=== PATIENT | male | born 1955 | race Caucasian/White ===

== ENCOUNTER 2019-11-18 06:28 | Emergency (ER) | payer OTHER, SELFPAY ==
[2019-11-18 06:33] VITALS: BP 114/74; PULSE 100; RESP 18; TEMP 36; O2SAT 100
--- NOTE | 2019-11-18 07:30 | PC.NURSE ---
Per EDP via verbal order readback. Remove Pt. indwelling catheter and replace it with a new one due to a possible obstruction. Change catheter. No clots noted. Copious amounts of sediment noted around the catheter tip. New indwelling catheter flowing appropriately. 200mls out of the bladder at this time.
--- NOTE | 2019-11-18 08:11 | ED.MALEGU ---
HPI - Male Genitourinary General Chief complaint: Urogenital-Male Stated complaint: clogged holden Time Seen by Provider: 11/18/19 07:04 History of Present Illness HPI Narrative: Patient is a 64-year-old male who presents the ER with a Holden catheter issue. 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 She is developing some suprapubic pressure. No dysuria. He is on a antibiotic for possible UTI. No fevers or chills at this time. He is without body aches. No blood in the urine.. Related Data Allergies Allergy/AdvReac Type Severity Reaction Status Date / Time cefuroxime Allergy Unknown Verified 11/17/12 14:43 lisinopril Allergy Unknown Verified 11/17/12 14:43 ADHESIVE TAPE AdvReac Severe LOCAL Uncoded 11/02/13 09:22 REACTION, RASH, ITCHING Review of Systems Review of Systems: All systems reviewed & are unremarkable except as noted in HPI and below Constitutional: Constitutional: Denies chills, Denies fever(s) and Denies weakness Gastrointestinal: Gastrointestinal: Reports abdominal pain, Denies nausea and Denies vomiting Genitourinary: Genitourinary: Denies hematuria, Reports oliguria and Denies dysuria PMFSH Past Medical History Medical History (Updated 11/18/19 @ 08:24 by Jarrod Griffin MD) Diabetes type 2, controlled GERD (gastroesophageal reflux disease) History of coronary artery disease History of left heart catheterization Myocardial infarction Peptic ulcer disease Renal cell carcinoma Surgical History Surgical History (Updated 11/18/19 @ 08:22 by Jarrod Griffin MD) H/O angioplasty H/O right nephrectomy Family History Family History (Updated 11/17/12 @ 14:45 by DOCTOR UNKNOWN) Other Diabetes mellitus Family history of cardiovascular disease Social History Social History (Updated 11/18/19 @ 08:22 by Jarrod Griffin MD) Social History: 40-year smoking history. Alcohol intake: current Exam Narrative: Exam Narrative: GENERAL: Well-appearing, well-nourished, and in no acute distress. HEAD: Normocephalic, atraumatic. CHEST: Clear to auscultation. No respiratory distress. HEART: Regular rate and rhythm. Normal peripheral pulses. ABDOMEN: Soft, mild suprapubic discomfort, nondistended : Normal-appearing penis with Holden coming from the urethra. No leakage around it. Holden bag with scant urine that has sediment. EXTREMITIES: Normal range of motion. No edema. SKIN: Warm, dry, no rash. NEURO: Alert and oriented x3. PSYCH: Normal mood and affect. Course Course Emergency Course: Holden exchange. 200 mL out. Urine sent for culture. Follow-up with his urologist. Vital Signs Vital signs: Vital Signs Temperature 96.8 F L 11/18/19 06:33 Pulse Rate 100 11/18/19 06:33 Respiratory Rate 18 11/18/19 06:33 Blood Pressure 114/74 11/18/19 06:33 Pulse Oximetry 100 11/18/19 06:33 Temperature 96.8 F L 11/18/19 06:33 Pulse Rate 100 11/18/19 06:33 Respiratory Rate 18 11/18/19 06:33 Blood Pressure 114/74 11/18/19 06:33 Pulse Oximetry 100 11/18/19 06:33 MDM - Male Genitourinary Lab Data Labs: Lab Results 11/18/19 Range/Units 08:00 Urine Color Pending Urine Appearance Pending Urine pH Pending Ur Specific [place] Pending Urine Protein Pending Urine Glucose (UA) Pending Urine Ketones Pending Ur Blood (Man) Pending Urine Nitrate Pending Urine Bilirubin Pending Urine Urobilinogen Pending Leukocyte Esterase Rfl Pending Discharge Plan Discharge Clinical Impression: Complication of Holden catheter Patient Disposition: Home, Self-Care Condition: Stable Instructions: Holden Catheter Placement and Care (ED) Additional Instructions: Return to the ER if you have fever over 100.4 ?F, your urine is not draining through your catheter, or you have other concerns
[2019-11-18 08:12] LABS: Add Urine Microscopic? YES; Appearance Urine Cloudy (Clear); Bacteria Urine Trace /hpf; Bilirubin Urine Negative (Negative); Blood Urine 3+ (Negative); Budding Yeast Urine Present /hpf; Color Urine Yellow (Yellow); Glucose Urine UA 3+ mg/dL (Negative); Ketones Urine Negative (Negative); Leukocyte Esterase Ur 3+ LEU/UL (Negative); Nitrate Urine Negative (Negative); Protein Urine 2+ mg/dL (Negative); RBC Urine >75 /hpf (0-2); Specific Grav Ur 1.016 (1.001-1.035); Urobilinogen Urine Negative mg/dL (<2.0); WBC Clumps Urine Present /HPF; WBC Urine >75 /hpf
[2019-11-18 08:38] VITALS: BP 117/67; PULSE 98; RESP 14; O2SAT 99
--- NOTE | 2019-11-18 08:46 | PC.NURSE ---
Pt. offered leg bag for catheter and Pt. refused.
== END 2019-11-18 08:40 | disposition home or self-care (01) ==
PROVIDERS: Emergency Provider Emergency Medicine
DX: T83.098A Other mechanical complication of other urinary catheter, initial encounter (principal); Z90.5 Acquired absence of kidney; R39.0 Extravasation of urine; Z93.6 Other artificial openings of urinary tract status; K21.9 Gastro-esophageal reflux disease without esophagitis; I25.10 Atherosclerotic heart disease of native coronary artery without angina pectoris; I25.2 Old myocardial infarction; Z87.11 Personal history of peptic ulcer disease; Z98.61 Coronary angioplasty status; Z87.891 Personal history of nicotine dependence
CPT/HCPCS: 51702; 81001; 87086; 99283

== ENCOUNTER 2020-01-17 14:17 | Outpatient (CLI) | payer OTHER, SELFPAY ==
--- NOTE | ~2020-01-17 | CT_ITS ---
EXAMINATION: CT abdomen pelvis wo con EXAM DATE: 01/17/2020 14:49 INDICATION: Right-sided kidney cancer. Persistent drainage. TECHNIQUE: Spiral CT of the abdomen and pelvis was performed without contrast. Axial, coronal and sag ittal images were reviewed. The dose-length product (DLP) for this examination was 291.01 mGy-cm. T he exposure was tailored according to patient size (auto mA exposure control), and iterative reconstr uction (ASIR) was used as additional dose reduction technique. Comparison is made to prior examinatio n from 03/24/2019. FINDINGS: Patient has had right-sided nephrectomy. There is small pocket of fluid and gas in the neph rectomy bed. There are scattered small of free intraperitoneal gas. There is midline incisional defec t without dehiscence. Small foci of gas in the incision defect. Mild prostatomegaly. No left hydronep hrosis or nephrolithiasis. The bladder is unremarkable. The liver, spleen, adrenal glands and pancre as are unremarkable. Gallbladder is unremarkable. No biliary obstruction. There is no retroperiton eal or pelvic lymphadenopathy. There is moderate scattered arteriosclerotic disease. The appendix is normal. The stomach and small bowel are unremarkable. There is moderate amount of c olonic stool. No free intraperitoneal gas. The heart is normal in size. There are no pericardial or pleural effusions. The lung bases are unremarkable. There are no osteoblastic or osteolytic les ions identified. IMPRESSION: 1. Small pocket of fluid and gas in the right nephrectomy bed. Small amount of free intraperitoneal gas. 2. Moderate amount of colonic stool, consider constipation. 3. Mild prostatomegaly. 4. No evidence of abdominal wall dehiscence. Reviewed, dictated and finalized at location A.
== END 2020-01-17 14:18 | disposition home or self-care (01) ==
PROVIDERS: Visit Provider Urology
DX: C64.1 Malignant neoplasm of right kidney, except renal pelvis (principal); N40.0 Benign prostatic hyperplasia without lower urinary tract symptoms
CPT/HCPCS: 74176

== ENCOUNTER 2022-06-26 09:09 | Outpatient (CLI) | payer MEDICARE, OTHER, SELFPAY ==
[2022-06-26 09:58] LABS: Alanine Aminotransferase 18 U/L (6-50); Albumin Level 4.4 g/dL (3.5-5.1); Alkaline Phosphatase 58 U/L (38-126); Anion Gap 7 mmol/L (8-16); Aspartate Amino Transferase 28 U/L (17-59); Bilirubin,Total 0.9 mg/dL (0.2-1.3); Blood Urea Nitrogen 24 mg/dL (9-20); Calcium 8.9 mg/dL (8.4-10.2); Carbon Dioxide 30 mmol/L (22-30); Chloride 105 mmol/L (98-107); Cholesterol 129 mg/dL (0-200); Estimated Glomerular Filt Rate 32; Glucose 110 mg/dL (65-110); HDL Direct 46 mg/dL; Potassium 4.1 mmol/L (3.4-5.0); Sodium 142 mmol/L (137-145); Triglycerides 120 mg/dL (<150)
[2022-06-26 10:30] LABS: MALB Creatinine Ratio 21.9 mg/g (0-30); Microalbumin Urine Random 34.1 mg/L (0-16.7)
[2022-06-26 10:31] LABS: LDL Cholesterol Direct 58 mg/dL
[2022-06-26 10:39] LABS: Free T4 Free Thyroxine 1.19 ng/mL (0.78-2.19); Vitamin D 25 Hydroxy 33.3 ng/mL
== END 2022-06-26 09:10 | disposition home or self-care (01) ==
PROVIDERS: PCP Nurse Practitioner Family; Visit Provider Nurse Practitioner Family
DX: E11.9 Type 2 diabetes mellitus without complications (principal); E78.5 Hyperlipidemia, unspecified; I10 Essential (primary) hypertension
CPT/HCPCS: 36415; 80053; 80061; 82043; 82306; 82607; 84439; 84443

== ENCOUNTER 2022-09-24 13:50 | Outpatient (CLI) | payer MEDICARE, OTHER, SELFPAY ==
[2022-09-24 14:42] LABS: Hemoglobin 16.6 g/dL (14.0-18.0); Mean Corpuscular HGB Conc 31.9 g/dl (32-36); Mean Corpuscular Volume 93.9 fl (80-100); Mean Platelet Volume 9.8 fl (7.4-10.4); Platelet Count Result 165 k/mm3 (150-375); Red Blood Count 5.54 M/mm3 (4.6-6.20); Red Cell Distribution Width 14.2 % (11.5-14.5); White Blood Count 4.4 K/mm3 (4.5-10.0)
[2022-09-24 15:10] LABS: Parathyroid Intact 44.3 pg/mL (7.5-53.5)
[2022-09-24 15:58] LABS: Albumin Level 4.4 g/dL (3.5-5.1); Anion Gap 10 mmol/L (8-16); Blood Urea Nitrogen 34 mg/dL (9-20); Calcium 8.9 mg/dL (8.4-10.2); Carbon Dioxide 27 mmol/L (22-30); Chloride 101 mmol/L (98-107); Estimated Glomerular Filt Rate 36; Glucose 230 mg/dL (65-110); Phosphorus 3.5 mg/dL (2.5-4.5); Potassium 4.3 mmol/L (3.4-5.0); Sodium 138 mmol/L (137-145)
[2022-09-24 18:10] LABS: Creatinine Urine 55.2 mg/dL; Total Protein Urine Random 9 mg/dL; Ur Ttl Prot Creatinine Ratio 0.16 mg/mg (0-0.20)
== END 2022-09-24 13:51 | disposition home or self-care (01) ==
PROVIDERS: Visit Provider Internal Medicine Nephrology
DX: E78.5 Hyperlipidemia, unspecified (principal); N18.32 Chronic kidney disease, stage 3b
CPT/HCPCS: 36415; 80069; 82570; 83970; 84156; 85027

== ENCOUNTER 2023-01-26 13:05 | Outpatient (CLI) | payer MEDICARE, OTHER, SELFPAY ==
[2023-01-26 14:19] LABS: Hematocrit 50.5 % (42.0-52.0); Hemoglobin 15.8 g/dL (14.0-18.0); Mean Corpuscular HGB Conc 31.3 g/dl (32-36); Mean Corpuscular Hemoglobin 29.1 pg (26-34); Mean Platelet Volume 10.1 fl (7.4-10.4); Platelet Count Result 183 k/mm3 (150-375); Red Blood Count 5.43 M/mm3 (4.6-6.20); Red Cell Distribution Width 14.9 % (11.5-14.5); White Blood Count 4.4 K/mm3 (4.5-10.0)
[2023-01-26 14:31] LABS: Anion Gap 6 mmol/L (8-16); Blood Urea Nitrogen 35 mg/dL (9-20); Carbon Dioxide 28 mmol/L (22-30); Chloride 99 mmol/L (98-107); Estimated Glomerular Filt Rate 32; Glucose 286 mg/dL (65-110); Phosphorus 3.4 mg/dL (2.5-4.5); Potassium 4.4 mmol/L (3.4-5.0); Sodium 133 mmol/L (137-145)
[2023-01-26 14:41] LABS: Creatinine Urine 56.7 mg/dL; Total Protein Urine Random 6 mg/dL; Ur Ttl Prot Creatinine Ratio 0.11 mg/mg (0-0.20)
[2023-01-26 14:42] LABS: Parathyroid Intact 50.9 pg/mL (7.5-53.5)
== END 2023-01-26 13:06 | disposition home or self-care (01) ==
LOC: ANHLAB 13:07
PROVIDERS: Visit Provider Internal Medicine Nephrology
DX: N18.32 Chronic kidney disease, stage 3b (principal)
CPT/HCPCS: 36415; 80069; 82570; 83970; 84156; 85027

== ENCOUNTER 2023-07-23 13:35 | Outpatient (CLI) | payer MEDICARE, OTHER, SELFPAY ==
[2023-07-23 14:00] LABS: Hematocrit 50.7 % (42.0-52.0); Hemoglobin 16.2 g/dL (14.0-18.0); Mean Corpuscular Hemoglobin 29.9 pg (26-34); Mean Corpuscular Volume 93.7 fl (80-100); Mean Platelet Volume 9.7 fl (7.4-10.4); Platelet Count Result 160 k/mm3 (150-375); Red Blood Count 5.41 M/mm3 (4.6-6.20); Red Cell Distribution Width 14.6 % (11.5-14.5); White Blood Count 4.2 K/mm3 (4.5-10.0)
[2023-07-23 14:09] LABS: Creatinine Urine 39.9 mg/dL; Total Protein Urine Random 9 mg/dL; Ur Ttl Prot Creatinine Ratio 0.23 mg/mg (0-0.20)
[2023-07-23 14:13] LABS: Albumin Level 4.2 g/dL (3.5-5.1); Anion Gap 8 mmol/L (8-16); Blood Urea Nitrogen 31 mg/dL (9-20); Calcium 9.2 mg/dL (8.4-10.2); Carbon Dioxide 27 mmol/L (22-30); Chloride 103 mmol/L (98-107); Estimated Glomerular Filt Rate 36; Glucose 288 mg/dL (65-110); Phosphorus 3.9 mg/dL (2.5-4.5); Potassium 4.2 mmol/L (3.4-5.0); Sodium 138 mmol/L (137-145)
[2023-07-23 14:24] LABS: Parathyroid Intact 48.9 pg/mL (7.5-53.5)
== END 2023-07-23 13:36 | disposition home or self-care (01) ==
LOC: ANHLAB 13:36
PROVIDERS: Visit Provider Internal Medicine Nephrology
DX: N18.32 Chronic kidney disease, stage 3b (principal)
CPT/HCPCS: 36415; 80069; 82570; 83970; 84156; 85027

== ENCOUNTER 2023-08-22 13:58 | Emergency (ER) | payer MEDICARE, OTHER, SELFPAY ==
--- NOTE | ~2023-08-22 | XR_ITS ---
EXAMINATION: XR forearm LT 2V DATE: 08/22/2023 16:03 INDICATION: Left forearm dog bite. Cellulitis. TECHNIQUE: 2 views of left forearm were obtained. COMPARISON: None. FINDINGS: Bone alignment is normal. No fracture. There is moderate osteoarthritis of first carpometac arpal joint.. No elbow joint effusion. IMPRESSION: 1. No fracture or radiopaque foreign body. Reviewed, dictated and finalized at location E.
[2023-08-22 14:12] VITALS: BP 158/80; PULSE 61; RESP 18; TEMP 36.4; O2SAT 100
--- NOTE | 2023-08-22 15:11 | ED.ANIMALBIT ---
HPI - Animal Bite General Chief Complaint: Animal Bite Stated Complaint: Dog bite Time Seen by Provider: 08/22/23 15:10 Source: patient Mode of arrival: ambulatory Limitations: no limitations History of Present Illness HPI narrative: Zach is a 68-year-old male patient presenting to the ER today with complaints of a dog bite that occurred on the . Patient reports that it was his own dog who bit him and the dog is up-to-date on immunizations. Reports that he thought he could take care of it on his own however the bite to his left forearm is now causing redness and swelling from the elbow to the wrist. He denies any fever, chills, body aches. Related Data Home Medications Medication Instructions Recorded Confirmed aspirin 81 mg chewable tablet 81 mg PO DAILY 10/03/20 08/04/23 atenolol 50 mg tablet 50 mg PO DAILY 10/03/20 08/04/23 clopidogrel 75 mg tablet (Plavix) 75 mg PO DAILY 10/03/20 08/04/23 fexofenadine 60 mg tablet (Kim 60 mg PO Q12H 10/03/20 08/04/23 Allergy) multivitamin 1 tablet PO DAILY 10/03/20 08/04/23 clobetasol 0.05 % topical foam 1 applic topical DAILY PRN 12/18/21 08/04/23 triamcinolone acetonide 0.025 % 1 applic topical DAILY PRN 12/18/21 08/04/23 topical cream mv-min-vit C 1,000 ea PO DAILY 09/30/22 08/04/23 li-vvlrtnqtx-zbdspv-herb 124 50 mg efferves tablet (Airborne) vit cap PO 01/11/23 08/04/23 C,E,zinc,Dy-cjzxu-5-lutein-zeaxanthin 250 mg-2.5 mg-0.5 mg capsule Allergies Allergy/AdvReac Type Severity Reaction Status Date / Time cefuroxime AdvReac Unknown Swelling Verified 08/03/23 11:32 lisinopril AdvReac Unknown Swelling Verified 08/03/23 11:32 ADHESIVE TAPE AdvReac Severe LOCAL Uncoded 08/03/23 11:32 REACTION, RASH, ITCHING Review of Systems Review of Systems: Pertinent positives per HPI. Patient denies any fever, rash, headache, visual changes, dizziness, cough, runny nose, sore throat, shortness of breath, chest pain, palpitations, nausea, vomiting, diarrhea, constipation, abdominal pain, or any urinary issues. [facility] Past Medical History Medical History COVID-19 10/2021 GERD (gastroesophageal reflux disease) Hearing loss Heart disease History of coronary artery disease History of left heart catheterization Hx of migraines Hyperlipidemia Hypertension Myocardial infarction Peptic ulcer disease Renal cell carcinoma Shoulder symptoms with history of shoulder arthroplasty Trigger finger Type 2 diabetes mellitus Surgical History Surgical History H/O angioplasty H/O right nephrectomy History of total right knee replacement (TKR) S/P MCL repair Family History Family History Other Alcoholism Diabetes mellitus Family history of cardiovascular disease Heart disease Social History Social History Social History: 40-year smoking history. Smoking packs per day: 1 Smoking cigarettes per day: 20.0 Years smoked: 45 Smoking pack-years: 45.00 Smoking status: Former smoker Tobacco type: cigarettes Smoking end date: 09/01/19 Alcohol intake: current Alcohol use details: rarely Substance use: never Do You Feel Safe in your Home?: Yes Lack of Transportation: No Lack of Food: Never True Current Housing: I Have Housing Concerned About Future Housing: No Difficulty Paying Gas/Electric Bills: No Difficulty Paying for Meds: No Currently Unemployed: No Education: Bachelor's Degree Difficulty w/ Childcare or Family Care: No Living arrangements: with family Occupation/Education: retired Gender identity (if verbalized by the patient): Male Comments At the time of my signature, I reviewed and agree with the nursing past medical, surgical, social, and family history. There is n
[2023-08-22 15:30] VITALS: BP 141/75; PULSE 58; RESP 18; O2SAT 100
[2023-08-22 15:45] VITALS: BP 161/73; PULSE 61; O2SAT 95
[2023-08-22] MEDS: TETANUS,DIPHTHERIA,AC PERTUSSIS ADULT (0.5 ML) BOOSTRIX IM (16:45)
[2023-08-22 16:52] LABS: Basophils Percent Auto 0.5 % (0.2-1.2); Eosinophils Absolute Auto 0.1 K/mm3 (0-0.3); Eosinophils Percent Auto 2.3 % (0-4.4); Hematocrit 49.5 % (42.0-52.0); Hemoglobin 15.8 g/dL (14.0-18.0); Immature Granulocyte Absolute 0.02 K/mm3 (0.00-0.031); Immature Granulocyte Percent A 0.4 % (0-0.5); Lymphocytes Absolute Auto 1.33 K/mm3 (0.9-3.2); Lymphocytes Percent Auto 23.9 % (18.3-44.2); Mean Corpuscular HGB Conc 31.9 g/dl (32-36); Mean Corpuscular Hemoglobin 29.7 pg (26-34); Mean Platelet Volume 10.1 fl (7.4-10.4); Monocytes Absolute Auto 0.7 K/mm3 (0.1-0.6); Monocytes Percent Auto 13.3 % (2.6-8.5); Neutrophils Absolute Auto 3.3 K/mm3 (1.3-6.7); Neutrophils Percent Auto 59.6 % (45.5-73.1); Platelet Count Result 159 k/mm3 (150-375); Red Blood Count 5.32 M/mm3 (4.6-6.20); Red Cell Distribution Width 14.6 % (11.5-14.5); White Blood Count 5.6 K/mm3 (4.5-10.0)
[2023-08-22] MEDS: VANCOMYCIN 1,500 MG/NS 500 ML BAG 250 MG IVPB (16:57)
[2023-08-22 17:00] VITALS: BP 143/94; PULSE 61; O2SAT 100
[2023-08-22 17:04] LABS: Alanine Aminotransferase 13 U/L (6-50); Albumin Level 4.4 g/dL (3.5-5.1); Alkaline Phosphatase 65 U/L (38-126); Anion Gap 8 mmol/L (8-16); Aspartate Amino Transferase 24 U/L (17-59); Bilirubin,Total 0.9 mg/dL (0.2-1.3); Blood Urea Nitrogen 31 mg/dL (9-20); Calcium 9.7 mg/dL (8.4-10.2); Carbon Dioxide 27 mmol/L (22-30); Chloride 102 mmol/L (98-107); Estimated CRCL calculation 35 ml/min; Estimated Glomerular Filt Rate 38; Glucose 108 mg/dL (65-110); Potassium 4.2 mmol/L (3.4-5.0); Sodium 137 mmol/L (137-145)
[2023-08-22 17:05] LABS: Lactic Acid Reflex 1.1 mmol/L (0.7-2.0)
[2023-08-22 18:00] VITALS: BP 129/67; PULSE 67; RESP 20; O2SAT 97
[2023-08-22 19:00] VITALS: BP 131/79; PULSE 65; O2SAT 95
== END 2023-08-22 19:12 | disposition home or self-care (01) ==
PROVIDERS: Emergency Provider Nurse Practitioner Family
DX: S51.852A Open bite of left forearm, initial encounter (principal); L03.114 Cellulitis of left upper limb; I12.9 Hypertensive chronic kidney disease with stage 1 through stage 4 chronic kidney disease, or unspecified chronic kidney disease; E11.22 Type 2 diabetes mellitus with diabetic chronic kidney disease; N18.32 Chronic kidney disease, stage 3b; Z23 Encounter for immunization; I25.10 Atherosclerotic heart disease of native coronary artery without angina pectoris; I25.2 Old myocardial infarction; E78.5 Hyperlipidemia, unspecified; K21.9 Gastro-esophageal reflux disease without esophagitis; Z96.651 Presence of right artificial knee joint; Z98.61 Coronary angioplasty status; Z87.11 Personal history of peptic ulcer disease; Z85.528 Personal history of other malignant neoplasm of kidney; Z86.16 Personal history of COVID-19; Z87.891 Personal history of nicotine dependence; Z90.5 Acquired absence of kidney; Z79.82 Long term (current) use of aspirin; Z79.84 Long term (current) use of oral hypoglycemic drugs; W54.0XXA Bitten by dog, initial encounter
CPT/HCPCS: 36415; 73090; 80053; 83605; 85025; 87040; 90471; 90715; 96365; 96366; 99284; J3370

== ENCOUNTER 2023-10-01 13:37 | Outpatient (CLI) | payer MEDICARE, OTHER, SELFPAY ==
--- NOTE | ~2023-10-01 | XR_ITS ---
Clinical Indication: Renal neoplasm PA and lateral views of the chest: Comparison: None Findings: The lungs are clear, without evidence of focal consolidation or pleural effusion. Cardiome diastinal silhouette is within normal limits. Bones and soft tissues are unremarkable. Impression: Normal chest. Reviewed, dictated and finalized at location . Impression: Normal chest.
== END 2023-10-01 13:38 | disposition home or self-care (01) ==
LOC: ANHIMG 13:39
PROVIDERS: Visit Provider Urology
DX: C64.1 Malignant neoplasm of right kidney, except renal pelvis (principal); N43.40 Spermatocele of epididymis, unspecified
CPT/HCPCS: 71046

== ENCOUNTER 2023-10-12 13:32 | Outpatient (CLI) | payer MEDICARE, OTHER, SELFPAY ==
--- NOTE | ~2023-10-12 | US_ITS ---
US scrotum doppler INDICATION: Scrotal pain TECHNIQUE: Testicular sonogram utilizing grayscale and color Doppler FINDINGS: The testes are normal in size and appearance. No focal lesions are seen. The right testes measures 3.8 x 2.2 x 3.4 cm centimeters, and the left testis measures 3.8 x 1.9 x 2.8 cm cm. There is normal vascular flow to both testes. The right and left epididymides appear normal. There are bilateral varicoceles. IMPRESSION: 1. Bilateral varicoceles. Reviewed, dictated and finalized at location B. IMPRESSION: 1. Bilateral varicoceles.
== END 2023-10-12 13:33 | disposition home or self-care (01) ==
PROVIDERS: Visit Provider Urology
DX: N43.40 Spermatocele of epididymis, unspecified (principal); I86.1 Scrotal varices
CPT/HCPCS: 76870; 93976

== ENCOUNTER 2023-11-25 17:30 | Emergency (ER) | payer MEDICARE, OTHER, SELFPAY ==
[2023-11-25 17:38] VITALS: BP 148/71; PULSE 96; RESP 18; TEMP 36.4; O2SAT 97
--- NOTE | 2023-11-25 17:38 | ED.URI ---
HPI - URI/Sore Throat General Chief Complaint: Upper Respiratory Infection Stated Complaint: sinus infection Time Seen by Provider: 11/25/23 17:38 Source: patient, RN notes reviewed and old records reviewed Mode of arrival: ambulatory Limitations: no limitations History of Present Illness HPI Narrative: 68-year-old male to [facility] for complaint of sore throat, runny nose, nasal congestion, cough and left maxillary sinus pain for 2 weeks. Patient endorses that sore throat has resolved but the maxillary sinus pain has become increasingly worse. Patient has attempted to treat at home with Mucinex with some relief. patient denies chest pain, shortness of breath, fever. Patient endorses history seasonal sinus infections and states of that left maxillary sinus pressure is the worst he has ever experienced. Patient able to tolerate fluids by mouth. Respirations even and nonlabored. Patient in no acute distress. Related Data Home Medications Medication Instructions Recorded Confirmed aspirin 81 mg chewable tablet 81 mg PO DAILY 10/03/20 10/25/23 clopidogrel 75 mg tablet (Plavix) 75 mg PO DAILY 10/03/20 10/25/23 fexofenadine 60 mg tablet (Kim 60 mg PO Q12H 10/03/20 10/25/23 Allergy) multivitamin 1 tablet PO DAILY 10/03/20 10/25/23 clobetasol 0.05 % topical foam 1 applic topical DAILY PRN 12/18/21 10/25/23 triamcinolone acetonide 0.025 % 1 applic topical DAILY 12/18/21 10/25/23 topical cream mv-min-vit C 1,000 ea PO DAILY 09/30/22 10/25/23 ht-axrzoyawi-yaecis-herb 124 50 mg efferves tablet (Airborne) vit cap PO 01/11/23 10/25/23 C,E,zinc,Kq-abzac-6-lutein-zeaxanthin 250 mg-2.5 mg-0.5 mg capsule Allergies Allergy/AdvReac Type Severity Reaction Status Date / Time cefuroxime AdvReac Unknown Swelling Verified 11/25/23 17:39 lisinopril AdvReac Unknown Swelling Verified 11/25/23 17:39 ADHESIVE TAPE AdvReac Severe LOCAL Uncoded 11/25/23 17:39 REACTION, RASH, ITCHING Review of Systems Review of Systems: All systems reviewed & are unremarkable except as noted in HPI and below Constitutional: Constitutional: Reports as per HPI and Denies fever(s) Eyes: Eyes: Reports no additional eye complaints ENT: Reports as per HPI, Reports nasal congestion, Reports nasal discharge, Reports sinus pressure ( Left maxillary) and Reports sore throat Cardiovascular: Cardiovascular: Reports no additional cardiovascular complaints, Denies chest pain and Denies dyspnea Respiratory: Respiratory: Reports no additional respiratory complaints, Reports cough and Denies dyspnea Musculoskeletal: Musculoskeletal: Reports no additional musculoskeletal complaints Neurologic: Reports system reviewed and no additional complaints, except as documented Psychiatric: Psychiatric: Reports no additional psychiatric complaints PMFSH Past Medical History Medical History COVID-19 10/2021 GERD (gastroesophageal reflux disease) Hearing loss Heart disease History of coronary artery disease History of left heart catheterization Hx of migraines Hyperlipidemia Hypertension Myocardial infarction Peptic ulcer disease Renal cell carcinoma Shoulder symptoms with history of shoulder arthroplasty Trigger finger Type 2 diabetes mellitus Surgical History Surgical History H/O angioplasty H/O right nephrectomy History of total right knee replacement (TKR) S/P MCL repair Family History Family History Other Alcoholism Diabetes mellitus Family history of cardiovascular disease Heart disease Social History Social History Social History: 40-year smoking history. Smoking packs per day: 1 Smoking cigarettes per day: 20.0 Years smoked: 45 Smoking pack-years: 45.[address]
[2023-11-25 17:40] VITALS: BP 148/71; PULSE 96; RESP 18; TEMP 36.4; O2SAT 97
== END 2023-11-25 18:03 | disposition home or self-care (01) ==
PROVIDERS: Emergency Provider Nurse Practitioner Family
DX: R05.9 Cough, unspecified (principal); Z87.891 Personal history of nicotine dependence; K21.9 Gastro-esophageal reflux disease without esophagitis; I25.10 Atherosclerotic heart disease of native coronary artery without angina pectoris; E78.5 Hyperlipidemia, unspecified; I10 Essential (primary) hypertension; I25.2 Old myocardial infarction; E11.9 Type 2 diabetes mellitus without complications; Z86.16 Personal history of COVID-19; Z85.528 Personal history of other malignant neoplasm of kidney; Z90.5 Acquired absence of kidney; Z96.651 Presence of right artificial knee joint; Z98.61 Coronary angioplasty status
CPT/HCPCS: 99213; G0463

== ENCOUNTER 2024-01-26 14:13 | Outpatient (CLI) | payer MEDICARE, OTHER, SELFPAY ==
[2024-01-26 14:47] LABS: Hematocrit 52.1 % (42.0-52.0); Hemoglobin 16.6 g/dL (14.0-18.0); Mean Corpuscular HGB Conc 31.9 g/dl (32-36); Mean Corpuscular Hemoglobin 29.4 pg (26-34); Mean Corpuscular Volume 92.4 fl (80-100); Mean Platelet Volume 9.3 fl (7.4-10.4); Platelet Count Result 167 k/mm3 (150-375); Red Blood Count 5.64 M/mm3 (4.6-6.20); Red Cell Distribution Width 15.1 % (11.5-14.5); White Blood Count 3.9 K/mm3 (4.5-10.0)
[2024-01-26 14:59] LABS: Albumin Level 4.3 g/dL (3.5-5.1); Anion Gap 10 mmol/L (4-12); Blood Urea Nitrogen 27 mg/dL (9-20); Calcium 9.3 mg/dL (8.4-10.2); Carbon Dioxide 30 mmol/L (22-30); Chloride 99 mmol/L (98-107); Estimated Glomerular Filt Rate 35; Glucose 224 mg/dL (65-110); Phosphorus 3.7 mg/dL (2.5-4.5); Potassium 4.2 mmol/L (3.4-5.0); Sodium 139 mmol/L (137-145)
[2024-01-26 15:01] LABS: Creatinine Urine 66.1 mg/dL; Total Protein Urine Random 8 mg/dL; Ur Ttl Prot Creatinine Ratio 0.12 mg/mg (0-0.20)
== END 2024-01-26 14:14 | disposition home or self-care (01) ==
PROVIDERS: Visit Provider Internal Medicine Nephrology
DX: E78.5 Hyperlipidemia, unspecified (principal); N18.32 Chronic kidney disease, stage 3b; E11.65 Type 2 diabetes mellitus with hyperglycemia
CPT/HCPCS: 36415; 80069; 82570; 83970; 84156; 85027

== ENCOUNTER 2024-03-24 14:15 | Outpatient (CLI) | payer MEDICARE, OTHER, SELFPAY ==
--- NOTE | ~2024-03-24 | XR_ITS ---
XR cervical spine 4-5V Ordering provider: Tim Desai MD History: . M54.2 - Cervicalgia . Comparison: January 03, 2005 FINDINGS: VERTEBRAL BODIES: Normal height and alignment. No visible fracture or subluxation. The dens is intact . Reversal of lordosis. DISK SPACES: Narrowing of the disc C3-C4, C6-C7 and C7-T1. Multilevel facet joint disease. Multilevel uncovertebral joint osteoarthritic changes. PARASPINOUS SOFT TISSUES: No prevertebral soft tissue swelling. IMPRESSION: No acute osseous abnormality cervical spine. Multilevel degenerative disc disease. Reviewed, dictated and finalized at location A.
== END 2024-03-24 14:16 | disposition home or self-care (01) ==
PROVIDERS: PCP Family Medicine; Visit Provider Family Medicine
DX: M50.33 Other cervical disc degeneration, cervicothoracic region (principal); M50.31 Other cervical disc degeneration, high cervical region; M50.323 Other cervical disc degeneration at C6-C7 level
CPT/HCPCS: 72050

== ENCOUNTER 2024-03-29 15:25 | Outpatient (CLI) | payer MEDICARE, OTHER, SELFPAY ==
--- NOTE | ~2024-03-29 | CT_ITS ---
EXAMINATION:CT lung screening DATE: 03/29/2024 15:51 INDICATION: Personal history of nicotine dependence. Smoker who quit 4 years ago with 47 pack year hi story. TECHNIQUE: Computed tomography (CT) of the chest was performed without intravenous contrast. Automate d exposure control and iterative reconstruction technique were employed. The dose-length product (DLP ) was 141.20 mGy-cm. COMPARISON: CT abdomen and pelvis 01/17/2020 FINDINGS: There is mild emphysema. There is mild atelectasis bilaterally. There are two 3 mm nodules in right upper lobe. There is a 2 mm nodule in left upper lobe. No pleural effusion. The heart size i s normal. There is an old infarct involving left ventricular apex and anterior and septal mercedes. Ther e are coronary artery calcifications. No pericardial effusion. There is a 4.2 cm cyst in left kidney. There is bilateral gynecomastia. There is mild thoracic spondylosis. There is mild chronic anterior wedging of multiple lower thoracic vertebral bodies. IMPRESSION: 1. Lung-RADS category 2: Benign appearance or behavior. Continue annual screening with noncontrast lo w-dose chest CT in 12 months. Reviewed, dictated and finalized at location A. IMPRESSION: 1. Lung-RADS category 2: Benign appearance or behavior. Continue annual screeni ng with noncontrast low-dose chest CT in 12 months.
== END 2024-03-29 15:26 | disposition home or self-care (01) ==
LOC: ANHIMG 15:26
PROVIDERS: PCP Family Medicine; Visit Provider Family Medicine
DX: Z12.2 Encounter for screening for malignant neoplasm of respiratory organs (principal); Z87.891 Personal history of nicotine dependence
CPT/HCPCS: 71271

== ENCOUNTER 2024-04-11 08:39 | Outpatient (CLI) | payer MEDICARE, OTHER, SELFPAY ==
[2024-04-11 09:53] LABS: Alanine Aminotransferase 18 U/L (6-50); Albumin Level 4.4 g/dL (3.5-5.1); Alkaline Phosphatase 94 U/L (38-126); Anion Gap 9 mmol/L (4-12); Aspartate Amino Transferase 25 U/L (17-59); Bilirubin,Total 1.1 mg/dL (0.2-1.3); Blood Urea Nitrogen 30 mg/dL (9-20); Calcium 9.4 mg/dL (8.4-10.2); Carbon Dioxide 29 mmol/L (22-30); Chloride 100 mmol/L (98-107); Cholesterol 142 mg/dL (0-200); Estimated Glomerular Filt Rate 38; Glucose 191 mg/dL (65-110); HDL Direct 48 mg/dL; Potassium 4.1 mmol/L (3.4-5.0); Sodium 138 mmol/L (137-145); Triglycerides 103 mg/dL (<150)
[2024-04-11 10:05] LABS: LDL Cholesterol Direct 70 mg/dL
== END 2024-04-11 08:40 | disposition home or self-care (01) ==
LOC: ANHLAB 08:41
PROVIDERS: PCP Family Medicine; Referring Provider Family Medicine; Visit Provider Internal Medicine Endocrinology, Diabetes & Metabolism
DX: E78.5 Hyperlipidemia, unspecified (principal); E11.65 Type 2 diabetes mellitus with hyperglycemia; I12.9 Hypertensive chronic kidney disease with stage 1 through stage 4 chronic kidney disease, or unspecified chronic kidney disease; E11.22 Type 2 diabetes mellitus with diabetic chronic kidney disease; N18.32 Chronic kidney disease, stage 3b; K21.9 Gastro-esophageal reflux disease without esophagitis; D75.1 Secondary polycythemia
CPT/HCPCS: 36415; 80053; 80061; 82607; 84443

== ENCOUNTER 2024-07-25 14:24 | Outpatient (CLI) | payer MEDICARE, OTHER, SELFPAY ==
[2024-07-25 14:50] LABS: Hematocrit 54.7 % (42.0-52.0); Hemoglobin 17.8 g/dL (14.0-18.0); Mean Corpuscular HGB Conc 32.5 g/dl (32-36); Mean Corpuscular Hemoglobin 28.8 pg (26-34); Mean Corpuscular Volume 88.7 fl (80-100); Mean Platelet Volume 9.4 fl (7.4-10.4); Platelet Count Result 178 k/mm3 (150-375); Red Blood Count 6.17 M/mm3 (4.6-6.20); Red Cell Distribution Width 14.4 % (11.5-14.5); White Blood Count 5.5 K/mm3 (4.5-10.0)
[2024-07-25 15:01] LABS: Creatinine Urine 67.5 mg/dL; Total Protein Urine Random 7 mg/dL
[2024-07-25 15:01] LABS: Albumin Level 4.4 g/dL (3.5-5.1); Anion Gap 11 mmol/L (4-12); Blood Urea Nitrogen 29 mg/dL (9-20); Calcium 9.1 mg/dL (8.4-10.2); Carbon Dioxide 29 mmol/L (22-30); Chloride 101 mmol/L (98-107); Estimated Glomerular Filt Rate 41; Glucose 171 mg/dL (65-110); Phosphorus 3.7 mg/dL (2.5-4.5); Potassium 4.5 mmol/L (3.4-5.0); Sodium 141 mmol/L (137-145)
[2024-07-25 15:11] LABS: Parathyroid Intact 51.9 pg/mL (14.5-75.2)
--- OUTSIDE RECORDS SUMMARY | 2024-07-25 15:12 | XMS_ITS | Clinical Summary ---
Author Organization [facility] Address [address] [place] [address] Care Team Providers Care Supervisor Instrument Maintenance Name Role Phone Lloyd Oconnor MD Primary Care Provider [phone] Allergies Active Allergy Reactions Criticality Noted Date Comments Cefuroxime Swelling Medium 06/08/2020 Swelling of lips and tongue Swelling of lips and tongue Lisinopril Swelling Medium 06/08/2020 Swelling of lips and tongue Swelling of lips and tongue Tape Itching,Rash Medium 08/09/2019 Medications clopidogrel 75 MG tablet Take 1 tablet by mouth nightly. Will hold 5 days prior to surgery- per agricultural engineering technologist note 0 Active aspirin EC (ASPIRIN EC) 81 MG tablet Take 81 mg by mouth nightly. Keep taking as normal per agricultural engineering technologist note (do not hold for surgery) Active pioglitazone 45 MG tablet Take 1 tablet by mouth nightly. 0 Active metFORMIN 500 MG tablet Take 500 mg by mouth 2 (two) times daily with meals. Active atenolol 50 MG tablet Take 1 tablet by mouth nightly. 0 Active pravastatin 40 MG tablet Take 1 tablet by mouth nightly. 0 Active empagliflozin 25 MG tablet Take 25 mg by mouth daily. Active fenofibrate 54 MG tablet Take 1 tablet by mouth daily. 0 Active fexofenadine 180 MG tablet Take 1 tablet by mouth daily. 0 Active repaglinide 0.5 MG tablet Take 1 mg by mouth 2 (two) times a day. 1 Active vitamin B-12 100 MCG tablet Take 1,000 mcg by mouth daily. Active Multiple Vitamins-Minera ls (PRESERVISION AREDS 2 OR) Take 1 tablet by mouth daily. Active HYDROcodone-shyam taminophen 5-325 MG tabletIndicatio ns:Acute Pain < 7 Day Supply Take 1-2 tablets by mouth every 6 (six) hours as needed. Indications: Acute Pain < 7 Day Supply 20 tablet 1 Active acetaminophen 325 MG tabletIndicatio ns:Ventral incisional hernia without obstruction or gangrene Take 2 tablets (650 mg total) by mouth every 4 (four) hours as needed for Pain. For Mild Pain or Fever 1 Active Active Problems Problem Noted Date Diagnosed Date Ventral incisional hernia without obstruction or gangrene 11/27/2020 Family History Medical History Relation Comments Stroke Brother Cancer Father lung Diabetes Father Heart Disease Father cad Heart Disease Mother mi Cancer Sister 1 lung Cancer Sister 2 breast Hypertension Sister 2 Cancer Sister 3 uterine Hypertension Sister 3 Relation Status Comments Brother Father Mother Sister 1 Sister 2 Sister 3 Social History Tobacco Use Types Packs/Day Years Used Date Smoking Tobacco: Former Cigarettes 1 44 0 09/01/1975 - 09/01/2019 Smokeless Tobacco: Never Alcohol Use Standard Drinks/Week Comments Not Currently 0 (1 standard drink = 0.6 oz pur e alcohol) rare Sex and Gender Information Value Date Recorded Sex Assigned at Not on file Legal Sex Male 6:37 PM CDT Gender Identity Not on file Sexual Orientation Not on file Last Filed Vital Signs Vital Sign Reading Time Taken Comments Blood Pressure 142/82 11/30/2020 4:51 AM CDT Pulse 72 11/30/2020 4:51 AM CDT Temperature 36.5 C (97.7 F) 11/30/2020 4:51 AM CDT Respiratory Rate 20 11/30/2020 4:51 AM CDT Oxygen Saturation 94% 11/30/2020 4:51 AM CDT Inhaled Oxygen Concentration - - Weight 86 kg (189 lb 9.5 oz) 11/27/2020 6:30 AM CDT Height 172.7 cm (5' 8 ) 11/27/2020 6:30 AM CDT Body Mass Index 28.83 11/27/2020 6:30 AM CDT Plan of Treatment Health Maintenance Due Date Last Done Comments Colorectal Cancer Screening Colonoscopy (10 Years) 1955 Hepatitis C 01/17/1974 DTaP, Tdap and Td Vaccines ( 1 - Tdap) 01/17/1975 Zoster Vaccines (1 of 2) 01/17/2006 Pneumococcal Vaccine: 65+ Ye ars (1 of 1 - PCV) 01/17/2021 02/13/2016 COVID-19 Vaccine (1 - 2023-2 5 season) 2024 Influenza Adult (#1) 2024 03/15/2020 RSV Immunization or 60+ Years (1 - 1-dose 75+ series) 01/17/2031 Meningococcal B Vaccine Aged Out No l onger eligible based on patient's age to complete this topic Meningococcal Vaccine Aged Out No mary nick eligible based on patient's age to complete this topic RSV Immunizations Under 20 Months Aged Out No longer eligible based on patient's age to complete this topic Goals Goal Patient Goal Type Associated Problems Recent Progress Patient-Stated? Author Safety - demonstrates understanding of home safety measures General No Chantal Boyd RN Medical Devices Implanted Type Area Force Variation Equipment Tender Device Identifier Shelf Expiration Date Model / Serial / Lot Mesh Surgical Ventralight St Sepra Echo Ps 6x4in Monofilament Absorbable Low Profile Sterile Seprafilm Polypropylene Hydrogel Ellipse Latex Free Ventral Hernia Repair - [id number] Implanted:Qty: 1 on 11/27/2020 by Isidro Akins MD at [facility] N/A: Abdomen [employer] - [employer] [id number] 06/10/2022 [id number] / / [id number] Insurance Advance Directives * Full Code (Latest Code Status on File) Date Activated Date Inactivated Comments 11/27/2020 2:24 PM 11/30/2020 2:48 PM Care Teams Supervisor Instrument Maintenance Relationship Specialty Start Date End Date Lloyd Oconnor MD [address] [place] [address] PCP - General INTERNAL MEDICINE 09/19/20
--- OUTSIDE RECORDS SUMMARY | 2024-07-25 15:12 | XMS_ITS | Encounter Summary ---
Author Organization [facility] Address [address] [place] [address] Care Team Providers Care Equipment Engineering Technician Name Role Phone Johnny Rodríguez MD Unavailable [phone] Miscellaneous, Not In File Primary Care Provider Unavailable [facility] Primary Care Provider [phone] No, Physician Primary Care Provider [phone] Tim Desai MD Primary Care Provider [phone] Encounter Details Date Type Department Care Team (Late st Contact Info) Description 06/21/2020 Telephone [facility] - [facility] [address] [place] [address] Transcribed Order, Provider Social History Tobacco Use Types Packs/Day Years Used Date Smoking Tobacco: Former Cigarettes 1 40 0 09/01/1979 - 09/01/2019 Smokeless Tobacco: Never Alcohol Use Standard Drinks/Week Comments Not Currently 0 (1 standard drink = 0.6 oz pur e alcohol) Sex and Gender Information Value Date Recorded Sex Assigned at Not on file Legal Sex Male 11:09 AM PARTY PLANNER Gender Identity Not on file Sexual Orientation Not on file documented as of this encounter Plan of Treatment Not on file documented as of this encounter Visit Diagnoses Not on filedocumented in this encounter Care Teams Equipment Engineering Technician Relationship Specialty Start Date End Date Miscellaneous, Not In File PCP - General 12/19/19 1 [facility] [address] [place] [address] PCP - General 12/18/20 06/22/22 No, Physician PCP - General 06/23/22 05/24/24 Tim Desai MD [address] [place] [address] PCP - General Family Practice 05/25/24 Johnny Rodríguez MD Consulting Physician Urology 10/02/19 documented as of this encounter
--- OUTSIDE RECORDS SUMMARY | 2024-07-25 15:12 | XMS_ITS | Clinical Summary ---
Author Organization [facility] [address] Address [address] [place] [address] Care Team Providers Care Monitor Tech Name Role Phone Johnny Rodríguez MD Unavailable [phone] Tim Desai MD Primary Care Provider [phone] Allergies Active Allergy Reactions Criticality Noted Date Comments Adhesive Itching,Rash Medium 08/09/2019 Cefuroxime Swelling Medium Swelling of lips and tongue Lisinopril Swelling Medium Swelling of lips and tongue Medications triamcinolone (KENALOG) 0.1 % cream apply by topical route 2 times every day a thin layer to the affected area(s) 0 0 10/24/2013 Active empagliflozin (JARDIANCE) 25 mg tabletIndicatio ns:type 2 diabetes mellitus Take 1 tablet (25 mg total) by mouth every morning Active pravastatin (PRAVACHOL) 40 mg tablet Take 1 tablet (40 mg total) by mouth nightly Active fenofibrate (TRICOR) 54 mg tablet Take 1 tablet (54 mg total) by mouth every morning Active pioglitazone (ACTOS) 45 mg tabletIndicatio ns:type 2 diabetes mellitus Take 1 tablet (45 mg total) by mouth nightly Active fexofenadine (WADE) 180 mg tablet Take 1 tablet (180 mg total) by mouth nightly Active metFORMIN (GLUCOPHAGE) 500 mg tablet Take 1 tablet (500 mg total) by mouth daily Active multivitamin capsule Take 1 capsule by mouth daily Active aspirin 81 mg enteric coated tablet Take 1 tablet (81 mg total) by mouth daily 90 tablet 3 09/03/2023 Active clopidogreL (PLAVIX) 75 mg tablet Take 1 tablet (75 mg total) by mouth daily 90 tablet 3 09/03/2023 Active insulin glargine 100 unit/mL vial for injection Inject under the skin nightly Active insulin lispro (HumaLOG, ADMELOG) 100 unit/mL pen for injection Inject under the skin Active Active Problems Problem Noted Date Diagnosed Date History of coronary artery stent placement 11/11 Moderate malnutrition (CMS/HCC) 09/23/2019 Retroperitoneal fluid collection 09/21/2019 Right renal mass 07/26/2019 Overview (07/26/2019): Added automatically from request for surgery [id number] Coronary artery disease invo lving hoonah coronary artery of hoonah heart without angina pectoris 04/27/2017 Hyperlipidemia 04/11/2013 Overview (09/17/2016): Hyperlipidemia Hypertension 04/11/2013 Overview (09/17/2016): Hypertension Type 2 diabetes mellitus 12/06/2012 Overview (09/17/2016): DMII WO CMP UNCNTRLD Encounters Date Type Department Care Team Description 07/08/2024 2:54 PM MULTIPLE COIL WINDER - 07/08/2024 11:59 PM MULTIPLE COIL WINDER Hospital Encounter [facility] - Imaging [address] [place] [id number] Malignant neoplasm of right kidney, except renal pelvis (HCC) Discharge Disposition: Discharge to home or self care 06/02/2024 Community Orders [facility] EpicCare Link Johnny Rodríguez MD Malignant neoplasm of right kidney, except renal pelvis (HCC) (Primary Dx) 05/31/2024 Orders Only [facility] Cardiology [address] [place] [address] Geoff Dockery MD 05/25/2024 2:45 PM MULTIPLE COIL WINDER Office Visit [facility] Cardiology at [address] [place] [address] Pasquale Richard MD History of coronary artery stent placement (Primary Dx); Coronary artery disease involving hoonah coronary artery of hoonah heart without angina pectoris from Last 3 Months Surgical History Surgery Date Site/Laterality Comments HAND SURGERY hand surgery CARDIAC CATHETERIZATION KNEE ARTHROSCOPY 06/14/1993 - 06/13/1994 Left knee repair SHOULDER ARTHROSCOPY Right shoulder repair LAPAROSCOPIC PARTIAL NEPHRECTOMY 09/01/2019 Right IMAGE GUIDED DRAINAGE PERITONEAL OR RETROPERITONEAL FLUID COLLECTION 09/22/2019 N/A ABSCESS TUBE EXCHANGE 09/28/2019 N/A ABSCESS CATHETER INJECTION 10/30/2019 N/A ABSCESS TUBE EXCHANGE 11/15/2019 N/A ABDOMINAL SURGERY November 2020 ANGIOPLASTY Jul 2001 CATARACT EXTRACTION HERNIA REPAIR November 2020 VASECTOMY July 1985 Medical History Medical History Date Comments PONV (postoperative nausea and vomiting) Chronic coronary artery disease 2004 Left anterior descending PCI, follows with Dr. Pasquale Richard Diabetes (HCC) Hyperlipidemia Hypertension Renal cell adenocarcinoma, right (HCC) Identified on abdominal CT scan for pancreatitis last fall Continuous tobacco abuse Cataract Heart disease Family History Medical History Relation Name Comments Cancer Father Wander Ortiz Coronary artery disease Father Wander Ortiz Cor onary Artery Disease; Diabetes Father Wander Ortiz Lung cancer Father Wander Ortiz Heart attack Mother Kiara Ortiz Myocardial Inf arction; Cause of : Myocardial Infarction Lung cancer Other 1 Family history of Cancer, lung; Diabetes Other 2 Family history of Diabetes mellitus; Heart disease Other 3 Family history of Heart disease; Hypertension Other 4 Family history of Hypertension; Cancer Sister 1 Nancy Ortiz Cancer Sister 2 Mona Kirkland Relation Name Status Comments Father Wander Ortiz Mother Kiara Ortiz Other 1 Other 2 Other 3 Other 4 Sister 1 Nancy Ortiz Sister 2 Mona Kirkland Social History Tobacco Use Types Packs/Day Years Used Date Smoking Tobacco: Former Cigarettes 1 40 0 09/01/1979 - 09/01/2019 Smokeless Tobacco: Never Tobacco Cessation:Counseling Given: Not Answered Alcohol Use Standard Drinks/Week Comments Not Currently 0 (1 standard drink = 0.6 oz pur e alcohol) Sex and Gender Information Value Date Recorded Sex Assigned at Not on file Legal Sex Male 11:09 AM MULTIPLE COIL WINDER Gender Identity Not on file Sexual Orientation Not on file Obstetrics History Last Filed Vital Signs Vital Sign Reading Time Taken Comments Blood Pressure 138/80 05/25/2024 2:51 PM MULTIPLE COIL WINDER Pulse 82 05/25/2024 2:51 PM MULTIPLE COIL WINDER Temperature 36.9 C (98.4 F) 12/22/2019 5:35 AM CDT Respiratory Rate 14 12/22/2019 5:35 AM CDT Oxygen Saturation 97% 05/25/2024 2:51 PM MULTIPLE COIL WINDER Inhaled Oxygen Concentration - - Weight 85.3 kg (188 lb) 07/08/2024 3:19 PM MULTIPLE COIL WINDER Height 172.7 cm (5' 8 ) 07/08/2024 3:19 PM MULTIPLE COIL WINDER Body Mass Index 28.59 07/08/2024 3:19 PM MULTIPLE COIL WINDER Plan of Treatment Health Maintenance Due Date Last Done Comments Albumin Creatinine Ratio, Urine 1955 Colon Cancer Screening-Colonoscopy 1955 Depression Screening 1955 Hepatitis C Screening 1955 Prostate Cancer Screening-PSA 1955 Foot Exam 1955 Hepatitis B Screening 01/17/1974 Lung Cancer Screening 01/17/2006 Zoster Vaccine (1 of 2) 01/17/2006 Dilated Eye Exam 08/09/2018 08/09/2017 Hemoglobin A1C 06/07/2020 12/07/2019, 08/09/2019 Fall Risk Assessment 12/21/2020 12/22/2019 eGFR 12/21/2020 12/22/2019, 07/0 02/2020, 12/20/2019, Additional history exists Abdominal Aortic Aneurysm (A AA) Screen 01/17/2021 Pneumococcal vaccine 65+ (3 of 3 - PPSV23 or PCV20) 01/17/2021 02/13/2016, 04/06/2008 Well Visit 65+ 01/17/2021 Influenza Vaccine (#1) 2024 , 03/15/2020, 04/06/2019, Additional history exists Lipid Panel 04/11/2025 04/11/2024, 11/01/2023, 05/12/2022, Additional history exists DTaP/Tdap/Td Vaccine (2 - Td or Tdap) 03/17/2027 03/17/2017, 01/03/2005 Medical Devices Implanted Type Area Admin Asst Device Identifier Shelf Expiration Date Model / Serial / Lot [place] Ed 180-223 Contour 6fr 26cm Large Inner Lumen Low Profile Bladder Jp Taper Latex Free - Sn/A - [id number] Implanted:Qty: 1 on 09/26/2019 by Johnny Rodríguez MD at [facility] Stent Right: Ureter [employer] 05/21/2022 180-223 / N/A / [id number] [place] [employer] 180-223 Contour 6fr 26cm Large Inner Lumen Low Profile Bladder Jp Taper Latex Free - [id number] Implanted:Qty: 1 on 09/29/2019 by Edison Salvador MD at [facility] Stent Right: Ureter [place] [employer] 07/16/2022 180-223 / / [id number] Screws Left: Knee Procedures Procedure Name Priority Date/Time Associated Diagnosis Comments MRI ABDOMEN W WO CONTRAST Schedule Routine, Read Routine (OP Routine) 07/08/2024 4:02 PM MULTIPLE COIL WINDER Malignant neoplasm of right kidney, except renal pelvis (HCC) LIPID PANEL Routine 04/11/2024 11:05 AM CDT EGFR Routine 12/22/2019 1:41 AM CDT HEMOGLOBIN A1C Routine 12/07/2019 1:07 PM CDT Pre-op evaluation DIABETIC EYE EXAM Routine 08/09/2017 from Last 3 Months or Most Recently Relevant to Health Maintenance Results * MRI Abdomen W WO Contrast (07/08/2024 4:02 PM MULTIPLE COIL WINDER) Anatomical Region Laterality Modality Body N/A Magnetic Resonan ce 07/10/2024 10:5 9 AM MULTIPLE COIL WINDER Impressions 07/10/2024 2:52 PM MULTIPLE COIL WINDER No evidence of disease recurrence. Dictated by: Bryan Jeter MD The radiology attending physician has personally reviewed this study, and had reviewed and/or edited this written report and agrees with it. Electronically signed by: Jordana Paz M.D. 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 Protocol: Liver Contrast: Gadoterate Meglumine 18 mL COMPARISON: 07/13/2023 FINDINGS: Liver: No significant fat or iron deposition. - Bile ducts: No intrahepatic or extrahepatic biliary ductal dilation - Focal liver lesions: Scattered simple hepatic cysts. No suspicious liver lesion. - Vasculature: Portal and hepatic veins are patent Gallbladder: Normal Pancreas: Normal Spleen: Normal Adrenals: Normal Kidneys: The right kidney is surgically absent. No nodular enhancement in the nephrectomy bed. Simple renal cysts on the left. No hydronephrosis. Other Findings: Postsurgical changes of midline laparotomy. Colonic diverticulosis without diverticulitis. Lung bases are clear. No lymphadenopathy. 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 Protocol: Liver Contrast: Gadoterate Meglumine 18 mL COMPARISON: 07/13/2023 FINDINGS: Liver: No significant fat or iron deposition. - Bile ducts: No intrahepatic or extrahepatic biliary ductal dilation - Focal liver lesions: Scattered simple hepatic cysts. No suspicious liver lesion. - Vasculature: Portal and hepatic veins are patent Gallbladder: Normal Pancreas: Normal Spleen: Normal Adrenals: Normal Kidneys: The right kidney is surgically absent. No nodular enhancement in the nephrectomy bed. Simple renal cysts on the left. No hydronephrosis. Other Findings: Postsurgical changes of midline laparotomy. Colonic diverticulosis without diverticulitis. Lung bases are clear. No lymphadenopathy. IMPRESSION: No evidence of disease recurrence. Dictated by: Bryan Jeter MD The radiology attending physician has personally reviewed this study, and had reviewed and/or edited this written report and agrees with it. Electronically signed by: Jordana Paz M.D. Johnny Rodríguez MD IMG MRI PROCEDURES F inal Result * Lipid panel (04/11/2024 11:05 AM CDT) Blood [facility] Provider LAB BLOOD ORDERABLES Dorie l Result * eGFR (12/22/2019 1:41 AM CDT) eGFR 65 mL/min/1.7 3 m2 [facility] Comment: Interpretive Data Reference Interval Normal >/= 90 mL/min/1.73m2 Mildly decreased* 60 - 89 mL/min/1.73m2 Mildly to moderately decreased 45 - 59 mL/min/1.73m2 Moderately to severely decreased 30 - 44 mL/min/1.73m2 Severely decreased 15 - 29 mL/min/1.73m2 Kidney Failure < 15 mL/min/1.73m2 *Relative to young adult level If -Citizen Of [place] multiply value by 1.16. Estimated glomerular filtration rate is determined by the CKD-EPI equation recommended by the National Kidney Foundation (KDIGO 2012 Clinical Practice Guideline for the Evaluation and Management of Chronic Kidney Disease. Kidney Intnl Suppl Jun 2012;3:1). The CKD-EPI equation should not be used for patients with unstable renal function and has not been validated in children and those over 70. Current interpretive data was last reviewed 2016. Blood specimen (specimen) 12/22/2019 1:41 AM CDT 12/22/2019 2:14 AM CDT Johnny Rodríguez MD LAB BLOOD ORDERABLES Final Result [facility] [address] Department of Laboratories [place], [place] [id number] * (ABNORMAL) Hemoglobin A1c (12/07/2019 1:07 PM CDT) Pathologist [facility] Hgb A1C 9.0(H) 4.0 - 5.6 % [facility] Estimated Average Glucose 212 mg/dL [facility] Comment: The ADA recommends reporting an estimated Average Glucose (eAG) with all Hemoglobin A1c results using the equation derived from a study of 507 normal and diabetic adults. Minority populations were underrepresented and children were not included. (Diabetes Care 31:6314-9952, 2008). The eAG is not equivalent to a fasting glucose. Blood specimen (specimen) 12/07/2019 1:07 PM CDT 12/07/2019 1:31 PM CDT Result Sujatha us Divya Lim NP LAB BLOOD ORDERABLES Fin al Result [facility] [address] [place] [address] * Diabetic Eye Exam (08/09/2017) Historical Provider HEALTH MAINTENANCE Edited Result - Final from Last 3 Months or Most Recently Relevant to Health Maintenance Insurance MEDICARE [facility] LIFE [facility] CLAIMS MEDICARE MEDICARE [facility] Advance Directives For more information, please contact: [phone] * Full Code (Latest Code Status on File) Date Activated Date Inactivated Comments 12/19/2019 7:33 PM 12/22/2019 3:41 PM * Full Code Date Activated Date Inactivated Comments 09/21/2019 5:40 PM 10/02/2019 4:10 PM * Full Code Date Activated Date Inactivated Comments 09/01/2019 9:09 PM 09/03/2019 5:49 PM Care Teams Monitor Tech Relationship Specialty Start Date End Date Tim Desai MD [address] [place] [address] PCP - General Family Practice 05/25/24 Johnny Rodríguez MD Consulting Physician Urology 10/02/19
--- OUTSIDE RECORDS SUMMARY | 2024-07-25 15:12 | XMS_ITS | Referral Summary ---
Author Organization [facility] [address] [place] [address] [address] [place] [address] Care Team Providers Care Family Service Caseworker Name Role Phone Johnny Rodríguez MD Unavailable [phone]- [phone] Tim Desai MD Primary Care Provider [phone] Encounters Date Type Department Care Team Description 07/08/2024 2:54 PM NETWORK SECURITY OFFICER - 07/08/2024 11:59 PM NETWORK SECURITY OFFICER Hospital Encounter [facility] - Imaging [address] [place] [address] Malignant neoplasm of right kidney, except renal pelvis (HCC) Discharge Disposition: Discharge to home or self care 06/02/2024 Community Orders [facility] EpicCare Link Johnny Rodríguez MD Malignant neoplasm of right kidney, except renal pelvis (HCC) (Primary Dx) 05/31/2024 Orders Only [facility] Cardiology [address] [facility] [address] [place] [address] Geoff Dockery MD 05/25/2024 2:45 PM NETWORK SECURITY OFFICER Office Visit [facility] Cardiology at [address] [place] [address] Pasquale Richard MD History of coronary artery stent placement (Primary Dx); 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 from Last 3 Months Allergies Active Allergy Reactions Criticality Noted Date [...] (07/26/2019): Added automatically from request for surgery [id number] Coronary artery disease invo lving sa[place] coronary artery of [place] heart without angina pectoris 04/27/2017 Hyperlipidemia 04/11/2013 Overview (09/17/2016): Hyperlipidemia Hypertension 04/11/2013 Overview (09/17/2016): Hypertension Type 2 diabetes mellitus 12/06/2012 Overview (09/17/2016): DMII WO CMP UNCNTRLD Social History Tobacco Use Types Packs/Day Years Used Date Smoking Tobacco: Former Cigarettes 1 40 0 09/01/1979 - 09/01/2019 Smokeless Tobacco: Never Tobacco Cessation:Counseling Given: Not Answered Alcohol Use Standard Drinks/Week Comments Not Currently 0 (1 standard drink = 0.6 oz pur e alcohol) Sex and Gender Information Value Date Recorded Sex Assigned at Not on file Legal Sex Male 11:09 AM NETWORK SECURITY OFFICER Gender Identity Not on file Sexual Orientation Not on file Last Filed Vital Signs Vital Sign Reading Time Taken Comments Blood Pressure 138/80 05/25/2024 2:51 PM NETWORK SECURITY OFFICER Pulse 82 05/25/2024 2:51 PM NETWORK SECURITY OFFICER Temperature 36.9 C (98.4 F) 12/22/2019 5:35 AM CDT Respiratory Rate 14 12/22/2019 5:35 AM CDT Oxygen Saturation 97% 05/25/2024 2:51 PM NETWORK SECURITY OFFICER Inhaled Oxygen Concentration - - Weight 85.3 kg (188 lb) 07/08/2024 3:19 PM NETWORK SECURITY OFFICER Height 172.7 cm (5' 8 ) 07/08/2024 3:19 PM NETWORK SECURITY OFFICER Body Mass Index 28.59 07/08/2024 3:19 PM NETWORK SECURITY OFFICER Plan of Treatment Not on file Medical Devices Implanted Type Area Motor Analyst Device Identifier Shelf Expiration Date Model / Serial / Lot [employer] 180-223 Contour 6fr 26cm Large Inner Lumen Low Profile Bladder Jp Taper Latex Free - Sn/A - [id number] Implanted:Qty: 1 on 09/26/2019 by Johnny Rodríguez MD at [facility] Stent Right: Ureter [employer] 05/21/2022 180-223 / N/A / [id number] [employer] 180-223 Contour 6fr 26cm Large Inner Lumen Low Profile Bladder Jp Taper Latex Free - [id number] Implanted:Qty: 1 on 09/29/2019 by Edison Salvador MD at [facility] Stent Right: Ureter [employer] 07/16/2022 180-223 / / [id number] Screws Left: Knee Procedures Procedure Name Priority Date/Time Associated Diagnosis Comments MRI ABDOMEN W WO CONTRAST Schedule Routine, Read Routine (OP Routine) 07/08/2024 4:02 PM NETWORK SECURITY OFFICER Malignant neoplasm of right kidney, except renal pelvis (HCC) LIPID PANEL Routine 04/11/2024 11:05 AM CDT EGFR Routine 12/22/2019 1:41 AM CDT HEMOGLOBIN A1C Routine 12/07/2019 1:07 PM CDT Pre-op evaluation DIABETIC EYE EXAM Routine 08/09/2017 from Last 3 Months or Most Recently Relevant to Health Maintenance Results * MRI Abdomen W WO Contrast (07/08/2024 4:02 PM NETWORK SECURITY OFFICER) Anatomical Region Laterality Modality Body N/A Magnetic Resonan ce 07/10/2024 10:5 9 AM NETWORK SECURITY OFFICER Impressions 07/10/2024 2:52 PM NETWORK SECURITY OFFICER No evidence of disease recurrence. Dictated by: Bryan Jeter MD The radiology attending physician has personally reviewed this study, and had reviewed and/or edited this written report and agrees with it. Electronically signed by: Jordana Paz M.D. Narrative 07/10/2024 2:52 PM NETWORK SECURITY OFFICER EXAMINATION: MAGNETIC RESONANCE IMAGING OF THE ABDOMEN [...] it. Electronically signed by: Jordana Paz M.D. [facility] Carlos Eduardo Rodríguez MD IMG MRI PROCEDURES F inal Result * Lipid panel (04/11/2024 11:05 AM CDT) Blood [facility] Provider LAB BLOOD ORDERABLES Dorie l Result * eGFR (12/22/2019 1:41 AM CDT) eGFR 65 mL/min/1.7 3 m2 [facility] Comment: Interpretive Data Reference Interval Normal >/= 90 mL/min/1.73m2 Mildly decreased* 60 - 89 mL/min/1.73m2 Mildly to moderately decreased 45 - 59 mL/min/1.73m2 Moderately to severely decreased 30 - 44 mL/min/1.73m2 Severely decreased 15 - 29 mL/min/1.73m2 Kidney Failure < 15 mL/min/1.73m2 *Relative to young adult level If -Belarusian multiply value by 1.16. Estimated glomerular filtration [...] 1:41 AM CDT 12/22/2019 2:14 AM CDT Result [facility] Johnny Rodríguez MD LAB BLOOD ORDERABLES Final Result Performing Organization Address [facility] de Phone Number [facility] [address] [facility] [place], [place] [id number] * (ABNORMAL) Hemoglobin A1c (12/07/2019 1:07 PM CDT) Hgb A1C 9.0(H) 4.0 - 5.6 % [facility] Estimated Average Glucose 212 mg/dL [facility] Comment: The ADA recommends reporting an estimated Average Glucose (eAG) with all Hemoglobin A1c results using the equation derived from a study of 507 normal and diabetic adults. Minority populations were underrepresented and children were not included. (Diabetes Care 31:9014-7523, 2008). The eAG is not equivalent to a fasting glucose. Blood specimen (specimen) 12/07/2019 1:07 PM CDT 12/07/2019 1:31 PM CDT Result [facility] Divya Lim NP LAB BLOOD ORDERABLES Fin al Result Performing Organization Address [facility] Co de Phone Number [facility] [address] [place] [address] * Diabetic Eye Exam (08/09/2017) Result [facility] Geoff Provider HEALTH MAINTENANCE Edited Result - Final from Last 3 Months or Most Recently Relevant to Health Maintenance Insurance MEDICARE [facility] MEDICARE MEDICARE FOR LIFE Advance Directives For more information, please contact: [phone] * Full Code (Latest Code Status on File) Date Activated Date Inactivated Comments 12/19/2019 7:33 PM 12/22/2019 3:41 PM * Full Code Date Activated Date Inactivated Comments 09/21/2019 5:40 PM 10/02/2019 4:10 PM * Full Code Date Activated Date Inactivated Comments 09/01/2019 9:09 PM 09/03/2019 5:49 PM Care Teams Family Service Caseworker Relationship Specialty Start Date End Date Tim Desai MD [address] [place] [address] PCP - General Family Practice 05/25/24 Johnny Rodríguez MD Consulting Physician Urology 10/02/19
--- OUTSIDE RECORDS SUMMARY | 2024-07-25 15:12 | XMS_ITS | Continuity of Care Document ---
Author Organization [facility] Address [address] [place] [address] Phone Care Team Providers Care Stone Cutter Name Role Phone Gavi Rodriguez Unavailable Unavailable Procedures Procedure Date Post-op Follow-up Visit Post-op Follow-up Visit Remove Cataract, Insert Lens Eye Exam, New Patient IOLMaster Advance Directives Directive Yes / No Effective Date File Name No Information Encounters Encounter Description Practice Location Reason(s) For Visit Diagnoses Date Provider Providers Copied on Encounter [facility], [address] [place] [address] [address], [place], [place], [id number], tel:[phone] [facility] No Information 200 [address] Jennifer Gatica. [address], [place], [place], [facility], [place]. tel:[phone] [facility], [address] [place] [address] [address], [place], [place], [id number], [place] tel:[phone] [facility] No Information 2-200 7 Avendano OD Jp. [address], [place], [address], [place]. tel:[phone] [facility], [address] [place] [address] [address], [place], [place], [address], [place] tel:[phone] [facility] No Information 1-200 7 Jennifer Saucedo [address] , [address], [place], [address], . tel:[phone] Referring Provider: Chaz Pollack OD, [address] [facility], [place], [address]. tel:[phone] [facility], [address] [facility] [address], [place], [place], [id number], [place] tel:[phone] [facility] No Information 0 5-200 7 Jennifer Gatica. [address] , [address], [place], [place], [facility], . tel:[phone] Referring Provider: Gavi Zhou, [address] [facility] [address] [facility] [address], [place], [place], [facility]. tel:[phone] Family History Family Member Type Diagnosis Age At Onset No Information Payers Payer name Insurance type Covered alliance party ID Authoriza tion(s) No Information Social [...]
--- OUTSIDE RECORDS SUMMARY | 2024-07-25 15:12 | XMS_ITS | Encounter Summary ---
Author Organization [facility] Healthcare Address [address] [place] [address] Care Team Providers Care Market Research Manager Name Role Phone Johnny Rodríguez MD Unavailable [phone] Miscellaneous, Not In File Primary Care Provider Unavailable [facility] Primary Care Provider [phone] No, Physician Primary Care Provider [phone] Tim Desai MD Primary Care Provider [phone] Encounter Details Date Type Department Care Team (Late st Contact Info) Description 09/05/2020 Telephone [facility] - Imaging [address] [place] [address] Transcribed Order, Provider Social History Tobacco Use Types Packs/Day Years Used Date Smoking Tobacco: Former Cigarettes 1 40 0 09/01/1979 - 09/01/2019 Smokeless Tobacco: Never Alcohol Use Standard Drinks/Week Comments Not Currently 0 (1 standard drink = 0.6 oz pur e alcohol) Sex and Gender Information Value Date Recorded Sex Assigned at Not on file Legal Sex Male 11:09 AM BOAT DISPATCHER Gender Identity Not on file Sexual Orientation Not on file documented as of this encounter Plan of Treatment Not on file documented as of this encounter Visit Diagnoses Not on filedocumented in this encounter Care Teams Market Research Manager Relationship Specialty Start Date End Date Miscellaneous, Not In File PCP - General 12/19/19 1 [facility] [address] [place] [address] PCP - General 12/18/20 06/22/22 No, Physician PCP - General 06/23/22 05/24/24 Tim Desai MD [address] [place] [address] PCP - General Family Practice 05/25/24 Johnny Rodríguez MD Consulting Physician Urology 10/02/19 documented as of this encounter
--- OUTSIDE RECORDS SUMMARY | 2024-07-25 15:12 | XMS_ITS | Encounter Summary ---
Author Organization [facility] Healthcare Address [address] [place] [address] Care Team Providers Care Software Engineer Name Role Phone Johnny Rodríguez MD Unavailable [phone] [facility] Primary Care Provider [phone] No, Physician Primary Care Provider Tim Desai MD Primary Care Provider [phone] Encounter Details Date Type Department Care Team (Late st Contact Info) Description 12/25/2020 Telephone [facility] - Imaging [address] [place] [address] Transcribed Order, Provider Social History Tobacco Use Types Packs/Day Years Used Date Smoking Tobacco: Former Cigarettes 1 40 0 09/01/1979 - 09/01/2019 Smokeless Tobacco: Never Alcohol Use Standard Drinks/Week Comments Not Currently 0 (1 standard drink = 0.6 oz pur e alcohol) Sex and Gender Information Value Date Recorded Sex Assigned at Not on file Legal Sex Male 11:09 AM RECEIVER DISPATCHER Gender Identity Not on file Sexual Orientation Not on file documented as of this encounter Plan of Treatment Not on file documented as of this encounter Visit Diagnoses Not on filedocumented in this encounter Care Teams Software Engineer Relationship Specialty Start Date End Date [facility] [address] [place] [address] PCP - General 12/18/20 06/22/22 No, Physician PCP - General 06/23/22 05/24/24 Tim Desai MD [address] [place] [address] PCP - General Family Practice 05/25/24 Johnny Rodríguez MD Consulting Physician Urology 10/02/19 documented as of this encounter
--- OUTSIDE RECORDS SUMMARY | 2024-07-25 15:12 | XMS_ITS | Encounter Summary ---
Author Organization [facility] Address [facility] [place] [address] Care Team Providers Care Self Storage Manager Name Role Phone Lloyd Oconnor MD Primary Care Provider [phone] Encounter Details Date Type Department Care Team (Late st Contact Info) Description 11/20/2020 Prep for Procedure [facility]-Ad[facility] Testing [address] [address] Isidro Akins MD [address] [place] [address] Social History Tobacco Use Types Packs/Day Years [...] on file Sexual Orientation Not on file COVID-19 Exposure Response Date Recorded In the last month, have you been in contact with someone who was confirmed or suspected to have Coronavirus / COVID-19? No / Unsure 11/20/2020 3:47 PM CDT documented as of this encounter Plan of Treatment Not on file documented as of this encounter Visit Diagnoses Diagnosis Preop examination- Primary Preoperative examination, unspecified documented in this encounter Additional Health Concerns Infection Onset Date Last Indicated Resolved Time COVID-19 Rule Out 11/25/2020 11/25/2020 11/25/2020 11:22 AM CDT COVID-19 Rule Out 11/25/2020 11/25/2020 11/25/2020 7:25 PM CDT documented as of this encounter Care Teams Self Storage Manager Relationship Specialty Start Date End Date Lloyd Oconnor MD [address] [place] [address] PCP - General INTERNAL MEDICINE 09/19/20 documented as of this encounter
--- OUTSIDE RECORDS SUMMARY | 2024-07-25 15:12 | XMS_ITS | Encounter Summary ---
Author Organization [facility] Healthcare Address [address] [place] [address] Care Team Providers Care Medical Sales Name Role Phone Johnny Rodríguez MD Unavailable [phone] Tim Desai MD Primary Care Provider [phone] Reason for Referral * MRI/CAT/PET Scan (Routine) - Closed Specialty Diagnoses / Procedures Referred By Contac t Referred To Contact Radiology Diagnoses Malignant neoplasm of right kidney, except renal pelvis (HCC) Procedures MRI Abdomen W [place] Contrast Johnny Rodrí[place]uez [place] [address] [place] [address] Phone: tel: fax: [address] [address] Referral ID Status Reason Start Date Expiration Date Visits Re quested Visits Authorized [id number] Closed 06/02/2024 07/02/2025 1 1 TRIC SWITCH REPAIRER Encounter Details Date Type Department Care Team (Late st Contact Info) Description 06/02/[address] [facility] EpicCare Link Jonhny Rodrí[place] [address] [place] [address] Malignant neoplasm of right kidney, except renal pelvis (HCC) (Primary Dx) Social History Tobacco Use Types Packs/Day Years Used Date Smoking Tobacco: Former Cigarettes 1 40 0 09/01/1979 - 09/01/2019 Smokeless Tobacco: Never Alcohol Use Standard Drinks/Week Comments Not Currently 0 (1 standard drink = 0.6 oz pur e alcohol) Sex and Gender Information Value Date Recorded Sex Assigned at Not on file Legal Sex Male 11:09 AM ELECTRIC SWITCH REPAIRER Gender Identity Not on file Sexual Orientation Not on file documented as of this encounter Plan of Treatment Not on file documented as of this encounter Results * MRI Abdomen W WO Contrast (07/08/2024 4:02 PM ELECTRIC SWITCH REPAIRER) Anatomical Region Laterality Modality Body N/A Magnetic Resonan ce 07/10/2024 10:5 9 AM ELECTRIC SWITCH REPAIRER Impressions 07/10/2024 2:52 PM ELECTRIC SWITCH REPAIRER No evidence of disease recurrence. Dictated by: Bryan Jeter MD The radiology attending physician has personally reviewed this study, and had reviewed and/or edited this written report and agrees with it. Electronically signed by: Jordana Paz M.D. Narrative 07/10/2024 2:52 PM ELECTRIC SWITCH REPAIRER EXAMINATION: MAGNETIC RESONANCE IMAGING OF THE ABDOMEN [...] MD IMG MRI PROCEDURES F inal Result documented in this encounter Visit Diagnoses Diagnosis Malignant neoplasm of right kidney, except renal pelvis (HCC)- Primary Malignant neoplasm of right kidney, except renal pelvis (HCC) documented in this encounter Care Teams Medical Sales Relationship Specialty Start Date End Date Tim Desai MD [address] [place] [address] PCP - General Family Practice 05/25/24 Johnny Rodríguez MD Consulting Physician Urology 10/02/19 documented as of this encounter
--- OUTSIDE RECORDS SUMMARY | 2024-07-25 15:12 | XMS_ITS | Clinical Summary ---
Author Organization [facility] Address [address] [place] [address] Phone Care Team Providers Care Accounting Teacher Name Role Phone Lloyd Oconnor Primary Care Provider [phone] Allergies Active Allergy Reactions Criticality Noted Date Comments Cefuroxime Swelling Medium 06/08/2020 Swelling of lips and tongue Lisinopril Swelling Medium 06/08/2020 Swelling of lips and tongue Other Itching,Rash Medium 08/09/2019 Wound Dressing Adhesive Itching,Rash Medium 08/09/2019 Medications Medication Sig Dispensed Refills Start Date End Date Status aspirin EC 81 MG EC tablet Take 81 mg by mouth daily Active atenolol (TENORMIN) 50 MG tablet 03/13/2020 Active clopidogrel (PLAVIX) 75 MG tablet 03/13/2020 Active fenofibrate (TRICOR) 54 MG tablet 04/04/2020 Active FREESTYLE LITE test strip 03/13/2020 Active Lancets (freestyle) lancets 03/13/2020 Active pioglitazone (ACTOS) 45 MG tablet 03/13/2020 Active pravastatin (PRAVACHOL) 40 MG tablet 03/13/2020 Active fexofenadine (WADE) 180 MG tablet 12/20/2020 Active cyanocobalamin (VITAMIN B-12) 100 MCG tablet Take 1,000 mcg by mouth daily Active metFORMIN (GLUCOPHAGE) 500 MG tablet Take 500 mg by mouth 1 (one) time each day Active repaglinide (PRANDIN) 1 MG tablet 2 mg 2-3x per day 01/21/2021 Active Jardiance 25 MG tablet 01/11/2021 Ac tive Multiple Vitamin (multivitamin) capsule Take 1 capsule by mouth daily Active Active Problems Problem Noted Date Diagnosed Date History of placement of stent for coronary arter y disease 11/11/2021 Stage 3a chronic kidney disease 06/10/2020 Coronary atherosclerosis 04/27/2017 Hyperlipidemia 04/11/2013 Overview (06/08/2020): Hyperlipidemia Diabetes mellitus without me ntion of complication, type II or unspecified type, not stated as uncontrolled 12/06/2012 Overview (06/08/2020): DMII WO CMP UNCNTRLD Immunizations Name Administration Dates Next Due Influenza TIV (IM) 03/15/2020 Pneumococcal Conjugate 02/13/2016 Family History Medical History Relation Comments Kidney disease Neg Hx Social History Tobacco Use Types Packs/Day Years Used Date Smoking Tobacco: Former Smokeless Tobacco: Never Alcohol Use Standard Drinks/Week Comments Yes 0 (1 standard drink = 0.6 oz pur e alcohol) rare Sex and Gender Information Value Date Recorded Sex Assigned at Male 04/17/2021 4:15 PM MDT Gender Identity Male 04/17/2021 4:15 PM MDT Sexual Orientation Straight 04/17/2021 4: 15 PM MDT Last Filed Vital Signs Vital Sign Reading Time Taken Comments Blood Pressure 118/70 04/01/2022 10:13 AM CDT Pulse 72 04/01/2022 10:13 AM CDT Temperature 34.7 C (94.5 F) 04/01/2022 10:13 AM CDT Respiratory Rate - - Oxygen Saturation - - Inhaled Oxygen Concentration - - Weight 85.3 kg (188 lb) 04/01/2022 10:13 AM CDT Height 172.7 cm (5' 8 ) 04/01/2022 10:13 AM CDT Body Mass Index 28.59 04/01/2022 10:13 AM CDT Plan of Treatment Health Maintenance Due Date Last Done Comments Pneumococcal PPSV23/PCV13 65 + Years / High and Highest Risk (1 of 4 - PCV) 01/17/1962 Diabetic Foot Exam 01/17/1966 Ophthalmology Exam 01/17/1966 Influenza Vaccine (#1) 2024 03/15/2020 Care Teams Accounting Teacher Relationship Specialty Start Date End Date Lloyd Oconnor PCP - General Family Medicine 10/03/20
== END 2024-07-25 14:25 | disposition home or self-care (01) ==
LOC: ANHLAB 14:25
PROVIDERS: PCP Family Medicine; Visit Provider Internal Medicine Nephrology
DX: E78.5 Hyperlipidemia, unspecified (principal); N18.32 Chronic kidney disease, stage 3b; D75.1 Secondary polycythemia
CPT/HCPCS: 36415; 80069; 82570; 83970; 84156; 85027

== ENCOUNTER 2024-11-08 14:18 | Outpatient (CLI) | payer MEDICARE, OTHER, SELFPAY ==
--- OUTSIDE RECORDS SUMMARY | 2024-11-08 14:26 | XMS_ITS | Clinical Summary ---
Author Organization [facility] Address [address] [place] [address] Care Team Providers Care Plan Consultant Name Role Phone Unavailable Primary Care Provider Unavailabl e Allergies Active Allergy Reactions Criticality Noted Date Comments Cefuroxime Rash,Swelling Medium 04/09/2011 Swelling of lips and tongue Swelling of lips and tongue Swelling of lips and tongue Lisinopril Swelling Medium 06/08/2020 Swelling of lips and tongue Swelling of lips and tongue Swelling of lips and tongue Reaction(s): Unknown; Note: [id number] NLD Medications clopidogreL (PLAVIX) 75 mg Tablet Take 75 mg by mouth daily. 5 Active aspirin (ECOTRIN EC) 81 mg Tablet, Delayed Release (E.C.) Take 81 mg by mouth daily. 5 Active metFORMIN (GLUCOPHAGE) 500 mg tablet Take 500 mg by mouth daily. Active pravastatin (PRAVACHOL) 40 mg tablet Take 40 mg by mouth daily at bedtime. Active metoprolol succinate (TOPROL XL) 25 mg Extended Release 24 hour tablet Take 25 mg by mouth daily. 5 Active cetirizine (ZyrTEC) 10 mg tablet Take 10 mg by mouth daily. 5 Active insulin lispro (HumaLOG,ADMEL OG) 100 unit/mL pen syringe Inject by subcutaneous injection. Active Lantus Solostar U-100 Insulin 100 unit/mL (3 mL) solution for injection 5 Active montelukast (SINGULAIR) 10 mg tablet Take 10 mg by mouth daily. 5 Active albuterol sulfate HFA 90 mcg/actuation aerosol inhaler 2 Puffs by See Admin Instructions route see administration instructions. 04/29/202 5 Active fenofibrate (LOFIBRA) 54 mg Take 54 mg by mouth daily. Active triamcinolone acetonide (KENALOG) 0.025 % Cream Apply to affected area. Active clobetasoL (TEMOVATE) 0.05 % Cream Apply to affected area. Active Encounters Date Type Department Care Team Description 11/08/2024 1:30 PM CDT Office Visit [facility] H[facility] [place] [address] [address] [facility] [address] [place] [address] Edvin Schafer MD Polycythemia, secondary (Primary Dx) from Last 3 Months Family History Medical History Relation Name Comments No Known Problems Brother 1 No Known Problems Brother 2 No Known Problems Child 1 No Known Problems Child 2 Heart Disease Father Lung Cancer Father Heart Disease Mother Lung Cancer Sister 1 No Known Problems Sister 2 No Known Problems Sister 3 Breast Cancer Sister 4 Relation Name Status Comments Brother 1 Alive Brother 2 Alive Child 1 Alive Child 2 Alive Father Mother Sister 1 Sister 2 Alive Sister 3 Alive Sister 4 Social History Tobacco Use Types Packs/Day Years Used Date Smoking Tobacco: Never Smokeless Tobacco: Never Alcohol Use Standard Drinks/Week Comments Yes 0 (1 standard drink = 0.6 oz pur e alcohol) occasional Sex and Gender Information Value Date Recorded Sex Assigned at Not on file Legal Sex Male 3:51 PM ACCELERATOR OPERATOR Gender Identity Not on file Sexual Orientation Not on file Last Filed Vital Signs Vital Sign Reading Time Taken Comments Blood Pressure 134/82 11/08/2024 1:49 PM CDT Pulse 67 11/08/2024 1:49 PM CDT Temperature 35.8 C (96.5 F) 11/08/2024 1:49 PM CDT Respiratory Rate 15 11/08/2024 1:49 PM CDT Oxygen Saturation 96% 11/08/2024 1:49 PM CDT Inhaled Oxygen Concentration - - Weight 86.7 kg (191 lb 3.2 oz) 11/08/2024 1:49 P M CDT Height 172.7 cm (5' 8) 11/08/2024 1:49 PM CDT Body Mass Index 29.07 11/08/2024 1:49 PM CDT Plan of Treatment Upcoming Encounters Date Type Department Care Team (Late Contact Info) Description 11/22/2024 4:30 PM CDT Telephone Check Up [facility] - [place] [address] [facility] [address] [place] [address] Edvin Schafer MD [address] [facility] [address] [place] [address] Health Maintenance Due Date Last Done Comments Traditional Medicare (ACO) A nnual Wellness Visit 01/17/1975 COLORECTAL SCREENING 01/17/2001 Colorectal Cancer Screening 01/17/2001 FIT-DNA Q 3 years 01/17/2001 FIT/FOBT Q 1 year 01/17/2001 Flex Sig/CT Colonography Q 5 years 01/17/2001 ZOSTER VACCINE (1 of 2) 01/17/2006 PNEUMOCOCCAL VACCINE 50+ YEA RS (2 of 2 - PCV) 02/12/2017 02/13/2016, 04/06/2008 INFLUENZA VACCINE (#1) 2024 , 03/15/2020, 04/06/2019, Additional history exists DTAP/TDAP/TD VACCINES (2 - T d or Tdap) 03/17/2027 03/17/2017, 01/03/2005 RSV VACCINE (60+ or ) (1 - 1-dose 75+ series) 01/17/2031 Insurance MEDICARE PART A AND B [employer]
--- OUTSIDE RECORDS SUMMARY | 2024-11-08 14:26 | XMS_ITS | Encounter Summary ---
Author Organization [facility]3] [facility] Address [address] [place] [address] Care Team Providers Care Assembler Billiard Table Name Role Phone Unavailable Primary Care Provider Unavailabl e Reason for Referral * Laboratory Services (Routine) - Open Specialty Diagnoses / Procedures Referred By Michelle t Referred To Contact Diagnoses Polycythemia, secondary Procedures JAK2 MUTATION Edvin Schafer MD [address] [facility] [employer] [place] [address] Phone: tel: fax: Referral ID Status Reason Start Date Expiration Date Visits Re quested Visits Authorized [id number] Open 11/08/2024 12/09/2025 1 1 Encounter Details Date Type Department Care Team (Late st Contact Info) Description 11/08/2024 1:30 PM CDT Office Visit [facility] Oncology and Hematology - [place] [address] [place] [address] [address] [place] [address] Edvin Schafer MD [address] [facility] [address] [place] [address] Polycythemia, secondary (Primary Dx) Social History Tobacco Use Types Packs/Day Years Used Date Smoking Tobacco: Never Smokeless Tobacco: Never Alcohol Use Standard Drinks/Week Comments Yes 0 (1 standard drink = 0.6 oz pur e alcohol) occasional Sex and Gender Information Value Date Recorded Sex Assigned at Not on file Legal 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 Gender Identity Not on file Sexual Orientation Not on file documented as of this encounter Last Filed Vital Signs Vital Sign Reading [...] Mass Index 29.07 11/08/2024 1:49 PM CDT documented in this encounter Plan of Treatment Upcoming Encounters Date Type Department Care Team (Late st Contact Info) Description 11/22/2024 4:30 PM CDT Telephone Check Up [facility] Oncology and Hematology - [place] [address] [facility] [address] [place] [address] Edvin Schafer MD [address] [facility] [address] [place] [address] Scheduled Orders Name Type Priority Associated Diagnoses Orde r Schedule CBC WITH DIFFERENTIAL Lab Stat Polycythemia, secondary Expected: 11/08/2024, Expires: 11/08/2025 COMPREHENSIVE METABOLIC PANEL Lab Stat Polycythemia, secondary Expected: 11/08/2024, Expires: 11/08/2025 ERYTHROPOIETIN LEVEL Lab Routine Polycythemia, secondary Expected: 11/08/2024, Expires: 11/08/2025 JAK2 MUTATION Lab Routine Polycythemia, secondary Expected: 11/08/2024, Expires: 11/08/2025 documented as of this encounter Visit Diagnoses Diagnosis Polycythemia, secondary- Primary documented in this encounter
--- OUTSIDE RECORDS SUMMARY | 2024-11-08 14:26 | XMS_ITS | Clinical Summary ---
Author Organization [facility] [address] Address [address] [place] [address] Care Team Providers Care Director Market Intelligence Name Role Phone Johnny Rodríguez MD Unavailable [phone] Tim Desai MD Primary Care Provider [phone] Allergies Active Allergy Reactions Criticality Noted Date [...] Take 1 capsule by mouth daily Active insulin glargine 100 unit/mL vial for injection Inject under the skin nightly Active insulin lispro (HumaLOG, ADMELOG) 100 unit/mL pen for injection Inject under the skin Active aspirin 81 mg enteric coated tablet Take 1 tablet (81 mg total) by mouth daily 90 tablet 3 10/09/2024 Active clopidogreL (PLAVIX) 75 mg tablet Take 1 tablet (75 mg total) by mouth daily 90 tablet 3 10/09/2024 Active Active Problems Problem Noted Date Diagnosed Date History of coronary artery stent placement 11/11 Moderate malnutrition 09/23/2019 Retroperitoneal fluid collection 09/21/2019 Right renal mass 07/26/2019 Overview (07/26/2019): Added automatically from request for surgery [id number] Coronary artery disease invo lving [place] coronary artery of [place] heart without angina pectoris 04/27/2017 Hyperlipidemia 04/11/2013 Overview (09/17/2016): Hyperlipidemia Hypertension 04/11/2013 Overview (09/17/2016): Hypertension Type 2 diabetes mellitus 12/06/2012 Overview (09/17/2016): DMII WO CMP UNCNTRLD Surgical History Surgery Date Site/Laterality Comments HAND [...] on file Legal Sex Male 11:09 AM 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 SORTER Gender Identity Not on file Sexual Orientation Not on file Obstetrics History Last Filed Vital Signs Vital Sign Reading Time Taken Comments Blood Pressure 138/80 05/25/2024 2:51 PM POTATO SORTER Pulse 82 05/25/2024 2:51 PM POTATO SORTER Temperature 36.9 C (98.4 F) 12/22/2019 5:35 AM CDT Respiratory Rate 14 12/22/2019 5:35 AM CDT Oxygen Saturation 97% 05/25/2024 2:51 PM POTATO SORTER Inhaled Oxygen Concentration - - Weight 85.3 kg (188 lb) 07/08/2024 3:19 PM POTATO SORTER Height 172.7 cm (5' 8) 07/08/2024 3:19 PM POTATO SORTER Body Mass Index 28.59 07/08/2024 3:19 PM POTATO SORTER Plan of Treatment Health Maintenance Due Date [...] Abdominal Aortic Aneurysm (A AA) Screen 01/17/2021 Well Visit 65+ 01/17/2021 Pneumococcal vaccine 65+ (3 of 3 - PCV20 or PCV21) 02/12/2021 02/13/2016, 04/06/2008 Influenza Vaccine (Season Ended) 2025 04/05/2020, 03/15/2020, 04/06/2019, Additional history exists Lipid Panel 04/11/2025 04/11/2024, 04/15, 05/12/2022, Additional history exists DTaP/Tdap/Td Vaccine (2 - Td or Tdap) 03/17/2027 03/17/2017, 01/03/2005 Medical Devices Implanted Type Area Oven Dumper Device Identifier Shelf Expiration Date Model / Serial / Lot [employer] Ed 180-223 Contour 6fr 26cm Large Inner Lumen Low Profile Bladder Jp Taper Latex Free - Sn/A - [id number] Implanted:Qty: 1 on 09/26/2019 by Johnny Rodríguez MD at [facility] Stent Right: Ureter [employer] Ed 05/21/2022 180-223 / N/A / [id number] [employer] Ed 180-223 Contour 6fr 26cm Large Inner Lumen Low Profile Bladder Jp Taper Latex Free - [id number] Implanted:Qty: 1 on 09/29/2019 by Edison Salvador MD at [facility] Stent Right: Ureter [employer] Ed 07/16/2022 180-223 / / [id number] Screws Left: Knee Procedures Procedure Name Priority Date/Time Associated Diagnosis Comments LIPID PANEL Routine 04/11/2024 11:05 AM CDT EGFR Routine 12/22/2019 1:41 AM CDT HEMOGLOBIN A1C Routine 12/07/2019 1:07 PM CDT Pre-op evaluation DIABETIC EYE EXAM Routine 08/09/2017 from Last 3 Months or Most Recently Relevant to Health Maintenance Results * Lipid panel (04/11/2024 11:05 AM CDT) Blood [facility] Provider LAB BLOOD ORDERABLES Dorie l Result * eGFR (12/22/2019 1:41 AM CDT) eGFR 65 mL/min/1.7 3 m2 [facility] Comment: Interpretive Data Reference Interval Normal >/= 90 mL/min/1.73m2 Mildly decreased* 60 - 89 mL/min/1.73m2 Mildly to moderately decreased 45 - 59 mL/min/1.73m2 Moderately to severely decreased 30 - 44 mL/min/1.73m2 Severely decreased 15 - 29 mL/min/1.73m2 Kidney Failure < 15 mL/min/1.73m2 *Relative to young adult level If -Namibian multiply value by 1.16. Estimated glomerular filtration [...] Rodríguez MD LAB BLOOD ORDERABLES Final Result [facility] [address] Department [place] [address] * (ABNORMAL) Hemoglobin A1c (12/07/2019 1:07 PM CDT) Hgb A1C 9.0(H) 4.0 - 5.6 % [facility] Estimated Average Glucose 212 mg/dL [facility] Comment: The ADA recommends reporting an estimated Average Glucose (eAG) with all Hemoglobin A1c results using the equation derived from a study of 507 normal and diabetic adults. Minority populations were underrepresented and children were not included. (Diabetes Care 31:4459-6870, 2008). The eAG is not equivalent to a fasting glucose. Blood specimen (specimen) 12/07/2019 1:07 PM CDT 12/07/2019 1:31 PM CDT Divya Lim NP LAB BLOOD ORDERABLES Fin al Result [facility] [address] [place] [address] * Diabetic Eye Exam (08/09/2017) Historical Provider HEALTH MAINTENANCE Edited Result - Final from Last 3 Months or Most Recently Relevant to Health Maintenance Insurance MEDICARE [facility] Address: [address] [address] [place] [address] [facility] CLAIMS MEDICARE MEDICARE [facility] Advance Directives For more information, please contact: [phone] * Full Code (Latest Code Status on File) Date Activated Date Inactivated Comments 12/19/2019 7:33 PM 12/22/2019 3:41 PM * Full Code Date Activated Date Inactivated Comments 09/21/2019 5:40 PM 10/02/2019 4:10 PM * Full Code Date Activated Date Inactivated Comments 09/01/2019 9:09 PM 09/03/2019 5:49 PM Care Teams Director Market Intelligence Relationship Specialty Start Date End Date Tim Desai MD [address] [place] [address] PCP - General Family Practice 05/25/24 Johnny Rodríguez MD Consulting Physician Urology 10/02/19
--- OUTSIDE RECORDS SUMMARY | 2024-11-08 14:26 | XMS_ITS | Continuity of Care Document ---
Author Organization [facility] Eye [facility] Address [address] [place] [address] Phone Care Team Providers Care Advertising Consultant Name Role Phone Gavi Rodriguez Unavailable Unavailable Procedures Procedure Date Post-op Follow-up Visit Post-op Follow-up Visit Remove Cataract, Insert Lens Eye Exam, New Patient IOLMaster Advance Directives Directive Yes / No Effective Date File Name No Information Encounters Encounter Description Practice Location Reason(s) For Visit Diagnoses Date Provider Providers Copied on Encounter [facility], [address] [place] [address] [address], [place], [place], [id number], tel:[phone] [facility] No Information [address] Jennifer [address]atica. [address], [place], [place], [facility], [place]. tel:[phone] [facility], [address] [place] [address] [address], [place], [place], [id number], [place] tel:[phone] [facility] No Information 2-[address] Avendano OD Jp[address] , [address], [place], [address], [place]. tel:[phone] [facility], [address] [place] [address] [address], [place], [place], [id number], [place] tel:[phone] [facility] No Information 1-[address] Jennifer Saucedo [address] , [address], [place], [address], . tel:[phone] Referring Provider: Chaz Pollack OD, [address] [facility], [place], [address]. tel:[phone] [facility] Eye [facility], [address] [facility] [address], [place], [place], [id number], [place] tel:[phone] [facility] No Information 0 5-[address] Jennifer Gatica. [address] [facility] , [address], [place], [place], [facility], . tel:[phone] Referring Provider: Gavi Zhou, [address] [facility] [place] [address], [place], [place], [facility]. tel:[phone] Family History Family Member Type Diagnosis Age [...]
--- OUTSIDE RECORDS SUMMARY | 2024-11-08 14:26 | XMS_ITS | Encounter Summary ---
Author Organization [facility] Healthcare Address [address] [place] [address] Care Team Providers Care Global Recruiter Name Role Phone Johnny Rodríguez MD Unavailable [phone] Miscellaneous, Not In File Primary Care Provider Unavailable [facility] Primary Care Provider [phone] No, Physician Primary Care Provider [phone] Tim Desai MD Primary Care Provider [phone] Encounter Details Date Type Department Care Team (Late st Contact Info) Description 09/05/2020 Telephone [facility] - Imaging [address] [place] [address] Transcribed Order, Provider Social History Tobacco Use Types Packs/Day Years Used Date Smoking Tobacco: Former Cigarettes 1 40 0 09/01/1979 - 09/01/2019 Smokeless Tobacco: Never Alcohol Use Standard Drinks/Week Comments Not Currently 0 (1 standard drink = 0.6 oz pur e alcohol) Sex and Gender Information Value Date Recorded Sex Assigned at Not on file Legal Sex Male 11:09 AM BUSINESS DEVELOPER Gender Identity Not on file Sexual Orientation Not on file documented as of this encounter Plan of Treatment Not on file documented as of this encounter Visit Diagnoses Not on filedocumented in this encounter Care Teams Global Recruiter Relationship Specialty Start Date End Date Miscellaneous, Not In File PCP - General 12/19/19 1 [facility] [address] [place] [address] PCP - General 12/18/20 06/22/22 No, Physician PCP - General 06/23/22 05/24/24 Tim Desai MD [address] [place] [address] PCP - General Family Practice 05/25/24 Johnny Rodríguez MD Consulting Physician Urology 10/02/19 documented as of this encounter
--- OUTSIDE RECORDS SUMMARY | 2024-11-08 14:26 | XMS_ITS | Clinical Summary ---
Author Organization [facility] Address [address] [place] [address] Phone Care Team Providers Care Substation Operator Apprentice Name Role Phone Oconnor Lloyd Primary Care Provider [phone] Allergies Active Allergy Reactions Criticality Noted Date Comments Cefuroxime Swelling Medium 06/08/2020 Swelling of lips and tongue Lisinopril Swelling Medium 06/08/2020 Swelling of lips and tongue Other Itching,Rash Medium 08/09/2019 Wound Dressing Adhesive Itching,Rash Medium 08/09/2019 Medications aspirin EC 81 MG EC tablet Take [...] 01/21/2021 Active Jardiance 25 MG tablet 01/11/2021 Active Multiple Vitamin (multivitamin) capsule Take 1 capsule [...] Overview (06/08/2020): DMII WO CMP UNCNTRLD Immunizations Immunization Administration Dates Next Due Influenza TIV (IM) [...] Assigned at Male 04/17/2021 4:15 PM MDT Legal Sex Male 12:39 PM MST Gender Identity Male 04/17/2021 4:15 PM MDT [...] 10:13 AM CDT Height 172.7 cm (5' 8) 04/01/2022 10:13 AM CDT Body Mass Index 28.59 04/01/2022 10:13 AM CDT Plan of Treatment Health Maintenance Due Date Last Done Comments Pneumococcal PPSV23/PCV13 65 + Years / Low and Medium Risk (1 of 4 - PCV) 01/17/2006 Influenza Vaccine (Season Ended) 2025 03/15/20 20 Insurance MEDICARE [facility] Care Teams Substation Operator Apprentice Relationship Specialty Start Date End Date Lloyd Oconnor PCP - General Family Medicine 10/03/20
--- OUTSIDE RECORDS SUMMARY | 2024-11-08 14:26 | XMS_ITS | Encounter Summary ---
Author Organization [facility] Healthcare Address [address] [place] [address] Care Team Providers Care Hitch Technician Name Role Phone Johnny Rodríguez MD Unavailable [phone] Miscellaneous, Not In File Primary Care Provider Unavailable [facility] Primary Care Provider [phone] No, Physician Primary Care Provider [phone] Tim Desai MD Primary Care Provider [phone] Encounter Details Date Type Department Care Team (Late st Contact Info) Description 06/21/2020 Telephone [facility] - Imaging [address] [place] [address] Transcribed Order, Provider Social History Tobacco Use Types Packs/Day Years Used Date Smoking Tobacco: Former Cigarettes 1 40 0 09/01/1979 - 09/01/2019 Smokeless Tobacco: Never Alcohol Use Standard Drinks/Week Comments Not Currently 0 (1 standard drink = 0.6 oz pur e alcohol) Sex and Gender Information Value Date Recorded Sex Assigned at Not on file Legal Sex Male 11:09 AM TELEVISION DIRECTOR Gender Identity Not on file Sexual Orientation Not on file documented as of this encounter Plan of Treatment Not on file documented as of this encounter Visit Diagnoses Not on filedocumented in this encounter Care Teams Hitch Technician Relationship Specialty Start Date End Date Miscellaneous, Not In File PCP - General 12/19/[address] [facility] [address] [place] [address] PCP - General 12/18/20 06/22/22 No, Physician PCP - General 06/23/22 05/24/24 Tim Desai MD [address] [place] [address] PCP - General Family Practice 05/25/24 Johnny Rodríguez MD Consulting Physician Urology 10/02/19 documented as of this encounter
--- OUTSIDE RECORDS SUMMARY | 2024-11-08 14:26 | XMS_ITS | Encounter Summary ---
Author Organization [facility] Healthcare Address [address] [place] [address] Care Team Providers Care Medical Grade Shoemaker Name Role Phone Johnny Rodríguez MD Unavailable [phone] Tim Desai MD Primary Care Provider [phone] Reason for Referral * MRI/CAT/PET Scan (Routine) - Closed Specialty Diagnoses / Procedures Referred By Contac t Referred To Contact Radiology Diagnoses Malignant neoplasm of right kidney, except renal pelvis (HCC) Procedures MRI Abdomen W WO Contrast Johnny Rodrí[place]uez [place] [address] [place] [address] Phone: tel: fax: [address] [address] Referral ID Status Reason Start Date Expiration Date Visits Re quested Visits Authorized [id number] Closed 06/02/2024 07/02/2025 1 1 FOLIO ACCOUNTANT Encounter Details Date Type Department Care Team (Late st Contact Info) Description 06/02/2024 Community Orders [facility] EpicCare Link Johnny Rodrí[place]uez [place] [address] [place] [address] Malignant neoplasm of right kidney, except [...] on file Legal Sex Male 11:09 AM PORTFOLIO ACCOUNTANT Gender Identity Not on file Sexual Orientation Not on file documented as of this encounter Plan of Treatment Not on file documented as of this encounter Results * MRI Abdomen W WO Contrast (07/08/2024 4:02 PM PORTFOLIO ACCOUNTANT) Anatomical Region Laterality Modality Body N/A Magnetic Resonan ce 07/10/2024 10:5 9 AM PORTFOLIO ACCOUNTANT Impressions 07/10/2024 2:52 PM PORTFOLIO ACCOUNTANT No evidence of disease recurrence. Dictated by: Bryan Jeter MD The radiology attending physician has personally reviewed this study, and had reviewed and/or edited this written report and agrees with it. Electronically signed by: Jordana Paz M.D. Narrative 07/10/2024 2:52 PM PORTFOLIO ACCOUNTANT EXAMINATION: MAGNETIC RESONANCE IMAGING OF THE ABDOMEN [...] documented in this encounter Care Teams Medical Grade Shoemaker Relationship Specialty Start Date End Date Tim Desai MD [address] [place] [address] PCP - General Family Practice 05/25/24 Johnny Rodríguez MD Consulting Physician Urology 10/02/19 documented as of this encounter
--- OUTSIDE RECORDS SUMMARY | 2024-11-08 14:26 | XMS_ITS | Referral Summary ---
Author Organization [facility] [address] Address [address] [place] [address] Care Team Providers Care Horse Race Timer Name Role Phone Johnny Rodríguez MD Unavailable [phone]- [phone] Tim Desai MD Primary Care Provider [phone] [phone] Allergies Active Allergy Reactions Criticality Noted Date [...] (07/26/2019): Added automatically from request for surgery [id number] Coronary artery disease invo lving osage coronary artery of osage heart without angina pectoris 04/27/2017 Hyperlipidemia 04/11/2013 [...] on file Legal Sex Male 11:09 AM PR MANAGER Gender Identity Not on file Sexual Orientation Not on file Last Filed Vital Signs Vital Sign Reading Time Taken Comments Blood Pressure 138/80 05/25/2024 2:51 PM PR MANAGER Pulse 82 05/25/2024 2:51 PM PR MANAGER Temperature 36.9 C (98.4 F) 12/22/2019 5:35 AM CDT Respiratory Rate 14 12/22/2019 5:35 AM CDT Oxygen Saturation 97% 05/25/2024 2:51 PM PR MANAGER Inhaled Oxygen Concentration - - Weight 85.3 kg (188 lb) 07/08/2024 3:19 PM PR MANAGER Height 172.7 cm (5' 8) 07/08/2024 3:19 PM PR MANAGER Body Mass Index 28.59 07/08/2024 3:19 PM PR MANAGER Plan of Treatment Not on file Medical Devices Implanted Type Area Wardrobe Stylist Device Identifier Shelf Expiration Date Model / Serial / Lot Lane Scientific Ed 180-223 Contour 6fr 26cm Large Inner Lumen Low Profile Bladder Jp Taper Latex Free - Sn/A - [id number] Implanted:Qty: 1 on 09/26/2019 by Johnny Rodríguez MD at [facility] Stent Right: Ureter [address] Scientific Ed 05/21/2022 180-223 / N/A / [id number] Lane [employer] 180-223 Contour 6fr 26cm Large Inner Lumen Low Profile Bladder Jp Taper Latex Free - [id number] Implanted:Qty: 1 on 09/29/2019 by Edison Salvador MD at [facility] Stent Right: [address] [employer] Ed 07/16/2022 180-223 / / [id number] Screws Left: Knee Procedures Procedure Name Priority Date/Time Associated Diagnosis Comments LIPID PANEL Routine 04/11/2024 11:05 AM CDT EGFR Routine 12/22/2019 1:41 AM CDT HEMOGLOBIN A1C Routine 12/07/2019 1:07 PM CDT Pre-op evaluation DIABETIC EYE EXAM Routine 08/09/2017 from Last 3 Months or Most Recently Relevant to Health Maintenance Results * Lipid panel (04/11/2024 11:05 AM CDT) Blood us Historical Provider LAB BLOOD ORDERABLES Dorie l Result * eGFR (12/22/2019 1:41 AM CDT) eGFR 65 mL/min/1.7 3 m2 [facility] Comment: Interpretive Data Reference Interval Normal >/= 90 mL/min/1.73m2 Mildly decreased* 60 - 89 mL/min/1.73m2 Mildly to moderately decreased 45 - 59 mL/min/1.73m2 Moderately to severely decreased 30 - 44 mL/min/1.73m2 Severely decreased 15 - 29 mL/min/1.73m2 Kidney Failure < 15 mL/min/1.73m2 *Relative to young adult level If -Welsh multiply value by 1.16. Estimated glomerular filtration [...] AM CDT 12/22/2019 2:14 AM CDT Result [facility] Johnny Rodríguez MD LAB BLOOD ORDERABLES Final Result Performing Organization Address [facility] de Phone Number [facility] [address] [place] [address] * (ABNORMAL) Hemoglobin A1c (12/07/2019 1:07 PM [...] and children were not included. (Diabetes Care 31:[id number], 2008). The eAG is not equivalent to a fasting glucose. Blood specimen (specimen) 12/07/2019 1:07 PM CDT 12/07/2019 1:31 PM CDT Result [facility] Divya Lim NP LAB BLOOD ORDERABLES Fin al Result Performing Organization Address [facility] Co de Phone Number [facility] [address] [place] [address] * Diabetic Eye Exam (08/09/2017) Historical Provider HEALTH MAINTENANCE Edited Result - Final from Last 3 Months or Most Recently Relevant to Health Maintenance Insurance MEDICARE [facility] MEDICARE MEDICARE FOR LIFE Advance Directives For more information, please contact: [phone] * Full Code (Latest Code Status on File) Date Activated Date Inactivated Comments 12/19/2019 7:33 PM 12/22/2019 3:41 PM * Full Code Date Activated Date Inactivated Comments 09/21/2019 5:40 PM 10/02/2019 4:10 PM * Full Code Date Activated Date Inactivated Comments 09/01/2019 9:09 PM 09/03/2019 5:49 PM Care Teams Horse Race Timer Relationship Specialty Start Date End Date Tim Desai [place] [address] PCP - General Family Practice 05/25/24 Johnny Rodríguez MD Consulting Physician Urology 10/02/19
--- OUTSIDE RECORDS SUMMARY | 2024-11-08 14:26 | XMS_ITS | Encounter Summary ---
Author Organization [facility] Healthcare Address [address] [place] [address] Care Team Providers Care Industrial Relations Worker Name Role Phone Johnny Rodríguez MD Unavailable [phone]- [phone] [facility] Primary Care Provider [phone]- [phone] No, Physician Primary Care Provider Tim Desai MD Primary Care Provider [phone] -[phone] Encounter Details Date Type Department Care Team (Late st Contact Info) Description 12/25/2020 Telephone [facility] - Imaging [address] [place] [address] Transcribed Order, Provider Social History Tobacco Use Types Packs/Day Years Used Date Smoking Tobacco: Former Cigarettes 1 40 0 09/01/1979 - 09/01/2019 Smokeless Tobacco: Never Alcohol Use Standard Drinks/Week Comments Not Currently 0 (1 standard drink = 0.6 oz pur e alcohol) Sex and Gender Information Value Date Recorded Sex Assigned at Not on file Legal Sex Male 11:09 AM ARCHITECTURE PROFESSOR Gender Identity Not on file Sexual Orientation Not on file documented as of this encounter Plan of Treatment Not on file documented as of this encounter Visit Diagnoses Not on filedocumented in this encounter Care Teams Industrial Relations Worker Relationship Specialty Start Date End Date [facility] [address] [place] [address] PCP - General 12/18/20 06/22/22 No, Physician PCP - General 06/23/22 05/24/24 Tim Desai MD [address] [place] [address] PCP - General Family Practice 05/25/24 Johnny Rodríguez MD Consulting Physician Urology 10/02/19 documented as of this encounter
--- OUTSIDE RECORDS SUMMARY | 2024-11-08 14:27 | XMS_ITS | Continuity of Care Document ---
Author Name [facility] Organization [facility] Care Team Providers Care Fee Clerk Name Role Phone [facility] Unavailable Unavailable Problems Combined list of problems from Department of Defense and Veterans Affairs facilities. It does not include entries that were removed or entered in error. Problem Status Onset Date Problem Type Date of Resolution Comments Source ACUTE BRONCHITIS Inactive Condition DoD NICOTINE DEPENDENCE Active Condition Do D X-Ray Inactive Condition DoD joint pain, localized in the right shoulder Active Condition DoD Outpatient Physician Consultation Active Condition DoD ECZEMA Inactive Condition DoD changed sexual interest (libido): decreased Active Condition DoD Urine Tests Nonspecific Abnormal Findings Active Condition DoD Imaging Studies Inactive Condition DoD DERMATOLOGY - NON-INFECTIOUS Inactive Condition DoD TENDONITIS SHOULDER RIGHT Active Condition DoD BURSITIS SUBACROMIAL LEFT Active Condition DoD ESOPHAGITIS CHRONIC REFLUX Active Condition 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 DoD OSTEOARTHRITIS ANKLE / FOOT (MULTIPLE JOINTS) Active Condition DoD HEMORRHOIDS Active Condition DoD abdominal pain Inactive Condition DoD EPIDIDYMITIS Active Condition DoD skin: a rash [as Sx] Active Condition DoD abdominal pain in the right upper belly (RUQ) Active Condition DoD EUSTACHIAN TUBE DYSFUNCTION LEFT EAR Active Condition DoD ADJUSTMENT DISORDER WITH DEPRESSED MOOD Inactive Condition DoD tobacco use Active Condition DoD SINUSITIS Active Condition DoD snoring Active Condition DoD FATIGUE Active Condition DoD DYSPEPSIA Active Condition DoD SEBACEOUS CYST Active Condition DoD Aftercare Active Condition DoD CORONARY ARTERY DISEASE Active Condition DoD UPPER RESPIRATORY INFECTION Active Condition DoD Preventive Medicine Estab Patient Checkup Adult 40-64 Inactive Condition [facility] visit for: administrative purpose Inactive Condition DoD visit for: issue repeat prescription for medication Inactive Condition DoD Administrative Evaluation Services Inactive Condition DoD HYPERTENSION (SYSTEMIC) Active Condition DoD HYPERLIPIDEMIA Active Condition DoD CORONARY ARTERY STENOSIS MULTI-VESSEL Active Condition DoD DIABETES MELLITUS Active Condition DoD POST-ANGIOPLASTY Active Condition DoD ACUTE MYOCARDIAL INFARCTION Active Condition DoD DIABETES MELLITUS TYPE 2 - UNCOMPLICATED, UNCONTROLLED Active Condition DoD Aftercare Following Surgery Of Musculoskeletal System Active Condition DoD TRIGGER FINGER OF RIGHT RING FINGER Active Condition DoD GANGLION Active Condition DoD visit for: preoperative orthopedic exam Inactive Condition DoD visit for: screening exam cardiovascular disorders Inactive Condition DoD PRIOR MYOCARDIAL INFARCTION Active Condition DoD ESSENTIAL HYPERTENSION Active Condition DoD visit for: screening exam ischemic heart disease Inactive Condition DoD NORMAL ROUTINE HISTORY AND PHYSICAL Inactive Condition DoD visit for: issue repeat prescription Inactive Condition DoD visit for: screening malignant neoplasm colon Active Condition DoD URTICARIA Active Condition DoD Vaccines Prophylactic Need Against Influenza Active Condition DoD ACUTE MYOCARDIAL INFARCTION INITIAL CARE ([place]) Active Condition DoD MYOCARDIAL INFARCTION SILENT - INITIAL CARE ([place]) Active Condition DoD NICOTINE DEPENDENCE - IN REMISSION Active Condition DoD DIABETES MELLITUS TYPE 2 Active Condition DoD CONTUSION WITH INTACT SKIN SURFACE - KNEE LEFT ANTERIOR Inactive Condition DoD CONTUSION WITH INTACT SKIN SURFACE - MULTIPLE Inactive Condition f/u no improvemnte 2-3 weeks/increase d sx's DoD TENOSYNOVITIS - TRIGGER FINGER (ACQUIRED) Active Condition DoD visit for: refer patient without exam or treatment Inactive Condition DoD Laboratory Studies Inactive Condition Do D itching (pruritus) Inactive Condition t rial of [place], f/u in 1 month DoD Medications Combined list of outpatient medications from Department of Defense and Veterans Affairs facilities.Medications provided include 1) outpatient medications from the last 15 months, and 2) patient-reported medications. Medication Details Route Status Patient Instructions Prescription Expires Prescription Number Last Dispense Date Ordering Provider Order Date Order Qty Source albuterol 90 mcg inhaler [8.5g] = 1 inh(s), Inhale, every 4 hr, # 8.5 g, 1 total refill(s ), Soft Stop Inhala tion (breat he in) Ordered 5 2024 8.5 Ambulat ory Pharmac y AMOX TR-POTASSIU M CLAVULANATE (AMOXICILLI N/POTASSIUM CLAV), 875-125 MG, TABLET, ORAL, AUROBINDO PHARM, 20 ea. BOTTLE Cancele d [id number] : 2023 0 Pharmac y Data Transac tion Service Facilit y AMOX TR-POTASSIU M CLAVULANATE (AMOXICILLI N/POTASSIUM CLAV), 875-125 MG, TABLET, ORAL, AUROBINDO PHARM, 20 ea. BOTTLE Active [id number] 4 2023 20 Pharmac y Data Transac tion Service Facilit y ASPIRIN EC (U/D) 81 MG ORAL TBEC Take with food/maria eugenia Thomson w whole. 09/02/2024 [id number] 4 2023 90 [employer] [facility] [employer] [place] aspirin EC 81 mg tablet 81 mg, Oral, Daily, # 90 EA, 3 total refill(s ), Hard Stop Oral (given by mouth) Complet ed 09/02/2024 5 2024 90.0 Ambulat ory Pharmac y aspirin EC 81 mg tablet = 1 tab(s), Oral, Daily, # 90 EA, 3 total refill(s ), Soft Stop Oral (given by mouth) Ordered 5 2024 90.0 Ambulat ory Pharmac y aspirin EC 81 mg tablet See Instruct ions, # 90 EA, 2 total refill(s ), Acute Complet ed 07/26/2023 3 2023 90.0 Ambulat ory Pharmac y atenolol 50 mg tablet See Instruct ions, # 90 EA, 2 total refill(s ), Acute Complet ed 07/26/2023 3 2023 90.0 Ambulat ory Pharmac y AZITHROMYCI N (azithromyc in), 250 MG, TABLET, ORAL, AUROBINDO PHARM, 6 ea. BLIST PACK Active [id number] 4 2023 6 Pharmac y Data Transac tion Service Facilit y azithromyci n 250 mg tablet (6EA) See Instruct ions, Oral, # 6 EA, 0 total refill(s ), Soft Stop Oral (given by mouth) Ordered 5 2024 6.0 Ambulat ory Pharmac y Baqsimi 3 mg nasal powder [2EA] See Instruct ions, # 2 EA, 0 total refill(s ), Hard Stop Complet ed 02/05/2024 4 2023 2.0 Ambulat ory Pharmac y BD Katarzyna 2nd Gen pen needle 32g 4mm [100EA] See Instruct ions, # 400 EA, 1 total refill(s ), Hard Stop Ordered 02/01/2025 4 2023 400.0 Ambulat ory Pharmac y cetirizine 10 mg tablet = 1 tab(s), Oral, Daily, # 90 EA, 1 total refill(s ), Soft Stop Oral (given by mouth) Ordered 5 2024 90.0 Ambulat ory Pharmac y clopidogrel 75 mg tablet See Instruct ions, # 90 EA, 3 total refill(s ), Hard Stop Complet ed 09/02/2024 5 2024 90.0 Ambulat ory Pharmac y clopidogrel 75 mg tablet = 1 tab(s), Oral, Daily, # 90 EA, 3 total refill(s ), Soft Stop Oral (given by mouth) Ordered 5 2024 90.0 Ambulat ory Pharmac y clopidogrel 75 mg tablet See Instruct ions, # 90 EA, 2 total refill(s ), Acute Complet ed 07/26/2023 3 2023 90.0 Ambulat ory Pharmac y empaglifloz in 25 mg tablet = 1 tab(s), Oral, Daily, # 90 EA, 2 total refill(s ), Soft Stop Oral (given by mouth) Ordered 5 2024 90.0 Ambulat ory Pharmac y empaglifloz in 25 mg tablet = 1 tab(s), Oral, Daily, # 90 EA, 2 total refill(s ), Hard Stop Oral (given by mouth) Discont inued 10/10/2024 5 2024 90.0 Ambulat ory Pharmac y fenofibrate 54 mg tablet 54 mg, Oral, Daily, # 90 EA, 2 total refill(s ), Hard Stop Oral (given by mouth) Discont inued 12/06/2023 4 2023 90.0 Ambulat ory Pharmac y fenofibrate 54 mg tablet = 1 tab(s), Oral, Daily, # 90 EA, 2 total refill(s ), Soft Stop Oral (given by mouth) Ordered 5 2024 90.0 Ambulat ory Pharmac y fenofibrate 54 mg tablet 54 mg, Oral, Daily, # 90 EA, 2 total refill(s ), Hard Stop Oral (given by mouth) Discont inued 10/10/2024 5 2024 90.0 Ambulat ory Pharmac y glipiZIDE 5 mg tablet 5 mg, Oral, BID, # 60 EA, 3 total refill(s ), Hard Stop Oral (given by mouth) Discont inued 07/13/2023 3 2023 60.0 Ambulat ory Pharmac y glipiZIDE 5 mg tablet See Instruct ions, Oral, # 360 EA, 3 total refill(s ), Hard Stop Oral (given by mouth) Complet ed 07/11/2024 4 2024 360.0 Ambulat ory Pharmac y insulin glargine (Lantus SoloStar) 100 units/mL [3mL] = 0.18 mL, SubCutan eous, every morning, # 15 mL, 1 total refill(s ), Hard Stop SubCut aneous (under the skin) Ordered 06/21/2025 5 2024 15.0 Ambulat ory Pharmac y insulin glargine-yf gn 100 unit/mL inj-pen [3mL] = 0.2 mL, SubCutan eous, every morning, # 15 mL, 1 total refill(s ), Hard Stop SubCut aneous (under the skin) Discont inued 02/03/2024 4 2023 15.0 Ambulat ory Pharmac y insulin lispro KwikPen 100 units/mL [3mL] See Instruct ions, # 45 mL, 1 total refill(s ), Hard Stop Notes: refriger ate Ordered 06/21/2025 5 2024 45.0 Ambulat ory Pharmac y insulin lispro KwikPen 100 units/mL [3mL] See Instruct ions, # 30 mL, 1 total refill(s ), Hard Stop Notes: refriger ate Discont inued 06/27/2024 4 2024 30.0 Ambulat ory Pharmac y Jardiance 25 mg tablet 25 mg, Oral, Daily, # 90 EA, 2 total refill(s ), Hard Stop Oral (given by mouth) Discont inued 02/22/2024 4 2023 90.0 Ambulat ory Pharmac y Jardiance 25 mg tablet See dose instruct ions in comments , # 90 EA, 1 total refill(s ), Acute Complet ed 08/16/2023 3 2023 90.0 Ambulat ory Pharmac y Lantus SoloStar glargine 100 units/mL [3mL] See Instruct ions, # 15 mL, 1 total refill(s ), Hard Stop Discont inued 06/27/2024 4 2024 15.0 Ambulat ory Pharmac y metFORMIN 500 mg tablet = 1 tab(s), Oral, Daily, # 90 EA, 1 total refill(s ), Soft Stop Oral (given by mouth) Ordered 5 2024 90.0 Ambulat ory Pharmac y metFORMIN 500 mg tablet See Instruct ions, # 90 EA, 1 total refill(s ), Hard Stop Discont inued 10/02/2024 5 2024 90.0 Ambulat ory Pharmac y metFORMIN 500 mg tablet 500 mg, Oral, Daily, # 90 EA, 3 total refill(s ), Hard Stop Oral (given by mouth) Complet ed 03/23/2024 4 2023 90.0 Ambulat ory Pharmac y metoprolol succinate ER 25 mg/24 hour tablet = 1 tab(s), Oral, Daily, # 90 EA, 3 total refill(s ), Soft Stop Oral (given by mouth) Ordered 5 2024 90.0 Ambulat ory Pharmac y montelukast 10 mg tablet = 1 tab(s), Oral, Daily, # 90 EA, 0 total refill(s ), Soft Stop Oral (given by mouth) Ordered 5 2024 90.0 Ambulat ory Pharmac y pen needle 32g 4mm See Instruct ions, # 400 EA, 1 total refill(s ), Soft Stop Ordered 5 2024 400.0 Ambulat ory Pharmac y pioglitazon e 30 mg oral tablet TAKE ONE TABLET BY MOUTH EVERY DAY, # 90 EA, 2 total refill(s ), Acute Complet ed 07/05/2023 3 2023 90.0 Ambulat ory Pharmac y pioglitazon e 45 mg oral tablet TAKE ONE TABLET DAILY, # 90 EA, 1 total refill(s ), Acute Complet ed 11/26/2022 2 2022 90.0 Ambulat ory Pharmac y pioglitazon e 45 mg tablet 45 mg, Oral, Daily, # 90 EA, 3 total refill(s ), Hard Stop Oral (given by mouth) Complet ed 01/11/2024 4 2023 90.0 Ambulat ory Pharmac y PRAVASTATIN 40 MG ORAL TAB Take with food/mil k.Take or use exactly as directed .Obtain advice for OTCs.Do not take if . 08/22/2024 [id number] 4 2023 90 [employer] [facility] [place] pravastatin 40 mg tablet = 1 tab(s), Oral, Daily, # 90 EA, 1 total refill(s ), Soft Stop Oral (given by mouth) Ordered 5 2024 90.0 Ambulat ory Pharmac y pravastatin 40 mg tablet = 1 tab(s), Oral, Daily, # 90 EA, 1 total refill(s ), Hard Stop Oral (given by mouth) Discont inued 10/02/2024 5 2024 90.0 Ambulat ory Pharmac y pravastatin 40 mg tablet 40 mg, Oral, Daily, # 90 EA, 1 total refill(s ), Hard Stop Oral (given by mouth) Complet ed 01/11/2024 3 2023 90.0 Ambulat ory Pharmac y pravastatin 40 mg tablet See Instruct ions, # 90 EA, 1 total refill(s ), Hard Stop Discont inued 03/03/2024 4 2023 90.0 Ambulat ory Pharmac y PREDNISONE (prednisone ), 20 MG, TABLET, ORAL, NOVITIUM/AN I PH, 500 ea. BOTTLE Active [id number] 4 2023 5 Pharmac y Data Transac tion Service Facilit y Allergies, Adverse Reactions, Alerts Combined list of allergies from Department of Defense and Veterans Affairs facilities. It does not include entries that were removed or entered in error. Substance Category Reaction Severity Reaction type Status Date Reported Comments Source cefuroxime Propensity to adverse reactions to drug Rash Active 1 Unknown Organizatio n CEFUROXIME (CEFUROXIME AXETIL) Drug allergy (disorder) Rash active 1 [facility] [employer] [place] LISINOPRIL Drug allergy (disorder) Unknown active 3 88[facility] lisinopril Propensity to adverse reactions to drug Unknown Active Reaction( s): Unknown; Note: [id number] NLD Unknown Organizatio n Immunizations Combined list of available immunizations from the Department of Defense and Veterans Affairs facilities. Immunization Series Date Given Administered By Site Reaction Lot Number CVX Code Drug Executive Legal Secretary Status Comments Source influenza, injectable, quadrivalent- pf 2019 150 [employer] complet ed influenza , injectabl e, quadrival ent-pf 04/05/20 Given Ambulat ory Pharmac y influenza, injectable, quadrivalent, preservative free 2019 ALUL, () Not Given influenza , injectabl e, quadrival ent, preservat [place] free DoD influenza, seasonal, injectable 2018 [id number] 141 sanofi pasteur complet ed influenza , seasonal, injectabl e 04/06/19 Given Ambulat ory Pharmac y influenza, seasonal, injectable 2018 [id number] 141 sanofi pasteur complet ed influenza , seasonal, injectabl e 04/06/19 Given Ambulat ory Pharmac y influenza, injectable, quadrivalent- pf 2018 150 sanofi pasteur complet ed influenza , injectabl e, quadrival ent-pf 04/06/19 Given Ambulat ory Pharmac y influenza, injectable, quadrivalent 2018 ANDRÉS, () Not Given influenza , injectabl e, quadrival ent DoD Influenza, seasonal, injectable 1 2018 Unknown, Provider [id number] 141 Sanofi Pasteur ([facility]) complet ed Influenza , seasonal, injectabl e DoD influenza, injectable, quadrivalent- pf 2017 [id number] 150 GlaxoSmithKli ne complet ed influenza , injectabl e, quadrival ent-pf 04/12/18 Given Ambulat ory Pharmac y influenza, injectable, quadrivalent- pf 2017 [id number] 150 GlaxoSmithKli ne complet ed influenza , injectabl e, quadrival ent-pf 04/12/18 Given Ambulat ory Pharmac y Influenza, injectable, quadrivalent, preservative free 1 2017 Unknown, Provider [id number] 150 [facility] ([facility]) complet ed Influenza , injectabl e, quadrival ent, preservat [place] free DoD tetanus, diphtheria, acellular pertu is 2016 [facility] Arm [id number] [facility] tet[facility], diphtheri a, acellular pertussis 03/17/17 Given Ambulat ory Pharmac y tetanus, diphtheria, acellular pertu is 2016 [id number] 115 [facility] complet ed tetanus, diphtheri a, acellular pertussis 03/17/17 Given Ambulat ory Pharmac y tetanus toxoid, reduced diphtheria toxoid, and acellular pertu is vaccine, adsorbed 1 2016 Unknown, Provider [id number] 115 [facility] ([facility]) complet ed tetanus toxoid, reduced diphtheri a toxoid, and acellular pertussis vaccine, adsorbed DoD influenza, seasonal, injectable 2012 zzRig ht Arm [id number] 141 sanofi pasteur complet ed influenza , seasonal, injectabl e 05/17/13 Given Ambulat ory Pharmac y influenza, seasonal, injectable 2012 [id number] 141 sanofi pasteur complet ed influenza , seasonal, injectabl e 05/17/13 Given Ambulat ory Pharmac y Influenza, seasonal, injectable 3 2012 Unknown, Provider [id number] 141 Sanofi Pasteur ([facility]) complet ed Influenza , seasonal, injectabl e DoD pneumococcal polysaccharid e, 23 valent 2007 zzLef t Arm [id number] 33 [employer] complet ed pneumococ samuel polysacch aride, 23 valent 04/06/08 Given Ambulat ory Pharmac y pneumococcal polysaccharid e, 23 valent 2007 [id number] 33 [employer] Inc complet ed pneumococ samuel polysacch aride, 23 valent 04/06/08 Given Ambulat ory Pharmac y pneumococcal polysaccharid e vaccine, 23 valent 1 2007 Unknown, Provider [id number] 33 Merck ([facility]D) complet ed pneumococ samuel polysacch aride vaccine, 23 valent DoD influenza virus vaccine,split 2007 15 complet ed influenza virus vaccine,s plit 04/02/08 Given Ambulat ory Pharmac y influenza virus vaccine,split 2007 15 complet ed influenza virus vaccine,s plit 04/02/08 Given Ambulat ory Pharmac y influenza virus vaccine, split virus (incl. purified surface antigen)-reti red CODE 2 2007 Unknown, Provider 15 Transcribed (TRS) complet ed influenza virus vaccine, split virus (incl. purified surface antigen)- retired CODE DoD influenza virus vaccine,split 2004 zzLef t Arm [id number] 15 sanofi pasteur complet ed influenza virus vaccine,s plit 05/19/05 Given Ambulat ory Pharmac y influenza virus vaccine,split 2004 [id number] 15 sanofi pasteur complet ed influenza virus vaccine,s plit 05/19/05 Given Ambulat ory Pharmac y influenza virus vaccine, split virus (incl. purified surface antigen)-reti red CODE 1 2004 Unknown, Provider [id number] 15 Sanofi Pasteur ([facility]) complet ed influenza virus vaccine, split virus (incl. purified surface antigen)- retired CODE DoD Td (adult)-PF 2004 113 complet ed Td (adult)-P F 01/03/05 Given Ambulat ory Pharmac y Td (adult)-PF 2004 113 complet ed Td (adult)-P F 01/03/05 Given Ambulat ory Pharmac y tetanus and diphtheria toxoids, adsorbed, preservative free, for adult use (5 Lf of tetanus toxoid and 2 Lf of diphtheria toxoid) 1 2004 Unknown, Provider 113 Transcribed (TRS) complet ed tetanus and diphtheri a toxoids, adsorbed, preservat [place] free, for adult use (5 Lf of tetanus toxoid and 2 Lf of diphtheri a toxoid) DoD Encounters Combined list of: 1) Encounters from Department of Veterans Affairs facilities going backup to the last 18 months, not all VA inpatient encounters are included; 2) Encounters from the Department of Defense facilities going backup to 280 months. Location Location Details Encounter Type Encounter Number Reason For Visit Attending Provider ADM Date DC Date Status Disposition Source [address] [place] [address])([facility] Non-GME FHI1) OUTPATIENT [id number] f/u for diabete s/and itching DARI PARK 12/02 Released w/o Limitations [address] [place] [address] [facility])(F amily Practic e Non-GME FHI1) [address] [place] [address] [facility])([facility]les Practice Non-GME FHI1) TELE CONSULT [id number] Lab Work ASYA ORDONEZ 10/[address] [place] [address] [facility])(F amily Practic e Non-GME FHI1) [address] [place] [address] [facility])(Fam charles Practice Non-GME FHI1) OUTPATIENT [id number] 6-month f/u for diabete s COOPER RAYMOND 10/28 Released w/o Limitations [address] [place] [address])(F amily Practic e Non-GME FHI1) [address] [place] [address] [facility])([facility]les Practice Non-GME FHI1) TELE CONSULT [id number] Orthope dic Referra l Issue ASYA ORDONEZ 11/[address] [place] [address] [facility])(F amily Practic e Non-GME FHI1) [address] [place] [address])([facility]les Practice Non-GME FHI1) OUTPATIENT [id number] left knee PADMINI DUKES 01/15 Released w/o Limitations [address] [place] [address] [facility])(F amily Practic e Non-GME FHI1) [address] [place] [address] [facility])(Sco tt Internal Medicine Tm) TELE CONSULT [id number] med refSUNDEEP Vazquez 02/[address] [place] [address] [facility])(S cott Interna l Medicin e Tm) [address] [place] [address] [facility])(Fam charles Practice Non-GME FHI1) TELE CONSULT [id number] med refDIMITRI Delacruz 02/[address] [place] [address] [facility])(F amily Practic e Non-GME FHI1) [facility] [employer] ([facility] ) OUTPATIENT [id number] F/U HEART ATTACK NIVIA, ASSY 04/30 Released w/o Limitations [facility] [employer] ([facility]S cott Interna l Medicin e Tm) [facility] [employer] ([facility] ) OUTPATIENT [id number] pt needs rx change s/p heart attack, rash from plavix STEVEN OCONNOR A 05/06 Released w/o Limitations [facility] [employer] ([facility]S cott Interna l Medicin e Tm) [facility] [employer] ([facility] ) TELE CONSULT [id number] Rash BARBI HARDY 05/[address] [place] [address] [facility] ([facility]S cott Interna l Medicin e Tm) [facility] [employer] ([facility] ) OUTPATIENT [id number] rash over most of his body HERMANHERNESTO R 05/19 Released w/o Limitations [facility] [employer] ([facility]S cott Interna l Medicin e Tm) [facility] [employer] ([facility] ) OUTPATIENT [id number] allergi c reactio n/seen before/ smiley garcia , ASSY 06/01 Released w/o Limitations [facility] [employer] ([facility]S cott Interna l Medicin e Tm) [facility] [employer] ([facility] ) TELE CONSULT [id number] abn labs SUNDEEP NELSON 06/02 [facility] [employer] ([facility]S cott Interna l Medicin e Tm) [facility] [employer] ([facility] [facility]) OUTPATIENT [id number] diagnos tic colonos ORIANA Brooks 06/17 Released w/o Limitations [facility] [employer] ([facility]G astroen terolog y Resourc e Sharing ) [facility] [employer] [facility] ) TELE CONSULT [id number] med ROBERT Draper 09/15 [facility] [employer] [facility]S cott Interna l Medicin e Tm) [address] [place] [address] [facility] ) OUTPATIENT [id number] sore finger TANK GONZÁLES 09/21 Released w/o Limitations [facility] [employer] ([facility]S cott Interna l Medicin e Tm) [address] [place] [address] [facility] ) TELE CONSULT [id number] SUNDEEP FALLON 09/[address] [place] [address] [facility] [employer] ([facility]S cott Interna l Medicin e Tm) [address] [place] [address] [facility]PA - Orthopedi ) OUTPATIENT [id number] triger finger BARTOLO AYOUB 09/30 Released w/o Limitations [address] [place] [address] [facility] [employer] ([facility]V A - Orthope dics) [address] [place] [address] [facility] ) OUTPATIENT [id number] pre op clearan JAMISON Langston 10/07 Released w/o Limitations [facility] [employer] [facility])(S cott Interna l Medicin e Tm) [address] [place] [address] [facility]) OUTPATIENT [id number] pre op clearan JANELL Louise 10/14 Released w/o Limitations [address] [place] [address] Group [facility])(E lectroc ardiogr am Clinic) [facility]PA - Orthopedi ) OUTPATIENT [id number] PREOP TRIGGER FINGER RELEASE BARTOLO AYOUB 10/19 Released w/o Limitations [address] [place] [address] Group Jean EID ([facility]V A - Orthope dics) [address] [place] [address] Jean EID [facility]PA - Orthopedi ) OUTPATIENT [id number] post op right trigger finger/ ganglio n/ surgery on October 17 BARTOLO AYOUB 10/27 Released w/o Limitations [address] [place] [address] Jean EID [facility]V A - Orthope dics) [address] [place] [address] Jean EID [facility]PA - Orthopedi ) OUTPATIENT [id number] f/u right hand surgery BARTOLO AYOUB 11/03 Released w/o Limitations [address] [place] [address] Jean [facility])(V A - Orthope dics) [address] [place] [address] Jean [facility])([facility] ) OUTPATIENT [id number] diabeti c fol up/swol fuad ankles JAMISON LACKEY J 01/20 Released w/o Limitations [address] [place] [address] Jean [facility])(S [facility] Intern[facility] l Medicin e Tm) [address] [place] [address] Jean [facility])([facility] ) TELE CONSULT [id number] Concern about medicat ion JAMISON LACKEY 01/[address] [place] [address] Jean [facility])(S cott Interna l Medicin e Tm) [address] [place] [address] Jean [facility])([facility] ) TELE CONSULT [id number] Medicat ion refill SUNDEEP NELSON P 03/[address] [place] [address] Jean [facility])([facility] cott Intern[facility] l Medicin e Tm) [address] [place] [address] Jean [facility])([facility] ) TELE CONSULT [id number] Medicat ion refill SUNDEEP NELSON P 03/[address] [place] [address] Jean [facility])([facility] cott Intern[facility] l Medicin e Tm) [address] [place] [address] Jean [facility])([facility] ) OUTPATIENT [id number] follow up Diabete s JAMIN SANTANA 04/02 Released w/o Limitations [address] [place] [address] Jean [facility])([facility] Intern[facility] l Medicin e Tm) [address] [place] [address] Jean [facility])([facility] ) TELE CONSULT [id number] results HERNESTO HERMAN 05/[address] [place] [address] Jean [facility])([facility] Intern[facility] l Medicin e Tm) [address] [place] [address] Jean [facility])([facility] ) TELE CONSULT [id number] medicat ion refill SUNDEEP NELSON P 05/[address] [place] [address] Jean [facility])([facility] Intern[facility] l Medicin e Tm) [address] [place] [address] Jean [facility])([facility] ) TELE CONSULT [id number] med SUNDEEP Mahan P 09/24 [facility])(S cott Interna l Medicin e Tm) [facility])([facility] ) OUTPATIENT [id number] FOLLOW UP, HTN, DM, ETC. HERNESTO HERMAN 10/12 Released w/o Limitations [address] [place] [address] Group [facility])(S cott Interna l Medicin e Tm) [address] [place] [address])([facility] ) TELE CONSULT [id number] avandia SUNDEEP Geller P 11/[address] [place] [address] Group [facility])(S cott Interna l Medicin e Tm) [address] [place] [address])([facility] ) TELE CONSULT [id number] Rx Refill AMANDA FORREST 01/[address] [place] [address] Group [facility])(S cott Interna l Medicin e Tm) [address] [place] [address])([facility] ) TELE CONSULT [id number] lab work BARBI HARDY 02/[address] [place] [address] Group [facility])(S cott Interna l Medicin e Tm) [address] [place] [address])([facility] ) TELE CONSULT [id number] med refill AMANDA FORREST 02/[address] [place] [address] Group [facility])(S cott Interna l Medicin e Tm) [facility])([facility] ) OUTPATIENT [id number] diabete s heart ck SHERYL, MARTHA CPT 03/01 Released w/o Limitations [address] [place] [address] Group [facility])(S cott Interna l Medicin e Tm) [facility])([facility] ) TELE CONSULT [id number] Rx Refill AMANDA FORREST 03/[address] [place] [address] Group [facility])(S cott Interna l Medicin e Tm) [facility])([facility] ) TELE CONSULT [id number] Order Labwork LASITER, TREVA M 03/24 [facility] Jean ELAINADiana ([facility]S cott Interna l Medicin e Tm) [facility] Jean EID ([facility]) TELE CONSULT [id number] Referra ls LASITER, TREVA M 04/13 [facility] Jean ELAINADiana ([facility])(S cott Interna l Medicin e Tm) [facility] Jean Diana ([facility])([facility] ) TELE CONSULT [id number] Rx Refill LASITER, TREVA M 04/21 [facility] Jean Diana ([facility])(S cott Interna l Medicin e Tm) [facility] Jean EID ([facility])([facility] ) OUTPATIENT [id number] F/U Diabete MARIA MelendezARATH CPT 04/28 Released w/o Limitations [facility] Jean Diana ([facility])(S cott Interna l Medicin e Tm) [facility] Jean Diana ([facility]) TELE CONSULT [id number] Referra l LASITER, TREAV M 05/19 [facility] Jean Diana ([facility])(S cott Interna l Medicin e Tm) [facility] Jean Diana ([facility])([facility]) OUTPATIENT [id number] diabeti c, head and chest cold DAVID CHACON 08/21 Released w/o Limitations [facility] Jean EID ([facility])(S cott Interna l Medicin e Tm) [facility] Jean Diana ([facility])([facility] ) TELE CONSULT [id number] Med Refill LASITER, TREVA M 08/30 [facility] Jean Diana ([facility])(S cott Interna l Medicin e Tm) [facility] Jean EID ([facility])([facility] ) TELE CONSULT [id number] Order Labwork LASITER, TREVA M 10/30 [facility] Jean EID ([facility]S cott Interna l Medicin e Tm) [facility] Jean EID ([facility])([facility] ) TELE CONSULT [id number] med refill LASITER, TREVA M 11/[address] [place] [address] Jean EID [facility])(S cott Interna l Medicin e Tm) [address] [place] [address] Jean EID [facility])([facility] tt Internal Medicine ) OUTPATIENT [id number] FU DIABETE S BLOOD WK SHERYL, MARTHA CPT 11/14 Released w/o Limitations [address] [place] [address] Jean EID [facility])(S cott Interna l Medicin e Tm) [address] [place] [address] Jean EID [facility])([facility] ) TELE CONSULT [id number] med refill LASITER, TREVA M 11/[address] [place] [address] Jean EID [facility])(S cott Interna l Medicin e Tm) [address] [place] [address] Jean EID [facility])([facility] FAMRES Tm Blue) OUTPATIENT [id number] colorec carla cancer screeni EVELINE Lira 12/11 Released w/o Limitations [address] [place] [address] Jean EID [facility])(S [facility] FAMRES Tm Blue) [address] [place] [address] Jean EID [facility])([facility] FAMRES Tm Blue) TELE CONSULT [id number] Call back C-scope Nov 19- BUD Hardwick 12/[address] [place] [address] Jean EID [facility])(S [facility] FAMRES Tm Blue) [address] [place] [address] Jean EID [facility])([facility] Fam Res Tm Green) TELE CONSULT [id number] Biopsy Results EVELINE SALAZAR 12/[address] [place] [address] Jean EID [facility])(S [facility] Fam Res Tm Green) [address] [place] [address] Jean EID [facility])([facility] ) TELE CONSULT [id number] Pt would like referra updated Cardio. Dr Dylon royal and Opt. BARBI Lemus 03/[address] [place] [address] Jean EID [facility])(S cott Interna l Medicin e Tm) [address] [place] [address] Jean EID [facility])([facility] Internal [facility] ) TELE CONSULT [id number] med refill BARBI HARDY 03/[address] [place] [address] Jean EID [facility])(S cott Interna l Medicin e Tm) [address] [place] [address])([facility] ) OUTPATIENT [id number] follow- up diabete s, HTN, HLP, CAD PADDY QUIROS 04/06 Released w/o Limitations [address] [place] [address])(S cott Interna l Medicin e Tm) [address] [place] [address])([facility] ) OUTPATIENT [id number] [phone] lump on collar bone, oozing MAX JAMIN L 05/14 Released w/o Limitations [address] [place] [address])(S cott Interna l Medicin e Tm) [address] [place] [address])([facility] ) TELE CONSULT [id number] Referra BARBI Elisa 05/[address] [place] [address])(S cott Interna l Medicin e Tm) [address] [place] [address])([facility] ) TELE CONSULT [id number] med renewal /referr al BARBI Clinton 06/[address] [place] [address])(S cott Interna l Medicin e Tm) [address] [place] [address])([facility] ) TELE CONSULT [id number] med refill BARBI HARDY 08/[address] [place] [address])(S cott Interna l Medicin e Tm) [address] [place] [address])([facility] ) TELE CONSULT [id number] Labwork BARBI HARDY 08/[address] [place] [address])(S cott Interna l Medicin e Tm) [facility])([facility] ) OUTPATIENT [id number] Diabeti c f/u, renew referra ls, [phone] PADDY QUIROS 09/14 Released w/o Limitations [address] [place] [address] Jean [facility])(S cott Interna l Medicin e Tm) [address] [place] [address])([facility] ) TELE CONSULT [id number] Results PADDY QUIROS 09/[address] [place] [address] Jean [facility])(S cott Interna l Medicin e Tm) [address] [place] [address] Jean [facility])([facility] ) TELE CONSULT [id number] Medicat ion Refill BARBI HARDY 09/[address] [place] [address] Jean [facility])(S cott Interna l Medicin e Tm) [address] [place] [address] Jean [facility])([facility] ) TELE CONSULT [id number] Rx Refill ASYA FRANCIS 11/[address] [place] [address] Jean [facility])([facility] cott Interna l Medicin e Tm) [address] [place] [address] Jean [facility])([facility] ) TELE CONSULT [id number] labs prior to appt. ASYA FRANCIS Raj 12/[address] [place] [address] Jean [facility])(S cott Interna l Medicin e Tm) [address] [place] [address])([facility] ) TELE CONSULT [id number] A1C, and Lipid lab results PADDY QUIROS 12/[address] [place] [address] Jean [facility])(S cott Interna l Medicin e Tm) [address] [place] [address])([facility] ) OUTPATIENT [id number] diabeti c follow up PADDY QUIROS 01/08 Released w/o Limitations [address] [place] [address] Jean [facility])(S cott Interna l Medicin e Tm) [address] [place] [address])([facility] ) TELE CONSULT [id number] CBC,CMP ,TSH,Hp ylori lab resutls PADDY QUIROS 01/[address] [place] [address] Jean [facility])(S cott Interna l Medicin e Tm) [address] [place] [address] Jean [facility])([facility] ) OUTPATIENT [id number] sinus infecti on - [id number] CATHY VILLELA 03/11 Released w/o Limitations [address] [place] [address] Jean [facility])(S cott Interna l Medicin e Tm) [address] [place] [address] Jean [facility])([facility] ) TELE CONSULT [id number] labs prior to appt. BARBI HARDY 03/21 [facility] Jean [facility] ([facility]S cott Interna l Medicin e Tm) [facility] Jean [facility])([facility] ) TELE CONSULT [id number] Med Refill BARBI HARDY 03/27 [facility] Jean Diana ([facility])(S cott Interna l Medicin e Tm) [facility] Jean [facility])([facility] ) OUTPATIENT [id number] fu diabete s and referra l renewal s [phone] PADDY QUIROS Maggie 04/01 Released w/o Limitations [address] [place] [address] Group Jean [facility] ([facility])(S cott Interna l Medicin e Tm) [address] [place] [address] Jean [facility])([facility] ) TELE CONSULT [id number] Rx Refills BARBI HARDY 05/[address] [place] [address] Group Jean [facility] ([facility])(S cott Interna l Medicin e Tm) [facility] Jean [facility])([facility] ) TELE CONSULT [id number] Rx refill/ lab works BARBI HARDY 06/[address] [place] [address] Group Jean [facility])(S cott Interna l Medicin e Tm) [facility] Jean [facility])([facility] ) OUTPATIENT [id number] f/u diabete s QUIROSPADDY 06/26 Released w/o Limitations [address] [place] [address] Group Jean [facility])(S cott Interna l Medicin e Tm) [facility] Jean [facility])([facility] ) TELE CONSULT [id number] change in medicat ion SIDDHARTH CARUSO Ethan 06/28 [facility] Jean [facility])(S cott Interna l Medicin e Tm) [facility] Jean [facility])([facility] ) TELE CONSULT [id number] Med Refill/ Order Labs BARBI HARDY 09/13 [facility] Jean Diana [facility])(S cott Interna l Medicin e Tm) [facility] Jean [facility])([facility] ) OUTPATIENT [id number] fol diabete s [phone] PADDY QUIROS 10/09 Released w/o Limitations [employer] Jean EID [facility])(S cott Interna l Medicin e Tm) [facility] Jean EID [facility])([facility]) TELE CONSULT [id number] med refill and referal BARBI HARDY 10/15 [facility] Jean EID [facility])(S cott Interna l Medicin e Tm) [facility] Jean Diana [facility])([facility]) TELE CONSULT [id number] referal for podiatr y BARBI HARDY 11/13 [facility] Jean EID [facility])(S cott Interna l Medicin e Tm) [facility] Jean EID [facility])([facility]) TELE CONSULT [id number] rx refill BARBI HARDY 11/29 [facility] Jean EID [facility])(S cott Interna l Medicin e Tm[facility] Jean EID [facility])([facility]) TELE CONSULT [id number] labwork s SIDDHARTH CARUSO 02/28 Referred for Appointment [facility] Jean EID [facility])(S cott Interna l Medicin e Tm) [facility] Jean EID [facility])([facility]) OUTPATIENT [id number] diabeti c MYNOR Banuelos 03/10 Released w/o Limitations [facility] Jean EID [facility])(S cott Interna l Medicin e Tm) [facility] Jean EID [facility])([facility]) TELE CONSULT [id number] labs prior to appt. BARBI HARDY 06/24 Referred for Appointment [facility] Jean EID [facility])(S cott Interna l Medicin e Tm) [facility] Jena EID [facility])([facility]) TELE CONSULT [id number] med refill BARBI HARDY 06/27 Referred for Appointment [facility] Jean EID [facility])(S cott Interna l Medicin e Tm) [facility] Jean EID [facility])([facility] ) OUTPATIENT [id number] follow- up diabete s CHULA PADDY Serrano 07/31 Released w/o Limitations [address] [place] [address] Group Jean [facility])(S cott Interna l Medicin e Tm) [address] [place] [address] Jean [facility])([facility] ) TELE CONSULT [id number] rx refill SIDDHARTH CARUSO 11/[address] [place] [address] Group Jean [facility])([facility] cott Interna l Medicin e Tm) [address] [place] [address] Jean [facility])([facility] ) OUTPATIENT [id number] 3 mo f/u BM/HTN/ Lab PADDY QUIROS 11/18 Released w/o Limitations [address] [place] [address] Group Jean [facility])([facility] Interna l Medicin e Tm) [address] [place] [address] Jean [facility])([facility] ) TELE CONSULT [id number] Med refill - Chula - [id number] [facility] BARBI HARDY 12/[address] [place] [address] Group Jean [facility])(S cott Interna l Medicin e Tm) [address] [place] [address] Jean [facility])([facility] ) TELE CONSULT [id number] med refill BARBI HARDY 01/[address] [place] [address] Group Jean [facility])([facility] Intern[facility] l Medicin e Tm) [address] [place] [address] Jean [facility])([facility] ) TELE CONSULT [id number] rx refill BARBI HARDY 02/19 [facility] Jean [facility])([facility] cott Interna l Medicin e Tm) [address] [place] [address] Jean [facility])([facility] ) TELE CONSULT [id number] rx refill BARBI HARDY 03/[address] [place] [address] Group Jean [facility])([facility] cott Interna l Medicin e Tm) [address] [place] [address] Jean [facility])([facility] ) OUTPATIENT [id number] f/u DM [id number] MYNOR MARTINEZ 04/09 Released w/o Limitations [address] [place] [address] Group Jean [facility])([facility] cott Interna l Medicin e Tm) [address] [place] [address])([facility] ) TELE CONSULT [id number] Referra SIDDHARTH Morales 04/[address] [place] [address])(S cott Interna l Medicin e Tm) [address] [place] [address])([facility] ) TELE CONSULT [id number] rx refill BARBI HARDY 04/[address] [place] [address])(S cott Interna l Medicin e Tm) [address] [place] [address])([facility] ) TELE CONSULT [id number] Tcon for waiver concern ing diabete s Dr Martinez ph [phone] dmj BARBI HARDY 06/[address] [place] [address])(S cott Interna l Medicin e Tm) [address] [place] [address])([facility] ) OUTPATIENT [id number] follow- up to discuss rotatin g shifts and diabete s MYNOR MARTINEZ 07/01 Released w/o Limitations [address] [place] [address])(S cott Interna l Medicin e Tm) [address] [place] [address])([facility] ) OUTPATIENT [id number] f/u for waiver [phone] MYNOR MARTINEZ 07/24 Released w/o Limitations [address] [place] [address])([facility] cott Interna l Medicin e Tm) [address] [place] [address])([facility] ) TELE CONSULT [id number] Notes Entered by: KRISTIE MODI 25 Sep [id number] ------- ------- ------- ------- -- Medicat ion renewal /Lab order - Jaya - [phone] - SIDDHARTH Sherman 09/[address] [place] [address])(S cott Interna l Medicin e Tm) [address] [place] [address])([facility] ) OUTPATIENT [id number] f/u diabeti c [id number] MYNOR MARTINEZ 10/04 Released w/o Limitations [address] [place] [address])(S cott Interna l Medicin e Tm) [address] [place] [address])([facility] ) TELE CONSULT [id number] Notes Entered by: SHANNEN COLLINS 20 Oct 2011 0910 ------- ------- ------- ------- -- Medicat ion refill- Jaya/Del [id number] /BARBI Martinez 10/[address] [place] [address])([facility] [address] [place] [address])([facility] ) TELE CONSULT [id number] Notes Entered by: YOSEPH PRECIADO 26 Nov 2011 0907 ------- ------- ------- ------- -- Rx Refill/ Jaya/6 [id number]/BARBI ACEVES 11/[address] [place] [address])([facility] [address] [place] [address])([facility] ) TELE CONSULT [id number] Notes Entered by: YOSEPH PRECIADO 30 Nov 2011 1144 ------- ------- ------- ------- -- Rx Renewal /Jaya/ /K BARBI HARDY 11/[address] [place] [address])([facility] [address] [place] [address])([facility] ) OUTPATIENT [id number] F/U For Diabete s H# MYNOR MARTINEZ 12/13 Released w/o Limitations [address] [place] [address])([facility] [address] [place] [address])([facility]) TELE CONSULT [id number] Notes Entered by: JAVIER HARRIS 06 Jan 2012 0854 ------- ------- ------- ------- -- Med refSIDDHARTH Blancas 01/[address] [place] [address])([facility] [address] [place] [address])([facility] ) OUTPATIENT [id number] f/u for diabete [id number] MYNOR MARTINEZ 04/11 Released w/o Limitations [address] [place] [address])([facility] [address] [place] [address])([facility] ) TELE CONSULT [id number] Notes Entered by: AVA CARRILLO 14 Apr 2012 0712 ------- ------- ------- ------- -- Fide Martinez ph [phone] BARBI HARDY 04/[address] [place] [address])([facility] [address] [place] [address])([facility] ) TELE CONSULT [id number] Notes Entered by: Adam PELAEZ 27 Apr 2012 1311 ------- ------- ------- ------- -- Meds metform in 500mg 4 x a day atenolo l 50mg daily results on lump on neck SIDDHARTH CARUSO 04/[address] [place] [address])([facility] [address] [place] [address])([facility] ) TELE CONSULT [id number] Notes Entered by: Dorothy MARTINEZ 01 May 2012 1456 ------- ------- ------- ------- -- MYNOR Moses 05/[address] [place] [address])([facility] [address] [place] [address] [facility])([facility]) TELE CONSULT [id number] Notes Entered by: Maggie PELAEZ 01 Jul 2012 0853 ------- ------- ------- ------- -- Sonal jimenez/Maggie benton [phone] BARBI HARDY 07/[address] [place] [address])([facility] [address] [place] [address])([facility]) OUTPATIENT [id number] fu diabete s, and heart [id number] MYNOR MARTINEZ 07/08 Released w/o Limitations [address] [place] [address])([facility] [address] [place] [address])([facility]) TELE CONSULT [id number] Notes Entered by: Dorothy MARTINEZ 15 Jul 2012 0706 ------- ------- ------- ------- -- Lab BRANDON CASTREJON 07/15 Referred for Appointment [address] [place] [address])([facility] [address] [place] [address])([facility] ) TELE CONSULT [id number] Notes Entered by: CIERA TOURE 09 Aug 2012 0916 ------- ------- ------- ------- -- Med [facility] /Jaya/ BARBI HARDY 08/[address] [place] [address])([facility] [address] [place] [address])([facility] ) TELE CONSULT [id number] Notes Entered by: STEVE STEELE 17 Aug 2012 1121 ------- ------- ------- ------- -- Network Results - UROLOGY 08/15/12 MYNOR MARTINEZ 08/[address] [place] [address])([facility] [address] [place] [address])([facility]) TELE CONSULT [id number] Notes Entered by: JOHN SUN 06 Sep 2012 1127 ------- ------- ------- ------- -- No-Show RENARD FARRELL 09/[address] [place] [address])([facility]) [address] [place] [address])([facility]) TELE CONSULT [id number] Notes Entered by: JORGE TY 27 Sep 2012 0844 ------- ------- ------- ------- -- Med refill - Jaya - [id number] BARBI HARDY 09/[address] [place] [address])([facility] [address] [place] [address])([facility]) OUTPATIENT [id number] follow- up for HCM, labs MYNOR MARTINEZ 10/14 Released w/o Limitations [address] [place] [address])([facility] [address] [place] [address])([facility]) TELE CONSULT [id number] Notes Entered by: Dorothy MARTINEZ 17 Oct 2012 0632 ------- ------- ------- ------- -- BRANDON Raines 10/17 Referred for Appointment [address] [place] [address])([facility] [address] [place] [address])([facility]) TELE CONSULT [id number] Notes Entered by: TRAN BLACK 18 Oct 2012 1345 ------- ------- ------- ------- -- Pt is a 57 y/o male with hx of diab needing annual micro-a TRAN Gamble Jose 10/[address] [place] [address])([facility]) [address] [place] [address])([facility]) TELE CONSULT [id number] Notes Entered by: JAVIER HARRIS 24 Oct 2012 0758 ------- ------- ------- ------- -- Med refill Jaya SIDDHARTH CARUSO 10/[address] [place] [address])([facility] [address] [place] [address])([facility] ) TELE CONSULT [id number] Notes Entered by: Dorothy MARTINEZ 30 Oct 20122057 ------- ------- ------- ------- -- BRANDON Sethi 10/31 Referred for Appointment [address] [place] [address])([facility] [address] [place] [address])([facility]) TELE CONSULT [id number] Notes Entered by: AJVIER HARRIS 21 Nov 2012 0934 ------- ------- ------- ------- -- Med refill Jaya BARBI HARDY 11/[address] [place] [address])([facility] [address] [place] [address])([facility]) TELE CONSULT [id number] Notes Entered by: KRISTIE MODI 08 Dec 2012 0733 ------- ------- ------- ------- -- Medicat ion renewal - Jaya - BARBI HARDY 12/[address] [place] [address])([facility] [address] [place] [address])([facility] ) TELE CONSULT [id number] Notes Entered by: ARIS GARCIA 04 Jan 2013 1430 ------- ------- ------- ------- -- Network Results OPTOMET RY - 3 JOHN ACOSTA 01/[address] [place] [address])([facility] [address] [place] [address])([facility] ) TELE CONSULT [id number] Notes Entered by: Adam PELAEZ 05 Jan 2013 0733 ------- ------- ------- ------- -- Med refill [id number] SIDDHARTH CARUSO 01/[address] [place] [address])([facility] [address] [place] [address])([facility] ) TELE CONSULT [id number] Notes Entered by: DENIS BLANCO 07 Apr 2013 1102 ------- ------- ------- ------- -- Network Results -Podiat ry 10/27/12 JOHN ACOSTA 04/[address] [place] [address])([facility] [address] [place] [address])([facility] ) TELE CONSULT [id number] Notes Entered by: MARILYNN REYNA 10 Apr 2013 1409 ------- ------- ------- ------- -- Network Results - ORTHOPE DICS - 11/17/12 JOHN ACOSTA 04/[address] [place] [address])([facility] [address] [place] [address])([facility]) TELE CONSULT [id number] Notes Entered by: Adam PELAEZ 01 May 2013 1309 ------- ------- ------- ------- -- Med refill BLANCA SPENCER 05/[address] [place] [address])([facility] [address] [place] [address])([facility] ) TELE CONSULT [id number] Notes Entered by: BLANCA SPENCER 02 May 2013 1452 ------- ------- ------- ------- -- Cardiol ogy refer l BLANCA SPENCER 05/[address] [place] [address])([facility] [address] [place] [address])([facility] ) TELE CONSULT [id number] Notes Entered by: ARIS GARCIA 09 May 2013 1100 ------- ------- ------- ------- -- Network Results CARDIOL OGY - 3 JOHN ACOSTA 05/[address] [place] [address])([facility] [address] [place] [address])([facility] ) OUTPATIENT [id number] f/u for lipid panel results / GRADY CARUSO 05/10 Released w/o Limitations [address] [place] [address])([facility] [address] [place] [address])([facility] ) TELE CONSULT [id number] Notes Entered by: MARILYNN KEATING 06 Jun 2013 0923 ------- ------- ------- ------- -- Med refill/ juan/Anya 18.667. 1836/SIDNEY Benoit 06/[address] [place] [address])([facility] [address] [place] [address])([facility] ) TELE CONSULT [id number] Notes Entered by: Maggie PELAEZ 26 Jun 2013 0941 ------- ------- ------- ------- -- Med refill/ Juan/6 [id number] [phone] SIDNEY LION 06/[address] [place] [address])([facility] [address] [place] [address])([facility] ) OUTPATIENT [id number] croupy cough x one week [id number] GRADY CARUSO 07/04 Released w/o Limitations [address] [place] [address])([facility] [address] [place] [address])([facility] ) TELE CONSULT [id number] Notes Entered by: GUILLE MAZA 02 Aug 2013 1238 ------- ------- ------- ------- -- Referra l Renewal Orthope dics GUILLE MAZA 08/02 Referred for Appointment [address] [place] [address])([facility] [address] [place] [address])([facility] ) TELE CONSULT [id number] Notes Entered by: SEBASTIAN MCGOWAN 17 Aug 2013 1052 ------- ------- ------- ------- -- Retro- eferral for eye care MARVA MCGOWAN I 08/[address] [place] [address])([facility] [address] [place] [address])([facility] ) TELE CONSULT [id number] Notes Entered by: LIV SHORT 28 Aug 2013 1202 ------- ------- ------- ------- -- Medicat ion refill/ Juan/ SIDNEY LION 08/[address] [place] [address])([facility] [address] [place] [address])([facility] ) TELE CONSULT [id number] Notes Entered by: LIV SHORT 19 Sep 2013 0938 ------- ------- ------- ------- -- Med alife/ Juan/ SIDNEY LION 09/[address] [place] [address])([facility] [address] [place] [address])([facility]) TELE CONSULT [id number] Notes Entered by: FLOWER HUGO 05 Oct 2013 1001 ------- ------- ------- ------- -- Pt. request referra l renewal for follow- up care / Tx; FLOWER HUGO 10/05 Referred for Appointment [address] [place] [address])([facility] Team 3) [address] [place] [address])([facility] ) TELE CONSULT [id number] Notes Entered by: AVA CARRILLO 26 Oct 2013 1316 ------- ------- ------- ------- -- Network results - Urology 014 LIZABETH EVANS 10/[address] [place] [address])([facility] [address] [place] [address])([facility] ) TELE CONSULT [id number] Notes Entered by: CIERA TOURE 09 Nov 2013 0830 ------- ------- ------- ------- -- Med renewal /Mario renee/61 8.667.1 836 BLANCA SPENCER 11/[address] [place] [address])([facility] [address] [place] [address])([facility] ) TELE CONSULT [id number] Notes Entered by: FLOWER PHIPPS 11 Dec 2013 1207 ------- ------- ------- ------- -- abigailfesarthak sanders/618 .667.18 36 BLANCA SPENCER 12/[address] [place] [address])([facility] [address] [place] [address])([facility] ) TELE CONSULT [id number] Notes Entered by: ALF GUZMÁN 21 Dec 2013 1015 ------- ------- ------- ------- -- Lab test results LIZABETH EVANS 12/[address] [place] [address])([facility] [address] [place] [address])([facility] ) OUTPATIENT [id number] Annual labwork and diabete s f/u LIZABETH EVANS 12/25 Released w/o Limitations [address] [place] [address])([facility] [address] [place] [address])([facility] ) TELE CONSULT [id number] Notes Entered by: LIV SHORT 05 Feb 2014 1047 ------- ------- ------- ------- -- Request ing medicat ion refill/ Abigailfesarthak marilyn/ BLANCA SPENCER 02/[address] [place] [address])([facility] [address] [place] [address])([facility] ) TELE CONSULT [id number] Notes Entered by: CARROLL GIPSON 16 May 2014 1318 ------- ------- ------- ------- -- Orthope dic and podiatr y referra l renewal s request ed by JAYLEEN ASHER 05/16 Referred for Appointment [address] [place] [address])([facility] [address] [place] [address])([facility] ) TELE CONSULT [id number] Notes Entered by: Adam PELAEZ 01 Jun 2014 0918 ------- ------- ------- ------- -- Med refill Blumfel marilyn [phone] 6 SIDDHARTH CARUSO 06/[address] [place] [address])([facility] [address] [place] [address])([facility] ) TELE CONSULT [id number] Notes Entered by: LIV SHORT 18 Jul 2014 1449 ------- ------- ------- ------- -- Request ing blood work/ Blumfel marilyn/ [phone] BLANCA SPENCER 07/[address] [place] [address])([facility] [address] [place] [address])([facility] ) OUTPATIENT [id number] 6 month FU diabeti c FU - [phone] LIZABETH EVANS 07/26 Released w/o Limitations [address] [place] [address])([facility] [address] [place] [address])([facility] ) TELE CONSULT [id number] Notes Entered by: NANDA PEÑA 31 Jul 2014 1138 ------- ------- ------- ------- -- Network results Optomet ry 5 LIZABETH EVANS 07/[address] [place] [address])([facility] [address] [place] [address])([facility] ) TELE CONSULT [id number] Notes Entered by: AVA CARRILLO 10 Aug 2014 1009 ------- ------- ------- ------- -- Network results - Podiatr y - 015 LIZABETH EVANS 08/[address] [place] [address] [facility])([facility]) [address] [place] [address])([facility] ) TELE CONSULT [id number] Notes Entered by: KRISTIE MODI 31 Aug 2014 0914 ------- ------- ------- ------- -- Medicat ion renewal - Blumfel marilyn - BLANCA SPENCER 08/[address] [place] [address] [facility])([facility] [address] [place] [address])([facility] ) TELE CONSULT [id number] Notes Entered by: LIV SHORT 12 Sep 2014 1049 ------- ------- ------- ------- -- Request ing updated referra l/ Blumfel marilyn/ SIDNEY LION 09/[address] [place] [address] [facility])([facility] [address] [place] [address])([facility] ) TELE CONSULT [id number] Notes Entered by: AVA CARRILLO 04 Oct 2014 1309 ------- ------- ------- ------- -- Network results -Endocr inology 015 LIZABETH EVANS 10/[address] [place] [address])([facility] [address] [place] [address])([facility] ) TELE CONSULT [id number] Notes Entered by: NICK SCHNEIDER 10 Oct 2014 1325 ------- ------- ------- ------- -- Network Results -DERMAT OLOGY 09/18/14 LIZABETH ROSS 10/[address] [place] [address] [facility])([facility] [address] [place] [address])([facility] ) TELE CONSULT [id number] Notes Entered by: NICK SCHNEIDER 11 Oct 2014 1010 ------- ------- ------- ------- -- Network Results -ORTHOP EDICS 4 LIZABETH ROSS 10/[address] [place] [address] [facility])([facility] [address] [place] [address])([facility] ) TELE CONSULT [id number] Notes Entered by: CHAPIS CASAS 17 Dec 2014 1543 ------- ------- ------- ------- -- Optomet ry Referra MADDIE Lauren 12/17 Referred for Appointment [address] [place] [address])([facility] [address] [place] [address])([facility] ) TELE CONSULT [id number] Notes Entered by: CARA MUÑOZ 18 Dec 2014 1109 ------- ------- ------- ------- -- [facility] Rx Refill SIDDHARTH CARUSO 12/[address] [place] [address] [facility])([facility] [address] [place] [address])([facility] ) TELE CONSULT [id number] Notes Entered by: Maggie NEVILLE 16 Jan 2015 0849 ------- ------- ------- ------- -- Med refill needed by this Wednesday if SIDDHARTH Kraus 01/[address] [place] [address])([facility]) [address] [place] [address] [employer])([facility]) OUTPATIENT [id number] f/u diabete s general check up new pt appt. KIRSTEN MEZA V 02/06 Released w/o Limitations [address] [place] [address] [facility])([facility] [address] [place] [address] [facility])([facility]) TELE CONSULT [id number] Notes Entered by: Maggie NEVILLE 04 Mar 2015 0838 ------- ------- ------- ------- -- Mino msg/ med refSIDDHARTH Hurt 03/[address] [place] [address] [facility])([facility] [address] [place] [address])([facility]) OUTPATIENT [id number] f/u diabete s [id number] KIRSTEN MEZA V 04/26 Released w/o Limitations [address] [place] [address] [facility])([facility]) [address] [place] [address] [facility])([facility]) TELE CONSULT [id number] Notes Entered by: Maggie NEVILLE 13 May 2015 0835 ------- ------- ------- ------- -- Mino diggs/ med SIDDHARTH Alexis 05/[address] [place] [address] [facility])([facility]) [address] [place] [address] [facility])([facility]) OUTPATIENT [id number] F/U diabete s KIRSTEN MEZA V 07/11 Released w/o Limitations [address] [place] [address] [facility])([facility]) [address] [place] [address])([facility]m) TELE CONSULT [id number] Notes Entered by: AVA CARRILLO 01 Aug 2015 1313 ------- ------- ------- ------- -- Network results Podiatr y 016 KIRSTEN JOSEPH V 08/01 [facility])([facility]) [facility])([facility] ) TELE CONSULT [id number] Notes Entered by: Maggie NEVILLE 03 Sep 2015 0744 ------- ------- ------- ------- -- Micare msg/ med refill SIDDHARTH CARUSO 09/02 [facility])([facility])([facility] ) TELE CONSULT [id number] Notes Entered by: Maggie NEVILLE 06 Jan 2016 0842 ------- ------- ------- ------- -- Micare msg/ med refill LORRAINE ELLISON 01/05 Referred for Appointment [facility])([facility])([facility] ) OUTPATIENT [id number] F/u KIRSTEN LUGO V 01/22 Released w/o Limitations [facility])([facility]) [facility])([facility] ) TELE CONSULT [id number] Notes Entered by: Maggie NEVILLE 24 Feb 2016 0947 ------- ------- ------- ------- -- Micare msg/ med refill LORRAINE ELLISON 02/23 Referred for Appointment [facility])([facility])([facility] ) TELE CONSULT [id number] Notes Entered by: DENIS BLANCO 13 Mar 2016 1227 ------- ------- ------- ------- -- Network Results OPTOMET RY 07/29/15 KIRSTEN BURGOS V 03/[address] [place] [address] [facility])([facility]) [address] [place] [address])([facility] ) OUTPATIENT [id number] F/U DM KIRSTEN MEZA V 04/02 Released w/o Limitations [address] [place] [address] [facility])([facility]) [address] [place] [address])([facility] ) TELE CONSULT [id number] Notes Entered by: GREGORY MEZA V 07 Apr 2016 1443 ------- ------- ------- ------- -- KIRSTEN Clemens V 04/[address] [place] [address] [facility])([facility]) [address] [place] [address])([facility] ) TELE CONSULT [id number] Notes Entered by: Maggie NEVILLE 22 Jun 2016 0938 ------- ------- ------- ------- -- Mino diggs/ LORRAINE Golden 06/22 Referred for Appointment [facility])([facility]) [address] [place] [address])([facility] ) TELE CONSULT [id number] Notes Entered by: CARA MUÑOZ 05 Aug 2016 0839 ------- ------- ------- ------- -- LORRAINE Galarza 08/05 Referred for Appointment [facility])([facility]) [address] [place] [address])([facility] ) TELE CONSULT [id number] Notes Entered by: KRISTIE MODI 27 Aug 2016 1011 ------- ------- ------- ------- -- STAT Referra sarthak ferrer ion - appt tomorrsera w - Vashti - - LORRAINE Hill 08/27 Referred for Appointment [address] [place] [address])([facility]) [address] [place] [address])([facility] Medicine ) TELE CONSULT [id number] Notes Entered by: Maggie NEVILLE 01 Sep 2016 1552 ------- ------- ------- ------- -- Surgery chano hummel form ([facility]) SIDNEY LION 09/[address] [place] [address])([facility]) [address] [place] [address])([facility] ) OUTPATIENT [id number] Surg chano hummel, SrA Bartolo palomares has paper work KIRSTEN MEZA V 09/11 Released w/o Limitations [address] [place] [address])([facility]) [address] [place] [address])([facility] ) TELE CONSULT [id number] Notes Entered by: HERLINDA ALCAZAR 16 Sep 2016 1129 ------- ------- ------- ------- -- Network results Cardiol ogy 7 SR KIRSTEN MEZA V 09/[address] [place] [address])([facility]) [address] [place] [address])([facility] ) TELE CONSULT [id number] Notes Entered by: Leslye VELASQUEZ 03 Nov 2016 1530 ------- ------- ------- ------- -- 25 October - Fide Jay - Retro Ref Sep - Request / Vashti /[id number] - [facility] BRANDON CASTREJON 11/03 Referred for Appointment [address] [place] [address] Group [facility])([facility]) [address] [place] [address])([facility] ) TELE CONSULT [id number] Notes Entered by: Lesvia BANEGAS 16 Nov 2016 0936 ------- ------- ------- ------- -- Network results Dermato logy 7 DB KIRSTEN MEZA V 11/[address] [place] [address])([facility]) [address] [place] [address])([facility] ) TELE CONSULT [id number] Notes Entered by: CARA MUÑOZ 17 Nov 2016 0912 ------- ------- ------- ------- -- [facility]- LORRAINE Oh 11/17 Referred for Appointment [address] [place] [address])([facility]) [address] [place] [address])([facility] ) OUTPATIENT [id number] Six-wed screeni ng. Some abdomin al discomf ort. KIRSTEN MEZA V 11/26 Released w/o Limitations [address] [place] [address])([facility]) [address] [place] [address])([facility] ) TELE CONSULT [id number] Notes Entered by: Maggie NEVILLE 13 Jan 2017 0809 ------- ------- ------- ------- -- [facility] msg/ med refill x 5 (gwp) SIDNEY LION 01/[address] [place] [address])([facility]) [address] [place] [address])([facility] ) TELE CONSULT [id number] Notes Entered by: Adam CARUSO 24 Feb 2017 1618 ------- ------- ------- ------- -- Laborat ory results BRITTANY GARZA 02/[address] [place] [address])([facility]) [address] [place] [address])([facility] Tm) TELE CONSULT [id number] Notes Entered by: Maggie NEVILLE 26 Feb 2017 0840 ------- ------- ------- ------- -- Mino msg/ med refill ([facility]) BRITTANY GARZA 02/[address] [place] [address])([facility]) [address] [place] [address])([facility] ) OUTPATIENT [id number] follow up for DM KIRSTEN MEZA V 03/15 Released w/o Limitations [address] [place] [address])([facility]) [address] [place] [address])([facility] ) TELE CONSULT [id number] Notes Entered by: Maggie NEVILLE 21 Jul 2017 0811 ------- ------- ------- ------- -- Labs prior to 08/03/17 appoint ment? ([facility]) BRANDON CASTREJON 07/21 Referred for Appointment [address] [place] [address])([facility]) [address] [place] [address])([facility] ) OUTPATIENT [id number] f/u Quarter ly Diabete KIRSTEN Stevenson V 07/29 Released w/o Limitations [address] [place] [address])([facility]) [address] [place] [address])([facility] ) TELE CONSULT [id number] Notes Entered by: Maggie NEVILLE 06 Sep 2017 0835 ------- ------- ------- ------- -- [facility]are msg / med refill x 1 (gwp) BRITTANY GARZA 09/[address] [place] [address])([facility]) [address] [place] [address])([facility] ) TELE CONSULT [id number] Notes Entered by: Maggie NEVILLE 29 Oct 2017 0838 ------- ------- ------- ------- -- Labs prior to appt. 11/29/17 / kinp BRANDON CASTREJON 10/29 Referred for Appointment [address] [place] [address])([facility]) [address] [place] [address])([facility] ) OUTPATIENT [id number] f/u Quartly appt. labs and jeffrys KIRSTEN MEZA V 11/26 Released w/o Limitations [address] [place] [address])([facility]) [address] [place] [address])([facility] ) TELE CONSULT [id number] Notes Entered by: ALEXANDR BOOGIE 13 Jan 2018 0713 ------- ------- ------- ------- -- [facility] med refill PCM LORRAINE Sosa 01/13 Referred for Appointment [address] [place] [address])([facility]) [address] [place] [address])([facility] ) TELE CONSULT [id number] Notes Entered by: Maggie NEVILLE 24 Jan 2018 0822 ------- ------- ------- ------- -- [facility] msg/ med refill x 2 / gwp RICARDO PHIPPS 01/24 Medication Refill Forwarded [address] [place] [address])([facility]) [address] [place] [address])([facility]) TELE CONSULT [id number] Notes Entered by: Maggie NEVILLE 18 Feb 2018 0814 ------- ------- ------- ------- -- Micare msg/ labs and med refill / RICARDO Cardoso 02/18 Medication Refill Forwarded [address] [place] [address])([facility]) [address] [place] [address])([facility] ) TELE CONSULT [id number] Notes Entered by: Maggie NEVILLE 29 Mar 2018 0835 ------- ------- ------- ------- -- [facility] msg/ med refill x 2 / RICARDO Cardoso 03/29 Medication Refill Forwarded [address] [place] [address])([facility]) [address] [place] [address])([facility]) TELE CONSULT [id number] 4 Notes Entered by: CARA MUÑOZ 26 Apr 2018 1014 ------- ------- ------- ------- -- [facility]- BRANDON Kidd 04/26 Referred for Appointment [address] [place] [address])( [facility]) [address] [place] [address])([facility] ) TELE CONSULT [id number] 2 Notes Entered by: CHARLIE SANTOS 22 Jun 2018 1244 ------- ------- ------- ------- -- Lab Test Inquiry / Vashti / - [facility] RICARDO PHIPPS 06/22 Released to [facility] [address] [place] [address])( [facility]) [address] [place] [address])([facility] ) OUTPATIENT [id number] 3 6 Month Diabete s F/U - Hearing Check ref-Med renewal s KIRSTEN MEZA V 07/12 Released w/o Limitations [address] [place] [address])([facility]) [address] [place] [address])([facility] ) TELE CONSULT [id number] Notes Entered by: Dorothy NICOLAS 29 Sep 2018 0856 ------- ------- ------- ------- -- Network results Audiolo gy 9 KIRSTEN BENNETT V 09/[address] [place] [address])([facility]) [address] [place] [address])([facility] ) TELE CONSULT [id number] 1 Notes Entered by: Maggie NEVILLE 24 Oct 2018 1025 ------- ------- ------- ------- -- Labs prior to 11/10/18 appt? / BRANDON Barker 10/24 Referred for Appointment [address] [place] [address])([facility]) [address] [place] [address])([facility] ) OUTPATIENT [id number] 3 annual DM check JENNIFER DURAN 11/14 Released w/o Limitations [address] [place] [address])([facility]) [address] [place] [address])([facility] ) TELE CONSULT [id number] 6 Notes Entered by: Leslye MCCABE 26 Jan 2019 1535 ------- ------- ------- ------- -- Network results Otolary ngology [ENT] 019 ALD JENNIFER DURAN 01/[address] [place] [address])([facility]) [address] [place] [address])([facility] ) TELE CONSULT [id number] 3 Notes Entered by: Maggie NEVILLE 09 Feb 2019 1029 ------- ------- ------- ------- -- Mino msg/ med refill / BRITTANY Ruiz 02/09 Medication Refill Forwarded [address] [place] [address] Group [facility])([facility]) [address] [place] [address] [facility])([facility]) OUTPATIENT [id number] DM follow up MADELYN WALTON 02/16 Released w/o Limitations [address] [place] [address] Group [facility]) [address] [place] [address] [facility])([facility] ) TELE CONSULT [id number] 8 Notes Entered by: DENIS BLANCO 15 Mar 2019 1042 ------- ------- ------- ------- -- Network results DERMATO LOGY 018 - 019 KMG JENNIFER DURAN 03/[address] [place] [address] Group [facility])([facility]) [address] [place] [address])([facility] ) OUTPATIENT [id number] 3 Abdomin al pain/na usea [id number] JENNIFER DURAN 03/17 Released w/o Limitations [address] [place] [address])([facility]) [address] [place] [address] Group [facility])([facility] ) OUTPATIENT [id number] 1wkk f/u abdomen pain JENNIFER DURAN 03/23 Released w/o Limitations [address] [place] [address] Group [facility])([facility]) [address] [place] [address])([facility] ) TELE CONSULT [id number] 5 Notes Entered by: ROSA M PAYNE 28 Mar 2019 1018 ------- ------- ------- ------- -- ER F/U in 1 Week / Justin / - sgj LORRAINE CONWAY 03/28 Referred for Appointment [facility])([facility]) [address] [place] [address])([facility] ) OUTPATIENT [id number] 3 F/U apt after ER visit JENNIFER DURAN 03/31 Released w/o Limitations [address] [place] [address] Group [facility])([facility]) [address] [place] [address])([facility] ) TELE CONSULT [id number] Notes Entered by: Maggie NEVILLE 28 Apr 2019 1213 ------- ------- ------- ------- -- Micare msg/ Referra l request cardiol ogy / LORRAINE Nowak 04/28 Other Not Elsewhere Classified [facility])([facility]) [address] [place] [address] [facility])([facility] ) TELE CONSULT [id number] Notes Entered by: Maggie NEVILLE 04 May 2019 0829 ------- ------- ------- ------- -- Micare msg / med refill x 3 / gwp LORRAINE CONWAY 05/04 Referred for Appointment [facility])([facility]) [address] [place] [address])([facility]) OUTPATIENT [id number] 6 3 MONTH DM F/U MADELYN WALTON 05/15 Released w/o Limitations [address] [place] [address] ([facility]) [address] [place] [address])([facility] ) TELE CONSULT [id number] 1 Notes Entered by: CELSO PRICE 26 May 2019 1510 ------- ------- ------- ------- -- Urology Consult ALEJANDRA CONWAYZANEHEMIAH Palomares 05/26 Other Not Elsewhere Classified [address] [place] [address] [facility])([facility]) [address] [place] [address] [facility])([facility]) TELE CONSULT [id number] Notes Entered by: BENSON WALTON 01 Jun 2019 1520 ------- ------- ------- ------- -- MADELYN Victor 06/[address] [place] [address] [facility])([facility]) [address] [place] [address])([facility]) OUTPATIENT [id number] 5 1 MONTH DM F/U MADELYN WALTON 06/16 Released w/o Limitations [address] [place] [address])([facility]) [address] [place] [address])([facility] ) TELE CONSULT [id number] 5 Notes Entered by: Gerry RAJAN 30 Jun 2019 0839 ------- ------- ------- ------- -- Network results Urology 020 JENNIFER VALDIVIA 06/[address] [place] [address] [facility])([facility]) [address] [place] [address] [facility])([facility]) TELE CONSULT [id number] Notes Entered by: BENSON WALTON 14 Jul 2019 1105 ------- ------- ------- ------- -- Discuss MADELYN CLINE 07/[address] [place] [address] [facility])([facility]) [address] [place] [address] [facility])([facility]) OUTPATIENT [id number] 7 3 MONTH DM F/U MADELYN WALTON 08/17 Released w/o Limitations [address] [place] [address])([facility]) [address] [place] [address])([facility] ) TELE CONSULT [id number] Notes Entered by: TRINITY DURAN 12 Sep 2019 1155 ------- ------- ------- ------- -- f/u JENNIFER DURAN 09/[address] [place] [address])([facility]) [address] [place] [address])([facility] ) TELE CONSULT [id number] 5 Notes Entered by: DEMETRIO MEEKS 18 Sep 2019 1558 ------- ------- ------- ------- -- Network Results UROLOGY 0 [facility] JENNIFER DURAN 09/[address] [place] [address])([facility]) [address] [place] [address])([facility] ) TELE CONSULT [id number] 5 Notes Entered by: ALLEN LOPEZ 25 Sep 2019 0842 ------- ------- ------- ------- -- [facility] [facility] Daily Inpatie nt Roster- Admissi on Notific ation JENNIFER DURAN 09/[address] [place] [address])([facility]) [address] [place] [address])([facility] ) TELE CONSULT [id number] 4 Notes Entered by: PIPPA TOBIN 25 Sep 2019 1603 ------- ------- ------- ------- -- Network Results Urology 0 JENNIFER SANDOVAL 09/[address] [place] [address])([facility]) [address] [place] [address])([facility] ) TELE CONSULT [id number] 5 Notes Entered by: PIPPA TOBIN 09 Oct 2019 1411 ------- ------- ------- ------- -- Network Results Urology /Discha rge Summary 10/02/19 [facility] JENNIFER DURAN 10/[address] [place] [address])([facility]) [address] [place] [address])([facility] ) TELE CONSULT [id number] Notes Entered by: Maggie NEVILLE 11 Oct 2019 1117 ------- ------- ------- ------- -- mino diggs/ refer l request / SIDNEY Bajwa 10/10 Other Not Elsewhere Classified [address] [place] [address])([facility]) [address] [place] [address])([facility] ) TELE CONSULT [id number] Notes Entered by: PIPPA TOBIN 13 Oct 2019 1149 ------- ------- ------- ------- -- Network Results Urology 10/02/19 [facility] JENNIFER DURAN 10/[address] [place] [address])([facility]) [address] [place] [address])([facility]ti lization Managemen t) TELE CONSULT [id number] 5 Notes Entered by: ALLEN LOPEZ 13 Oct 2019 1905 ------- ------- ------- ------- -- Refer l Request Non-Net work Special ist-Sta tus Update ALLEN LOPEZ 10/13 Other Not Elsewhere Classified [address] [place] [address])(U tilizat ion Managem ent) [address] [place] [address])(Uti lization Managemen t) TELE CONSULT [id number] Notes Entered by: ALLEN LOPEZ 17 Oct 2019 1111 ------- ------- ------- ------- -- Update- Referra l Request Non-Net work Special ALLEN Rosas 10/16 Other Not Elsewhere Classified [address] [place] [address])(U tilizat ion Manage ent) [address] [place] [address])([facility] ) TELE CONSULT [id number] 3 Notes En[address] by: ST CÉSAR TORRES 09 Nov 2019 1628 ------- ------- ------- ------- -- Network results Urology 020 JENNIFER MCQUEEN 11/[address] [place] [address])([facility]) [address] [place] [address])([facility]) TELE CONSULT [id number] 1 Notes Entered by: Maggie NEVILLE 14 Nov 2019 0742 ------- ------- ------- ------- -- [facility] with Mrs.Man bergman/MADELYN Horta 11/[address] [place] [address])([facility]) [address] [place] [address])([facility] ) TELE CONSULT [id number] 7 Notes Entered by: DICKSON CARR 23 Nov 2019 1020 ------- ------- ------- ------- -- Network results Urology 020 JENNIFER RAY 11/[address] [place] [address])([facility]) [address] [place] [address])([facility] ) TELE CONSULT [id number] Notes Entered by: Maggie COLE 21 Dec 2019 0937 ------- ------- ------- ------- -- Clyde BRUNERNOV, JENNIFER Leslye 12/20 [facility])([facility]) [address] [place] [address] Group [facility])([facility] tt Internal Medicine Tm) TELE CONSULT [id number] Notes Entered by: Maggie NEVILLE 26 Dec 2019 0931 ------- ------- ------- ------- -- Micare msg/ referra l request appt 12/27/19 / [facility] BRANDON CASTREJON 12/25 Other Not Elsewhere Classified [facility])([facility] Tm) [address] [place] [address] Group [facility])([facility] Tm) TELE CONSULT [id number] 2 Notes Entered by: Maggie NEVILLE 01 Jan 2020 0933 ------- ------- ------- ------- -- Micare msg/ med refill x p MADELYN WALTON 12/[address] [place] [address] Group [facility])([facility] Tm) [address] [place] [address] Group [facility])([facility]) OUTPATIENT [id number] Notes Entered by: BENSON WALTON 13 Mar 2020 1007 ------- ------- ------- ------- -- DM f/u MADELYN WALTON 03/13 Released w/o Limitations [facility])([facility]) [facility])([facility] Medicine Tm) OUTPATIENT [id number] 7 VIRTUAL OVERDUE ANNUAL APPT CALL [phone] NARGIS PATTERSON 03/13 Released w/o Limitations [address] [place] [address])([facility]) [address] [place] [address] Group [facility])([facility] Tm) TELE CONSULT [id number] 2 Notes Entered by: CARA MUÑOZ 02 Apr 2020 1218 ------- ------- ------- ------- -- BRANDON Nguyen 04/02 Other Not Elsewhere Classified [address] [place] [address])([facility]) [address] [place] [address])([facility] Tm) TELE CONSULT [id number] 9 Notes Entered by: Dorothy NICOLAS 03 Apr 2020 0855 ------- ------- ------- ------- -- Network results Urology 03/13/20 20 NARGIS MARINO 04/[address] [place] [address])([facility] Tm) [address] [place] [address])([facility]) OUTPATIENT [id number] 8 3 MONTH DM F/U MADELYN WALTON 05/31 Released w/o Limitations [address] [place] [address])([facility]) [address] [place] [address])([facility] Tm) TELE CONSULT [id number] Notes Entered by: Gerry RAJAN 31 May 2020 1524 ------- ------- ------- ------- -- Network results Urology 020 NARGIS LUO 05/[address] [place] [address])([facility] Tm) [address] [place] [address])([facility] Tm) TELE CONSULT [id number] 4 Notes Entered by: Maggie NEVILLE 04 Jun 2020 0828 ------- ------- ------- ------- -- mino diggs/ fide scherer /SIDNEY Bajwa 06/04 Other Not Elsewhere Classified [address] [place] [address])([facility] T[facility]) [address] [place] [address])([facility] Tm) TELE CONSULT [id number] 8 Notes En[address]: ST CÉSAR TORRES 12 Jun 2020 1100 ------- ------- ------- ------- -- Network results Nephrol ogy 020 NARGIS MILTON 06/[address] [place] [address])( cott Intern[facility] l Medicin [facility] Tm) [address] [place] [address])([facility] ) TELE CONSULT [id number] 5 Notes Entered by: CARA MUÑOZ 05 Jul 2020 1052 ------- ------- ------- ------- -- [facility]- MRI and Postope rative incisio nal hernia BRANDON CASTREJON 07/05 Referred for Appointment [address] [place] [address])( [facility] Intern[facility] Medic[facility] Tm) [address] [place] [address])([facility] ) TELE CONSULT [id number] Notes Entered by: Leslye MCCABE 08 Aug 2020 0855 ------- ------- ------- ------- -- Network results Cardiol ogy 020 NARGIS PINEDA 08/[address] [place] [address])( cott Interna l Medicin e Tm) [address] [place] [address])([facility]) OUTPATIENT [id number] VIRTUAL 3 MONTH DM F/U OR MADELYN WALTON 09/10 Released w/o Limitations [address] [place] [address])([facility]) [address] [place] [address])([facility] ) TELE CONSULT [id number] 6 Notes Entered by: Dorothy NICOLAS 23 Sep 2020 1247 ------- ------- ------- ------- -- Network results Radiolo gy 1 NARGIS MARINO 09/[address] [place] [address])([facility]) [address] [place] [address])([facility] ) TELE CONSULT [id number] Notes Entered by: Maggie NEVILLE 02 Oct 2020 1450 ------- ------- ------- ------- -- micare msg/ Hernia and MRI update; pass to Dr. Walton /NARGIS Mason 10/[address] [place] [address])([facility]) [address] [place] [address])([facility] ) TELE CONSULT [id number] Notes Entered by: Maggie NEVILLE 09 Oct 2020 1415 ------- ------- ------- ------- -- micare msg/ RE: RE: Hernia and MRI update; pass to Dr. Walton also. /SIDNEY Bajwa 10/09 Other Not Elsewhere Classified [address] [place] [address])([facility]) [address] [place] [address])([facility] ) TELE CONSULT [id number] 1 Notes Entered by: CARA MUÑOZ 28 Oct 2020 1357 ------- ------- ------- ------- -- [facility]- Med Renewal BRANDON CASTREJON 10/28 Other Not Elsewhere Classified [address] [place] [address])(S cott Interna l Medicin e Tm) [address] [place] [address])([facility] ) TELE CONSULT [id number] Notes Entered by: BRAN SLAAS 31 Oct 2020 1327 ------- ------- ------- ------- -- Network results Surgery 021 - 021 NARGIS REYES 10/[address] [place] [address] [facility])([facility]) [address] [place] [address] [facility])([facility] ) TELE CONSULT [id number] Notes Entered by: Dorothy NICOLAS 20 Nov 2020 1027 ------- ------- ------- ------- -- [facility] 10/24/19 21 B NANCY BRASHER [facility] 11/[address] [place] [address] Jean [facility])([facility] Medic[facility] Tm) [address] [place] [address] Jean [facility])([facility]) OUTPATIENT [id number] 2 VIRTUAL 3 MONTH F/U MADELYN WALTON 11/22 Released w/o Limitations [address] [place] [address] Jean [facility])([facility]) [address] [place] [address] Jean [facility])([facility] ) TELE CONSULT [id number] Notes Entered by: ALLEN LOPEZ 03 Dec 2020 1316 ------- ------- ------- ------- -- Celestina Castle [facility] NANCY BRASHER [facility] 12/[address] [place] [address] Jean [facility])([facility] Intern[facility] Medicin e Tm) [address] [place] [address] Jean [facility])([facility] ) TELE CONSULT [id number] Notes Entered by: Maggie NEVILLE 14 Apr 2021 1442 ------- ------- ------- ------- -- Mino msg/ med refill x 3 / pt turned 66 /jeremiaha MARILU Bean 04/14 Medication Refill Forwarded [address] [place] [address] Jean [facility])([facility] cott Interna l Medicin e Tm) Procedures Combined list of: 1) Procedures from Department of Veterans Affairs facilities going back up to thelast 18 months, not all PA non-surgical procedures are included; 2) All procedures from the Department of Defense facilities. Procedure Procedure Type Code Date Perfomer Comments [facility] e DOPPLER ECHOCARDIOGRAPHY, PULSED WAVE AND/OR CONTINUOUS WAVE WITH SPECTRAL DISPLAY (LIST SEPARATELY IN ADDITION TO CODES FOR ECHOCARDIOGRAPHIC IMAGING); COMPLETE 2002 [facility] UNLISTED CARDIOVASCULAR SERVICE OR PROCEDURE 2002 [facility] UNLISTED OPHTHALMOLOGICAL SERVICE OR PROCEDURE 2002 [facility] DETERMINATION OF VENOUS PRESSURE 2001 [facility] CORONARY ARTERIOGRAPHY USING TWO CATHETERS 2001 [facility] SINGLE VESSEL PERCUTANEOUS TRANSLUMINAL CORONARY ANGIOPLASTY [PTCA] OR CORONARY ATHERECTOMY WITHOUT MENTION OF THROMBOLYTIC AGENT 2001 [facility] LEFT HEART CARDIAC CATHETERIZATION 2001 [facility] INSERTION OF CORONARY ARTERY STENT(S) 2001 [facility] NONINVASIVE EAR OR PULSE OXIMETRY FOR OXYGEN SATURATION; SINGLE DETERMINATION 2001 [facility] CARDIOVASCULAR STRESS TEST USING MAXIMAL OR SUBMAXIMAL TREADMILL OR BICYCLE EXERCISE,CONTINUOUS ELECTROCARDIOGRAPHIC MONITORING,AND/OR PHARMACOLOGICAL STRESS;W SUPERVISION,INTERPRETA TION AND REPORT 2001 [facility] DETERMINATION OF VENOUS PRESSURE 2001 [facility] REMOVAL OF SUTURES UNDER ANESTHESIA (OTHER THAN LOCAL), SAME SURGEON 2001 [facility] EXCISION, OTHER BENIGN LESION INCLUDING MARGINS, EXCEPT SKIN TAG (UNLESS LISTED ELSEWHERE), FACE, EARS, EYELIDS, NOSE, LIPS, MUCOUS MEMBRANE; EXCISED DIAMETER 0.5 CM OR LESS 2001 [facility] ARTHROSCOPY OF KNEE 1993 [facility] OTHER REPAIR OF THE COLLATERAL LIGAMENTS 1993 [facility] OTHER LOCAL EXCISION OR DESTRUCTION OF LESION OF KNEE JOINT 1993 [facility] TELE ASSESS & MGT SRV PROV QUAL NONPHYS HLTH CARE PRO TO EST PAT,PARENT,GUARD NOT ORIG REL ASSESS & MGT SRV PROV W/IN PREV 7 DAYS NOR LEAD ASSESS & MGT SRV/PX W/IN NXT 24H/SOON APT; 11-20 MIN MED DIS 2020 [facility] WA[facility]; NOT OTHERWISE SPECIFIED (NOS) 2020 [facility] MEDICATION THERAPY MANAGEMENT SERVICE(S) PROVIDED BY A PHARMACIST, INDIVIDUAL, [id number] WITH PATIENT, WITH ASSESSMENT AND INTERVENTION IF PROVIDED; INITIAL 15 MINUTES, ESTABLISHED PATIENT 2020 [facility] MEDICATION THERAPY MGT SERVICE(S) PROVIDED,A PHARMACIST,INDIV,FACE- TO-FACE W PATIENT,WITH ASSESS & INTERVENE IF PROVIDED;EA ADDITION 15 MINUTES (LIST SEPARATELY IN ADDITION TO CODE FOR PRIM SERVICE) 2019 [facility] WAIVER SERVICES; NOT OTHERWISE SPECIFIED (NOS) 2019 [facility] MEDICATION THERAPY MGT SERVICE(S) PROVIDED,A PHARMACIST,INDIV,FACE- TO-FACE W PATIENT,WITH ASSESS & INTERVENE IF PROVIDED;EA ADDITION 15 MINUTES (LIST SEPARATELY IN ADDITION TO CODE FOR PRIM SERVICE) 2019 DoD ONLINE ASSESS &MANAG SERV PROVIDE,A QUAL NONPHYS HCP TO AN ESTABLISHED PAT/GUARDIAN,NOT ORIGINAT FRM RELAT ASSESS &MANAG SERV PROVIDE W/IN THE PREV 7 DAYS,USE THE [employer] COMM NETWORK 2019 DoD MEDICATION THERAPY MGT SERVICE(S) PROVIDED,A PHARMACIST,INDIV,FACE- TO-FACE W PATIENT,WITH ASSESS & INTERVENE IF PROVIDED;EA ADDITION 15 MINUTES (LIST SEPARATELY IN ADDITION TO CODE FOR PRIM SERVICE) 2019 [facility] MEDICATION THERAPY MGT SERVICE(S) PROVIDED,A PHARMACIST,ELIEIV,FACE- TO-FACE W PATIENT,WITH ASSESS & INTERVENE IF PROVIDED;EA ADDITION 15 MINUTES (LIST SEPARATELY IN ADDITION TO CODE FOR PRIM SERVICE) 2018 [facility] MEDICATION THERAPY MGT SERVICE(S) PROVIDED,A PHARMACIST,INDIV,FACE- TO-FACE W PATIENT,WITH ASSESS & INTERVENE IF PROVIDED;EA ADDITION 15 MINUTES (LIST SEPARATELY IN ADDITION TO CODE FOR PRIM SERVICE) 2018 DoD ONLINE ASSESS &MANAG SERV PROVIDE,A QUAL NONPHYS HCP TO AN ESTABLISHED PAT/GUARDIAN,NOT ORIGINAT FRM RELAT ASSESS &MANAG SERV PROVIDE W/IN THE PREV 7 DAYS,USE THE [employer] COMM NETWORK 2017 DoD TELE ASSESS & MGT SRV PROV QUAL NONPHYS HLTH CARE PRO TO EST PAT,PARENT,GUARD NOT ORIG REL ASSESS & MGT SRV PROV W/IN PREV 7 DAYS NOR LEAD ASSESS & MGT SRV/PX W/IN NXT 24 HR/SOON APT;5-10 MIN MED DIS 2017 [facility] TELE ASSESS & MGT SRV PROV QUAL NONPHYS HLTH CARE PRO TO EST PAT,PARENT,GUARD NOT ORIG REL ASSESS & MGT SRV PROV W/IN PREV 7 DAYS NOR LEAD ASSESS & MGT SRV/PX W/IN NXT 24 HR/SOON APT;5-10 MIN MED DIS 2017 [facility] TELE ASSESS & MGT SRV PROV QUAL NONPHYS HLTH CARE PRO TO EST PAT,PARENT,GUARD NOT ORIG REL ASSESS & MGT SRV PROV W/IN PREV 7 DAYS NOR LEAD ASSESS & MGT SRV/PX W/IN NXT 24 HR/SOON APT;5-10 MIN MED DIS 2017 Do[facility] ONLINE ASSESS &MANAG SERV PROVIDE,A QUAL NONPHYS HCP TO AN ESTABLISHED PAT/GUARDIAN,NOT ORIGINAT FRM RELAT ASSESS &MANAG SERV PROVIDE W/IN THE PREV 7 DAYS,USE THE [employer]SIMILAR [employer] NETWORK 2017 DoD TELE ASSESS & MGT SRV PROV QUAL NONPHYS HLTH CARE PRO TO EST PAT,PARENT,GUARD NOT ORIG REL ASSESS & MGT SRV PROV W/IN PREV 7 DAYS NOR LEAD ASSESS & MGT SRV/PX W/IN NXT 24 HR/SOON APT;5-10 MIN MED DIS 2017 DoD TELE ASSESS & MGT SRV PROV QUAL NONPHYS HLTH CARE PRO TO EST PAT,PARENT,GUARD NOT ORIG REL ASSESS & MGT SRV PROV W/IN PREV 7 DAYS NOR LEAD ASSESS & MGT SRV/PX W/IN NXT 24 HR/SOON APT;5-10 MIN MED DIS 2017 DoD TELE ASSESS & MGT SRV PROV QUAL NONPHYS HLTH CARE PRO TO EST PAT,PARENT,GUARD NOT ORIG REL ASSESS & MGT SRV PROV W/IN PREV 7 DAYS NOR LEAD ASSESS & MGT SRV/PX W/IN NXT 24 HR/SOON APT;5-10 MIN MED DIS 2017 DoD TELE ASSESS & MGT SRV PROV QUAL NONPHYS HLTH CARE PRO TO EST PAT,PARENT,GUARD NOT ORIG REL ASSESS & MGT SRV PROV W/IN PREV 7 DAYS NOR LEAD ASSESS & MGT SRV/PX W/IN NXT 24 HR/SOON APT;5-10 MIN MED DIS 2016 DoD TELE ASSESS & MGT SRV PROV QUAL NONPHYS HLTH CARE PRO TO EST PAT,PARENT,GUARD NOT ORIG REL ASSESS & MGT SRV PROV W/IN PREV 7 DAYS NOR LEAD ASSESS & MGT SRV/PX W/IN NXT 24 HR/SOON APT;5-10 MIN MED DIS 2016 DoD ONLINE ASSESS &MANAG SERV PROVIDE,A QUAL NONPHYS HCP TO AN ESTABLISHED PAT/GUARDIAN,NOT ORIGINAT FRM RELAT ASSESS &MANAG SERV PROVIDE W/IN THE PREV 7 DAYS,USE THE [employer] NETWORK 2016 DoD TELE ASSESS & MGT SRV PROV QUAL NONPHYS HLTH CARE PRO TO EST PAT,PARENT,GUARD NOT ORIG REL ASSESS & MGT SRV PROV W/IN PREV 7 DAYS NOR LEAD ASSESS & MGT SRV/PX W/IN NXT 24 HR/SOON APT;5-10 MIN MED DIS 2016 DoD TELE ASSESS & MGT SRV PROV QUAL NONPHYS HLTH CARE PRO TO EST PAT,PARENT,GUARD NOT ORIG REL ASSESS & MGT SRV PROV W/IN PREV 7 DAYS NOR LEAD ASSESS & MGT SRV/PX W/IN NXT 24 HR/SOON APT;5-10 MIN MED DIS 2016 DoD TELE ASSESS & MGT SRV PROV QUAL NONPHYS HLTH CARE PRO TO EST PAT,PARENT,GUARD NOT ORIG REL ASSESS & MGT SRV PROV W/IN PREV 7 DAYS NOR LEAD ASSESS & MGT SRV/PX W/IN NXT 24 HR/SOON APT;5-10 MIN MED DIS 2016 DoD TELE ASSESS & MGT SRV PROV QUAL NONPHYS HLTH CARE PRO TO EST PAT,PARENT,GUARD NOT ORIG REL ASSESS & MGT SRV PROV W/IN PREV 7 DAYS NOR LEAD ASSESS & MGT SRV/PX W/IN NXT 24 HR/SOON APT;5-10 MIN MED DIS 2016 DoD TELE ASSESS & MGT SRV PROV QUAL NONPHYS HLTH CARE PRO TO EST PAT,PARENT,GUARD NOT ORIG REL ASSESS & MGT SRV PROV W/IN PREV 7 DAYS NOR LEAD ASSESS & MGT SRV/PX W/IN NXT 24 HR/SOON APT;5-10 MIN MED DIS 2016 DoD TELE ASSESS & MGT SRV PROV QUAL NONPHYS HLTH CARE PRO TO EST PAT,PARENT,GUARD NOT ORIG REL ASSESS & MGT SRV PROV W/IN PREV 7 DAYS NOR LEAD ASSESS & MGT SRV/PX W/IN NXT 24 HR/SOON APT;5-10 MIN MED DIS 2016 DoD TELE ASSESS & MGT SRV PROV QUAL NONPHYS HLTH CARE PRO TO EST PAT,PARENT,GUARD NOT ORIG REL ASSESS & MGT SRV PROV W/IN PREV 7 DAYS NOR LEAD ASSESS & MGT SRV/PX W/IN NXT 24 HR/SOON APT;5-10 MIN MED DIS 2015 DoD TELE ASSESS & MGT SRV PROV QUAL NONPHYS HLTH CARE PRO TO EST PAT,PARENT,GUARD NOT ORIG REL ASSESS & MGT SRV PROV W/IN PREV 7 DAYS NOR LEAD ASSESS & MGT SRV/PX W/IN NXT 24 HR/SOON APT;5-10 MIN MED DIS 2015 DoD TELE ASSESS & MGT SRV PROV QUAL NONPHYS HLTH CARE PRO TO EST PAT,PARENT,GUARD NOT ORIG REL ASSESS & MGT SRV PROV W/IN PREV 7 DAYS NOR LEAD ASSESS & MGT SRV/PX W/IN NXT 24 HR/SOON APT;5-10 MIN MED DIS 2014 DoD TELE ASSESS & MGT SRV PROV QUAL NONPHYS HLTH CARE PRO TO EST PAT,PARENT,GUARD NOT ORIG REL ASSESS & MGT SRV PROV W/IN PREV 7 DAYS NOR LEAD ASSESS & MGT SRV/PX W/IN NXT 24 HR/SOON APT;5-10 MIN MED DIS 2014 DoD TELE ASSESS & MGT SRV PROV QUAL NONPHYS HLTH CARE PRO TO EST PAT,PARENT,GUARD NOT ORIG REL ASSESS & MGT SRV PROV W/IN PREV 7 DAYS NOR LEAD ASSESS & MGT SRV/PX W/IN NXT 24 HR/SOON APT;5-10 MIN MED DIS 2014 DoD TELE ASSESS & MGT SRV PROV QUAL NONPHYS HLTH CARE PRO TO EST PAT,PARENT,GUARD NOT ORIG REL ASSESS & MGT SRV PROV W/IN PREV 7 DAYS NOR LEAD ASSESS & MGT SRV/PX W/IN NXT 24 HR/SOON APT;5-10 MIN MED DIS 2014 DoD TELE ASSESS & MGT SRV PROV QUAL NONPHYS HLTH CARE PRO TO EST PAT,PARENT,GUARD NOT ORIG REL ASSESS & MGT SRV PROV W/IN PREV 7 DAYS NOR LEAD ASSESS & MGT SRV/PX W/IN NXT 24 HR/SOON APT;5-10 MIN MED DIS 2013 DoD TELE ASSESS & MGT SRV PROV QUAL NONPHYS HLTH CARE PRO TO EST PAT,PARENT,GUARD NOT ORIG REL ASSESS & MGT SRV PROV W/IN PREV 7 DAYS NOR LEAD ASSESS & MGT SRV/PX W/IN NXT 24 HR/SOON APT;5-10 MIN MED DIS 2013 DoD TELE ASSESS & MGT SRV PROV QUAL NONPHYS HLTH CARE PRO TO EST PAT,PARENT,GUARD NOT ORIG REL ASSESS & MGT SRV PROV W/IN PREV 7 DAYS NOR LEAD ASSESS & MGT SRV/PX W/IN NXT 24 HR/SOON APT;5-10 MIN MED DIS 2013 DoD TELE ASSESS & MGT SRV PROV QUAL NONPHYS HLTH CARE PRO TO EST PAT,PARENT,GUARD NOT ORIG REL ASSESS & MGT SRV PROV W/IN PREV 7 DAYS NOR LEAD ASSESS & MGT SRV/PX W/IN NXT 24 HR/SOON APT;5-10 MIN MED DIS 2013 DoD TELE ASSESS & MGT SRV PROV QUAL NONPHYS HLTH CARE PRO TO EST PAT,PARENT,GUARD NOT ORIG REL ASSESS & MGT SRV PROV W/IN PREV 7 DAYS NOR LEAD ASSESS & MGT SRV/PX W/IN NXT 24 HR/SOON APT;5-10 MIN MED DIS 2013 DoD TELE ASSESS & MGT SRV PROV QUAL NONPHYS HLTH CARE PRO TO EST PAT,PARENT,GUARD NOT ORIG REL ASSESS & MGT SRV PROV W/IN PREV 7 DAYS NOR LEAD ASSESS & MGT SRV/PX W/IN NXT 24 HR/SOON APT;5-10 MIN MED DIS 2013 DoD TELE ASSESS & MGT SRV PROV QUAL NONPHYS HLTH CARE PRO TO EST PAT,PARENT,GUARD NOT ORIG REL ASSESS & MGT SRV PROV W/IN PREV 7 DAYS NOR LEAD ASSESS & MGT SRV/PX W/IN NXT 24 HR/SOON APT;5-10 MIN MED DIS 2013 DoD TELE ASSESS & MGT SRV PROV QUAL NONPHYS HLTH CARE PRO TO EST PAT,PARENT,GUARD NOT ORIG REL ASSESS & MGT SRV PROV W/IN PREV 7 DAYS NOR LEAD ASSESS & MGT SRV/PX W/IN NXT 24 HR/SOON APT;5-10 MIN MED DIS 2013 DoD TELE ASSESS & MGT SRV PROV QUAL NONPHYS HLTH CARE PRO TO EST PAT,PARENT,GUARD NOT ORIG REL ASSESS & MGT SRV PROV W/IN PREV 7 DAYS NOR LEAD ASSESS & MGT SRV/PX W/IN NXT 24 HR/SOON APT;5-10 MIN MED DIS 2012 DoD TELE ASSESS & MGT SRV PROV QUAL NONPHYS HLTH CARE PRO TO EST PAT,PARENT,GUARD NOT ORIG REL ASSESS & MGT SRV PROV W/IN PREV 7 DAYS NOR LEAD ASSESS & MGT SRV/PX W/IN NXT 24 HR/SOON APT;5-10 MIN MED DIS 2012 DoD TELE ASSESS & MGT SRV PROV QUAL NONPHYS HLTH CARE PRO TO EST PAT,PARENT,GUARD NOT ORIG REL ASSESS & MGT SRV PROV W/IN PREV 7 DAYS NOR LEAD ASSESS & MGT SRV/PX W/IN NXT 24H/SOON APT; 11-20 MIN MED DIS 2012 [facility] PUNCTURE ASPIRATION OF ABSCESS, HEMATOMA, BULLA, OR CYST 2007 [facility] COLONOSCOPY, FLEXIBLE; WITH REMOVAL OF TUMOR(S), POLYP(S), OR OTHER LESION(S) BY SNARE TECHNIQUE 2007 [facility] UNLISTED SPECIAL SERVICE, PROCEDURE OR REPORT 2005 [facility] ELECTROCARDIOGRAM, ROUTINE ECG WITH AT LEAST 12 LEADS; WITH INTERPRETATION AND REPORT 2005 [facility] ELECTROCARDIOGRAM, ROUTINE ECG WITH AT LEAST 12 LEADS; TRACING ONLY, WITHOUT INTERPRETATION AND REPORT 2005 [facility] INFLUENZA VIRUS VACCINE, TRIVALENT (IIV3), SPLIT VIRUS, 0.5 ML DOSAGE, FOR INTRAMUSCULAR USE 2004 [facility] PROSTATE CANCER SCREENING; DIGITAL RECTAL EXAMINATION 2004 [facility] INJECTION, TRIAMCINOLONE ACETONIDE, NOT OTHERWISE SPECIFIED, 10 MG 2003 [facility] TISSUE EXAMINATION BY YAMILE SLIDE OF SAMPLES FROM SKIN, HAIR, OR NAILS FOR FUNGI OR ECTOPARASITE OVA OR MITES (EG, SCABIES) 2003 [facility] INJECTION, METHYLPREDNISOLONE ACETATE, 20 MG 2003 [facility] Internet Med Svc Qual Nonphys Healthcare Prof Estab Patient Internet Med Svc Qual Nonphys Healthcare Prof Estab Patient [id number] 2017 BRANDON LEE [facility] Non-Physician Phone Call To Patient/Provider Brief (5-10min) Non-Physician Phone Call To Patient/Provider Brief (5-10min) [id number] 2017 RICARDO PHIPPS [facility] Non-Physician Phone Call To Patient/Provider Brief (5-10min) Non-Physician Phone Call To Patient/Provider Brief (5-10min) [id number] 2017 RICARDO PHIPPS [facility] Non-Physician Phone Call To Patient/Provider Brief (5-10min) Non-Physician Phone Call To Patient/Provider Brief (5-10min) [id number] 2017 RICARDO PHIPPS DoD Internet Med Svc Qual Nonphys Healthcare Prof Estab Patient Internet Med Svc Qual Nonphys Healthcare Prof Estab Patient [id number] 2017 LORRAINE ELLISON [facility] Non-Physician Phone Call To Patient/Provider Brief (5-10min) Non-Physician Phone Call To Patient/Provider Brief (5-10min) [id number] 2017 BRANDON LEE Non-Physician Phone Call To Patient/Provider Brief (5-10min) Non-Physician Phone Call To Patient/Provider Brief (5-10min) [id number] 2017 BRITTANY GARZA [facility] Non-Physician Phone Call To Patient/Provider Brief (5-10min) Non-Physician Phone Call To Patient/Provider Brief (5-10min) [id number] 2017 BRANDON LEE Non-Physician Phone Call To Patient/Provider Brief (5-10min) Non-Physician Phone Call To Patient/Provider Brief (5-10min) [id number] 2016 BRITTANY GARZA [facility] Internet Med Svc Qual Nonphys Healthcare Prof Estab Patient Internet Med Svc Qual Nonphys Healthcare Prof Estab Patient [id number] 2016 SIDNEY LION [facility] Non-Physician Phone Call To Patient/Provider Brief (5-10min) Non-Physician Phone Call To Patient/Provider Brief (5-10min) [id number] 2016 LORRAINE ELLISON [facility] Non-Physician Phone Call To Patient/Provider Brief (5-10min) Non-Physician Phone Call To Patient/Provider Brief (5-10min) [id number] 2016 BRANDON LEE Non-Physician Phone Call To Patient/Provider Brief (5-10min) Non-Physician Phone Call To Patient/Provider Brief (5-10min) [id number] 2016 SIDNEY LION [facility] Non-Physician Phone Call To Patient/Provider Brief (5-10min) Non-Physician Phone Call To Patient/Provider Brief (5-10min) [id number] 2016 LORRAINE ELLISON [facility] Non-Physician Phone Call To Patient/Provider Brief (5-10min) Non-Physician Phone Call To Patient/Provider Brief (5-10min) [id number] 2016 LORRAINE ELLISON [facility] Non-Physician Phone Call To Patient/Provider Brief (5-10min) Non-Physician Phone Call To Patient/Provider Brief (5-10min) [id number] 2016 LORRAINE ELLISON [facility] Non-Physician Phone Call To Patient/Provider Brief (5-10min) Non-Physician Phone Call To Patient/Provider Brief (5-10min) [id number] 2015 LORRAINE ELLISON [facility] Non-Physician Phone Call To Patient/Provider Brief (5-10min) Non-Physician Phone Call To Patient/Provider Brief (5-10min) [id number] 2015 LORRAINE ELLISON [facility] Non-Physician Phone Call To Patient/Provider Brief (5-10min) Non-Physician Phone Call To Patient/Provider Brief (5-10min) [id number] 2014 MADDIE CASAS [facility] Non-Physician Phone Call To Patient/Provider Brief (5-10min) Non-Physician Phone Call To Patient/Provider Brief (5-10min) [id number] 2014 SIDNEY LION [facility] Non-Physician Phone Call To Patient/Provider Brief (5-10min) Non-Physician Phone Call To Patient/Provider Brief (5-10min) [id number] 2014 BLANCA SPENCER [facility] Non-Physician Phone Call To Patient/Provider Brief (5-10min) Non-Physician Phone Call To Patient/Provider Brief (5-10min) [id number] 2014 BLANCA SPENCER [facility] Non-Physician Phone Call To Patient/Provider Brief (5-10min) Non-Physician Phone Call To Patient/Provider Brief (5-10min) [id number] 2013 SIDDHARTH CARUSO [facility] Non-Physician Phone Call To Patient/Provider Brief (5-10min) Non-Physician Phone Call To Patient/Provider Brief (5-10min) [id number] 2013 JAYLEEN GIPSON [facility] Non-Physician Phone Call To Patient/Provider Brief (5-10min) Non-Physician Phone Call To Patient/Provider Brief (5-10min) [id number] 2013 BLANCA SPENCER [facility] Non-Physician Phone Call To Patient/Provider Brief (5-10min) Non-Physician Phone Call To Patient/Provider Brief (5-10min) [id number] 2013 BLANCA SPENCER [facility] Non-Physician Phone Call To Patient/Provider Brief (5-10min) Non-Physician Phone Call To Patient/Provider Brief (5-10min) [id number] 2013 BLANCA SPENCER [facility] Non-Physician Phone Call To Patient/Provider Brief (5-10min) Non-Physician Phone Call To Patient/Provider Brief (5-10min) [id number] 2013 SIDNEY LION [facility] Non-Physician Phone Call To Patient/Provider Brief (5-10min) Non-Physician Phone Call To Patient/Provider Brief (5-10min) [id number] 2013 SIDNEY LION [facility] Non-Physician Phone Call To Patient/Provider Brief (5-10min) Non-Physician Phone Call To Patient/Provider Brief (5-10min) [id number] 2013 GRADY CARUSO [facility] Non-Physician Phone Call To Patient/Provider Brief (5-10min) Non-Physician Phone Call To Patient/Provider Brief (5-10min) [id number] 2012 BLANCA SPENCER [facility] Non-Physician Phone Call To Pt/Provider Intermed (11-20 min) Non-Physician Phone Call To Pt/Provider Intermed (11-20 min) [id number] 2012 TRAN BLACK [facility] Puncture Aspiration Of Cutaneous Cyst Puncture Aspiration Of Cutaneous Cyst [id number] 2007 JAMIN SANTANA [facility] Complete Colonoscopy For Polyp Removal 2007 EVELINE SALAZAR [facility] ECG Performance of Tracing Only ECG Performance of Tracing Only [id number] 2005 JANELL WADE [facility] Electrocardiogram Electrocardiogram 80168 10/08 ASYA FINK [facility] Influenza Split Virus Vaccine Age 3+ Years Intramuscular 2004 ASYA FINK [facility] Med Management By Pharmacist Initial 15 Min New Patient Med Management By Pharmacist Initial 15 Min New Patient [id number] MADELYN WALTON [facility] Medication Management By Pharmacist Each Additional 15 Min Medication Management By Pharmacist Each Additional 15 Min [id number] MADELYN WALTON Med Management By Pharmacist Initial 15 Min Estab Patient Med Management By Pharmacist Initial 15 Min Estab Patient [id number] MADELYN WALTON [facility] Internet Med Svc Qual Nonphys Healthcare Prof Estab Patient Internet Med Svc Qual Nonphys Healthcare Prof Estab Patient [id number] MADELYN WALTON [facility] Case Management Services JOHNMAGENTA [facility] Non-Physician Phone Call To Patient/Provider Brief (5-10min) Non-Physician Phone Call To Patient/Provider Brief (5-10min) [id number] MADELYN WALTON [facility] Waiver services; not otherwise specified (NOS) MADELYN WALTON [facility] Non-Physician Phone Call To Pt/Provider Intermed (11-20 min) Non-Physician Phone Call To Pt/Provider Intermed (11-20 min) [id number] MARILU CARRERA [facility] No data available for this section Ambulatory Pharmacy Social History Combined list of available smoking, tobacco, and other social history from Department of Defense and Veterans Affairs facilities. Social History Type Response Date Comment Sour e This section is an empty social history section. [facility] Assessment and Plan Combined list of future care activities from Department of Defense and Veterans Affairs facilities (e.g., assessment and plan notes, appointments, orders, and referrals). Additional future care activities may be listed in the Plan of Care section. Result Assessment and Plan Date Source Assessment and Plan No data available for this section 11/08/2024 Ambulatory Pharmacy Functional Status Combined list of recent functional and cognitive assessments recorded at Department of Defense and Veterans Affairs ([facility] Functional [place] Measurement (FIM) Scale: 1 = Total Assistance (Subject = 0% +), 2 = Maximal Assistance (Subject = 25% +), 3 = Moderate Assistance (Subject = 50% +), 4 = Minimal Assistance (Subject = 75% +), 5 = Supervision, 6 = Modified [place] (Device), 7 = Complete [place] (Timely, Safely). Assessment Date/Time Source Assessment Type Assessment Skill Assessment Score Assessment Details No data available for this section
[2024-11-08 14:36] LABS: Basophils Percent Auto 0.7 % (0.2-1.2); Eosinophils Absolute Auto 0.6 K/mm3 (0-0.3); Hematocrit 53.3 % (42.0-52.0); Hemoglobin 17.3 g/dL (14.0-18.0); Immature Granulocyte Absolute 0.03 K/mm3 (0.00-0.031); Immature Granulocyte Percent A 0.5 % (0-0.5); Lymphocytes Absolute Auto 1.97 K/mm3 (0.9-3.2); Lymphocytes Percent Auto 34.6 % (18.3-44.2); Mean Corpuscular HGB Conc 32.5 g/dl (32-36); Mean Corpuscular Hemoglobin 28.1 pg (26-34); Mean Corpuscular Volume 86.7 fl (80-100); Mean Platelet Volume 9.5 fl (7.4-10.4); Monocytes Absolute Auto 0.5 K/mm3 (0.1-0.6); Monocytes Percent Auto 9.5 % (2.6-8.5); Neutrophils Absolute Auto 2.5 K/mm3 (1.3-6.7); Neutrophils Percent Auto 44.7 % (45.5-73.1); Platelet Count Result 179 k/mm3 (150-375); Red Blood Count 6.15 M/mm3 (4.6-6.20); Red Cell Distribution Width 13.7 % (11.5-14.5); White Blood Count 5.7 K/mm3 (4.5-10.0)
[2024-11-08 16:34] LABS: Alanine Aminotransferase 23 U/L (6-50); Albumin Level 4.4 g/dL (3.5-5.1); Alkaline Phosphatase 83 U/L (38-126); Anion Gap 11 mmol/L (4-12); Aspartate Amino Transferase 79 U/L (17-59); Bilirubin,Total 0.5 mg/dL (0.2-1.3); Blood Urea Nitrogen 31 mg/dL (9-20); Calcium 9.8 mg/dL (8.4-10.2); Carbon Dioxide 29 mmol/L (22-30); Chloride 101 mmol/L (98-107); Estimated Glomerular Filt Rate 37; Glucose 167 mg/dL (65-110); Potassium 4.7 mmol/L (3.4-5.0); Sodium 141 mmol/L (137-145)
[2024-11-13 16:44] LABS: Erythropoietin (EPO) 17.1 mIU/mL (2.6-18.5)
== END 2024-11-08 14:19 | disposition home or self-care (01) ==
LOC: ANHLAB 14:24
PROVIDERS: PCP Family Medicine; Visit Provider Internal Medicine Hematology & Oncology
DX: D75.1 Secondary polycythemia (principal)
CPT/HCPCS: 36415; 80053; 81270; 82668; 85025

== ENCOUNTER 2025-01-17 11:13 | Outpatient (CLI) | payer MEDICARE, OTHER, SELFPAY ==
[2025-01-17 11:33] LABS: Hematocrit 52.1 % (42.0-52.0); Hemoglobin 16.7 g/dL (14.0-18.0); Mean Corpuscular HGB Conc 32.1 g/dl (32-36); Mean Corpuscular Hemoglobin 28.0 pg (26-34); Mean Corpuscular Volume 87.4 fl (80-100); Platelet Count Result 173 k/mm3 (150-375); Red Blood Count 5.96 M/mm3 (4.6-6.20); White Blood Count 5.5 K/mm3 (4.5-10.0)
[2025-01-17 11:55] LABS: Albumin Level 4.4 g/dL (3.5-5.1); Anion Gap 8 mmol/L (4-12); Blood Urea Nitrogen 26 mg/dL (9-20); Calcium 9.3 mg/dL (8.4-10.2); Carbon Dioxide 26 mmol/L (22-30); Chloride 101 mmol/L (98-107); Estimated Glomerular Filt Rate 43; Glucose 181 mg/dL (65-110); Potassium 4.3 mmol/L (3.4-5.0); Sodium 135 mmol/L (137-145)
--- OUTSIDE RECORDS SUMMARY | 2025-01-17 12:00 | XMS_ITS | Encounter Summary ---
Author Organization [facility] Healthcare Address [address] [place] [address] Care Team Providers Care Biology Lecturer Name Role Phone Johnny Rodríguez MD Unavailable [phone] Miscellaneous, Not In File Primary Care Provider Unavailable [facility] Primary Care Provider [phone] No, Physician Primary Care Provider [phone] Tim Desai MD Primary Care Provider [phone] Encounter Details Date Type Department Care Team (Late st Contact Info) Description 09/05/2020 Telephone [facility] [address] [place] [address] Transcribed Order, Provider Social History Tobacco Use Types Packs/Day Years Used Date Smoking Tobacco: Former Cigarettes 1 40 0 09/01/1979 - 09/01/2019 Smokeless Tobacco: Never Alcohol Use Standard Drinks/Week Comments Not Currently 0 (1 standard drink = 0.6 oz pur e alcohol) Sex and Gender Information Value Date Recorded Sex Assigned at Not on file Legal Sex Male 11:09 AM [employer] Gender Identity Not on file Sexual Orientation Not on file documented as of this encounter Plan of Treatment Not on file documented as of this encounter Visit Diagnoses Not on filedocumented in this encounter Care Teams Biology Lecturer Relationship Specialty Start Date End Date Miscellaneous, Not In File PCP - General 12/19/19 1 [facility] [address] [place] [address] PCP - General 12/18/20 06/22/22 No, Physician PCP - General 06/23/22 05/24/24 Tim Desai MD [address] [place] [address] PCP - General Family Practice 05/25/24 Johnny Rodríguez MD Consulting Physician Urology 10/02/19 documented as of this encounter
--- OUTSIDE RECORDS SUMMARY | 2025-01-17 12:00 | XMS_ITS | Clinical Summary ---
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
--- OUTSIDE RECORDS SUMMARY | 2025-01-17 12:00 | XMS_ITS | Continuity of Care Document ---
Author Name [facility] Organization [facility] Care Team Providers Care Teacher Vocational Training Name Role Phone [facility] Unavailable Unavailable Problems [...] Estab Patient Checkup Adult 40-64 Inactive Condition [facility] visit for: administrative purpose Inactive Condition DoD [...] DoD ACUTE MYOCARDIAL INFARCTION INITIAL CARE (NEW [place]) Active Condition DoD MYOCARDIAL INFARCTION SILENT - INITIAL CARE (NEW [place]) Active Condition DoD NICOTINE DEPENDENCE - IN [...] Do D itching (pruritus) Inactive Condition t riasarthak of [place], f/u in 1 month DoD [...] 5 2024 8.5 Ambulat ory Pharmac y aspirin EC 81 mg tablet 81 mg, [...] AUROBINDO PHARM, 6 ea. BLIST PACK Active [id number] 4 2023 6 Pharmac y Data Transac [...] ), Soft Stop Oral (given by mouth) Discont inued 11/21/2024 5 2024 90.0 Ambulat ory Pharmac y [...] SubCut aneous (under the skin) Discont inued 11/17/2024 5 2024 15.0 Ambulat ory Pharmac y insulin glargine (Lantus SoloStar) 100 units/mL [3mL] See Instruct ions, # 15 mL, 1 total refill(s ), Soft Stop Ordered 5 2024 15.0 Ambulat ory Pharmac y insulin glargine-yf gn 100 unit/mL inj-pen [3mL] = 0.2 mL, SubCutan eous, every morning, # 15 mL, 1 total refill(s ), Hard Stop SubCut aneous (under the skin) Discont inued 02/03/2024 4 2023 15.0 Ambulat ory Pharmac y insulin lispro KwikPen 100 units/mL [3mL] See Instruct ions, Inject 16 units under skin before breakfas t, lunch, dinner. Skip meal skip dose. Max daily dose=80. Blood sugars 150-185- 1 unit; 186-220= 2; 221-255= 3; 256-290= 4; 291-325= 5; 326-360= 6; 361-395= 7; 396-430= 8; more than 431- add 9 units, # 60 mL, 2 total refill(s ), Soft Stop Notes: refriger ate Ordered 5 2024 60.0 Ambulat ory Pharmac y insulin lispro KwikPen [...] 5 2024 90.0 Ambulat ory Pharmac y needle pen 32g 4mm See Instruct ions, # 400 [...] 4 2023 90.0 Ambulat ory Pharmac y pravastatin [...] NOVITIUM/AN I PH, 500 ea. BOTTLE Active [id number] 4 2023 5 Pharmac y Data Transac [...] AXETIL) Drug allergy (disorder) Rash active 1 [facility] [employer] [facility] LISINOPRIL Drug allergy (disorder) Unknown active 3 [facility] [employer] lisinopril Propensity to adverse reactions to drug Unknown Active Reaction( s): Unknown; Note: [id number] NLD Unknown Organizatio n Immunizations Combined list of available immunizations from the Department of Defense and Veterans Affairs facilities. Immunization Series Date Given Administered By Site Reaction Lot Number CVX Code Drug Boss Miner Status Comments Source influenza, injectable, quadrivalent- pf 2019 150 Seqirus complet ed influenza , injectabl e, quadrival ent-pf 04/05/20 Given Ambulat ory Pharmac y influenza, injectable, quadrivalent, preservative free 2019 ALUSarthak, () Not Given influenza , injectabl e, quadrival ent, preservat [place] free DoD influenza, seasonal, injectable 2018 [id number] 141 sanofi pasteur complet ed influenza , seasonal, injectabl e 04/06/19 Given Ambulat ory Pharmac y influenza, seasonal, injectable 2018 [id number] 141 sanofi pasteur complet ed influenza , seasonal, injectabl e 04/06/19 Given Ambulat ory Pharmac y influenza, injectable, quadrivalent- pf 2018 150 sanofi pasteur complet ed influenza , injectabl e, quadrival ent-pf 04/06/19 Given Ambulat ory Pharmac y influenza, injectable, quadrivalent 2018 ANDRÉS, () Not Given influenza , injectabl e, quadrival ent DoD Influenza, seasonal, injectable 1 2018 Unknown, Provider [id number] 141 Sanofi Pasteur ([facility]) complet ed Influenza , seasonal, injectabl e DoD influenza, injectable, quadrivalent- pf 2017 [id number] 150 GlaxoSmithKli ne complet ed influenza , injectabl e, quadrival ent-pf 04/12/18 Given Ambulat ory Pharmac y influenza, injectable, quadrivalent- pf 2017 [id number] 150 GlaxoSmithKli ne complet ed influenza , injectabl e, quadrival ent-pf 04/12/18 Given Ambulat ory Pharmac y Influenza, injectable, quadrivalent, preservative free 1 2017 Unknown, Provider [id number] 150 [facility] ([place]) complet ed Influenza , injectabl e, quadrival ent, preservat barrington free DoD tetanus, diphtheria, acellular pertu is 2016 zzBina Arm [id number] 115 GlaxoSmithKli ne complet ed tetanus, diphtheri a, acellular pertussis 03/17/17 Given Ambulat ory Pharmac y tetanus, diphtheria, acellular pertu is 2016 [id number] 115 GlaxoSmithK[employer] ne complet ed tetanus, diphtheri a, acellular pertussis 03/17/17 Given Ambulat ory Pharmac y tetanus toxoid, reduced diphtheria toxoid, and acellular pertu is vaccine, adsorbed 1 2016 Unknown, Provider [id number] 115 [facility] ([facility]) complet ed tetanus toxoid, reduced diphtheri a toxoid, and acellular pertussis vaccine, adsorbed DoD influenza, seasonal, injectable 2012 zzRig ht Arm [id number] 141 sanofi pasteur complet ed influenza , seasonal, injectabl e 05/17/13 Given Ambulat ory Pharmac y influenza, seasonal, injectable 2012 [id number] 141 sanofi pasteur complet ed influenza , seasonal, injectabl e 05/17/13 Given Ambulat ory Pharmac y Influenza, seasonal, injectable 3 2012 Unknown, Provider [id number] 141 Sanofi Pasteur ([facility]) complet ed Influenza , seasonal, injectabl e [...] influenza virus vaccine,split 2004 zzLef t Arm [id number] 15 sanofi pasteur complet ed influenza virus vaccine,s plit 05/19/05 Given Ambulat ory Pharmac y influenza virus vaccine,split 2004 [id number] 15 sanofi pasteur complet ed influenza virus vaccine,s plit 05/19/05 Given Ambulat ory Pharmac y influenza virus vaccine, split virus (incl. purified surface antigen)-reti red CODE 1 2004 Unknown, Provider [id number] 15 Sanofi Pasteur ([facility]) complet ed influenza virus vaccine, split virus [...] ADM Date DC Date Status Disposition Source [address] [place] [address] Jean [facility])([facility] charles Practice Non-GME FHI1) OUTPATIENT [id number] f/u for diabete s/and itching DARI PARK 12/02 Released w/o Limitations [address] [place] [place] [address] Jean Diana [facility]F amily Practic e Non-GME FHI1) [address] [place] [address] Jean [facility])([facility] charles Practice Non-GME FHI1) TELE CONSULT [id number] Lab Work ASYA ORDONEZ 10/[address] [place] [address] Jean [facility])(F amily Practic e Non-GME FHI1) [address] [place] [address] OUTPATIENT [id number] 6-month f/u for diabete s COOPER RAYMOND 10/28 Released w/o Limitations [address] [place] [address] Jean [facility])(F amily Practic e Non-GME FHI1) [address] [place] [address] Jean [facility])([facility] charles Practice Non-GME FHI1) TELE CONSULT [id number] Orthope dic Referra l Issue ASYA ORDONEZ 11/[address] [place] [address] Jean [facility])(F amily Practic e Non-GME FHI1) [address] [place] [address] Jean [facility] F[facility]) OUTPATIENT [id number] left knee PADMINI DUKES 01/15 Released w/o Limitations [address] [place] [address] Jean [facility])(F amily Practic e Non-GME FHI1) [address] [place] [address] Jean [facility])(Sco tt Internal Medicine Tm) TELE CONSULT [id number] med SUNDEEP Mahan 02/[address] [place] [address] Jean [facility])(S cott Interna l Medicin e Tm) [address] [place] [address] Group [facility] [employer] ([facility])(Fam charles Practice Non-GME FHI1) TELE CONSULT [id number] med DIMITRI Chery 02/[address] [place] [address] Group Jean EID [facility])(F amily Practic e Non-GME FHI1) [address] [place] [address] Jean EID [facility])([facility] ) OUTPATIENT [id number] F/U HEART ATTACK NIVIA, ASSY 04/30 Released w/o Limitations [address] [place] [place] [address] Jean EID [facility]S cott Interna l Medicin e Tm) [address] [place] [address] Jean EID [facility] ) OUTPATIENT [id number] pt needs rx change s/p heart attack, rash from plavix STEVEN OCONNOR A 05/06 Released w/o Limitations [address] [place] [place] [address] [facility] ([facility])(S cott Interna l Medicin e Tm) [address] [place] [address] Jean EID [facility] ) TELE CONSULT [id number] Rash BARBI HARDY 05/[address] [place] [address] Group [facility])(S cott Interna l Medicin e Tm) [address] [place] [address] Jean EID [facility])([facility] ) OUTPATIENT [id number] rash over most of his body HERMANHERNESTO 05/19 Released w/o Limitations [address] [place] [address] Jean EID [facility]S cott Interna l Medicin e Tm) [address] [place] [address] Jean EID [facility] ) OUTPATIENT [id number] allergi c reactio n/seen before/ flarrin g again , ASSY 06/01 Released w/o Limitations [address] [place] [place] [address] Jean Diana [facility]S cott Interna l Medicin e Tm) [address] [place] [address] Jean EID [facility])([facility] ) TELE CONSULT [id number] abn SUNDEEP Kuhn 06/[address] [place] [address] Jean EID [facility]S cott Interna l Medicin e Tm) [address] [place] [address] Jean Diana [facility])([employer]) OUTPATIENT [id number] diagnos tic ORIANA Rendon A 06/17 Released w/o Limitations [facility] ELAINADiana ([facility])(G astroen terolog y Resourc e Sharing ) [facility] [employer] ([facility])([facility] ) TELE CONSULT [id number] ROBERT Woodard 09/15 [facility] [employer] ([facility])(S cott Interna l Medicin e Tm) [facility] Diana [facility] ) OUTPATIENT [id number] sore finger NIVIATANK COLON 09/21 Released w/o Limitations [facility] [employer] ([facility])(S cott Interna l Medicin e Tm) [facility] Diana [facility] ) TELE CONSULT [id number] SUNDEEP FALLON 09/[address] [place] [address] Group [employer] ([facility])(S cott Interna l Medicin e Tm) [facility] Diana [facility])(SD - Orthopedi ) OUTPATIENT [id number] triger finger BARTOLO AYOUB 09/30 Released w/o Limitations [facility] [employer] ([facility])(V A - Orthope dics) [facility] ) OUTPATIENT [id number] pre op clearJAMISON Daley 10/07 Released w/o Limitations [facility] [employer] ([facility])(S cott Interna l Medicin e Tm) [facility] Jean Dinaa [facility]) OUTPATIENT [id number] pre op clearJANELL Messer 10/14 Released w/o Limitations [facility] [employer] ([facility])(E lectroc ardiogr am Clinic) [facility]SD - Orthopedi ) OUTPATIENT [id number] PREOP TRIGGER FINGER RELEASE BARTOLO AYOUB 10/19 Released w/o Limitations [facility] [employer] ([facility])(V A - Orthope dics) [facility] E[facility]SD - Orthopedi ) OUTPATIENT [id number] post op right trigger finger/ ganglio n/ surgery on October 17 BARTOLO AYOUB 10/27 Released w/o Limitations [address] [place] [place] [address] Jean EID [facility]V A - Orthope dics) [address] [place] [address] Jean Diana [facility]VA - Orthopedi cs) OUTPATIENT [id number] f/u right hand surgery BARTOLO AYOUB 11/03 Released w/o Limitations [address] [place] [address] Jean [facility])(V A - Orthope dics) [address] [place] [address] Jean [facility])([facility] ) OUTPATIENT [id number] diabeti c fol up/swol fuad ankles JAMISON LACKEY 01/20 Released w/o Limitations [address] [place] [address] Jean Diana [facility]S cott Interna l Medicin e Tm) [address] [place] [address] Jean [facility])([facility] ) TELE CONSULT [id number] Concern about medicat ion JAMISON LACKEY 01/[address] [place] [address] Jaen [facility])(S cott Interna l Medicin e Tm) [address] [place] [address] Jean [facility])([facility] ) TELE CONSULT [id number] Medicat ion refill SUNDEEP NELSON P 03/[address] [place] [address] Jean Diana [facility]S cott Interna l Medicin e Tm) [address] [place] [address] Jean [facility])([facility] ) TELE CONSULT [id number] Medicat ion refill SUNDEEP NELSON P 03/[address] [place] [address] Jean Diana [facility]S cott Interna l Medicin e Tm) [address] [place] [address] Jean [facility])([facility] ) OUTPATIENT [id number] follow up Diabete s JAMIN SANTANA 04/02 Released w/o Limitations [address] [place] [address] Jean Diana [facility])(S cott Interna l Medicin e Tm) [address] [place] [address] eJan [facility])([facility] ) TELE CONSULT [id number] results HERNESTO HERMAN 05/[address] [place] [address] Jean [facility])(S cott Interna l Medicin e Tm) [address] [place] [address] Jean [facility])([facility] ) TELE CONSULT [id number] medicat ion refill SUNDEEP NELSON P 05/[address] [place] [address] Group Jean [facility])(S cott Interna l Medicin e Tm) [address] [place] [address] Jean [facility])([facility] ) TELE CONSULT [id number] med refill SUNDEEP NELSON P 09/[address] [place] [address])(S cott Interna l Medicin e Tm) [address] [place] [address])([facility] ) OUTPATIENT [id number] FOLLOW UP, HTN, DM, ETC. HERNESTO HERMAN 10/12 Released w/o Limitations [address] [place] [address] Group Jean [facility])(S cott Interna l Medicin e Tm) [address] [place] [address])([facility] ) TELE CONSULT [id number] avandia SUNDEEP Geller P 11/[address] [place] [address] Group [facility])(S cott Interna l Medicin e Tm) [address] [place] [address])([facility] ) TELE CONSULT [id number] Rx Refill AMANDA FORREST 01/[address] [place] [address] Group [facility])(S cott Interna l Medicin e Tm) [address] [place] [address])([facility] ) TELE CONSULT [id number] lab work BARBI HARDY 02/[address] [place] [address])(S cott Interna l Medicin e Tm) [facility] Jean [facility])([facility] ) TELE CONSULT [id number] med refill AMANDA FORREST 02/[address] [place] [address])(S cott Interna l Medicin e Tm) [facility])([facility] ) OUTPATIENT [id number] diabete s heart ck MARTHA SAUCEDO CPT 03/01 Released w/o Limitations [address] [place] [address] Group Jean [facility])(S cott Interna l Medicin e Tm) [facility] Jean [facility])([facility] ) TELE CONSULT [id number] Rx Refill AMANDA FORRESTJuan Luis 03/11 [facility] ([facility])(S cott Interna l Medicin e Tm) [facility] ([facility])([facility] ) TELE CONSULT [id number] Order Labwork KRISTIN TREVA M 03/24 [facility] ([facility])(S cott Interna l Medicin e Tm) [facility] Jean [facility] ([facility])([facility] ) TELE CONSULT [id number] Referra ls KRISTIN TREVA M 04/13 [facility] ([facility])(S cott Interna l Medicin e Tm) [facility] ([facility])([facility] ) TELE CONSULT [id number] Rx Refill KRISTIN TREVA M 04/21 [facility] Jean [facility] ([facility])(S cott Interna l Medicin e Tm) [facility] Jean [facility] ([facility])([facility] ) OUTPATIENT [id number] F/U Diabete s MARIA SAUCEDOARATH CPT 04/28 Released w/o Limitations [facility] ([facility])(S cott Interna l Medicin e Tm) [facility] Jean [facility])([facility] ) TELE CONSULT [id number] Referra l EZRA FOSTERCIA M 05/19 [facility] Jean [facility] ([facility])(S cott Interna l Medicin e Tm) [facility])([facility] ) OUTPATIENT [id number] diabeti c, head and chest cold DAVID CHACON 08/21 Released w/o Limitations [facility] ([facility])(S cott Interna l Medicin e Tm) [facility] Diana [facility] ) TELE CONSULT [id number] Med Refill EZRA FOSTERCIA M 08/30 [facility] ([facility])(S cott Interna l Medicin e Tm) [facility] Jean [facility])([facility] ) TELE CONSULT [id number] Order Labwork LASITER TREVA M 10/[address] [place] [address] Jean E[facility] ([facility])(S cott Interna l Medicin e Tm) [address] [place] [address] Jean [facility] ([facility])([facility] ) TELE CONSULT [id number] med refill JENNIE FOSTERA M 11/[address] [place] [address] Jean E[facility] ([facility])(S cott Interna l Medicin e Tm) [address] [place] [address] Jean EID ([facility])([facility] ) OUTPATIENT [id number] FU DIABETE S BLOOD WK SHERYL, MARTHA CPT 11/14 Released w/o Limitations [address] [place] [place] [address] Jean E[facility] ([facility])(S cott Interna l Medicin e Tm) [address] [place] [address] Jean EID [facility] ) TELE CONSULT [id number] med refill KRISTIN, TREVA M 11/[address] [place] [address] Jean [facility] ([facility])(S cott Interna l Medicin e Tm) [address] [place] [address] Jean EID [facility] FAMRES Tm Blue) OUTPATIENT [id number] colorec carla cancer screeni ng EVELINE SALAZAR 12/11 Released w/o Limitations [address] [place] [place] [address] Jean E[facility] ([facility])(S [facility] FAMRES Tm Blue) [address] [place] [address] Jean EID [facility] FAMRES Tm Blue) TELE CONSULT [id number] Call back C-scope Nov 19- BUD Hardwick 12/[address] [place] [address] Jean EID [facility])(S [facility] FAMRES Tm Blue) [address] [place] [address] Jean EID [facility] Fam Res Tm Green) TELE CONSULT [id number] Biopsy Results EVELINE SALAZAR 12/[address] [place] [address] Jean EID [facility]S [facility] Fam Res Tm Green) [address] [place] [address] Jean EID [facility] ) TELE CONSULT [id number] Pt would like referra ls updated Cardio. Dr Dylon velazquez and Opt. BARBI Lemus 03/[address] [place] [address] Jean EID [facility])(S cott Interna l Medicin e Tm) [address] [place] [address])([facility] ) TELE CONSULT [id number] med refill BARBI HARDY 03/[address] [place] [address])(S cott Interna l Medicin e Tm) [address] [place] [address])([facility] ) OUTPATIENT [id number] follow- up diabete s, HTN, HLP, CAD PADDY QUIROS 04/06 Released w/o Limitations [address] [place] [address])(S cott Interna l Medicin e Tm) [address] [place] [address])([facility] ) OUTPATIENT [id number] lump on collar bone, oozing JAMIN SANTANA 05/14 Released w/o Limitations [address] [place] [address])(S cott Interna l Medicin e Tm) [address] [place] [address])([facility] ) TELE CONSULT [id number] Referra BARBI Elias 05/[address] [place] [address])(S cott Interna l Medicin e Tm) [address] [place] [address])([facility] ) TELE CONSULT [id number] med renewal /referr al BARBI Clinton 06/[address] [place] [address])(S cott Interna l Medicin e Tm) [address] [place] [address])([facility] ) TELE CONSULT [id number] med refill BARBI HARDY 08/09 [address] [place] [address])([facility] [address] [place] [address])([facility] ) TELE CONSULT [id number] Labwork BARBI HARDY 08/[address] [place] [address])([facility]) [address] [place] [address])([facility] ) OUTPATIENT [id number] Diabeti c f/u, renew referra ls, [phone] PADDY QUIROS 09/14 Released w/o Limitations [address] [place] [address] Group Jean [facility])([facility]) [address] [place] [address] Group [facility])([facility] ) TELE CONSULT [id number] Results PADDY QUIROS 09/[address] [place] [address])([facility]) [address] [place] [address])([facility] Tm) TELE CONSULT [id number] Medicat ion Refill BARBI HARDY 09/[address] [place] [address] Group [facility])([facility]) [address] [place] [address] Group [facility])([facility] Tm) TELE CONSULT [id number] Rx Refill ASYA FRANCIS 11/[address] [place] [address] Group [facility])([facility]) [address] [place] [address])([facility] Tm) TELE CONSULT [id number] labs prior to appt. FRANCIS, MARY Raj 12/[address] [place] [address] Group Jean [facility])([facility]) [address] [place] [address])([facility] Tm) TELE CONSULT [id number] A1C, and Lipid lab results PADDY QUIROS 12/[address] [place] [address])([facility]) [address] [place] [address])([facility] ) OUTPATIENT [id number] diabeti c follow up PADDY QUIROS 01/08 Released w/o Limitations [address] [place] [address] Group Jean [facility])([facility]) [address] [place] [address] Group [facility])([facility] Internal Medicine Tm) TELE CONSULT [id number] CBC,CMP ,TSH,Hp ylori lab resutls PADDY QUIROS 01/[address] [place] [address] Group Jean [facility])([facility] [address] [place] [address])([facility] Internal Medicine Tm) OUTPATIENT [id number] sinus infecti on - [id number] CATHY VILLELA 03/11 Released w/o Limitations [employer] Jean DELANEYB ([facility]) [facility] B ([facility])([facility] ) TELE CONSULT [id number] labs prior to appt. BARBI HARDY 03/21 [facility] Jean ELAINAB ([facility])([facility]) [facility] B ([facility])([facility] ) TELE CONSULT [id number] Med Refill BARBI HARDY 03/27 [facility] Jean ELAINADiana ([facility]) [facility] Jean B ([facility])([facility] ) OUTPATIENT [id number] fu diabete s and referra l renewal s [phone] PADDY QUIROS 04/01 Released w/o Limitations [facility] Jean ELAINA ([facility]) [facility])([facility] ) TELE CONSULT [id number] Rx Refills BARBI HARDY 05/21 [facility] ([facility]) [facility])([facility] ) TELE CONSULT [id number] Rx refill/ lab works BARBI HARDY 06/19 [facility] ([facility]) [facility] ([facility])([facility] ) OUTPATIENT [id number] f/u diabete s PADDY QUIROS 06/26 Released w/o Limitations [facility] Jean B ([facility]) [facility] Jean B ([facility])([facility] ) TELE CONSULT [id number] change in medicat ion SIDDHARTH CARUSO 06/28 [facility] Jean ELAINAB ([facility]) [facility] B [facility] ) TELE CONSULT [id number] Med Refill/ Order Labs BARBI HARDY 09/13 [facility])([facility]) [facility] Jean Diana [facility]) OUTPATIENT [id number] fol diabete s [phone] PADDY QUIROS 10/09 Released w/o Limitations [address] [place] [address] Group Jean EID [facility]) [address] [place] [address] Jean Diana [facility] ) TELE CONSULT [id number] med refill and referal BARBI HARDY 10/[address] [place] [address] Group Jean Diana [facility]) [address] [place] [address] Jean Diana [facility]) TELE CONSULT [id number] referal for podiatr y BARBI HARDY 11/13 [facility] Jean Diana [facility]) [address] [place] [address] Jean [facility])([facility]) TELE CONSULT [id number] rx refill BARBI HARDY 11/29 [facility] Jean Diana [facility]) [address] [place] [address] Jean Diana [facility])([facility]) TELE CONSULT [id number] labwork s SIDDHARTH CARUSO 02/28 Referred for Appointment [facility] Jean EID [facility] Jean Diana [facility]) OUTPATIENT [id number] diabeti c MYNOR Banuelos 03/10 Released w/o Limitations [address] [place] [address] Group Jean [facility])([facility]) [facility] Jean [facility])([facility]) TELE CONSULT [id number] labs prior to appt. BARBI HARDY 06/24 Referred for Appointment [facility] Jean EID [facility]) [facility] Jean Diana [facility]) TELE CONSULT [id number] med refill BARBI HARDY 06/27 Referred for Appointment [facility] Jean EID [facility] Jean EID [facility] ) OUTPATIENT [id number] follow- up diabete s PADDY QUIROS 07/31 Released w/o Limitations [facility] Jean EID [facility]) [facility] Jean Diana [facility] ) TELE CONSULT [id number] rx refill SIDDHARTH CARUSO 11/06 [facility] EID [facility] Jean Diana [facility] ) OUTPATIENT [id number] 3 mo f/u BM/HTN/ Lab PADDY QUIROS 11/18 Released w/o Limitations [facility] Jean Diana [facility]) [facility] Jean EID [facility] ) TELE CONSULT [id number] Med refill - Angel - [id number] - [facility] BARBI HARDY 12/31 [facility] Jean EID [facility]) [facility] Jean EID [facility] ) TELE CONSULT [id number] med refill BARBI HARDY 01/12 [facility] EID [facility]) [facility] EID [facility] ) TELE CONSULT [id number] rx refill BARBI HARDY 02/19 [facility] EID [facility]) [facility] EID [facility] ) TELE CONSULT [id number] rx refill BARBI HARDY 03/19 [facility] EID [facility] EID [facility])([facility] ) OUTPATIENT [id number] f/u DM [id number] MYNOR MARTINEZ 04/09 Released w/o Limitations [address] [place] [address])([facility]) [address] [place] [address])([facility] ) TELE CONSULT [id number] Referra SIDDHARTH Morales 04/[address] [place] [address])([facility]) [address] [place] [address])([facility] ) TELE CONSULT [id number] rx refill BARBI HARDY 04/[address] [place] [address])([facility]) [address] [place] [address])([facility] ) TELE CONSULT [id number] Tcon for waiver concern ing diabete s Dr Martinez ph [phone] dmj BARBI HARDY 06/[address] [place] [address])([facility]) [address] [place] [address])([facility] ) OUTPATIENT [id number] follow- up to discuss rotatin g shifts and diabete s MYNOR MARTINEZ 07/01 Released w/o Limitations [address] [place] [address])([facility]) [address] [place] [address])([facility] ) OUTPATIENT [id number] f/u for waiver [phone] MYNOR MARTINEZ 07/24 Released w/o Limitations [address] [place] [address])([facility]) [address] [place] [address])([facility] ) TELE CONSULT [id number] Notes Entered by: KRISTIE MODI 25 Sep [id number] ------- ------- ------- ------- -- Medicat ion renewal /Lab order - Jaya - [id number] - [facility] SIDDHARTH CARUSO 09/[address] [place] [address])([facility]) [address] [place] [address])([facility] ) OUTPATIENT [id number] f/u diabeti c [id number] MYNOR MARTINEZ 10/04 Released w/o Limitations [address] [place] [address])([facility]) [address] [place] [address])([facility] ) TELE CONSULT [id number] Notes Entered by: SHANNEN COLLINS 20 Oct [id number] ------- ------- ------- ------- -- Medicat ion refill- Jaya/7 [id number] /BARBI Martinez 10/[address] [place] [address])([facility]) [address] [place] [address])([facility] ) TELE CONSULT [id number] Notes Entered by: YOSEPH PRECIADO 26 Nov 2011 0907 ------- ------- ------- ------- -- Rx Refill/ Jaya/ [id number]/BARBI ACEVES 11/[address] [place] [address])([facility]) [address] [place] [address])([facility] ) TELE CONSULT [id number] Notes Entered by: YOSEPH PRECIADO 30 Nov 2011 1144 ------- ------- ------- ------- -- Rx Renewal /Jaya/ [id number]/BARBI ERICKSON 11/[address] [place] [address])([facility] [address] [place] [address])([facility] ) OUTPATIENT [id number] F/U For Diabete s H# MYNOR MARTINEZ 12/13 Released w/o Limitations [address] [place] [address])([facility]) [address] [place] [address])([facility] ) TELE CONSULT [id number] Notes Entered by: JAVIER HARRIS 06 Jan 2012 0854 ------- ------- ------- ------- -- Med refill Jaya meekt SIDDHARTH CARUSO 01/[address] [place] [address])([facility]) [address] [place] [address])([facility] ) OUTPATIENT [id number] f/u for diabete [id number] MYNOR MARTINEZ 04/11 Released w/o Limitations [address] [place] [address])([facility]) [address] [place] [address])([facility] ) TELE CONSULT [id number] Notes Entered by: AVA CARRILLO 14 Apr 2012 0712 ------- ------- ------- ------- -- Fide Martinez ph [phone] BARBI HARDY 04/[address] [place] [address])([facility]) [address] [place] [address])([facility] ) TELE CONSULT [id number] Notes Entered by: Adam PELAEZ 27 Apr 2012 1311 ------- ------- ------- ------- -- Meds metform in 500mg 4 x a day atenolo l 50mg daily results on lump on neck SIDDHARTH CARUSO 04/[address] [place] [address])([facility]) [address] [place] [address])([facility] ) TELE CONSULT [id number] Notes Entered by: Dorothy MARTINEZ 01 May 2012 1456 ------- ------- ------- ------- -- MYNOR Moses 05/[address] [place] [address])([facility]) [address] [place] [address])([facility] ) TELE CONSULT [id number] Notes Entered by: Maggie PELAEZ 01 Jul 2012 0853 ------- ------- ------- ------- -- Sonal ortiz/61 [id number] BARBI HARDY 07/[address] [place] [address])([facility]) [address] [place] [address])([facility] ) OUTPATIENT [id number] fu diabete s, and heart [id number] MYNOR MARTINEZ 07/08 Released w/o Limitations [address] [place] [address])([facility]) [address] [place] [address])([facility] Tm) TELE CONSULT [id number] Notes Entered by: Dorothy MARTINEZ 15 Jul [id number] ------- ------- ------- ------- -- BRANDON Sethi 07/15 Referred for Appointment [address] [place] [address])([facility]) [address] [place] [address])([facility] Tm) TELE CONSULT [id number] Notes Entered by: CIERA TOURE 09 Aug 201216 ------- ------- ------- ------- -- Germain mcallister /Jaya/ BARBI HARDY 08/[address] [place] [address])([facility]) [address] [place] [address])([facility] Tm) TELE CONSULT [id number] Notes Entered by: STEVE STEELE 17 Aug 2012 1121 ------- ------- ------- ------- -- Network Results - UROLOGY 08/15/12 MYNOR MARTINEZ 08/[address] [place] [address])([facility]) [address] [place] [address])([facility]) TELE CONSULT [id number] Notes Entered by: JOHN SUN 06 Sep 2012 1127 ------- ------- ------- ------- -- No-Show RENARD FARRELL 09/[address] [place] [address])([facility]) [address] [place] [address])([facility] Tm) TELE CONSULT [id number] Notes Entered by: JORGE TY 27 Sep 2012 0844 ------- ------- ------- ------- -- Med refill - Jaya - [id number] BARBI HARDY 09/[address] [place] [address])([facility]) [address] [place] [address])([facility] ) OUTPATIENT [id number] follow- up for HCM, labs MYNOR MARTINEZ 10/14 Released w/o Limitations [address] [place] [address])([facility]) [address] [place] [address])([facility] ) TELE CONSULT [id number] Notes Entered by: Dorothy MARTINEZ 17 Oct 2012 0632 ------- ------- ------- ------- -- BRANDON Raines 10/17 Referred for Appointment [address] [place] [address])([facility]) [address] [place] [address])([facility]) TELE CONSULT [id number] Notes Entered by: TRAN BLACK Jose 18 Oct 2012 1345 ------- ------- ------- ------- -- Pt is a 57 y/o male with hx of diab needing annual micro-a sarthak BLACK TRAN Jose 10/[address] [place] [address] Jean [facility])([facility]) [address] [place] [address] Jean [facility])([facility] Tm) TELE CONSULT [id number] Notes Entered by: JAVIER HARRIS 24 Oct 2012 0758 ------- ------- ------- ------- -- Med refill Jaya SIDDHARTH CARUSO 10/[address] [place] [address] Jean [facility])([facility]) [address] [place] [address])([facility] Tm) TELE CONSULT [id number] Notes Entered by: Dorothy MARTINEZ 30 Oct 20122057 ------- ------- ------- ------- -- BRANDON Sethi 10/31 Referred for Appointment [address] [place] [address] Jean [facility])([facility]) [address] [place] [address] Jean [facility])([facility] Tm) TELE CONSULT [id number] Notes Entered by: JAVIER HARRIS 21 Nov 2012 0934 ------- ------- ------- ------- -- Med refill Jaya BARBI HARDY 11/[address] [place] [address] Jean [facility])([facility]) [address] [place] [address])([facility] Tm) TELE CONSULT [id number] Notes Entered by: KRISTIE MODI 08 Dec 2012 0733 ------- ------- ------- ------- -- Medicat ion renewal - Jaya - HAYLEYBARBI Zabrina 12/[address] [place] [address])([facility]) [address] [place] [address])([facility] ) TELE CONSULT [id number] Notes Entered by: ARIS GARCIA 04 Jan 2013 1430 ------- ------- ------- ------- -- Network Results OPTOMET RY - 3 JOHN ACOSTA 01/[address] [place] [address])([facility]) [address] [place] [address])([facility] ) TELE CONSULT [id number] Notes Entered by: Adam PELAEZ 05 Jan 2013 0733 ------- ------- ------- ------- -- Med refill [id number] SIDDHARTH CARUSO 01/[address] [place] [address])([facility]) [address] [place] [address])([facility] ) TELE CONSULT [id number] Notes Entered by: DENIS BLANCO 07 Apr 2013 1102 ------- ------- ------- ------- -- Network Results -Podiat ry 10/27/12 JOHN ACOSTA 04/[address] [place] [address])([facility]) [address] [place] [address])([facility] ) TELE CONSULT [id number] Notes Entered by: MARILYNN REYNA 10 Apr 2013 1409 ------- ------- ------- ------- -- Network Results - ORTHOPE DICS - 11/17/12 JOHN ACOSTA 04/[address] [place] [address])([facility]) [address] [place] [address])([facility] ) TELE CONSULT [id number] Notes Entered by: Adam PELAEZ 01 May 2013 1309 ------- ------- ------- ------- -- Med refill BLANCA SPENCER 05/[address] [place] [address])([facility]) [address] [place] [address])([facility] ) TELE CONSULT [id number] Notes Entered by: BLANCA SPENCER 02 May 2013 1452 ------- ------- ------- ------- -- Cardiol ogy referBLANCA Godoy 05/[address] [place] [address])([facility]) [address] [place] [address])([facility] ) TELE CONSULT [id number] Notes Entered by: ARIS GARCIA 09 May 2013 1100 ------- ------- ------- ------- -- Network Results CARDIOL OGY - 3 JOHN ACOSTA 05/[address] [place] [address])([facility]) [address] [place] [address])([facility] ) OUTPATIENT [id number] f/u for lipid panel results / GRADY CARUSO 05/10 Released w/o Limitations [address] [place] [address])([facility]) [address] [place] [address])([facility] ) TELE CONSULT [id number] Notes Entered by: MARILYNN KEATING 06 Jun 2013 0923 ------- ------- ------- ------- -- Med refill/ juan/6 18.667. 1836/ty c SIDNEY LION 06/[address] [place] [address])([facility]) [address] [place] [address])([facility] ) TELE CONSULT [id number] Notes Entered by: Maggie PELAEZ 26 Jun 2013 0941 ------- ------- ------- ------- -- Med refill/ Juan/6 18 [id number] SIDNEY LION 06/[address] [place] [address])([facility]) [address] [place] [address])([facility] ) OUTPATIENT [id number] croupy cough x one week [id number] GRADY CARUSO 07/04 Released w/o Limitations [address] [place] [address])([facility]) [address] [place] [address])([facility] ) TELE CONSULT [id number] Notes Entered by: GUILLE MAZA 02 Aug 2013 1238 ------- ------- ------- ------- -- Referra l Pierre Menendeze GUILLE Henning 08/02 Referred for Appointment [address] [place] [address])([facility]) [address] [place] [address])([facility] ) TELE CONSULT [id number] Notes Entered by: SEBASTIAN MCGOWAN 17 Aug 2013 1052 ------- ------- ------- ------- -- Ret[facility]- [facility] MARVA MCGOWAN I 08/[address] [place] [address])([facility]) [address] [place] [address])([facility] ) TELE CONSULT [id number] Notes Entered by: LIV SHORT 28 Aug 2013 1202 ------- ------- ------- ------- -- Medicat ion refill/ Juan/ SIDNEY LION 08/[address] [place] [address])([facility]) [address] [place] [address])([facility] Medicine ) TELE CONSULT [id number] Notes Entered by: LIV SHORT 19 Sep 2013 0938 ------- ------- ------- ------- -- Med refill/ Juan/ SIDNEY LION 09/[address] [place] [address])([facility]) [address] [place] [address])([facility] Team 3) TELE CONSULT [id number] Notes Entered by: FLOWER HUGO 05 Oct 2013 1001 ------- ------- ------- ------- -- Pt. request referra l renewal for follow- up care / Tx; FLOWER HUGO 10/05 Referred for Appointment [address] [place] [address])([facility] Team 3) [address] [place] [address])([facility] ) TELE CONSULT [id number] Notes Entered by: AVA CARRILLO 26 Oct 2013 1316 ------- ------- ------- ------- -- Network results - Urology 014 LIZABETH EVANS 10/[address] [place] [address])([facility] [address] [place] [address])([facility] ) TELE CONSULT [id number] Notes Entered by: CIERA TOURE 09 Nov 2013 0830 ------- ------- ------- ------- -- Med renewal /Mario juliener/61 [phone] BLANCA SPENCER 11/[address] [place] [address])([facility]) [address] [place] [address])([facility] ) TELE CONSULT [id number] Notes Entered by: FLOWER PHIPPS 11 Dec 2013 1207 ------- ------- ------- ------- -- carmen sanders/[phone] 36 BLANCA SPENCER 12/[address] [place] [address])([facility]) [address] [place] [address])([facility] ) TELE CONSULT [id number] Notes Entered by: ALF GUZMÁN 21 Dec 2013 1015 ------- ------- ------- ------- -- Lab test results LIZABETH EVANS 12/[address] [place] [address])([facility]) [address] [place] [address])([facility] ) OUTPATIENT [id number] Annual labwork and diabete s f/u LIZABETH EVANS 12/25 Released w/o Limitations [address] [place] [address])([facility] [address] [place] [address])([facility] ) TELE CONSULT [id number] Notes Entered by: LIV SHORT 05 Feb 2014 1047 ------- ------- ------- ------- -- Request ing medicat ion refill/ Carmen marilyn/ BLANCA SPENCER 02/[address] [place] [address])([facility] [address] [place] [address])([facility] ) TELE CONSULT [id number] Notes Entered by: CARROLL GIPSON 16 May 2014 1318 ------- ------- ------- ------- -- Orthope dic and podiatr y referra l renewal s request ed by JAYLEEN ASHER 05/16 Referred for Appointment [address] [place] [address])([facility] [address] [place] [address])([facility] ) TELE CONSULT [id number] Notes Entered by: Adam PELAEZ 01 Jun 2014 0918 ------- ------- ------- ------- -- Med refill Blumfel marilyn [phone] SIDDHARTH CARUSO 06/[address] [place] [address])([facility] [address] [place] [address])([facility] ) TELE CONSULT [id number] Notes Entered by: LIV SHORT 18 Jul 2014 1449 ------- ------- ------- ------- -- Request ing blood work/ Blumfel marilyn/ [phone] BLANCA SPENCER 07/[address] [place] [address])([facility] [address] [place] [address])([facility] ) OUTPATIENT [id number] month FU diabeti c FU - [phone] LIZABETH EVANS 07/26 Released w/o Limitations [address] [place] [address])([facility] [address] [place] [address])([facility] ) TELE CONSULT [id number] Notes Entered by: NANDA PEÑA 31 Jul 2014 1138 ------- ------- ------- ------- -- Network results Optomet ry 5 LIZABETH EVANS 07/[address] [place] [address])([facility]) [address] [place] [address] Group [facility])([facility] ) TELE CONSULT [id number] Notes Entered by: AVA CARRILLO 10 Aug 2014 1009 ------- ------- ------- ------- -- Network results - Podiatr y - 015 LIZABETH EVANS 08/[address] [place] [address] Group [facility])([facility]) [address] [place] [address])([facility] ) TELE CONSULT [id number] Notes Entered by: KRISTIE MODI 31 Aug 2014 0914 ------- ------- ------- ------- -- Medicat ion renewal - Blumfel marilyn - [phone] BLANCA SPENCER 08/[address] [place] [address] Group [facility])([facility]) [address] [place] [address])([facility] ) TELE CONSULT [id number] Notes Entered by: LIV SHORT 12 Sep 2014 1049 ------- ------- ------- ------- -- Request ing updated referra l/ Blumfe marilyn/ [phone] SIDNEY LION 09/[address] [place] [address] Group [facility])([facility]) [address] [place] [address])([facility] ) TELE CONSULT [id number] Notes Entered by: AVA CARRILLO 04 Oct 2014 1309 ------- ------- ------- ------- -- Network results -Endocr inology 015 LIZABETH EVANS 10/[address] [place] [address] Jean [facility])([facility]) [address] [place] [address])([facility] ) TELE CONSULT [id number] Notes Entered by: NICK SCHNEIDER 10 Oct 2014 1325 ------- ------- ------- ------- -- Network Results -DERMAT OLOGY 09/18/14 YUMIKO ROSSSA 10/[address] [place] [address])([facility]) [address] [place] [address])([facility] ) TELE CONSULT [id number] Notes Entered by: NICK SCHNEIDER 11 Oct 2014 1010 ------- ------- ------- ------- -- Network Results -ORTHOP EDICS 4 [facility] [place] [address])([facility]) [address] [place] [address])([facility] ) TELE CONSULT [id number] Notes Entered by: CHAPIS CASAS 17 Dec 2014 1543 ------- ------- ------- ------- -- Optomet MADDIE Akhtar 12/17 Referred for Appointment [address] [place] [address])([facility]) [address] [place] [address])([facility] ) TELE CONSULT [id number] Notes Entered by: CARA MUÑOZ 18 Dec 2014 1109 ------- ------- ------- ------- -- [facility] SIDDHARTH Portillo 12/[address] [place] [address])([facility]) [address] [place] [address])([facility] ) TELE CONSULT [id number] Notes Entered by: Maggie NEVILLE 16 Jan 2015 0849 ------- ------- ------- ------- -- Med refill needed by this Wednesday if SIDDHARTH Kraus 01/[address] [place] [address] Group [facility])([facility]) [address] [place] [address])([facility] ) OUTPATIENT [id number] f/u diabete s general check up new pt appt. KIRSTEN MEZA V 02/06 Released w/o Limitations [address] [place] [address] Group [facility])([facility]) [address] [place] [address])([facility] ) TELE CONSULT [id number] Notes Entered by: Maggie NEVILLE 04 Mar 2015 0838 ------- ------- ------- ------- -- Micare msg/ med refill SIDDHARTH CARUSO 03/[address] [place] [address] Group [facility])([facility]) [address] [place] [address] Group [facility])([facility] ) OUTPATIENT [id number] f/u diabete s [id number] KIRSTEN MEZA V 04/26 Released w/o Limitations [address] [place] [address])([facility]) [address] [place] [address])([facility] ) TELE CONSULT [id number] Notes Entered by: Maggie NEVILLE 13 May 2015 0835 ------- ------- ------- ------- -- Micare msg/ med refill SIDDHARTH CARUSO 05/[address] [place] [address] Group [facility])([facility]) [address] [place] [address])([facility] ) OUTPATIENT [id number] F/U diabete s KIRSTEN MEZA V 07/11 Released w/o Limitations [address] [place] [address] Group [facility])([facility]) [address] [place] [address])([facility] ) TELE CONSULT [id number] Notes Entered by: AVA CARRILLO 01 Aug 2015 1313 ------- ------- ------- ------- -- Network results Podiatr y 016 KIRSTEN JOSEPH V 08/[address] [place] [address])([facility]) [address] [place] [address])([facility] ) TELE CONSULT [id number] Notes Entered by: Maggie NEVILLE 03 Sep 2015 0744 ------- ------- ------- ------- -- Micare msg/ med refill SIDDHARTH CARUSO 09/[address] [place] [address] Group [facility])([facility]) [address] [place] [address])([facility] ) TELE CONSULT [id number] Notes Entered by: Maggie NEVILLE 06 Jan 2016 0842 ------- ------- ------- ------- -- Micare msg/ med refill LORRAINE ELLISON 01/05 Referred for Appointment [address] [place] [address] Group [facility])([facility]) [address] [place] [address])([facility] ) OUTPATIENT [id number] F/u KIRSTEN LUGO V 01/22 Released w/o Limitations [address] [place] [address])([facility]) [address] [place] [address])([facility] ) TELE CONSULT [id number] Notes Entered by: Maggie NEVILLE 24 Feb 2016 0947 ------- ------- ------- ------- -- Micare msg/ med refill LORRAINE ELLISON 02/23 Referred for Appointment [address] [place] [address])([facility]) [facility])([facility] Tm) TELE CONSULT [id number] Notes Entered by: DENIS BLANCO 13 Mar 2016 1227 ------- ------- ------- ------- -- Network Results OPTOMET RY 07/29/15 KIRSTEN BURGOS V 03/[address] [place] [address] Group [facility])([facility] [address] [place] [address] Group [facility])([facility] ) OUTPATIENT [id number] F/U KIRSTEN LUGO V 04/02 Released w/o Limitations [address] [place] [address] Group [facility])([facility]) [address] [place] [address] Group [facility])([facility] ) TELE CONSULT [id number] Notes Entered by: GREGORY MEZA V 07 Apr 2016 1443 ------- ------- ------- ------- -- KIRSTEN Clemens V 04/[address] [place] [address] Group [facility])([facility]) [address] [place] [address] Group [facility])([facility] ) TELE CONSULT [id number] Notes Entered by: Maggie NEVILLE 22 Jun 2016 0938 ------- ------- ------- ------- -- Mino diggs/ LORRAINE Golden 06/22 Referred for Appointment [facility])([facility]) [address] [place] [address] Group [facility])([facility] ) TELE CONSULT [id number] Notes Entered by: CARA MUÑOZ 05 Aug 2016 0839 ------- ------- ------- ------- -- LORRAINE Galarza 08/05 Referred for Appointment [facility])([facility]) [facility])([facility] ) TELE CONSULT [id number] Notes Entered by: KRISTIE MODI 27 Aug 2016 1011 ------- ------- ------- ------- -- STAT Referra l correct ion - appt tomorr shankar Meza - - tsg LORRAINE ELLISON 08/27 Referred for Appointment [facility])([facility]) [address] [place] [address])([facility] ) TELE CONSULT [id number] Notes Entered by: Maggie NEVILLE 01 Sep 2016 1552 ------- ------- ------- ------- -- Surgery chano hummel form ([facility]) SIDNEY LION 09/01 [facility])([facility]) [address] [place] [address])([facility] ) OUTPATIENT [id number] Surg chano hummel, SrA Bartolo palomares has paper work KIRSTEN MEZA V 09/11 Released w/o Limitations [facility])([facility]) [facility])([facility] ) TELE CONSULT [id number] Notes Entered by: HERLINDA ALCAZAR 16 Sep 2016 1129 ------- ------- ------- ------- -- Network results Cardiol ogy 7 KIRSTEN ELLIS V 09/16 [facility])([facility]) [address] [place] [address])([facility] ) TELE CONSULT [id number] Notes Entered by: Leslye VELASQUEZ 03 Nov 2016 1530 ------- ------- ------- ------- -- 05 November - Referra l Renewal - Retro Ref Sep - Request / Vashti /[phone] - BRANDON Broderick 11/03 Referred for Appointment [address] [place] [address])([facility]) [address] [place] [address])([facility] ) TELE CONSULT [id number] Notes Entered by: Lesvia BANEGAS 16 Nov 2016 0936 ------- ------- ------- ------- -- Network results Dermato logy 7 DB KIRSTEN MEZA V 11/[address] [place] [address])([facility]) [address] [place] [address])([facility] ) TELE CONSULT [id number] Notes Entered by: CARA MUÑOZ 17 Nov 2016 0912 ------- ------- ------- ------- -- Mino- LORRAINE Oh 11/17 Referred for Appointment [address] [place] [address])([facility]) [address] [place] [address])([facility] ) OUTPATIENT [id number] Six-wed screeni ng. Some abdomin al discomf ort. KIRSTEN MEZA V 11/26 Released w/o Limitations [address] [place] [address])([facility]) [address] [place] [address])([facility] ) TELE CONSULT [id number] Notes Entered by: Maggie NEVILLE 13 Jan 2017 0809 ------- ------- ------- ------- -- Micare msg/ med refill x 5 (gwp) SIDNEY LION 01/[address] [place] [address] [facility])([facility]) [address] [place] [address])([facility] ) TELE CONSULT [id number] Notes Entered by: Adam CARUSO 24 Feb 2017 1618 ------- ------- ------- ------- -- Laborat ory results BRITTANY GARZA 02/[address] [place] [address])([facility]) [address] [place] [address])([facility] ) TELE CONSULT [id number] Notes Entered by: Maggie NEVILLE 26 Feb 2017 0840 ------- ------- ------- ------- -- Mino msg/ med refsabino ([facility]) BRITTANY GARZA 02/[address] [place] [address])([facility]) [address] [place] [address])([facility] ) OUTPATIENT [id number] follow up for DM KIRSTEN MEZA V 03/15 Released w/o Limitations [address] [place] [address])([facility]) [address] [place] [address])([facility] ) TELE CONSULT [id number] Notes Entered by: Maggie NEVILLE 21 Jul 2017 0811 ------- ------- ------- ------- -- Labs prior to 08/03/17 appoint ment? ([facility]) BRANDON CASTREJON 07/21 Referred for Appointment [address] [place] [address])([facility]) [address] [place] [address])([facility] ) OUTPATIENT [id number] f/u Quarter ly Diabete KIRSTEN Stevenson V 07/29 Released w/o Limitations [address] [place] [address])([facility]) [address] [place] [address])([facility] ) TELE CONSULT [id number] Notes Entered by: Maggie NEVILLE 06 Sep 2017 0835 ------- ------- ------- ------- -- Micare msg / med refill x 1 (gwp) BRITTANY GARZA 09/[address] [place] [address])([facility]) [address] [place] [address])([facility] ) TELE CONSULT [id number] Notes Entered by: Maggie NEVILLE 29 Oct 2017 0838 ------- ------- ------- ------- -- Labs prior to appt. 11/29/17 / BRANDON Barker 10/29 Referred for Appointment [address] [place] [address])([facility]) [address] [place] [address])([facility] ) OUTPATIENT [id number] f/u Quartly appt. labs and KIRSTEN Egan V 11/26 Released w/o Limitations [address] [place] [address])([facility]) [address] [place] [address])([facility] ) TELE CONSULT [id number] Notes Entered by: ALEXANDR BOOGIE 13 Jan 2018 0713 ------- ------- ------- ------- -- [facility] med refill PCM LORRAINE Sosa 01/13 Referred for Appointment [address] [place] [address])([facility]) [address] [place] [address])([facility] ) TELE CONSULT [id number] Notes Entered by: Maggie NEVILLE 24 Jan 2018 0822 ------- ------- ------- ------- -- Micare msg/ med refill x 2 / gwp PHIPPSRICARDO BUSBY A 01/24 Medication Refill Forwarded [address] [place] [address] Group [facility])([facility]) [address] [place] [address])([facility] ) TELE CONSULT [id number] Notes Entered by: Maggie NEVILLE 18 Feb 2018 0814 ------- ------- ------- ------- -- Micare msg/ labs and med refill / gwp PHIPPSRICARDO BUSBY A 02/18 Medication Refill Forwarded [address] [place] [address] Group [facility])( cott Intern[facility] Medic[facility] Tm) [address] [place] [address])([facility] ) TELE CONSULT [id number] Notes Entered by: Maggie NEVILLE 29 Mar 2018 0835 ------- ------- ------- ------- -- Micare msg/ med refill x 2 / gwp RICARDO PHIPPS A 03/29 Medication Refill Forwarded [address] [place] [address])( [facility]) [address] [place] [address])([facility] ) TELE CONSULT [id number] Notes Entered by: CARA MUÑOZ 26 Apr 2018 1014 ------- ------- ------- ------- -- Micare- BRANDON Kidd 04/26 Referred for Appointment [address] [place] [address])([facility]) [address] [place] [address])([facility] ) TELE CONSULT [id number] Notes Entered by: CHARLIE SANTOS 22 Jun 2018 1244 ------- ------- ------- ------- -- Lab Test Inquiry / Vashti / - [facility] RICARDO PHIPPS Leslye 06/22 Released to [facility] [address] [place] [address])([facility]) [address] [place] [address])([facility] ) OUTPATIENT [id number] 3 6 Month Diabete s F/U - Hearing Check ref-Med renewal s KIRSTEN MEZA V 07/12 Released w/o Limitations [address] [place] [address])([facility]) [address] [place] [address])([facility] ) TELE CONSULT [id number] Notes Entered by: Dorothy NICOLAS 29 Sep 2018 0856 ------- ------- ------- ------- -- Network results Audiolo gy 9 KIRSTEN BENNETT V 09/[address] [place] [address])([facility]) [address] [place] [address])([facility] ) TELE CONSULT [id number] Notes Entered by: Maggie NEVILLE 24 Oct 2018 1025 ------- ------- ------- ------- -- Labs prior to 11/10/18 appt? / BRANDON Barker 10/24 Referred for Appointment [address] [place] [address])([facility]) [address] [place] [address])([facility] ) OUTPATIENT [id number] 3 annual DM check JENNIFER DURAN 11/14 Released w/o Limitations [address] [place] [address])([facility]) [address] [place] [address])([facility] ) TELE CONSULT [id number] Notes Entered by: Leslye MCCABE 26 Jan 2019 1535 ------- ------- ------- ------- -- Network results Otolary ngology [ENT] 019 ALD JENNIFER DURAN 01/[address] [place] [address] Jean [facility]) [address] [place] [address] [facility])([facility] ) TELE CONSULT [id number] 3 Notes Entered by: Maggie NEVILLE 09 Feb 2019 1029 ------- ------- ------- ------- -- Micare msg/ med refill / BRITTANY Ruiz 02/09 Medication Refill Forwarded [address] [place] [address] Jean [facility]) [address] [place] [address] Jean Diana [facility]) OUTPATIENT [id number] DM follow up MADELYN WALTON 02/16 Released w/o Limitations [address] [place] [address] Jean Diana [facility]) [address] [place] [address] Jean [facility])([facility] ) TELE CONSULT [id number] Notes Entered by: DENIS BLANCO 15 Mar 2019 1042 ------- ------- ------- ------- -- Network results DERMATO LOGY 018 - 019 KMG JENNIFER DURAN 03/[address] [place] [address] Jean [facility])([facility]) [address] [place] [address] Jean Diana [facility])([facility] ) OUTPATIENT [id number] Abdomin al pain/na usea [id number] JENNIFER DURAN 03/17 Released w/o Limitations [address] [place] [address] Jean [facility])([facility]) [address] [place] [address] Jean [facility])([facility] ) OUTPATIENT [id number] 9 1wkk f/u abdomen pain JENNIFER DURAN 03/23 Released w/o Limitations [address] [place] [address] Jean [facility])([facility]) [address] [place] [address])([facility] ) TELE CONSULT [id number] 5 Notes Entered by: ROSA M PAYNE 28 Mar 2019 1018 ------- ------- ------- ------- -- ER F/U in 1 Week / Justin / - sgj LORRAINE CONWAY 03/28 Referred for Appointment [address] [place] [address])([facility]) [address] [place] [address])([facility] ) OUTPATIENT [id number] 3 F/U apt after ER visit JENNIFER DURAN 03/31 Released w/o Limitations [address] [place] [address])([facility]) [address] [place] [address])([facility] [facility] ) TELE CONSULT [id number] Notes Entered by: Maggie NEVILLE 28 Apr 2019 1213 ------- ------- ------- ------- -- Micare msg/ Referra l request cardiol ogy / LORRAINE Nowak 04/28 Other Not Elsewhere Classified [address] [place] [address])([facility]) [address] [place] [address])([facility] ) TELE CONSULT [id number] Notes Entered by: Maggie NEVILLE 04 May 2019 0829 ------- ------- ------- ------- -- Micare msg / med refill x 3 / LORRAINE Nowak 05/04 Referred for Appointment [address] [place] [address])([facility]) [address] [place] [address])([facility]) OUTPATIENT [id number] 6 3 MONTH DM F/U MADELYN WALTON 05/15 Released w/o Limitations [address] [place] [address])([facility]) [address] [place] [address] [facility])([facility] ) TELE CONSULT [id number] Notes Entered by: ARTI HAYDENCELSOJose BURK 26 May 2019 1510 ------- ------- ------- ------- -- Urology Consult LORRAINE CONWAY 05/26 Other Not Elsewhere Classified [address] [place] [address] Jean [facility])([facility]) [address] [place] [address] [facility])([facility]) TELE CONSULT [id number] 7 Notes Entered by: BENSON WALTON 01 Jun 2019 1520 ------- ------- ------- ------- -- MADELYN Victor 06/[address] [place] [address] Jean [facility])([facility]) [address] [place] [address] [facility])([facility]) OUTPATIENT [id number] 5 1 MONTH DM F/U MADELYN WALTON 06/16 Released w/o Limitations [address] [place] [address])([facility]) [address] [place] [address])([facility] ) TELE CONSULT [id number] 5 Notes Entered by: Gerry RAJAN 30 Jun 2019 0839 ------- ------- ------- ------- -- Network results Urology 020 JENNIFER VALDIVIA 06/[address] [place] [address] Jean [facility])([facility]) [address] [place] [address] [facility])([facility]) TELE CONSULT [id number] Notes Entered by: BENSON WALTON 14 Jul 2019 1105 ------- ------- ------- ------- -- Discuss BG MADELYN WALTON 07/[address] [place] [address])([facility]) [address] [place] [address] [facility])([facility]) OUTPATIENT [id number] 7 3 MONTH DM F/U MADELYN WALTON 08/17 Released w/o Limitations [address] [place] [address] Jean [facility])([facility]) [address] [place] [address])([facility] ) TELE CONSULT [id number] Notes Entered by: TRINITY DURAN 12 Sep 2019 1155 ------- ------- ------- ------- -- f/u JENNIFER DURAN 09/[address] [place] [address] Group [facility])([facility]) [address] [place] [address])([facility] ) TELE CONSULT [id number] Notes Entered by: DEMETRIO MEEKS 18 Sep 2019 1558 ------- ------- ------- ------- -- Network Results UROLOGY 0 [facility] JENNIFER DURAN 09/[address] [place] [address] Jean [facility])([facility]) [address] [place] [address])([facility] ) TELE CONSULT [id number] 5 Notes Entered by: ALLEN LOPEZ 25 Sep 2019 0842 ------- ------- ------- ------- -- [facility] Daily Inpatie nt Roster- Admissi on Notific ation JENNIFER DURAN 09/[address] [place] [address] Jean [facility])([facility]) [address] [place] [address])([facility] ) TELE CONSULT [id number] 4 Notes Entered by: PIPPA TOBIN 25 Sep 2019 1603 ------- ------- ------- ------- -- Network Results Urology 0 [facility] JENNIFER DURAN 09/[address] [place] [address])([facility]) [address] [place] [address])([facility] ) TELE CONSULT [id number] 5 Notes Entered by: PIPPA TOBIN 09 Oct 2019 1411 ------- ------- ------- ------- -- Network Results Urology /Discha rge Summary 10/02/19 [facility] JENNIFER DURAN 10/[address] [place] [address])([facility]) [address] [place] [address])([facility] ) TELE CONSULT [id number] Notes Entered by: Maggie NEVILLE 11 Oct 2019 1117 ------- ------- ------- ------- -- mino diggs/ referra l request / SIDNEY Bajwa 10/10 Other Not Elsewhere Classified [address] [place] [address])([facility]) [address] [place] [address])([facility] ) TELE CONSULT [id number] 8 Notes Entered by: PIPPA TOBIN 13 Oct 2019 1149 ------- ------- ------- ------- -- Network Results Urology 10/02/19 [facility] JENNIFER DURAN 10/[address] [place] [address])([facility]) [address] [place] [address])([facility]) TELE CONSULT [id number] 5 Notes Entered by: ALLEN LOPEZ 13 Oct 2019 1905 ------- ------- ------- ------- -- Referra l Request Non-Net work Special ist-Sta tus Update ALLEN LOPEZ 10/13 Other Not Elsewhere Classified [address] [place] [address])(U tilizat ion Managem ent) [address] [place] [address])([facility]ti lization Managemen t) TELE CONSULT [id number] Notes Entered by: ALLEN LOPEZ 17 Oct 2019 1111 ------- ------- ------- ------- -- Update- Referra l Request Non-Net work Special ist ALLEN LOPEZ 10/16 Other Not Elsewhere Classified [address] [place] [address])(U tilizat ion Managem ent) [address] [place] [address])([facility] Tm) TELE CONSULT [id number] 3 Notes [address]: ST CÉSAR TORRES 09 Nov 2019 1628 ------- ------- ------- ------- -- Network results Urology 020 JENNIFER MCQUEEN 11/[address] [place] [address])([facility]) [address] [place] [address])([facility]) TELE CONSULT [id number] 1 Notes Entered by: Maggie NEVILLE 14 Nov 2019 0742 ------- ------- ------- ------- -- Mica care msg/ need to speak with Mrs.Man bergman/MADELYN Horta 11/[address] [place] [address])([facility]) [address] [place] [address])([facility]m) TELE CONSULT [id number] 7 Notes Entered by: DICKSON CARR 23 Nov 2019 1020 ------- ------- ------- ------- -- Network results Urology 020 JENNIFER RAY 11/[address] [place] [address])([facility]) [address] [place] [address])([facility] Tm) TELE CONSULT [id number] Notes Entered by: Maggie COLE 21 Dec 2019 0937 ------- ------- ------- ------- -- Clyde DURAN JENNIFER A 12/[address] [place] [address])([facility]) [address] [place] [address])([facility] ) TELE CONSULT [id number] 8 Notes Entered by: Maggie NEVILLE 26 Dec 2019 0931 ------- ------- ------- ------- -- Micare msg/ referra l request appt 12/27/19 / BRANDON Barker 12/25 Other Not Elsewhere Classified [address] [place] [address])([facility]) [address] [place] [address])([facility] ) TELE CONSULT [id number] 2 Notes Entered by: Maggie NEVILLE 01 Jan 2020 0933 ------- ------- ------- ------- -- Micare msg/ med refill x / MADELYN Cook 12/[address] [place] [address])([facility]) [address] [place] [address])([facility]) OUTPATIENT [id number] Notes Entered by: BENSON WALTON 13 Mar 2020 1007 ------- ------- ------- ------- -- DM f/u MADELYN WALTON 03/13 Released w/o Limitations [address] [place] [address])([facility]) [address] [place] [address] [facility])([facility] ) OUTPATIENT [id number] VIRTUAL OVERDUE ANNUAL APPT CALL NARGIS PATTERSON 03/13 Released w/o Limitations [address] [place], [place] [address]B ([facility])([facility]) [address] [place] [address])([facility] ) TELE CONSULT [id number] Notes Entered by: CARA MUÑOZ 02 Apr 2020 1218 ------- ------- ------- ------- -- BRANDON Nguyen 04/02 Other Not Elsewhere Classified [address] [place] [address])([facility]) [address] [place] [address])([facility] ) TELE CONSULT [id number] 9 Notes Entered by: Dorothy NICOLAS 03 Apr 2020 0855 ------- ------- ------- ------- -- Network results Urology 03/13/20 20 NARGIS MARINO 04/[address] [place] [address])([facility]) [address] [place] [address])([facility]) OUTPATIENT [id number] 8 3 MONTH DM F/U MADELYN WALTON 05/31 Released w/o Limitations [address] [place] [address])([facility]) [address] [place] [address] [facility])([facility] ) TELE CONSULT [id number] Notes Entered by: Gerry RAJAN 31 May 2020 1524 ------- ------- ------- ------- -- Network results Urology 020 NARGIS LUO 05/[address] [place] [address])([facility]) [address] [place] [address])([facility] ) TELE CONSULT [id number] 4 Notes Entered by: Maggie NEVILLE 04 Jun 2020 0828 ------- ------- ------- ------- -- mino diggs/ fide de león request /SIDNEY Bajwa 06/04 Other Not Elsewhere Classified [address] [place] [address])([facility]) [address] [place] [address])([facility] ) TELE CONSULT [id number] 8 Notes En[address] by: ST CÉSAR TORRES 12 Jun 2020 1100 ------- ------- ------- ------- -- Network results Nephrol ogy 020 NARGIS MILTON 06/[address] [place] [address])([facility]) [address] [place] [address])([facility] ) TELE CONSULT [id number] 5 Notes Entered by: CARA MUÑOZ 05 Jul 2020 1052 ------- ------- ------- ------- -- [facility]- MRI and Postope rative incisio nal hernia BRANDON CASTREJON 07/05 Referred for Appointment [address] [place] [address])( [facility]) [address] [place] [address])([facility] ) TELE CONSULT [id number] Notes Entered by: Leslye MCCABE 08 Aug 2020 0855 ------- ------- ------- ------- -- Network results Cardiol ogy 020 NARGIS PINEDA 08/[address] [place] [address])([facility]) [address] [place] [address])([facility]) OUTPATIENT [id number] VIRTUAL 3 MONTH DM F/U OR MADELYN WALTON 09/10 Released w/o Limitations [address] [place] [address])([facility]) [address] [place] [address])([facility] ) TELE CONSULT [id number] Notes Entered by: Dorothy NICOLAS 23 Sep 2020 1247 ------- ------- ------- ------- -- Network results Radiolo gy 1 NARGIS MARINO 09/[address] [place] [address])([facility]) [address] [place] [address])([facility] ) TELE CONSULT [id number] Notes Entered by: Maggie NEVILLE 02 Oct 2020 1450 ------- ------- ------- ------- -- micare msg/ Hernia and MRI update; pass to Dr. Walton /NARGIS Mason 10/[address] [place] [address])([facility]) [address] [place] [address])([facility] ) TELE CONSULT [id number] 3 Notes Entered by: Maggie NEVILLE 09 Oct 2020 1415 ------- ------- ------- ------- -- micare msg/ RE: RE: Hernia and MRI update; pass to Dr. Walton also. /SIDNEY Bajwa 10/09 Other Not Elsewhere Classified [address] [place] [address])([facility]) [address] [place] [address])([facility] ) TELE CONSULT [id number] 1 Notes Entered by: CARA MUÑOZ 28 Oct 2020 1357 ------- ------- ------- ------- -- BRANDON Horan 10/28 Other Not Elsewhere Classified [address] [place] [address])([facility]) [address] [place] [address])([facility] ) TELE CONSULT [id number] 6 Notes Entered by: BRAN SALAS 31 Oct 2020 1327 ------- ------- ------- ------- -- Network results Surgery 021 - 021 NARGIS REYES 10/[address] [place] [address])([facility]) [address] [place] [address])([facility] ) TELE CONSULT [id number] 6 Notes Entered by: Dorothy NICOLAS 20 Nov 2020 1027 ------- ------- ------- ------- -- Network results Derm 10/24/19 21 Diana [facility] [place] [address])([facility]) [address] [place] [address])([facility]) OUTPATIENT [id number] VIRTUAL 3 MONTH DM F/U MADELYN WALTON 11/22 Released w/o Limitations [address] [place] [address])([facility]) [address] [place] [address])([facility] ) TELE CONSULT [id number] Notes Entered by: ALLEN LOPEZ 03 Dec 2020 1316 ------- ------- ------- ------- -- Celestina Gavin and Lesvia Castle [facility] NANCY BRASHER ROXANNE 12/[address] [place] [address])([facility]) [address] [place] [address])([facility] ) TELE CONSULT [id number] 6 Notes Entered by: Maggie NEVILLE 14 Apr 2021 1442 ------- ------- ------- ------- -- Micare msg/ med refill x 3 / pt turned 66 /[facility] MARILU Bean L 04/14 Medication Refill Forwarded [facility] ([facility])([facility] Intern[facility] l Medicin [facility] Tm) Procedures Combined list of: 1) Procedures from Department of Veterans Affairs facilities going back up to thelast 18 months, not all VA non-surgical procedures are included; 2) All procedures from the Department of Defense facilities. Procedure Procedure Type Code Date Perfomer Comments Sourc e Internet Med Svc Qual Nonphys Healthcare Prof Estab Patient Internet Med Svc Qual Nonphys Healthcare Prof Estab Patient [id number] BRANDON LEE DoD Non-Physician Phone Call To Patient/Provider Brief (5-10min) Non-Physician Phone Call To Patient/Provider Brief (5-10min) [id number] RICARDO PHIPPS DoD Non-Physician Phone Call To Patient/Provider Brief (5-10min) Non-Physician Phone Call To Patient/Provider Brief (5-10min) [id number] [phone] RICARDO PHIPPS DoD Non-Physician Phone Call To Patient/Provider Brief (5-10min) Non-Physician Phone Call To Patient/Provider Brief (5-10min) [id number] [id number] RICARDO PHIPPS DoD Internet Med Svc Qual Nonphys Healthcare Prof Estab Patient Internet Med Svc Qual Nonphys Healthcare Prof Estab Patient [phone] LORRAINE ELLISON DoD Non-Physician Phone Call To Patient/Provider Brief (5-10min) Non-Physician Phone Call To Patient/Provider Brief (5-10min) [id number] BRANDON LEE DoD Non-Physician Phone Call To Patient/Provider Brief (5-10min) Non-Physician Phone Call To Patient/Provider Brief (5-10min) [id number] BRITTANY GARZA DoD Non-Physician Phone Call To Patient/Provider Brief (5-10min) Non-Physician Phone Call To Patient/Provider Brief (5-10min) [phone] BRANDON LEE DoD Non-Physician Phone Call To Patient/Provider Brief (5-10min) Non-Physician Phone Call To Patient/Provider Brief (5-10min) [phone] BRITTANY GARZA [facility] Internet Med Svc Qual Nonphys Healthcare Prof Estab Patient Internet Med Svc Qual Nonphys Healthcare Prof Estab Patient [phone] SIDNEY LION [facility] Non-Physician Phone Call To Patient/Provider Brief (5-10min) Non-Physician Phone Call To Patient/Provider Brief (5-10min) [phone] LORRAINE ELLISON [facility] Non-Physician Phone Call To Patient/Provider Brief (5-10min) Non-Physician Phone Call To Patient/Provider Brief (5-10min) [id number] BRANDON LEE [facility] Non-Physician Phone Call To Patient/Provider Brief (5-10min) Non-Physician Phone Call To Patient/Provider Brief (5-10min) [id number] SIDNEY LION [facility] Non-Physician Phone Call To Patient/Provider Brief (5-10min) Non-Physician Phone Call To Patient/Provider Brief (5-10min) [id number] LORRAINE ELLISON [facility] Non-Physician Phone Call To Patient/Provider Brief (5-10min) Non-Physician Phone Call To Patient/Provider Brief (5-10min) [id number] LORRAINE ELLISON [facility] Non-Physician Phone Call To Patient/Provider Brief (5-10min) Non-Physician Phone Call To Patient/Provider Brief (5-10min) [id number] LORRAINE ELLISON [facility] Non-Physician Phone Call To Patient/Provider Brief (5-10min) Non-Physician Phone Call To Patient/Provider Brief (5-10min) [id number] [phone] LORRAINE ELLISON [facility] Non-Physician Phone Call To Patient/Provider Brief (5-10min) Non-Physician Phone Call To Patient/Provider Brief (5-10min) [phone] LORRAINE ELLISON [facility] Non-Physician Phone Call To Patient/Provider Brief (5-10min) Non-Physician Phone Call To Patient/Provider Brief (5-10min) [id number] MADDIE CASAS [facility] Non-Physician Phone Call To Patient/Provider Brief (5-10min) Non-Physician Phone Call To Patient/Provider Brief (5-10min) [id number] SIDNEY LION [facility] Non-Physician Phone Call To Patient/Provider Brief (5-10min) Non-Physician Phone Call To Patient/Provider Brief (5-10min) [phone] BLANCA SPENCER [facility] Non-Physician Phone Call To Patient/Provider Brief (5-10min) Non-Physician Phone Call To Patient/Provider Brief (5-10min) [phone] BLANCA SPENCER [facility] Non-Physician Phone Call To Patient/Provider Brief (5-10min) Non-Physician Phone Call To Patient/Provider Brief (5-10min) [id number] SIDDHARTH CARUSO [facility] Non-Physician Phone Call To Patient/Provider Brief (5-10min) Non-Physician Phone Call To Patient/Provider Brief (5-10min) [phone] JAYLEEN GIPSON [facility] Non-Physician Phone Call To Patient/Provider Brief (5-10min) Non-Physician Phone Call To Patient/Provider Brief (5-10min) [phone] BLANCA SPENCER [facility] Non-Physician Phone Call To Patient/Provider Brief (5-10min) Non-Physician Phone Call To Patient/Provider Brief (5-10min) [id number] BLANCA SPENCER [facility] Non-Physician Phone Call To Patient/Provider Brief (5-10min) Non-Physician Phone Call To Patient/Provider Brief (5-10min) [phone] BLANCA SPENCER [facility] Non-Physician Phone Call To Patient/Provider Brief (5-10min) Non-Physician Phone Call To Patient/Provider Brief (5-10min) [phone] SIDNEY LION [facility] Non-Physician Phone Call To Patient/Provider Brief (5-10min) Non-Physician Phone Call To Patient/Provider Brief (5-10min) [phone] SIDNEY LION [facility] Non-Physician Phone Call To Patient/Provider Brief (5-10min) Non-Physician Phone Call To Patient/Provider Brief (5-10min) [phone] GRADY CARUSO [facility] Non-Physician Phone Call To Patient/Provider Brief (5-10min) Non-Physician Phone Call To Patient/Provider Brief (5-10min) [phone] BLANCA SPENCER [facility] Non-Physician Phone Call To Pt/Provider Intermed (11-20 min) Non-Physician Phone Call To Pt/Provider Intermed (11-20 min) [phone] TRAN BLACK [facility] Puncture Aspiration Of Cutaneous Cyst Puncture Aspiration Of Cutaneous Cyst [id number] JAMIN SANTANA [facility] Complete Colonoscopy For Polyp Removal 008 EVELINE SALAZAR [facility] ECG Performance of Tracing Only ECG Performance of Tracing Only [id number] JANELL WADE [facility] Electrocardiogram Electrocardiogram 57428 10/08 006 ASYA FINK [facility] Influenza Split Virus Vaccine Age 3+ Years Intramuscular 005 DANAE ASYA [facility] Med Management By Pharmacist Initial 15 Min New Patient Med Management By Pharmacist Initial 15 Min New Patient [id number] MADELYN WALTON [facility] Medication Management By Pharmacist Each Additional 15 Min Medication Management By Pharmacist Each Additional 15 Min [id number] MADELYN WALTON [facility] Med Management By Pharmacist Initial 15 Min Estab Patient Med Management By Pharmacist Initial 15 Min Estab Patient [id number] MADELYN WALTON [facility] Internet Med Svc Qual Nonphys Healthcare Prof Estab Patient Internet Med Svc Qual Nonphys Healthcare Prof Estab Patient [id number] MADELYN WALTON [facility] Case Management Services ALLEN LOPEZ [facility] Non-Physician Phone Call To Patient/Provider Brief (5-10min) Non-Physician Phone Call To Patient/Provider Brief (5-10min) [id number] MADELYN WALTON [facility] Waiver services; not otherwise specified (NOS) MADELYN WALTON [facility] Non-Physician Phone Call To Pt/Provider Intermed (11-20 min) Non-Physician Phone Call To Pt/Provider Intermed (11-20 min) [id number] MARILU CARRERA [facility] No data available for this section Ambulato ry Pharmacy Social History Combined list of available smoking, tobacco, and other social history from Department of Defense and Veterans Affairs facilities. Social History Type Response Date Comment Sourc e This section is an empty social history section. DoD Assessment and Plan Combined list of future care activities from Department of Defense and Veterans Affairs facilities (e.g., assessment and plan notes, appointments, orders, and referrals). Additional future care activities may be listed in the Plan of Care section. Result Assessment and Plan Date Source Assessment and Plan No data available for this section 01/17/2025 Ambulatory Pharmacy Functional Status Combined list of recent functional and cognitive assessments recorded at Department of Defense and Veterans Affairs (VA).VA Functional Cataño Measurement (FIM) Scale: 1 = Total Assistance (Subject = 0% +), 2 = Maximal Assistance (Subject = 25% +), 3 = Moderate Assistance (Subject = 50% +), 4 = Minimal Assistance (Subject = 75% +), 5 = Supervision, 6 = Modified Cataño (Device), 7 = Complete Cataño (Timely, Safely). Assessment Date/Time Source Assessment Type Assessment Skill Assessment Score Assessment Details No data available for this section
--- OUTSIDE RECORDS SUMMARY | 2025-01-17 12:00 | XMS_ITS | Clinical Summary ---
Author Organization [facility] Sumaya Card Address [address] [place] [address] Care Team Providers Care Pipe Fitter Welding Name Role Phone Unavailable Primary Care Provider Unavailabl e Allergies Active Allergy Reactions Criticality Noted Date Comments Cefuroxime Rash,Swelling Medium 04/09/2011 Swelling of lips and tongue Swelling of lips and tongue Swelling of lips and tongue Lisinopril Swelling Medium 06/08/2020 Swelling of lips and tongue Swelling of lips and tongue Swelling of lips and tongue Reaction(s): Unknown; Note: [id number] NLD Medications clopidogreL (PLAVIX) 75 mg Tablet [...] % Cream Apply to affected area. Active Active Problems No known active problems Encounters Date Type Department Care Team Description 12/13/2024 Orders Only [facility] Oncology and Hematology - [place] [address] [place] [id number] Edvin Schafer MD 11/22/2024 4:30 PM CDT Telephone Check Up [facility] Oncology and Hematology - [place] [address] [place] [address] Edvin Schafer MD 11/14/2024 External Device Data STL ABSTRACTION Provider, Abstract 11/14/2024 External Device Data STL ABSTRACTION Provider, Abstract 11/14/2024 External Device Data STL ABSTRACTION Provider, Abstract 11/14/2024 Orders Only [facility] Oncology and Hematology - [place] [address] [place] [address] Edvin Schafer MD 11/09/2024 Orders Only [facility] Oncology and Hematology - [place] [place] [address] Edvin Schafer MD 11/08/2024 1:30 PM CDT Office Visit [facility] Oncology and Hematology - [place] [address] [place] [address] Edvin Schafer MD Polycythemia, secondary (Primary Dx) 11/08/2024 Orders Only [facility] Oncology and Hematology - [place] [address] [place] [address] Edvin Schafer MD from Last 3 Months Family History Medical [...] on file Legal Sex Male 3:51 PM ADMINISTRATIVE SUPPORT ASSOC Gender Identity Not on file Sexual Orientation [...] Care Team (Late st Contact Info) Description 03/28/2025 11:45 AM CDT Office Visit [facility] Oncology and Hematology - [place] [address] [facility] [[email or web address]] [address] [place] [address] Edvin Schafer MD [address] [facility] [address] [place] [address] Health Maintenance Due Date Last Done Comments DIABETES ANNUAL FOOT EXAM 01/17/1974 DIABETES ANNUAL RETINAL EXAM 01/17/1974 DIABETES MICROALBUMIN ANNUAL SCREEN 01/17/1974 LDL CHOLESTEROL ANNUAL 01/17/1974 COLORECTAL SCREENING 01/17/2001 Colorectal Cancer Screening 01/17/2001 FIT-DNA Q 3 years 01/17/2001 FIT/FOBT Q 1 year 01/17/2001 Flex Sig/CT Colonography Q 5 years 01/17/2001 ZOSTER VACCINE (1 of 2) 01/17/2006 RSV VACCINE (60+ or ) (1 - Risk 60-74 years 1-dose series) 2016 PNEUMOCOCCAL VACCINE 50+ YEA RS (2 of 2 - PCV) 02/12/2017 02/13/2016, 04/06/2008 DIABETES HBA1C Q 6 MONTHS 06/07/2020 12/07/2019 INFLUENZA VACCINE (#1) 2025 0, 03/15/2020, 04/06/2019, Additional history exists DTAP/TDAP/TD VACCINES (2 - T d or Tdap) 03/17/2027 03/17/2017, 01/03/2005 Procedures Procedure Name Priority Date/Time Associated Diagnosis Comments CBC WITH DIFFERENTIAL Routine 12/08/2024 7:24 AM CDT CBC WITH DIFFERENTIAL Routine 11/08/2024 4:24 PM CDT ERYTHROPOIETIN LEVEL Routine 11/08/2024 3:24 PM CDT COMPREHENSIVE METABOLIC PANEL Routine 11/08/2024 2:27 PM CDT from Last 3 Months Results * CBC WITH DIFFERENTIAL (12/08/2024 7:24 AM CDT) Only the most recent of2 resultswithin the time period is included. Blood Edvin Schafer MD HEMATOLOGY ORDERABLES Final Res ult * ERYTHROPOIETIN LEVEL (11/08/2024 3:24 PM CDT) Blood us Edvin Schafer MD CHEMISTRY ORDERABLES Final Resu lt * COMPREHENSIVE METABOLIC PANEL (11/08/2024 2:27 PM CDT) Blood us Edvin Schafer MD CHEMISTRY ORDERABLES Final Resu lt from Last 3 Months Insurance MEDICARE PART A AND B [facility] [place] [employer] [facility]
--- OUTSIDE RECORDS SUMMARY | 2025-01-17 12:00 | XMS_ITS | Encounter Summary ---
Author Organization [facility] Healthcare Address [address] [place] [address] Care Team Providers Care Fire Control Assistant Name Role Phone Johnny Rodríguez MD Unavailable [phone]- [phone] Tim Desai MD Primary Care Provider [phone] [phone] Reason for Referral * MRI/CAT/PET Scan (Routine) - Closed Specialty Diagnoses / Procedures Referred By Contac t Referred To Contact Radiology Diagnoses Malignant neoplasm of right kidney, except renal pelvis Procedures MRI Abdomen W WO Contrast Johnny Rodríguez MD Phone: tel: fax: [address] [address] Referral ID Status Reason Start Date Expiration Date Visits Re quested Visits Authorized [id number] Closed 06/02/2024 07/02/2025 1 1 OCK MAKER Encounter Details Date Type Department Care Team (Late st Contact Info) Description 06/02/2024 Community Orders [facility] EpicCare Link Johnny Rodrí[place]uez [place] [address] [place] [address] Malignant neoplasm of right kidney, except renal [...] on file Legal Sex Male 11:09 AM HOLLOCK MAKER Gender Identity Not on file Sexual Orientation Not on file documented as of this encounter Plan of Treatment Not on file documented as of this encounter Results * MRI Abdomen W WO Contrast (07/08/2024 4:02 PM HOLLOCK MAKER) Anatomical Region Laterality Modality Body N/A Magnetic Resonan ce 07/10/2024 10:5 9 AM HOLLOCK MAKER Impressions 07/10/2024 2:52 PM HOLLOCK MAKER No evidence of disease recurrence. Dictated by: Bryan Jeter MD The radiology attending physician has personally reviewed this study, and had reviewed and/or edited this written report and agrees with it. Electronically signed by: Jordana Paz M.D. Narrative 07/10/2024 2:52 PM HOLLOCK MAKER EXAMINATION: MAGNETIC RESONANCE IMAGING OF THE ABDOMEN [...] Malignant neoplasm of right kidney, except renal pelvis- Primary Malignant neoplasm of right kidney, except renal pelvis documented in this encounter Care Teams Fire Control Assistant Relationship Specialty Start Date End Date Tim Desai MD [address] [place] [address] PCP - General Family Practice 05/25/24 Johnny Rodríguez MD Consulting Physician Urology 10/02/19 documented as of this encounter
--- OUTSIDE RECORDS SUMMARY | 2025-01-17 12:00 | XMS_ITS | Encounter Summary ---
Author Organization [facility] Healthcare Address [address] [place] [address] Care Team Providers Care Electric Motor Assembler And Tester Name Role Phone Johnny Rodríguez MD Unavailable [phone]- [phone] Miscellaneous, Not In File Primary Care Provider Unavailable [facility] Primary Care Provider +[phone] No, Physician Primary Care Provider [phone] Tim Desai MD Primary Care Provider [phone] Encounter Details Date Type Department Care Team (Late st Contact Info) Description 06/21/2020 Telephone [facility] - Imaging [address] [place] [address] Transcribed Order, Provider Social History Tobacco Use Types Packs/Day Years Used Date Smoking Tobacco: Former Cigarettes 1 40 0 09/01/1979 - 09/01/2019 Smokeless Tobacco: Never Alcohol Use Standard Drinks/Week Comments Not Currently 0 (1 standard drink = 0.6 oz pur e alcohol) Sex and Gender Information Value Date Recorded Sex Assigned at Not on file Legal Sex Male 11:09 AM COMMUNICATION CLERK Gender Identity Not on file Sexual Orientation Not on file documented as of this encounter Plan of Treatment Not on file documented as of this encounter Visit Diagnoses Not on filedocumented in this encounter Care Teams Electric Motor Assembler And Tester Relationship Specialty Start Date End Date Miscellaneous, Not In File PCP - General 12/19/19 1 [facility] [address] [place] [address] PCP - General 12/18/20 06/22/22 No, Physician PCP - General 06/23/22 05/24/24 Tim Desai MD [address] [place] [address] PCP - General Family Practice 05/25/24 Johnny Rodríguez MD Consulting Physician Urology 10/02/19 documented as of this encounter
--- OUTSIDE RECORDS SUMMARY | 2025-01-17 12:00 | XMS_ITS | Encounter Summary ---
Author Organization [facility] Healthcare Address [address] [place] [address] Care Team Providers Care Second Baller Name Role Phone Johnny Rodríguez MD Unavailable [phone]- [phone] [facility] Primary Care Provider [phone]- [phone] No, Physician Primary Care Provider [phone] Tim Desai MD Primary Care Provider [phone] Encounter Details Date Type Department Care Team (Late st Contact Info) Description 12/25/2020 Telephone [facility] - Imaging [address] [place] [address] Transcribed Order, Provider Social History Tobacco Use Types Packs/Day Years Used Date Smoking Tobacco: Former Cigarettes 1 40 0 09/01/1979 - 09/01/2019 Smokeless Tobacco: Never Alcohol Use Standard Drinks/Week Comments Not Currently 0 (1 standard drink = 0.6 oz pur e alcohol) Sex and Gender Information Value Date Recorded Sex Assigned at Not on file Legal Sex Male 11:09 AM LEASING MACHINE TENDER Gender Identity Not on file Sexual Orientation Not on file documented as of this encounter Plan of Treatment Not on file documented as of this encounter Visit Diagnoses Not on filedocumented in this encounter Care Teams Second Baller Relationship Specialty Start Date End Date [facility] [address] [place] [address] PCP - General 12/18/20 06/22/22 No, Physician PCP - General 06/23/22 05/24/24 Tim Desai MD [address] [place] [address] PCP - General Family Practice 05/25/24 Johnny Rodríguez MD Consulting Physician Urology 10/02/19 documented as of this encounter
--- OUTSIDE RECORDS SUMMARY | 2025-01-17 12:00 | XMS_ITS | Clinical Summary ---
Author Organization [facility] [address] Address [address] [place] [address] Care Team Providers Care Hourly Team Members Name Role Phone Johnny Rodríguez MD Unavailable [phone]- [phone] Tim Desai MD Primary Care Provider [phone] Allergies Active Allergy Reactions Criticality Noted Date [...] (07/26/2019): Added automatically from request for surgery [id number] Coronary artery disease invo lving north fork coronary artery of [place] fork heart without angina pectoris 04/27/2017 Hyperlipidemia 04/11/2013 [...] on file Legal Sex Male 11:09 AM COUNTRY SALES MANAGER Gender Identity Not on file Sexual Orientation Not on file Obstetrics History Last Filed Vital Signs Vital Sign Reading Time Taken Comments Blood Pressure 138/80 05/25/2024 2:51 PM COUNTRY SALES MANAGER Pulse 82 05/25/2024 2:51 PM COUNTRY SALES MANAGER Temperature 36.9 C (98.4 F) 12/22/2019 5:35 AM CDT Respiratory Rate 14 12/22/2019 5:35 AM CDT Oxygen Saturation 97% 05/25/2024 2:51 PM COUNTRY SALES MANAGER Inhaled Oxygen Concentration - - Weight 85.3 kg (188 lb) 07/08/2024 3:19 PM COUNTRY SALES MANAGER Height 172.7 cm (5' 8) 07/08/2024 3:19 PM COUNTRY SALES MANAGER Body Mass Index 28.59 07/08/2024 3:19 PM COUNTRY SALES MANAGER Plan of Treatment Health Maintenance Due Date [...] or PCV21) 02/12/2021 02/13/2016, 04/06/2008 Influenza Vaccine (#1) 2025 , 03/15/2020, 04/06/2019, Additional history exists Lipid Panel 04/11/2025 04/11/2024, 04/15, 05/12/2022, Additional history exists DTaP/Tdap/Td Vaccine (2 - Td or Tdap) 03/17/2027 03/17/2017, 01/03/2005 Medical Devices Implanted Type Area Repairer Shoe Sticks Device Identifier Shelf Expiration Date Model / Serial / Lot [employer] Ed 180-223 Contour 6fr 26cm Large Inner Lumen Low Profile Bladder Jp Taper Latex Free - Sn/A - [id number] Implanted:Qty: 1 on 09/26/2019 by Johnny Rodríguez MD at [facility] Stent Right: Ureter [employer] 05/21/2022 180-223 / N/A / [id number] [employer] 180-223 Contour 6fr 26cm Large Inner Lumen Low Profile Bladder Jp Taper Latex Free - [id number] Implanted:Qty: 1 on 09/29/2019 by Edison Salvador MD at [facility] Stent Right: Ureter [employer] Ed 07/16/2022 180-223 / / [id number] Screws Left: Knee Procedures Procedure Name Priority Date/Time Associated Diagnosis Comments LIPID PANEL Routine 04/11/2024 11:05 AM CDT EGFR Routine 12/22/2019 1:41 AM CDT HEMOGLOBIN A1C Routine 12/07/2019 1:07 PM CDT Pre-op evaluation DIABETIC EYE EXAM Routine 08/09/2017 from Last 3 Months or Most Recently Relevant to Health Maintenance Results * Lipid panel (04/11/2024 11:05 AM CDT) Blood [facility] [place] LAB BLOOD ORDERABLES Dorie l Result * eGFR (12/22/2019 1:41 AM CDT) eGFR 65 mL/min/1.7 3 m2 [facility] Comment: Interpretive Data Reference Interval Normal >/= 90 mL/min/1.73m2 Mildly decreased* 60 - 89 mL/min/1.73m2 Mildly to moderately decreased 45 - 59 mL/min/1.73m2 Moderately to severely decreased 30 - 44 mL/min/1.73m2 Severely decreased 15 - 29 mL/min/1.73m2 Kidney Failure < 15 mL/min/1.73m2 *Relative to young adult level If -[place] multiply value by 1.16. Estimated glomerular filtration [...] Rodríguez MD LAB BLOOD ORDERABLES Final Result [facility] [address] Department [place] [address] * (ABNORMAL) Hemoglobin A1c (12/07/2019 1:07 PM CDT) Hgb A1C 9.0(H) 4.0 - 5.6 % [facility] Estimated Average Glucose 212 mg/dL [facility] Comment: The ADA recommends reporting an estimated Average Glucose (eAG) with all Hemoglobin A1c results using the equation derived from a study of 507 normal and diabetic adults. Minority populations were underrepresented and children were not included. (Diabetes Care 31:3402-9352, 2008). The eAG is not equivalent to a fasting glucose. Blood specimen (specimen) 12/07/2019 1:07 PM CDT 12/07/2019 1:31 PM CDT Divya Lim NP LAB BLOOD ORDERABLES Fin al Result [facility] [address] Department [place] [address] * Diabetic Eye Exam (08/09/2017) Historical Provider HEALTH MAINTENANCE Edited Result - Final from Last 3 Months or Most Recently Relevant to Health Maintenance Insurance MEDICARE [facility] Address: [address] [address] [place] [address] FOR LIFE MEDICARE [facility] MEDICARE [facility] Advance Directives For more information, please contact: [phone] * Full Code (Latest Code Status on File) Date Activated Date Inactivated Comments 12/19/2019 7:33 PM 12/22/2019 3:41 PM * Full Code Date Activated Date Inactivated Comments 09/21/2019 5:40 PM 10/02/2019 4:10 PM * Full Code Date Activated Date Inactivated Comments 09/01/2019 9:09 PM 09/03/2019 5:49 PM Care Teams Hourly Team Members Relationship Specialty Start Date End Date Tim Desai MD [address] [place] [address] PCP - General Family Practice 05/25/24 Johnny Rodríguez MD Consulting Physician Urology 10/02/19
[2025-01-17 12:07] LABS: Parathyroid Intact 23.2 pg/mL (14.5-75.2)
[2025-01-17 12:10] LABS: Total Protein Urine Random 7 mg/dL; Ur Ttl Prot Creatinine Ratio 0.13 mg/mg (0-0.20)
== END 2025-01-17 11:14 | disposition home or self-care (01) ==
LOC: ANHLAB 11:14
PROVIDERS: PCP Family Medicine; Visit Provider Internal Medicine Nephrology
DX: N18.32 Chronic kidney disease, stage 3b (principal); E11.65 Type 2 diabetes mellitus with hyperglycemia
CPT/HCPCS: 36415; 80069; 82570; 83970; 84156; 85027

== ENCOUNTER 2025-04-07 04:22 | Inpatient (IN) | payer MEDICARE, OTHER, SELFPAY ==
--- OUTSIDE RECORDS SUMMARY | 2007-01-04 11:03 | XMS_ITS | Continuity of Care Document ---
Author Organization [facility]ly [facility] Address [address] [place] [address] Phone Care Team Providers Care Core Feeder Name Role Phone Gavi Rodriguez Unavailable Unavailable Procedures Procedure Date Post-op Follow-up Visit Post-op Follow-up Visit Remove Cataract, Insert Lens Eye Exam, New Patient IOLMaster Advance Directives Directive Yes / No Effective Date File Name No Information Encounters Encounter Description Practice Location Reason(s) For Visit Diagnoses Date Provider Providers Copied on Encounter [facility], [address] [place] [address] [address], [place], [place], [id number], tel:[phone] [facility] No Information 200 7 Jennifer Gatica. [address] , [address], [place], [place], [facility], [place]. tel:[phone] [facility], [address] [place] [address] [address], [place], [place], [id number], [place] tel:[phone] [facility] No Information 2-200 7 Avendano OD Jp. [address] , [address], [place], [address], [place]. tel:[phone] [facility], [address] [place] [address] [address], [place], [place], [id number], [place] tel:[phone] [facility] No Information 1-200 7 Jennifer Saucedo [address] , [address], [place], [address], . tel:[phone] Referring Provider: hCaz Pollack OD, [address], [place], [address]. tel:[phone] [facility], [address], [place], [place], [id number], [place] tel:[phone] [facility] No Information 0 5-200 7 Jennifer Gatica. [address] , [address], [place], [place], [facility], . tel:[phone] Referring Provider: Gavi Zhou, [address], [place], [place], [facility]. tel:[phone] Family History Family Member Type Diagnosis Age At Onset No Information Payers Payer name Insurance type Covered green party ID Authoriza tion(s) No Information Social History Type Description Quantity Date Captured Comments Sex Male Smoking Status No Information Chief Complaint And Reason For Visit No Information Reason For Referral Reason For Referral No Information History Of Present Illness Encounter Date Complaint History Of Prese nt Illness No Information Functional Status Date Functional Assessmen t No Information Instructions Date Instruction Additional Infor mation No Information Assessments Type Assessment Date No Information Patient Care Teams Name Effective Dates (start - stop) Status Members No Information
--- OUTSIDE RECORDS SUMMARY | 2007-01-04 11:03 | XMS_ITS | Continuity of Care Document ---
Author Organization [facility] Address [address] [place] [address] Phone Care Team Providers Care Patrol Community Service Officer Name Role Phone Gavi Rodriguez Unavailable Unavailable Procedures Procedure Date Post-op Follow-up Visit Post-op Follow-up Visit Remove Cataract, Insert Lens Eye Exam, New Patient IOLMaster Advance Directives Directive Yes / No Effective Date File Name No Information Encounters Encounter Description Practice Location Reason(s) For Visit Diagnoses Date Provider Providers Copied on Encounter [facility], [address] [place] [address] [address], [place], [place], [id number], tel:[phone] [facility] No Information 200 7 Jennifer Gatica. [address] , [address], [place], [place], [facility], [place]. tel:[phone] [facility], [address] [place] [address] [address], [place], [place], [id number], [place] tel:[phone] [facility] No Information 2-200 7 Avendano OD Jp. [address] , [address], [place], [address], [place]. tel:[phone] [facility], [address] [place] [address] [address], [place], [place], [id number], [place] tel:[phone] [facility] No Information 1-200 7 Jennifer Saucedo [address] , [address], [place], [address], . tel:[phone] Referring Provider: Chaz Pollack OD, [address] [facility], [place], [address]. tel:[phone] [facility], [address] [facility] [address], [place], [place], [id number], [place] tel:[phone] [facility] No Information 0 5-200 7 Jennifer Gatica. [address] [facility] [address] , [address], [place], [place], [facility], . tel:[phone] Referring Provider: Gavi Zhou, [address] [place] [address], [place], [place], [facility]. tel:[phone] Family History Family Member Type Diagnosis Age At Onset No Information Payers Payer name Insurance type Covered constitution party ID Authoriza tion(s) No Information Social [...]
--- NOTE | ~2025-04-07 | XR_ITS ---
EXAMINATION: XR abdomen gastric tube rechec, 04/07/2025 14:34 CDT HISTORY: NG placement COMPARISON: No comparisons available. Technique: 3 view. Findings: There are dilated loops of small bowel the largest 3.5 cm. No free air. No abnormal calcifications No acute osseous abnormality. Nasogastric tube terminates in the stomach in appropriate location. Impression: 1. Nasogastric tube in appropriate location Reviewed, dictated and finalized at location P. Impression: 1. Nasogastric tube in appropriate location
--- NOTE | ~2025-04-07 | XR_ITS ---
EXAMINATION: XR abdomen gastric tube insert, 04/07/2025 13:50 CDT HISTORY: NG placement COMPARISON: No comparisons available. Technique: 3 view. Findings: There are dilated small bowel loops the largest measuring 4 cm. No free air. No abnormal calcifications No acute osseous abnormality. Nasogastric tube terminates in the stomach which should be advanced 5 cm. Impression: 1. Recommend advancement of the nasogastric tube Reviewed, dictated and finalized at location P. Impression: 1. Recommend advancement of the nasogastric tube
--- NOTE | ~2025-04-07 | XR_ITS ---
EXAMINATION: XR small bowel follow through, 04/08/2025 14:55 CDT HISTORY: SBO COMPARISON: No comparisons available. Findings: Mapping Technician exam demonstrates nasogastric tube otherwise unremarkable. Contrast passes freely into the stomach and duodenum. There are some dilated loops of small bowel the largest measuring 3.5 cm There is no significant degenerative contrast into the distal small bowel and the large bowel. There are no thickened loops of small bowel appreciated. IMPRESSION: Findings may be consistent with partial or resolving small bowel obstruction. Reviewed, dictated and finalized at location P. IMPRESSION: Findings may be consistent with partial or resolving small bowel ob struction.
--- NOTE | ~2025-04-07 | CT_ITS ---
CT ABDOMEN AND PELVIS WITHOUT CONTRAST Clinical History: lower abd pain, N/V, hx of renal cancer w right nephrectomy Comparison: CT abdomen and pelvis 01/17/2020 Technique: Unenhanced axial images lung bases to symphysis pubis Coronal, sagittal reformats CT images acquired with automatic exposure control for dose reduction DLP: 647 mGy-cm Findings: Without intravenous contrast, sensitivity for detecting visceral parenchymal abnormalities decreased. Lung bases: Clear. Visualized heart and pericardium: Unremarkable. Liver: Unremarkable. Gallbladder: Unremarkable. Spleen: Unremarkable. Pancreas: Unremarkable. Adrenal glands: Unremarkable. Kidneys: Right kidney-removed. No abnormal soft tissue within nephrectomy bed. Left kidney- No hydronephrosis. No renal stones. Simple cyst as before. Distal esophagus/stomach: Small hiatal hernia. Small bowel loops: Central abdominal loops dilated with air-fluid levels. Colon: Normal caliber and wall thickness. Normal RLQ appendix. Nodes: No enlarged nodes. Peritoneum: No ascites. No free intraperitoneal air. Urinary bladder: Unremarkable. Prostate: Prominent. Bones: No acute bony abnormality. Soft tissues: Unremarkable. Unopacified abdominal aorta: No aneurysmal dilatation. Atherosclerotic disease. IMPRESSION: 1. Small bowel obstruction. 2. No other acute abnormality identified. Reviewed, dictated and finalized at location R.
--- NOTE | ~2025-04-07 | XR_ITS ---
Abdominal radiograph(s) INDICATION: Small bowel obstruction COMPARISON: X-rays and CT 1 day prior TECHNIQUE: Supine portable AP abdomen FINDINGS: NG tube within proximal stomach. Lung bases clear. Scattered colonic gas and stool. Small bowel loops no longer distended with gas. No air-fluid levels. No evidence of organomegaly. No abnormal abdominal calcifications. No acute bony abnormality. IMPRESSION: 1. Small bowel loops no longer distended with gas. Reviewed, dictated and finalized at location R.
--- OUTSIDE RECORDS SUMMARY | 2025-04-07 04:24 | XMS_ITS | Encounter Summary ---
Author Organization [facility] Healthcare Address [address] [facility] [place] [address] Care Team Providers Care Differential Specialist Name Role Phone Johnny Rodríguez MD Unavailable [phone]- [phone] Tim Desai MD Primary Care Provider [phone] [phone] Reason for Referral * MRI/CAT/PET Scan (Routine) - Closed Specialty Diagnoses / Procedures Referred By Contac t Referred To Contact Radiology Diagnoses Malignant neoplasm of right kidney, except renal pelvis Procedures MRI Abdomen W WO Contrast Johnny Rodríguez MD Phone: tel: fax: [address] [address] Referral ID Status Reason Start Date Expiration Date Visits Re quested Visits Authorized [id number] Closed 06/02/2024 07/02/2025 1 1 EYING TECHNICIAN Encounter Details Date Type Department Care Team (Late st Contact Info) Description 06/02/[address] [facility] EpicCare Link Johnny Rodrí[place]uez [place] [address] [place] [address] Malignant neoplasm of right kidney, except renal [...] on file Legal Sex Male 11:09 AM SURVEYING TECHNICIAN Gender Identity Not on file Sexual Orientation Not on file documented as of this encounter Plan of Treatment Not on file documented as of this encounter Results * MRI Abdomen W WO Contrast (07/08/2024 4:02 PM SURVEYING TECHNICIAN) Anatomical Region Laterality Modality Body N/A Magnetic Resonan ce 07/10/2024 10:5 9 AM SURVEYING TECHNICIAN Impressions 07/10/2024 2:52 PM SURVEYING TECHNICIAN No evidence of disease recurrence. Dictated by: Bryan Jeter MD The radiology attending physician has personally reviewed this study, and had reviewed and/or edited this written report and agrees with it. Electronically signed by: Jordana Paz M.D. Narrative 07/10/2024 2:52 PM SURVEYING TECHNICIAN EXAMINATION: MAGNETIC RESONANCE IMAGING OF THE ABDOMEN [...] pelvis documented in this encounter Care Teams Differential Specialist Relationship Specialty Start Date End Date Tim Desai MD [address] [place] [address] PCP - General Family Practice 05/25/24 Johnny Rodríguez MD Consulting Physician Urology 10/02/19 documented as of this encounter
--- OUTSIDE RECORDS SUMMARY | 2025-04-07 04:24 | XMS_ITS | Clinical Summary ---
Author Organization [facility] Sumaya Card Address [address] [address] Care Team Providers Care Layout Worker Name Role Phone Unavailable Primary Care Provider Unavailabl e Allergies Active Allergy Reactions Criticality Noted Date Comments Cefuroxime Rash,Swelling Medium 04/09/2011 Swelling of lips and tongue Swelling of lips and tongue Swelling of lips and tongue Lisinopril Swelling Medium 06/08/2020 Swelling of lips and tongue Swelling of lips and tongue Swelling of lips and tongue Reaction(s): Unknown; Note: [id number] NLD Medications clopidogreL (PLAVIX) 75 mg Tablet [...] See Admin Instructions route see administration instructions. Active fenofibrate (LOFIBRA) 54 mg Take 54 mg by mouth daily. Active triamcinolone acetonide (KENALOG) 0.025 % Cream Apply to affected area. Active clobetasoL (TEMOVATE) 0.05 % Cream Apply to affected area. Active empagliflozin (JARDIANCE) 25 mg tablet Take 25 mg by mouth daily in the morning. Active Active Problems No known active problems Encounters Date Type Department Care Team Description 03/29/2025 Orders Only [facility] Oncology and Hematology [facility] [address] [place] [address] Edvin Schafer MD 03/28/2025 11:45 AM CDT Office Visit [facility] Oncology and Hematology [facility] [address] [place] [address] Edvin Schafer MD Polycythemia, secondary (Primary Dx) 03/28/2025 Orders Only [facility] Oncology and Hematology [facility] [address] [place] [address] Edvin Schafer MD Polycythemia, secondary (Primary Dx) 02/27/2025 External Device Data STL ABSTRACTION Provider, Abstract 02/20/2025 External Device Data STL ABSTRACTION Provider, Abstract from Last 3 Months Family History Medical [...] Date Smoking Tobacco: Never Smokeless Tobacco: Never Tobacco Cessation:Counseling Given: Not Answered Alcohol Use Standard Drinks/Week Comments Yes 0 (1 standard drink = 0.6 oz pur e alcohol) occasional Sex and Gender Information Value Date Recorded Sex Assigned at Not on file Legal Sex Male 3:51 PM MACHINE FINISHER Gender Identity Not on file Sexual Orientation Not on file Last Filed Vital Signs Vital Sign Reading Time Taken Comments Blood Pressure 155/81 03/28/2025 11:45 AM CDT Pulse 64 03/28/2025 11:42 AM CDT Temperature 36.2 C (97.2 F) 03/28/2025 11:42 AM CDT Respiratory Rate 15 03/28/2025 11:42 AM CDT Oxygen Saturation 96% 03/28/2025 11:42 AM CDT Inhaled Oxygen Concentration - - Weight 89.5 kg (197 lb 6.4 oz) 03/28/2025 11:42 AM CDT Height 172.7 cm (5' 8) 11/08/2024 1:49 PM CDT Body Mass Index 30.01 11/08/2024 1:49 PM CDT Plan of Treatment Upcoming Encounters Date Type Department Care Team (Late st Contact Info) Description 08/01/2025 1:15 PM MACHINE FINISHER Office Visit [facility] Oncology and Hematology - [place] [address] [facility] [address] [place] [address] Edvin Schafer MD [address] [facility] [address] [place] [address] Health Maintenance Due Date Last Done Comments DIABETES ANNUAL FOOT EXAM 01/17/1974 DIABETES ANNUAL RETINAL EXAM 01/17/1974 DIABETES MICROALBUMIN ANNUAL SCREEN 01/17/1974 LDL CHOLESTEROL ANNUAL 01/17/1974 COLORECTAL SCREENING 01/17/2001 Colorectal Cancer Screening 01/17/2001 FIT-DNA Q 3 years 01/17/2001 FIT/FOBT Q 1 year 01/17/2001 Flex Sig/CT Colonography Q 5 years 01/17/2001 RSV VACCINE (60+ or ) (1 - Risk 50-74 years 1-dose series) 01/17/2006 ZOSTER VACCINE (1 of 2) 01/17/2006 PNEUMOCOCCAL VACCINE 50+ YEA RS (2 of 2 - PCV) 02/12/2017 02/13/2016, 04/06/2008 DIABETES HBA1C Q 6 MONTHS 06/07/2020 12/07/2019 INFLUENZA VACCINE (#1) 2025 0, 03/15/2020, 04/06/2019, Additional history exists DTAP/TDAP/TD VACCINES (2 - T d or Tdap) 03/17/2027 03/17/2017, 01/03/2005 Procedures Procedure Name Priority Date/Time Associated Diagnosis Comments COMPREHENSIVE METABOLIC PANEL Routine 03/28/2025 11:48 AM CDT from Last 3 Months Results * COMPREHENSIVE METABOLIC PANEL (03/28/2025 11:48 AM CDT) Blood Edvin Schafer MD CHEMISTRY ORDERABLES Final Resu lt from Last 3 Months Insurance MEDICARE PART A AND B [email or web address]
--- OUTSIDE RECORDS SUMMARY | 2025-04-07 04:24 | XMS_ITS | Encounter Summary ---
Author Organization [facility] Healthcare Address [address] [place] [address] Care Team Providers Care Automotive Exhaust Emissions Technician Name Role Phone Johnny Rodríguez MD Unavailable [phone]- [phone] Miscellaneous, Not In File Primary Care Provider Unavailable [facility] Primary Care Provider +1 [phone] No, Physician Primary Care Provider [phone] Tim Desai MD Primary Care Provider [phone] Encounter Details Date Type Department Care Team (Late st Contact Info) Description 09/05/2020 Telephone [facility] - Imaging [address] [place] [address] Transcribed Order, Provider Social History Tobacco Use Types Packs/Day Years Used Date Smoking Tobacco: Former Cigarettes 1 40 0 09/01/1979 - 09/01/2019 Smokeless Tobacco: Never Alcohol Use Standard Drinks/Week Comments Not Currently 0 (1 standard drink = 0.6 oz pur e alcohol) Sex and Gender Information Value Date Recorded Sex Assigned at Not on file Legal Sex Male 11: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 PRODUCTION 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 Gender Identity Not on file Sexual Orientation Not on file documented as of this encounter Plan of Treatment Not on file documented as of this encounter Visit Diagnoses Not on filedocumented in this encounter Care Teams Automotive Exhaust Emissions Technician Relationship Specialty Start Date End Date Miscellaneous, Not In File PCP - General 12/19/19 1 [facility] [address] [place] [address] PCP - General 12/18/20 06/22/22 No, Physician PCP - General 06/23/22 05/24/24 Tim Desai MD [address] [place] [address] PCP - General Family Practice 05/25/24 Johnny Rodríguez MD Consulting Physician Urology 10/02/19 documented as of this encounter
--- OUTSIDE RECORDS SUMMARY | 2025-04-07 04:24 | XMS_ITS | Encounter Summary ---
Author Organization [facility] Healthcare Address [address] [place] [address] Care Team Providers Care Dirt Bike Mechanic Name Role Phone Johnny Rodríguez MD Unavailable [phone] [facility] Primary Care Provider [phone] No, Physician Primary Care Provider Tim Desai MD Primary Care Provider [phone] Encounter Details Date Type Department Care Team (Late st Contact Info) Description 12/25/2020 Telephone [facility] - Imaging [address] [place] [address] Transcribed Order, Provider Social History Tobacco Use Types Packs/Day Years Used Date Smoking Tobacco: Former Cigarettes 1 40 0 09/01/1979 - 09/01/2019 Smokeless Tobacco: Never Alcohol Use Standard Drinks/Week Comments Not Currently 0 (1 standard drink = 0.6 oz pur e alcohol) Sex and Gender Information Value Date Recorded Sex Assigned at Not on file Legal Sex Male 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 Gender Identity Not on file Sexual Orientation Not on file documented as of this encounter Plan of Treatment Not on file documented as of this encounter Visit Diagnoses Not on filedocumented in this encounter Care Teams Dirt Bike Mechanic Relationship Specialty Start Date End Date [facility] [address] [place] [address] PCP - General 12/18/20 06/22/22 No, Physician PCP - General 06/23/22 05/24/24 Tim Desai MD [address] [place] [address] PCP - General Family Practice 05/25/24 Johnny Rodríguez MD Consulting Physician Urology 10/02/19 documented as of this encounter
--- OUTSIDE RECORDS SUMMARY | 2025-04-07 04:24 | XMS_ITS | Clinical Summary ---
Author Organization [facility] [address] Address [address] [place] [address] Care Team Providers Care Manager Field Investigations Name Role Phone Johnny Rodríguez MD Unavailable [phone] Tim Desai MD Primary Care Provider [phone] Allergies Active Allergy Reactions Criticality Noted Date [...] (07/26/2019): Added automatically from request for surgery [id number] Coronary artery disease invo lving igiugig coronary artery of igiugig heart without angina pectoris 04/27/2017 Hyperlipidemia 04/11/2013 [...] PCI, follows with Dr. 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 Gender Identity Not on file Sexual Orientation Not on file Obstetrics History Last Filed Vital Signs Vital Sign Reading Time Taken Comments Blood Pressure 138/80 05/25/2024 2:51 PM LOOM CHECKER Pulse 82 05/25/2024 2:51 PM LOOM CHECKER Temperature 36.9 C (98.4 F) 12/22/2019 5:35 AM CDT Respiratory Rate 14 12/22/2019 5:35 AM CDT Oxygen Saturation 97% 05/25/2024 2:51 PM LOOM CHECKER Inhaled Oxygen Concentration - - Weight 85.3 kg (188 lb) 07/08/2024 3:19 PM LOOM CHECKER Height 172.7 cm (5' 8) 07/08/2024 3:19 PM LOOM CHECKER Body Mass Index 28.59 07/08/2024 3:19 PM LOOM CHECKER Plan of Treatment Health Maintenance Due Date [...] Risk Assessment 12/21/2020 12/22/2019 eGFR 12/21/2020 12/22/2019, 02/2020, 12/20/2019, Additional history exists Abdominal Aortic Aneurysm (A AA) Screen 01/17/2021 Well Visit 65+ 01/17/2021 Pneumococcal vaccine 65+ (3 of 3 - PCV20 or PCV21) 02/12/2021 02/13/2016, 04/06/2008 Influenza Vaccine (#1) 2025 , 03/15/2020, 04/06/2019, Additional history exists Lipid Panel 04/11/2025 04/11/2024, 04/15, 05/12/2022, Additional history exists DTaP/Tdap/Td Vaccine (2 - Td or Tdap) 03/17/2027 03/17/2017, 01/03/2005 Medical Devices Implanted Type Area Bug Trimmer Device Identifier Shelf Expiration Date Model / Serial / Lot [employer] 180-223 Contour 6fr 26cm Large Inner Lumen Low Profile Bladder Jp Taper Latex Free - Sn/A - [id number] Implanted:Qty: 1 on 09/26/2019 by Johnny Rodríguez MD at [facility] Stent Right: Ureter [employer] 05/21/2022 180-223 / N/A / [id number] [employer] 180-223 Contour 6fr 26cm Large Inner Lumen Low Profile Bladder Jp Taper Latex Free - [id number] Implanted:Qty: 1 on 09/29/2019 by Edison Salvador MD at [facility] St[facility] Right: Ureter [employer] 07/16/2022 180-223 / / [id number] Screws Left: Knee Procedures Procedure Name Priority Date/Time Associated Diagnosis Comments LIPID PANEL Routine 04/11/2024 11:05 AM CDT EGFR Routine 12/22/2019 1:41 AM CDT HEMOGLOBIN A1C Routine 12/07/2019 1:07 PM CDT Pre-op evaluation DIABETIC EYE EXAM Routine 08/09/2017 from Last 3 Months or Most Recently Relevant to Health Maintenance Results * Lipid panel (04/11/2024 11:05 AM CDT) Blood [facility] Provider LAB BLOOD ORDERABLES Dorie l Result * eGFR (12/22/2019 1:41 AM CDT) eGFR 65 mL/min/1.7 3 m2 [facility] Comment: Interpretive Data Reference Interval [...] Rodríguez MD LAB BLOOD ORDERABLES Final Result [facility] [address] Department [place] [address] * (ABNORMAL) Hemoglobin A1c (12/07/2019 1:07 PM CDT) Hgb A1C 9.0(H) 4.0 - 5.6 % [facility] Estimated Average Glucose 212 mg/dL [facility] Comment: The ADA recommends reporting an estimated Average Glucose (eAG) with all Hemoglobin A1c results using the equation derived from a study of 507 normal and diabetic adults. Minority populations were underrepresented and children were not included. (Diabetes Care 31:0038-2884, 2008). The eAG is not equivalent to a fasting glucose. Blood specimen (specimen) 12/07/2019 1:07 PM CDT 12/07/2019 1:31 PM CDT Divya Lim NP LAB BLOOD ORDERABLES Fin al Result [facility] [address] Department [place] [address] * Diabetic Eye Exam (08/09/2017) Historical Provider HEALTH MAINTENANCE Edited Result - Final from Last 3 Months or Most Recently Relevant to Health Maintenance Insurance MEDICARE [facility] [employer] LIFE MEDICARE [facility] MEDICARE [facility] Advance Directives For more information, please contact: [phone] * Full Code (Latest Code Status on File) Date Activated Date Inactivated Comments 12/19/2019 7:33 PM 12/22/2019 3:41 PM * Full Code Date Activated Date Inactivated Comments 09/21/2019 5:40 PM 10/02/2019 4:10 PM * Full Code Date Activated Date Inactivated Comments 09/01/2019 9:09 PM 09/03/2019 5:49 PM Care Teams Manager Field Investigations Relationship Specialty Start Date End Date Tim Desai MD [address] [place] [address] PCP - General Family Practice 05/25/24 Johnny Rodríguez MD Consulting Physician Urology 10/02/19
--- OUTSIDE RECORDS SUMMARY | 2025-04-07 04:24 | XMS_ITS | Encounter Summary ---
Author Organization [facility] Healthcare Address [address] [place] [address] Care Team Providers Care Manager Research Name Role Phone Johnny Rodríguez MD Unavailable [phone] Miscellaneous, Not In File Primary Care Provider Unavailable [facility] Primary Care Provider +[phone] No, Physician Primary Care Provider [phone] Tim Desai MD Primary Care Provider [phone] Encounter Details Date Type Department Care Team (Late st Contact Info) Description 06/21/2020 Telephone [facility] - Imaging [address] [place] [address] Transcribed Order, Provider Social History Tobacco Use Types Packs/Day Years Used Date Smoking Tobacco: Former Cigarettes 1 40 0 09/01/1979 - 09/01/2019 Smokeless Tobacco: Never Alcohol Use Standard Drinks/Week Comments Not Currently 0 (1 standard drink = 0.6 oz pur e alcohol) Sex and Gender Information Value Date Recorded Sex Assigned at Not on file Legal 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 Gender Identity Not on file Sexual Orientation Not on file documented as of this encounter Plan of Treatment Not on file documented as of this encounter Visit Diagnoses Not on filedocumented in this encounter Care Teams Manager Research Relationship Specialty Start Date End Date Miscellaneous, Not In File PCP - General 12/19/19 1 [facility] [address] [place] [address] PCP - General 12/18/20 06/22/22 No, Physician PCP - General 06/23/22 05/24/24 Tim Desai MD [address] [place] [address] PCP - General Family Practice 05/25/24 Johnny Rodríguez MD Consulting Physician Urology 10/02/19 documented as of this encounter
--- OUTSIDE RECORDS SUMMARY | 2025-04-07 04:24 | XMS_ITS | Clinical Summary ---
Author Organization [facility] Address [address] [place] [address] Care Team Providers Care Motion Picture Set Worker Name Role Phone Lloyd Oconnor MD Primary Care Provider [phone] Allergies Active Allergy Reactions Criticality Noted Date Comments Cefuroxime Swelling Medium 06/08/2020 Swelling of lips and tongue Swelling of lips and tongue Lisinopril Swelling Medium 06/08/2020 Swelling of lips and tongue Swelling of lips and tongue Tape Itching,Rash Medium 08/09/2019 Medications clopidogrel 75 MG tablet Take 1 tablet by mouth nightly. Will hold 5 days prior to surgery- per piano refinisher note 0 Active aspirin EC (ASPIRIN EC) 81 MG tablet Take 81 mg by mouth nightly. Keep taking as normal per piano refinisher note (do not hold for surgery) Active [...] 6:30 AM CDT Height 172.7 cm (5' 8) 11/27/2020 6:30 AM CDT Body Mass Index 28.83 11/27/2020 6:30 AM CDT Plan of Treatment Health Maintenance Due Date Last Done Comments Colorectal Cancer Screening Colonoscopy (10 Years) 1955 Hepatitis C 01/17/1974 DTaP, Tdap and Td Vaccines ( 1 - Tdap) 01/17/1975 Pneumococcal Vaccine: 50+ Ye ars (1 of 1 - PCV) 01/17/2006 02/13/2016 Zoster Vaccines (1 of 2) 01/17/2006 COVID-19 Vaccine ( - 2024-2 6 season) 2025 Influenza Adult (#1) 2025 03/15/2020 RSV Immunization or 60+ Years (1 - 1-dose 75+ series) 01/17/2031 Hepatitis A Vaccines Aged Out No long er eligible based on patient's age to complete this topic Meningococcal B Vaccine Aged Out No l [...] Boyd RN Medical Devices Implanted Type Area Leather Heel Breaster Device Identifier Shelf Expiration Date Model / Serial / Lot Mesh Surgical Ventralight St Sepra Echo Ps 6x4in Monofilament Absorbable Low Profile Sterile Seprafilm Polypropylene Hydrogel Ellipse Latex Free Ventral Hernia Repair - [id number] Implanted:Qty: 1 on 11/27/2020 by Isidro Akins MD at [facility] N/A: Abdomen [employer] [id number] 06/10/2022 [id number] / / [id number] Insurance Advance Directives * Full Code (Latest Code Status on File) Date Activated Date Inactivated Comments 11/27/2020 2:24 PM 11/30/2020 2:48 PM Care Teams Motion Picture Set Worker Relationship Specialty Start Date End Date Lloyd Oconnor MD [address] [place] [address] PCP - General INTERNAL MEDICINE 09/19/20
--- OUTSIDE RECORDS SUMMARY | 2025-04-07 04:24 | XMS_ITS | Encounter Summary ---
Author Organization [facility] Address [facility] [place] [address] Care Team Providers Care Retrofit Installer Name Role Phone Lloyd Oconnor MD Primary Care Provider [phone] Encounter Details Date Type Department Care Team (Late st Contact Info) Description 11/20/2020 Prep for Procedure [facility] Pre-Ad[facility] Testing [address] [place] [address] Isidro Akins MD [address] [place] [id number] Social History Tobacco Use Types Packs/Day [...] documented as of this encounter Care Teams Retrofit Installer Relationship Specialty Start Date End Date Lloyd Oconnor MD [address] [place] [address] PCP - General INTERNAL MEDICINE 09/19/20 documented as of this encounter
[2025-04-07 04:26] VITALS: BP 169/91; PULSE 60; RESP 17; TEMP 36.4; O2SAT 100
--- NOTE | 2025-04-07 05:21 | ED.ABDPAIN ---
HPI - Abdominal Pain General Chief Complaint: Abdominal Pain <Jose Hall MD - Last Filed: 04/07/25 20:56> Stated Complaint: abdominal pain intermittent <Jose Hall MD - Last Filed: 04/07/25 20:56> Time Seen by Provider: 04/07/25 05:07 <Jose Hall MD - Last Filed: 04/07/25 20:56> Source: patient <Jose Hall MD - Last Filed: 04/07/25 20:56> Mode of arrival: ambulatory <Jose Hall MD - Last Filed: 04/07/25 20:56> Limitations: no limitations <Jose Hall MD - Last Filed: 04/07/25 20:56> History of Present Illness HPI narrative: This is a 70-year-old male with history of CAD, GERD, hyperlipidemia, hypertension, diabetes, renal cancer status post nephrectomy who presents to the ED for lower abdominal pain. Patient states for the past 6 or so hours, he has been having lower abdominal pain that radiates to his right lower quadrant. He states that at occurs every 5-10 minutes or so and last for a couple seconds at a time max. He has had some nausea but no vomiting. Denies fevers, chills, chest pain, shortness of breath. Last bowel movement was yesterday and was normal. He has had the prior neck fracture me as well as a hernia repair. No dysuria, hematuria, urinary frequency. <Jose Hall MD - Last Filed: 04/07/25 20:56> Related Data Home Medications: Home Medications ?Medication ?Instructions ?Recorded ?Confirmed ?Last Taken ?Type aspirin 81 mg chewable tablet 81 mg PO DAILY 10/03/20 04/07/25 04/06/25 History clopidogrel 75 mg tablet (Plavix) 75 mg PO DAILY 10/03/20 04/07/25 04/06/25 History clobetasol 0.05 % topical foam 1 applic topical DAILY PRN rash 12/18/21 04/07/25 04/03/25 History triamcinolone acetonide 0.025 % 1 applic topical DAILY PRN rash 12/18/21 04/07/25 Unknown History topical cream mv-min-vit C 1,000 1 ea PO DAILY 09/30/22 04/07/25 04/06/25 History el-vzrgtyisf-dnijss-herb 124 50 mg efferves tablet (Airborne) <Jose Hall MD - Last Filed: 04/07/25 20:56> Allergies/Adverse Reactions: Allergies Allergy/AdvReac Type Severity Reaction Status Date / Time adhesive tape AdvReac Severe Itching Verified 04/07/25 04:31 cefuroxime AdvReac Unknown Swelling Verified 04/07/25 04:31 lisinopril AdvReac Unknown Swelling Verified 04/07/25 04:31 <Jose Hall MD - Last Filed: 04/07/25 20:56> Review of Systems Review of Systems: Gen.: Denies fevers or chills Eyes: Denies eye pain or visual change ENT: Denies congestion Respiratory: Denies shortness of breath or cough CV: Denies chest pain or palpitations GI: As per HPI denies burning, urgency, frequency or hematuria Musculoskeletal: Denies back pain or muscle pain Neuro: Denies numbness, tingling, weakness or focal weakness Skin: Denies rash Except as documented, all other systems reviewed and negative <Jose Hall MD - Last Filed: 04/07/25 20:56> [facility] Past Medical History Medical History: Medical History COVID-19 10/2021 Type 2 diabetes mellitus Hypertension Hyperlipidemia Trigger finger Shoulder symptoms with history of shoulder arthroplasty Hearing loss Heart disease Hx of migraines Renal cell carcinoma History of left heart catheterization Peptic ulcer disease GERD (gastroesophageal reflux disease) Myocardial infarction History of coronary artery disease <Jose Hall MD - Last Filed: 04/07/25 20:56> Surgical History Surgical History: Surgical History S/P MCL repair History of total right knee replacement (TKR) H/O right nephrectomy H/O angioplasty <Jose Hall MD - Last Filed: 04/07/25 20:56> Family History Family History: Family History Other Alcoholism Diabetes mellitus Family history of cardiovascular disease Heart disease <Jose Hall MD - Last Filed: 04/07/25 20:56> Social History Social History: Social History Social History: 40-year smoking history. Smoking packs per day: 1 Smoking cigarettes per day: 20.0 Years smoked: 45 Smoking pack-years: 45.00 Smoking status: Former smoker Second hand tobacco smoke exposure: Yes Alcohol intake: current Drinks per week: 1 Alcohol use details: rarely Substance use: never Do You Feel Safe in your Home?: Yes Lack of Transportation: No Lack of Food: Never True Current Housing: I Have Housing Concerned About Future Housing: No Difficulty Paying Gas/Electric Bills: No Difficulty Paying for Meds: No Currently Unemployed: No Education: Bachelor's Degree Difficulty w/ Childcare or Family Care: No Living arrangements: with family Occupation/Education: retired Gender identity (if verbalized by the patient): Male Spiritual care concerns: No <Jose Hall MD - Last Filed: 04/07/25 20:56> Exam Narrative: APPEARANCE: No acute distress, nontoxic, resting in bed EYES: EOMI HEENT: Normocephalic, atraumatic, OMM RESPIRATORY: No respiratory distress Clear to auscultation bilaterally with no rhonchi wheezing or rales. CARDIOVASCULAR: Regular rate and rhythm without murmurs rubs or gallops. ABDOMINAL: Soft, mild lower abdominal tenderness to palpation worse in the suprapubic region, nondistended, no rebound or guarding MUSCULOSKELETAl: Moves all extremities. No clubbing, cyanosis or edema. NEURO: Awake and alert. Following commands, speech normal, no focal deficits SKIN:: Warm, dry. No rashes lesions or abrasions PSYCHIATRIC: Normal affect/mood, <Jose Hall MD - Last Filed: 04/07/25 20:56> Course Vital Signs Vital signs: Vital Signs Temperature 97.6 F 04/07/25 04:26 Pulse Rate 60 04/07/25 04:26 Respiratory Rate 17 04/07/25 04:26 Blood Pressure 169/91 H 04/07/25 04:26 Pulse Oximetry 100 04/07/25 04:26 Oxygen Delivery Room Air 04/07/25 04:26 Temperature 97.4 F L 04/07/25 14:43 Pulse Rate 70 04/07/25 14:43 Respiratory Rate 18 04/07/25 14:43 Blood Pressure 144/74 H 04/07/25 14:43 Pulse Oximetry 96 04/07/25 14:43 Oxygen Delivery Room Air 04/07/25 10:43 <Jose Hall MD - Last Filed: 04/07/25 20:56> Vital Signs Temperature 97.6 F 04/07/25 04:26 Pulse Rate 60 04/07/25 04:26 Respiratory Rate 17 04/07/25 04:26 Blood Pressure 169/91 H 04/07/25 04:26 Pulse Oximetry 100 04/07/25 04:26 Oxygen Delivery Room Air 04/07/25 04:26 Temperature 97.4 F L 04/07/25 14:43 Pulse Rate 70 04/07/25 14:43 Respiratory Rate 18 04/07/25 14:43 Blood Pressure 144/74 H 04/07/25 14:43 Pulse Oximetry 96 04/07/25 14:43 Oxygen Delivery Room Air 04/07/25 10:43 <Carmina Page MD - Last Filed: 04/07/25 08:05> MDM - Abdominal Pain MDM Narrative Medical decision making narrative: 70-year-old male that presented for abdominal pain with nausea. On initial evaluation patient was in acute distress, afebrile, hemodynamically stable. He did have tenderness palpation to his left lower quadrant without rebound or guarding. Patient was given Zofran and dicyclomine given pain was cramping in nature. Cbc showed no significant abnormalities. CMP revealed stable CKD with creatinine 1.7. UA clear. Patient signed out to Dr. Page. Patient pending CT abdomen/pelvis at this time. Electronic medical record was reviewed. Patient with history of prior hernia surgery, nephrectomy for kidney cancer now in remission, presented to the ED with complaint of [abdominal pain and nausea]. Vitals [were within acceptable limits]. Physical exam revealed with some right lower abdominal pain. Based on the patient's history and physical exam, my differential includes but is not limited to [gastritis, gastroenteritis, cholecystitis, bowel obstruction, appendicitis]. [IV access was established by nursing staff. Patient was given zofran, morphine]. CBC, BMP, lipase, LFTs, bilirubin and alk phos were obtained. Labs were pertinent for creatinine 1.7, he has baseline CKD and 1 kidney. [Decision was made to obtain a CT-abdomen to evaluate for acute abdominal process. CT-abdomen per radiology interpretation showing small bowel obstruction.] On reevaluation, the patient states that they are feeling better after the morphine. Discussed his diagnosis with the patient. D/w gen surg and hospitalist for admission, pt agreeable to plan. <Jose Hall MD - Last Filed: 04/07/25 20:56> Electronic medical record was reviewed. Patient with history of prior hernia surgery, nephrectomy for kidney cancer now in remission, presented to the ED with complaint of [abdominal pain and nausea]. Vitals [were within acceptable limits]. Physical exam revealed with some right lower abdominal pain. Based on the patient's history and physical exam, my differential includes but is not limited to [gastritis, gastroenteritis, cholecystitis, bowel obstruction, appendicitis]. [IV access was established by nursing staff. Patient was given zofran, morphine]. CBC, BMP, lipase, LFTs, bilirubin and alk phos were obtained. Labs were pertinent for creatinine 1.7, he has baseline CKD and 1 kidney. [Decision was made to obtain a CT-abdomen to evaluate for acute abdominal process. CT-abdomen per radiology interpretation showing small bowel obstruction.] On reevaluation, the patient states that they are feeling better after the morphine. Discussed his diagnosis with the patient. D/w gen surg and hospitalist for admission, pt agreeable to plan. <Carmina Page MD - Last Filed: 04/07/25 08:05> Differential Diagnosis Differential diagnosis: Likely abdominal pain, calculus of kidney, constipation, diverticulitis and small bowel obstruction <Jose Hall MD - Last Filed: 04/07/25 20:56> Medical Records Attestation: I reviewed the patient's medical records. <Jose Hall MD - Last Filed: 04/07/25 20:56> Lab Data Attestation: I reviewed the patient's lab results. <Jose Hall MD - Last Filed: 04/07/25 20:56> Result diagrams: 04/07/25 05:27 04/07/25 05:27 <Jose Hall MD - Last Filed: 04/07/25 20:56> Labs: Lab Results 04/07/25 04/07/25 Range/Units 05:27 05:28 WBC 7.5 (4.5-10.0) K/mm3 RBC 6.53 H (4.6-6.20) M/mm3 Hgb 18.0 (14.0-18.0) g/dL Hct 56.3 H (42.0-52.0) % MCV 86.2 (80-100) fl MCH 27.6 (26-34) pg MCHC 32.0 (32-36) g/dl RDW 14.8 H (11.5-14.5) % Plt Count 177 (150-375) k/mm3 MPV 9.5 (7.4-10.4) fl Immature Gran % (Auto) 0.4 (0-0.5) % Neut % (Auto) 71.8 (45.5-73.1) % Lymph % (Auto) 16.7 L (18.3-44.2) % Woodruff % (Auto) 8.7 H (2.6-8.5) % Eos % (Auto) 1.6 (0-4.4) % Baso % (Auto) 0.8 (0.2-1.2) % Lymph # (Auto) 1.25 (0.9-3.2) K/mm3 Woodruff # (Auto) 0.7 H (0.1-0.6) K/mm3 Eos # (Auto) 0.1 (0-0.3) K/mm3 Baso # (Auto) 0.1 (0.0-0.1) K/mm3 Abs Immat Gran (auto) 0.03 (0.00-0.031) K/mm3 Absolute Neuts (auto) 5.4 (1.3-6.7) K/mm3 Absolute Nucleated RBC 0.000 (0.0-0.012) K/mm3 Nucleated RBC % 0.0 (0.0-0.2) % Sodium 139 (137-145) mmol/L Potassium 4.2 (3.4-5.0) mmol/L Chloride 99 (98-107) mmol/L Carbon Dioxide 30 (22-30) mmol/L Anion Gap 10 (4-12) mmol/L BUN 30 H (9-20) mg/dL Creatinine 1.70 H (0.7-1.3) mg/dL Estim Creat Clear Calc 36 ml/min Estimated GFR 40 L (59 - ) Glucose 206 H (65-110) mg/dL Calcium 9.5 (8.4-10.2) mg/dL Total Bilirubin 0.8 (0.2-1.3) mg/dL AST 41 (17-59) U/L ALT 24 (6-50) U/L Alkaline Phosphatase 99 (38-126) U/L Total Protein 7.9 (6.3-8.2) g/dL Albumin 4.7 (3.5-5.1) g/dL Lipase 195 (23-300) U/L Urine Color Yellow (Yellow) Urine Appearance Clear (Clear) Urine pH 7.0 (5.0-9.0) Ur Specific [place] 1.027 (1.001-1.035) Urine Protein Negative (Negative) mg/dL Urine Glucose (UA) 3+ H (Negative) mg/dL Urine Ketones Negative (Negative) mg/dL Ur Blood (Man) Negative (Negative) Urine Nitrate Negative (Negative) Urine Bilirubin Negative (Negative) Urine Urobilinogen 0.2 (<2.0) mg/dL Leukocyte Esterase Rfl Negative (Negative) ALEX/UL <Jose Hall MD - Last Filed: 04/07/25 20:56> Lab Results 04/07/25 04/07/25 Range/Units 05:27 05:28 WBC 7.5 (4.5-10.0) K/mm3 RBC 6.53 H (4.6-6.20) M/mm3 Hgb 18.0 (14.0-18.0) g/dL Hct 56.3 H (42.0-52.0) % MCV 86.2 (80-100) fl MCH 27.6 (26-34) pg MCHC 32.0 (32-36) g/dl RDW 14.8 H (11.5-14.5) % Plt Count 177 (150-375) k/mm3 MPV 9.5 (7.4-10.4) fl Immature Gran % (Auto) 0.4 (0-0.5) % Neut % (Auto) 71.8 (45.5-73.1) % Lymph % (Auto) 16.7 L (18.3-44.2) % Woodruff % (Auto) 8.7 H (2.6-8.5) % Eos % (Auto) 1.6 (0-4.4) % Baso % (Auto) 0.8 (0.2-1.2) % Lymph # (Auto) 1.25 (0.9-3.2) K/mm3 Woodruff # (Auto) 0.7 H (0.1-0.6) K/mm3 Eos # (Auto) 0.1 (0-0.3) K/mm3 Baso # (Auto) 0.1 (0.0-0.1) K/mm3 Abs Immat Gran (auto) 0.03 (0.00-0.031) K/mm3 Absolute Neuts (auto) 5.4 (1.3-6.7) K/mm3 Absolute Nucleated RBC 0.000 (0.0-0.012) K/mm3 Nucleated RBC % 0.0 (0.0-0.2) % Sodium 139 (137-145) mmol/L Potassium 4.2 (3.4-5.0) mmol/L Chloride 99 (98-107) mmol/L Carbon Dioxide 30 (22-30) mmol/L Anion Gap 10 (4-12) mmol/L BUN 30 H (9-20) mg/dL Creatinine 1.70 H (0.7-1.3) mg/dL Estim Creat Clear Calc 36 ml/min Estimated GFR 40 L (59 - ) Glucose 206 H (65-110) mg/dL Calcium 9.5 (8.4-10.2) mg/dL Total Bilirubin 0.8 (0.2-1.3) mg/dL AST 41 (17-59) U/L ALT 24 (6-50) U/L Alkaline Phosphatase 99 (38-126) U/L Total Protein 7.9 (6.3-8.2) g/dL Albumin 4.7 (3.5-5.1) g/dL Lipase 195 (23-300) U/L Urine Color Yellow (Yellow) Urine Appearance Clear (Clear) Urine pH 7.0 (5.0-9.0) Ur Specific [place] 1.027 (1.001-1.035) Urine Protein Negative (Negative) mg/dL Urine Glucose (UA) 3+ H (Negative) mg/dL Urine Ketones Negative (Negative) mg/dL Ur Blood (Man) Negative (Negative) Urine Nitrate Negative (Negative) Urine Bilirubin Negative (Negative) Urine Urobilinogen 0.2 (<2.0) mg/dL Leukocyte Esterase Rfl Negative (Negative) ALEX/UL <Carmina Page MD - Last Filed: 04/07/25 08:05> Imaging Data Radiologist's impression: ITS Impressions Abdomen/Pelvis CT 04/07/25 07:21 IMPRESSION: 1. Small bowel obstruction. 2. No other acute abnormality identified. Abdomen X-Ray 04/07/25 14:48 Impression: 1. Nasogastric tube in appropriate location <Jose Hall MD - Last Filed: 04/07/25 20:56> ITS Impressions Abdomen/Pelvis CT 04/07/25 07:21 IMPRESSION: 1. Small bowel obstruction. 2. No other acute abnormality identified. Abdomen X-Ray 04/07/25 14:48 Impression: 1. Nasogastric tube in appropriate location <Carmina Page MD - Last Filed: 04/07/25 08:05> Discharge Plan Discharge Clinical Impression: SBO (small bowel obstruction) <Jose Hall MD - Last Filed: 04/07/25 20:56> Patient Disposition: Still a Patient <Jose Hall MD - Last Filed: 04/07/25 20:56> Condition: Stable <Jose Hall MD - Last Filed: 04/07/25 20:56>
--- OUTSIDE RECORDS SUMMARY | 2025-04-07 05:25 | XMS_ITS | Encounter Summary ---
Author Organization [facility] Healthcare Address [address] [place] [address] Care Team Providers Care Director Corporate Name Role Phone Johnny Rodríguez MD Unavailable [phone] [facility] Primary Care Provider [phone] No, Physician Primary Care Provider [phone] Tim Desai MD Primary Care Provider [phone] Encounter Details Date Type Department Care Team (Late st Contact Info) Description 12/25/2020 Telephone [facility] - Imaging [address] [place] [address] Transcribed Order, Provider Social History Tobacco Use Types Packs/Day Years Used Date Smoking Tobacco: Former Cigarettes 1 40 0 09/01/1979 - 09/01/2019 Smokeless Tobacco: Never Alcohol Use Standard Drinks/Week Comments Not Currently 0 (1 standard drink = 0.6 oz pur e alcohol) Sex and Gender Information Value Date Recorded Sex Assigned at Not on file 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 [address] [place] [address] PCP - General 12/18/20 06/22/22 No, Physician PCP - General 06/23/22 05/24/24 Tim Desai MD [address] [place] [address] PCP - General Family Practice 05/25/24 Johnny Rodríguez MD Consulting Physician Urology 10/02/19 documented as of this encounter
--- OUTSIDE RECORDS SUMMARY | 2025-04-07 05:25 | XMS_ITS | Encounter Summary ---
Author Organization [facility] Healthcare Address [address] [place] [address] Care Team Providers Care Jawbone Puller Name Role Phone Johnny Rodríguez MD Unavailable [phone] Miscellaneous, Not In File Primary Care Provider Unavailable [facility] Primary Care Provider [phone] No, Physician Primary Care Provider [phone] Tim Desai MD Primary Care Provider [phone] Encounter Details Date Type Department Care Team (Late st Contact Info) Description 09/05/2020 Telephone [facility] - Imaging [address] [place] [address] Transcribed Order, Provider Social History Tobacco Use Types Packs/Day Years Used Date Smoking Tobacco: Former Cigarettes 1 40 0 09/01/1979 - 09/01/2019 Smokeless Tobacco: Never Alcohol Use Standard Drinks/Week Comments Not Currently 0 (1 standard drink = 0.6 oz pur e alcohol) Sex and Gender Information Value Date Recorded Sex Assigned at Not on file 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 Gender Identity Not on file Sexual Orientation Not on file documented as of this encounter Plan of Treatment Not on file documented as of this encounter Visit Diagnoses Not on filedocumented in this encounter Care Teams Jawbone Puller Relationship Specialty Start Date End Date Miscellaneous, Not In File PCP - General 12/19/19 1 [facility] [address] [place] [address] PCP - General 12/18/20 06/22/22 No, Physician PCP - General 06/23/22 05/24/24 Tim Desai MD [address] [place] [address] PCP - General Family Practice 05/25/24 Johnny Rodríguez MD Consulting Physician Urology 10/02/19 documented as of this encounter
--- OUTSIDE RECORDS SUMMARY | 2025-04-07 05:25 | XMS_ITS | Encounter Summary ---
Author Organization [facility] Healthcare Address [address] [place] [address] Care Team Providers Care Warehouse Traffic Supervisor Name Role Phone Johnny Rodríguez MD Unavailable [phone] Miscellaneous, Not In File Primary Care Provider Unavailable [facility] Primary Care Provider [phone] No, Physician Primary Care Provider [phone] Tim Desai MD Primary Care Provider [phone] Encounter Details Date Type Department Care Team (Late st Contact Info) Description 06/21/2020 Telephone [facility] - Imaging [address] [place] [address] Transcribed Order, Provider Social History Tobacco Use Types Packs/Day Years Used Date Smoking Tobacco: Former Cigarettes 1 40 0 09/01/1979 - 09/01/2019 Smokeless Tobacco: Never Alcohol Use Standard Drinks/Week Comments Not Currently 0 (1 standard drink = 0.6 oz pur e alcohol) Sex and Gender Information Value Date Recorded Sex Assigned at Not on file 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 Gender Identity Not on file Sexual Orientation Not on file documented as of this encounter Plan of Treatment Not on file documented as of this encounter Visit Diagnoses Not on filedocumented in this encounter Care Teams Warehouse Traffic Supervisor Relationship Specialty Start Date End Date Miscellaneous, Not In File PCP - General 12/19/19 1 [facility] [address] [place] [address] PCP - General 12/18/20 06/22/22 No, Physician PCP - General 06/23/22 05/24/24 Tim Desai MD [address] [place] [address] PCP - General Family Practice 05/25/24 Johnny Rodríguez MD Consulting Physician Urology 10/02/19 documented as of this encounter
--- OUTSIDE RECORDS SUMMARY | 2025-04-07 05:25 | XMS_ITS | Encounter Summary ---
Author Organization [facility] Address [facility] [place] [address] Care Team Providers Care Police Chief Name Role Phone Lloyd Oconnor MD Primary Care Provider [phone] Encounter Details Date Type Department Care Team (Late st Contact Info) Description 11/20/2020 Prep for Procedure [facility]-Ad[facility] Testing [address] [address] Isidro Akins MD [address] [place] [id number] Social History Tobacco Use Types Packs/Day [...] documented as of this encounter Care Teams Police Chief Relationship Specialty Start Date End Date Lloyd Oconnor MD [address] [place] [address] PCP - General INTERNAL MEDICINE 09/19/20 documented as of this encounter
--- OUTSIDE RECORDS SUMMARY | 2025-04-07 05:25 | XMS_ITS | Clinical Summary ---
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 Gender Identity Not on file Sexual Orientation Not on file Obstetrics History Last Filed Vital Signs Vital Sign Reading Time Taken Comments Blood Pressure 138/80 05/25/2024 2:51 PM SKATES OPERATOR Pulse 82 05/25/2024 2:51 PM SKATES OPERATOR Temperature 36.9 C (98.4 F) 12/22/2019 5:35 AM CDT Respiratory Rate 14 12/22/2019 5:35 AM CDT Oxygen Saturation 97% 05/25/2024 2:51 PM SKATES OPERATOR Inhaled Oxygen Concentration - - Weight 85.3 kg (188 lb) 07/08/2024 3:19 PM SKATES OPERATOR Height 172.7 cm (5' 8) 07/08/2024 3:19 PM SKATES OPERATOR Body Mass Index 28.59 07/08/2024 3:19 PM SKATES OPERATOR Plan of Treatment Health Maintenance Due Date [...] 03/17/2017, 01/03/2005 Medical Devices Implanted Type Area Oiler Helper Device Identifier Shelf Expiration Date Model / Serial / Lot [employer] 180-223 Contour 6fr 26cm Large Inner Lumen Low Profile Bladder Jp Taper Latex Free - Sn/A - [id number] Implanted:Qty: 1 on 09/26/2019 by Johnny Rodríguez MD at [facility] Stent Right: Ureter [employer] 05/21/2022 180-223 / N/A / [id number] [employer] 180-223 Contour 6fr 26cm Large Inner Lumen Low Profile Bladder Jp Taper Latex Free - [id number] Implanted:Qty: 1 on 09/29/2019 by Edison Salvador MD at [facility] Stent Right: Ureter [employer] 07/16/2022 180-223 / / [id number] Screws Left: Knee Procedures Procedure Name Priority Date/Time Associated Diagnosis Comments LIPID PANEL Routine 04/11/2024 11:05 AM CDT EGFR Routine 12/22/2019 1:41 AM CDT HEMOGLOBIN A1C Routine 12/07/2019 1:07 PM CDT Pre-op evaluation DIABETIC EYE EXAM Routine 08/09/2017 from Last 3 Months or Most Recently Relevant to Health Maintenance Results * Lipid panel (04/11/2024 11:05 AM CDT) Blood [facility] Provider LAB BLOOD ORDERABLES Dorie l Result * eGFR (12/22/2019 1:41 AM CDT) eGFR 65 mL/min/1.7 3 m2 [facility] Comment: Interpretive Data Reference Interval Normal >/= 90 mL/min/1.73m2 Mildly decreased* 60 - 89 mL/min/1.73m2 Mildly to moderately decreased 45 - 59 mL/min/1.73m2 Moderately to severely decreased 30 - 44 mL/min/1.73m2 Severely decreased 15 - 29 mL/min/1.73m2 Kidney Failure < 15 mL/min/1.73m2 *Relative to young adult level If -Estonian multiply value by 1.16. Estimated glomerular filtration [...] Rodríguez MD LAB BLOOD ORDERABLES Final Result [facility] [address] [place] [address] * (ABNORMAL) Hemoglobin A1c (12/07/2019 1:07 PM CDT) Hgb A1C 9.0(H) 4.0 - 5.6 % [facility] Estimated Average Glucose 212 mg/dL [facility] Comment: The ADA recommends reporting an estimated Average Glucose (eAG) with all Hemoglobin A1c results using the equation derived from a study of 507 normal and diabetic adults. Minority populations were underrepresented and children were not included. (Diabetes Care 31:2736-0526, 2008). The eAG is not equivalent to a fasting glucose. Blood specimen (specimen) 12/07/2019 1:07 PM CDT 12/07/2019 1:31 PM CDT Divya Lim NP LAB BLOOD ORDERABLES Fin al Result [facility] [address] [place] [address] * Diabetic Eye Exam (08/09/2017) Historical Provider HEALTH MAINTENANCE Edited Result - Final from Last 3 Months or Most Recently Relevant to Health Maintenance Insurance MEDICARE [facility] [employer] IP LIFE MEDICARE [facility] MEDICARE [facility] Advance Directives For more information, please contact: [phone] * Full Code (Latest Code Status on File) Date Activated Date Inactivated Comments 12/19/2019 7:33 PM 12/22/2019 3:41 PM * Full Code Date Activated Date Inactivated Comments 09/21/2019 5:40 PM 10/02/2019 4:10 PM * Full Code Date Activated Date Inactivated Comments 09/01/2019 9:09 PM 09/03/2019 5:49 PM Care Teams Furniture Refinisher Relationship Specialty Start Date End Date Tim Desai MD [address] [place] [address] PCP - General Family Practice 05/25/24 Johnny Rodríguez MD Consulting Physician Urology 10/02/19
--- OUTSIDE RECORDS SUMMARY | 2025-04-07 05:25 | XMS_ITS | Clinical Summary ---
Author Organization [facility] Address [address] [place] [address] Phone Care Team Providers Care Beverage Distiller Name Role Phone Oconnor Lloyd Primary Care Provider [phone] Allergies Active Allergy Reactions Criticality Noted Date [...] Influenza Vaccine (#1) 2025 03/15/2020 Insurance MEDICARE [facility] Care Teams Beverage Distiller Relationship Specialty Start Date End Date Lloyd Oconnor PCP - General Family Medicine 10/03/20
--- OUTSIDE RECORDS SUMMARY | 2025-04-07 05:25 | XMS_ITS | Clinical Summary ---
Author Organization [facility] Address [address] [place] [address] Care Team Providers Care Solidworks Designer Name Role Phone Lloyd Oconnor MD Primary Care Provider [phone] Allergies Active Allergy Reactions Criticality Noted Date Comments Cefuroxime Swelling Medium 06/08/2020 Swelling of lips and tongue Swelling of lips and tongue Lisinopril Swelling Medium 06/08/2020 Swelling of lips and tongue Swelling of lips and tongue Tape Itching,Rash Medium 08/09/2019 Medications clopidogrel 75 MG tablet Take 1 tablet by mouth nightly. Will hold 5 days prior to surgery- per temporary administrative assistant note 0 Active aspirin EC (ASPIRIN EC) 81 MG tablet Take 81 mg by mouth nightly. Keep taking as normal per temporary administrative assistant note (do not hold for surgery) Active [...] Boyd RN Medical Devices Implanted Type Area Flask Cleaner Device Identifier Shelf Expiration Date Model / Serial / Lot Mesh Surgical Ventralight St Sepra Echo Ps 6x4in Monofilament Absorbable Low Profile Sterile Seprafilm Polypropylene Hydrogel Ellipse Latex Free Ventral Hernia Repair - [id number] Implanted:Qty: 1 on 11/27/2020 by Isidro Akins MD at [facility] N/A: Abdomen [employer] [id number] 06/10/2022 [id number] / / [id number] Insurance Advance Directives * Full Code (Latest Code Status on File) Date Activated Date Inactivated Comments 11/27/2020 2:24 PM 11/30/2020 2:48 PM Care Teams Solidworks Designer Relationship Specialty Start Date End Date Lloyd Oconnor MD [address] [place] [address] PCP - General INTERNAL MEDICINE 09/19/20
--- OUTSIDE RECORDS SUMMARY | 2025-04-07 05:25 | XMS_ITS | Encounter Summary ---
Author Organization [facility] Address [address] [place] [address] Care Team Providers Care Weed Thinner Name Role Phone Johnny Rodríguez MD Unavailable [phone] Tim Desai MD Primary Care Provider [phone] Reason for Referral * MRI/CAT/PET Scan (Routine) - Closed Specialty Diagnoses / Procedures Referred By Contac t Referred To Contact Radiology Diagnoses Malignant neoplasm of right kidney, except renal pelvis Procedures MRI Abdomen W WO Contrast Johnny Rodríguez MD Phone: tel: fax: [address] [address] Referral ID Status Reason Start Date Expiration Date Visits Re quested Visits Authorized [id number] Closed 06/02/2024 07/02/2025 1 1 ER HELPER Encounter Details Date Type Department Care Team (Late st Contact Info) Description 06/02/2024 Community Orders [facility] EpicCare Link Johnny Rodrí[place] [address] [place] [address] Malignant neoplasm of right kidney, except renal [...] on file Legal Sex Male 11:09 AM BREWER HELPER Gender Identity Not on file Sexual Orientation Not on file documented as of this encounter Plan of Treatment Not on file documented as of this encounter Results * MRI Abdomen W WO Contrast (07/08/2024 4:02 PM BREWER HELPER) Anatomical Region Laterality Modality Body N/A Magnetic Resonan ce 07/10/2024 10:5 9 AM BREWER HELPER Impressions 07/10/2024 2:52 PM BREWER HELPER No evidence of disease recurrence. Dictated by: Bryan Jeter MD The radiology attending physician has personally reviewed this study, and had reviewed and/or edited this written report and agrees with it. Electronically signed by: Jordana Paz M.D. Narrative 07/10/2024 2:52 PM BREWER HELPER EXAMINATION: MAGNETIC RESONANCE IMAGING OF THE ABDOMEN [...] pelvis documented in this encounter Care Teams Weed Thinner Relationship Specialty Start Date End Date Tim Desai MD [address] [place] [address] PCP - General Family Practice 05/25/24 Johnny Rodríguez MD Consulting Physician Urology 10/02/19 documented as of this encounter
--- OUTSIDE RECORDS SUMMARY | 2025-04-07 05:26 | XMS_ITS | Clinical Summary ---
Author Organization [facility] Address [address] [place] [address] Care Team Providers Care Accounting Coordinator Name Role Phone Unavailable Primary Care Provider Unavailabl e Allergies Active Allergy Reactions Criticality Noted Date Comments Cefuroxime Rash,Swelling Medium 04/09/2011 Swelling of lips and tongue Swelling of lips and tongue Swelling of lips and tongue Lisinopril Swelling Medium 06/08/2020 Swelling of lips and tongue Swelling of lips and tongue Swelling of lips and tongue Reaction(s): Unknown; Note: [id number] NLD Medications clopidogreL (PLAVIX) 75 mg Tablet [...] Department Care Team Description 03/29/2025 Orders Only [facility] Oncology and Hematology [facility] [address] [place] [address] Edvin Schafer MD 03/28/2025 11:45 AM CDT Office Visit [facility] Oncology and Hematology [facility] [address] [place] [address] Edvin Schafer MD Polycythemia, secondary (Primary Dx) 03/28/2025 Orders Only [facility] Oncology and Hematology [facility] [address] [place] [address] Edvin Schafer MD Polycythemia, secondary (Primary Dx) [...] on file Legal Sex Male 3:51 PM FUR TAILOR Gender Identity Not on file Sexual Orientation [...] st Contact Info) Description 08/01/2025 1:15 PM FUR TAILOR Office Visit [facility] Oncology and Hematology - [place] [address] [facility] [address] [place] [address] Edvin Schafer MD [address] [facility] [address] [place] [address] Health Maintenance Due Date Last [...] Months Insurance MEDICARE PART A AND B [employer]
[2025-04-07 05:36] LABS: Add Urine Microscopic? NO; Appearance Urine Clear (Clear); Glucose Urine UA 3+ mg/dL (Negative); Leukocyte Esterase Ur Negative LEU/UL (Negative); Nitrate Urine Negative (Negative); Specific Grav Ur 1.027 (1.001-1.035)
[2025-04-07 05:37] LABS: Hematocrit 56.3 % (42.0-52.0); Hemoglobin 18.0 g/dL (14.0-18.0); Immature Granulocyte Percent A 0.4 % (0-0.5); Lymphocytes Absolute Auto 1.25 K/mm3 (0.9-3.2); Mean Corpuscular HGB Conc 32.0 g/dl (32-36); Mean Corpuscular Hemoglobin 27.6 pg (26-34); Mean Corpuscular Volume 86.2 fl (80-100); Nucleated Red Blood Cells Absolute Auto 0.000 K/mm3 (0.0-0.012); Nucleated Red Blood Cells Perc 0.0 % (0.0-0.2); Platelet Count Result 177 k/mm3 (150-375); Red Blood Count 6.53 M/mm3 (4.6-6.20); White Blood Count 7.5 K/mm3 (4.5-10.0)
[2025-04-07] MEDS: DICYCLOMINE HCL 10 MG CAPSULE 20 MG PO (05:37)
[2025-04-07 05:39] VITALS: BP 172/85; PULSE 59; RESP 17; O2SAT 99
--- NOTE | 2025-04-07 05:39 | PC.NURSE ---
Patient calls this RN into room and states my pain has increased and now more constant. I have become sweaty. ERP notified, no new orders at this time. Patient tolerated PO bentyl.
[2025-04-07 05:58] LABS: Alanine Aminotransferase 24 U/L (6-50); Albumin Level 4.7 g/dL (3.5-5.1); Alkaline Phosphatase 99 U/L (38-126); Anion Gap 10 mmol/L (4-12); Aspartate Amino Transferase 41 U/L (17-59); Bilirubin,Total 0.8 mg/dL (0.2-1.3); Blood Urea Nitrogen 30 mg/dL (9-20); Calcium 9.5 mg/dL (8.4-10.2); Carbon Dioxide 30 mmol/L (22-30); Chloride 99 mmol/L (98-107); Estimated CRCL calculation 36 ml/min; Estimated Glomerular Filt Rate 40; Glucose 206 mg/dL (65-110); Lipase 195 U/L (23-300); Potassium 4.2 mmol/L (3.4-5.0); Sodium 139 mmol/L (137-145); Total Protein 7.9 g/dL (6.3-8.2)
[2025-04-07] MEDS: ONDANSETRON INJ 4 MG/2 ML VIAL IV PUSH (06:06)
[2025-04-07] MEDS: MORPHINE SULFATE (*CRX) 4 MG/ML INJ IV PUSH (06:07)
[2025-04-07 06:39] VITALS: BP 116/70; PULSE 58; RESP 16; O2SAT 95
--- NOTE | 2025-04-07 08:16 | P.HP_ITS ---
H&P: HPI History of Present Illness Date/Time: 04/07/25 08:16 Chief Complaint: Abdominal pain, vomiting Narrative: 70-year-old male with history of CAD, GERD, hyperlipidemia, hypertension, diabetes, renal cancer status post nephrectomy, CKD, who presents to the ED for lower abdominal pain. He reports feeling well recently. Had a BM yesterday. Noticed mild abdominal cramping yesterday afternoon. Subsequently cramps worsened and he presented to the ED. Had 1 episode of emesis this morning In the ED, he was afebrile. HR 58-99, BP 116/70-172/85, 99% RA. WBC 7.5, H&H 18/56, BUN 30, Creatinine1.7, Blood sugars elevated, 118-228. 04/07 CT abd/pelvis showed a small bowel obstruction. No fevers, weight loss, or recent bowel changes. Last colonoscopy was 15 years ago and reportedly normal. Also had a negative Cologuard this year. Not nauseated currently. Pain significantly improved with morphine. SBO SBO noted on CT Surgery consulted, appreciate recommendations NPO CKD Baseline creatinine 1.6-2.1 hx RCC s/p right nephrectomy Follows with Dr. Azul outpatient Creatinine 1.7 on admission --Follow BMP --Avoid nephrotoxins Acute pain Morphine Nausea/vomiting Zofran prn Treatment of SBO as noted Diabetes Home meds: Jardiance 25mg daily, Lantus 16 units daily, Lispro 16 units TID with meals --Lantus 8 units BID, hold if blood sugars <110 --Dextrose fluids if needed --SSI --Resume mealtime insulin when eating CAD Home meds: Plavix, aspirin, HLD Hx stent in 2001, angioplasty in 2004 at [facility]. Follows with Dr. Keith outpatient hx [place], prior left heart cath Change metoprolol to IR or IV if unable to take PO Secondary polycythemia Home meds:Plavix & aspirin Likely second to mild COPD --Hold plavix pending surgery plans --Continue ASA daily COPD Former smoker Fomer smoker, quit in 2019 Albuterol prn DVT prophylaxis: Heparin subq, SCD's Diet: NPO Review of Systems Review of Systems: 12 point review of symptoms reviewed and negative except as noted in the HPI [facility] Past Medical History Medical History COVID-19 10/2021 Type 2 diabetes mellitus Hypertension Hyperlipidemia Trigger finger Shoulder symptoms with history of shoulder arthroplasty Hearing loss Heart disease Hx of migraines Renal cell carcinoma History of left heart catheterization Peptic ulcer disease GERD (gastroesophageal reflux disease) Myocardial infarction History of coronary artery disease Surgical History Surgical History S/P MCL repair History of total right knee replacement (TKR) H/O right nephrectomy H/O angioplasty Family History Family History Other Alcoholism Diabetes mellitus Family history of cardiovascular disease Heart disease Social History Social History Social History: 40-year smoking history. Smoking packs per day: 1 Smoking cigarettes per day: 20.0 Years smoked: 45 Smoking pack-years: 45.00 Smoking status: Former smoker Second hand tobacco smoke exposure: Yes Alcohol intake: current Drinks per week: 1 Alcohol use details: rarely Substance use: never Do You Feel Safe in your Home?: Yes Lack of Transportation: No Lack of Food: Never True Current Housing: I Have Housing Concerned About Future Housing: No Difficulty Paying Gas/Electric Bills: No Difficulty Paying for Meds: No Currently Unemployed: No Education: Bachelor's Degree Difficulty w/ Childcare or Family Care: No Living arrangements: with family Occupation/Education: retired Gender identity (if verbalized by the patient): Male Spiritual care concerns: No Meds Home Medications and Allergies Home Medications ?Medication ?Instructions ?Recorded ?Confirmed ?Type aspirin 81 mg chewable tablet 81 mg PO DAILY 10/03/20 04/07/25 History clopidogrel 75 mg tablet (Plavix) 75 mg PO DAILY 10/0304/07/25 History clobetasol 0.05 % topical foam 1 applic topical DAILY PRN rash 12/18/21 04/07/25 History triamcinolone acetonide 0.025 % 1 applic topical DAILY PRN rash 12/18/21 04/07/25 History topical cream mv-min-vit C 1,000 1 ea PO DAILY 09/30/2204/07 History ol-jknhcwynl-iadyxl-herb 124 50 mg efferves tablet (Airborne) blood-glucose sensor (2Win-Solutionsyle #6 ea 05/10/2304/07/ 5 Rx Jeannette 3 Sensor device) glucagon 3 mg/actuation nasal 3 mg intranasal ONCE PRN 02/02/24 04/07/25 Rx spray (Baqsimi) hypoglycemia #1 ea glucose 4 gram chewable tablet 16 g (4 x 4 gram) PO Q1 5M PRN 02/02/24 04/07/25 Rx (Dex4 Glucose) hypoglycemia #60 tabs metoprolol succinate 25 mg 25 mg PO DAILY #90 tabs 04/07/25 Rx tablet,extended release 24 hr pen needle, diabetic 32 gauge x #400 ea 08/11/2404/07 Rx (BD Ultra-Fine Katarzyna Pen Needle) fenofibrate 54 mg tablet 54 mg PO DAILY 90 days #90 t abs 10/03/24 04/07/25 Rx albuterol sulfate 90 mcg/actuation 1 inh inhalation Q4 H PRN shortness 10/09/24 04/07/25 Rx aerosol inhaler (Ventolin HFA) of breath or wheezing # 8.5 grams insulin glargine 100 unit/mL (3 18 unit (0.18 mL) subc ut QAM 90 11/15/24 04/07/25 Rx mL) subcutaneous pen (Lant days #18 mL Solostar U-100 Insulin) empagliflozin 25 mg tablet 25 mg PO DAILY 90 days #90 tabs 11/20/24 04/07/25 Rx (Jardiance) insulin lispro 100 unit/mL See Rx Instructions subcut 01/10/25 04/07/25 Rx subcutaneous pen (Humalog KwikPen USEASDIRECTD 3 month s #72 mL (U-100) Insulin) montelukast 10 mg tablet 10 mg PO DAILY #90 tabs 12/1404/07/25 Rx (Singulair) pravastatin 80 mg tablet 80 mg PO DAILY #90 tabs 02/1204/07/25 Rx pen needle, diabetic 32 gauge x #400 ea 03/02/2504/07 Rx (Katarzyna Pen Needle) cetirizine 10 mg tablet (Zyrtec) 10 mg PO DAILY #90 ta bs 03/12/25 04/07/25 Rx metformin 500 mg tablet 500 mg PO DAILY 90 days #90 tabs 03/12/25 04/07/25 Rx Allergies Allergy/AdvReac Type Severity Reaction Status Date / Time adhesive tape AdvReac Severe Itching Verified 04/07/25 04:31 cefuroxime AdvReac Unknown Swelling Verified 04/07/25 04:31 lisinopril AdvReac Unknown Swelling Verified 04/07/25 04:31 Vital Signs Vital Signs - 24 hr 04/07/25 04:26 04/07/25 05:39 04/07/25 06:39 Temperature 97.6 F Pulse Rate 60 59 L 58 L Respiratory Rate 17 17 16 Blood Pressure 169/91 H 172/85 H 116/70 Pulse Oximetry 100 99 95 Oxygen Delivery Room Air H&P: Results Labs Labs: Short CBC 04/07/25 Range/Units 05:27 WBC 7.5 (4.5-10.0) K/mm3 Hgb 18.0 (14.0-18.0) g/dL Hct 56.3 H (42.0-52.0) % Plt Count 177 (150-375) k/mm3 BMP 04/07/25 05:27 Sodium 139 Potassium 4.2 Chloride 99 Carbon Dioxide 30 BUN 30 H Creatinine 1.70 H Glucose 206 H Calcium 9.5 Liver Function 04/07/25 Range/Units 05:27 Total Bilirubin 0.8 (0.2-1.3) mg/dL AST 41 (17-59) U/L ALT 24 (6-50) U/L Alkaline Phosphatase 99 (38-126) U/L Albumin 4.7 (3.5-5.1) g/dL Urine 04/07/25 Range/Units 05:28 Urine Color Yellow (Yellow) Urine Appearance Clear (Clear) Urine pH 7.0 (5.0-9.0) Ur Specific [place] 1.027 (1.001-1.035) Urine Protein Negative (Negative) mg/dL Urine Glucose (UA) 3+ H (Negative) mg/dL Assessment and Plan Assessment and plan (1) Hypertension: Code(s): I10 - Essential (primary) hypertension Status: Acute (2) Type 2 diabetes mellitus: Code(s): E11.9 - Type 2 diabetes mellitus without complications Status: Acute (3) SBO (small bowel obstruction): Code(s): K56.609 - Unspecified intestinal obstruction, unspecified as to partial versus complete obstruction Status: Acute (4) History of coronary artery disease: Code(s): Z86.79 - Personal history of other diseases of the circulatory system Status: Acute (5) Polycythemia: Code(s): D75.1 - Secondary polycythemia Status: Acute (6) Chronic kidney disease, stage 3b: Code(s): N18.32 - Chronic kidney disease, stage 3b Status: Acute Quality VTE Prophylaxis VTE prophylaxis: pharmacologic ordered Hospitalist MIPS Advance Care Plan I have confirmed that the patient's Advanced Care Plan is present, code status is documented, or surrogate decision maker is listed in patient medical record.: Yes Medication Reconciliation I have utilized all available resources to obtain, update and review the patients current medications (includes all prescriptions, OTC, herbals, cannabis, and nutritional supplements).: Yes
[2025-04-07 09:12] VITALS: BMI 29.7
--- NOTE | 2025-04-07 09:12 | ADMGEN ---
This patient, Bautista Ortiz, was admitted to Medical Room 242-01. Patient/family oriented to hospital policies and general routines including ID bracelet, bed and alarms, visiting hours, pain management, procedures, bathroom and other care routines, personal items, smoking policy, room service/diet, and visiting hours. Information on how to activate the Rapid Response Team has been discussed. Patient/Family are encouraged to report perceived risks to care and to ask questions if they do not understand what they are told or what they should do.
[2025-04-07 09:19] VITALS: BP 137/76; PULSE 60; RESP 18; TEMP 36.6; O2SAT 97
[2025-04-07] MEDS: MORPHINE SULFATE (*CRX) 4 MG/ML INJ 2 MG IV PUSH ×3 (11:18→21:20)
[2025-04-07] MEDS: INSULIN GLARGINE (*BKC) 100 UNITS/ML 8 UNITS SUB-Q (11:19)
--- NOTE | 2025-04-07 12:16 | PM.CNGS ---
Assessment and Plan Assessment and plan (1) SBO (small bowel obstruction): Code(s): K56.609 - Unspecified intestinal obstruction, unspecified as to partial versus complete obstruction <Lance Coy DO - Last Filed: 04/07/25 12:25> Status: Acute <Lanceeddie Coy DO - Last Filed: 04/07/25 12:25> Assessment and Plan: - Admitted to hospitalist - IVF - NPO - NGT to LIWS - Monitor for ROBF - Repeat KUB tomorrow am - Will consider SBFT after decompression - No emergent surgical intervention - Remainder of cares per primary team - Surgery will follow <Lance Coy DO - Last Filed: 04/07/25 12:25> Assessment and Plan: I reviewed the CT and discussed findings with patient. He has evidence of a bowel obstruction likely related to adhesions from prior surgeries. NG tube will be placed and will continue bowel rest. Possible SBFT in the next day or so to assess for any area of persistent obstruction. <Sven Lam, DO - Last Filed: 04/09/25 14:03> History of Present Illness Consult details Consult date: 04/07/25 <Lance Coy DO - Last Filed: 04/07/25 12:25> 04/07/25 <Sven Lam, DO - Last Filed: 04/09/25 14:03> Reason for consult: other (SBO) <Sven Lam DO - Last Filed: 04/09/25 14:03> Requesting physician: Jose Hall MD <Sven Lam DO - Last Filed: 04/09/25 14:03> Narrative: Patient is a 70-year-old male with past medical history of CAD, GERD, renal cancer s/p right nephrectomy, HLD, HTN, insulin-dependent diabetes mellitus, CKD who presented to the hospital complaining abdominal pain that started last night. The patient reports he initially started noticing a crampy abdominal pain in the mid abdomen is. He reports this has gotten worse over the last several hours. He also endorses nausea, vomiting, abdominal distention. Denies fevers, chills, chest pain, shortness of breath. His past surgical history significant for a right partial nephrectomy followed by a completion right nephrectomy in 2019, he developed an incisional hernia and had an incisional hernia repair in [address] Akins. He reports his last bowel movement was yesterday afternoon. He has not passed flatus since then. He has never had anything like this before. The patient presented to the ED given these complaints. The patient had a CT abdomen and pelvis which did reveal dilated proximal bowel with decompressed distal bowel and a possible transition point within the mid at consistent with small-bowel obstruction. On exam, his abdomen is soft, TTP in overlying his incision, he is mildly distended, his abdomen is non peritoneal. Labs are grossly WNL with the exception a creatinine at 1.70, this does appear to be near his baseline on chart review. Vital signs are stable and he is afebrile. <Lance Coy, DO - Last Filed: 04/07/25 12:25> Review of Systems Review of Systems: 12 point ROS negative except HPI <Lance Coy DO - Last Filed: 04/07/25 12:25> All systems reviewed & are unremarkable except as noted in HPI and below <Sven Lam, DO - Last Filed: 04/09/25 14:03> Eyes: Eyes: Denies change in vision <Sven Lam DO - Last Filed: 04/09/25 14:03> ENT: Denies hearing loss, Denies neck pain and Denies sore throat <Sven Lam DO - Last Filed: 04/09/25 14:03> Cardiovascular: Cardiovascular: Denies chest pain and Denies dyspnea <Sven Lam DO - Last Filed: 04/09/25 14:03> Respiratory: Respiratory: Denies cough, Denies dyspnea and Denies wheezing <Sven Lam DO - Last Filed: 04/09/25 14:03> Gastrointestinal: Gastrointestinal: Reports as per HPI <vSen Lam DO - Last Filed: 04/09/25 14:03> Genitourinary: Genitourinary: Denies hematuria and Denies dysuria <Sven Lam DO - Last Filed: 04/09/25 14:03> Musculoskeletal: Musculoskeletal: Denies arthralgias, Denies joint swelling and Denies neck pain <Sven Lam, DO - Last Filed: 04/09/25 14:03> Allergic/Immunologic: Allergic/Immunologic: Denies wheezing <Sven Lam, DO - Last Filed: 04/09/25 14:03> [facility] Past Medical History Medical History: Medical History COVID-19 10/2021 Type 2 diabetes mellitus Hypertension Hyperlipidemia Trigger finger Shoulder symptoms with history of shoulder arthroplasty Hearing loss Heart disease Hx of migraines Renal cell carcinoma History of left heart catheterization Peptic ulcer disease GERD (gastroesophageal reflux disease) Myocardial infarction History of coronary artery disease <Lance Coy, DO - Last Filed: 04/07/25 12:25> Surgical History Surgical History: Surgical History S/P MCL repair History of total right knee replacement (TKR) H/O right nephrectomy H/O angioplasty <Lance Coy, DO - Last Filed: 04/07/25 12:25> Family History Family History: Family History Other Alcoholism Diabetes mellitus Family history of cardiovascular disease Heart disease <Lance Coy DO - Last Filed: 04/07/25 12:25> Social History Social History: Social History Social History: 40-year smoking history. Smoking packs per day: 1 Smoking cigarettes per day: 20.0 Years smoked: 45 Smoking pack-years: 45.00 Smoking status: Former smoker Second hand tobacco smoke exposure: Yes Alcohol intake: current Drinks per week: 1 Alcohol use details: rarely Substance use: never Do You Feel Safe in your Home?: Yes Lack of Transportation: No Lack of Food: Never True Current Housing: I Have Housing Concerned About Future Housing: No Difficulty Paying Gas/Electric Bills: No Difficulty Paying for Meds: No Currently Unemployed: No Education: Bachelor's Degree Difficulty w/ Childcare or Family Care: No Living arrangements: with family Occupation/Education: retired Gender identity (if verbalized by the patient): Male Spiritual care concerns: No <Lance Coy DO - Last Filed: 04/07/25 12:25> Meds Home Medications and Allergies Home medications: Home Medications ?Medication ?Instructions ?Recorded ?Confirmed ?Type aspirin 81 mg chewable tablet 81 mg PO DAILY 10/03/20 04/07/25 History clopidogrel 75 mg tablet (Plavix) 75 mg PO DAILY 10/03/20 04/07/25 History clobetasol 0.05 % topical foam 1 applic topical DAILY PRN rash 12/18/21 04/07/25 History triamcinolone acetonide 0.025 % 1 applic topical DAILY PRN rash 12/18/21 04/07/25 History topical cream mv-min-vit C 1,000 1 ea PO DAILY 09/30/22 04/07/25 History [id number] 124 50 mg efferves tablet (Airborne) blood-glucose sensor (FreeStyle #6 ea 05/10/23 04/07/25 Rx Jeannette 3 Sensor device) glucagon 3 mg/actuation nasal 3 mg intranasal ONCE PRN 02/02/24 04/07/25 Rx spray (Baqsimi) hypoglycemia #1 ea glucose 4 gram chewable tablet 16 g (4 x 4 gram) PO Q15M PRN 02/02/24 04/07/25 Rx (Dex4 Glucose) hypoglycemia #60 tabs metoprolol succinate 25 mg 25 mg PO DAILY #90 tabs 07/31/24 04/07/25 Rx tablet,extended release 24 hr fenofibrate 54 mg tablet 54 mg PO DAILY 90 days #90 tabs 10/03/24 04/07/25 Rx albuterol sulfate 90 mcg/actuation 1 inh inhalation Q4H PRN shortness 10/09/24 04/07/25 Rx aerosol inhaler (Ventolin HFA) of breath or wheezing #8.5 grams insulin glargine 100 unit/mL (3 18 unit (0.18 mL) subcut QAM 90 11/15/24 04/07/25 Rx mL) subcutaneous pen (Lantus days #18 mL Solostar U-100 Insulin) empagliflozin 25 mg tablet 25 mg PO DAILY 90 days #90 tabs 11/20/24 04/07/25 Rx (Jardiance) insulin lispro 100 unit/mL See Rx Instructions subcut 01/10/25 04/07/25 Rx subcutaneous pen (Humalog KwikPen USEASDIRECTD 3 months #72 mL (U-100) Insulin) montelukast 10 mg tablet 10 mg PO DAILY #90 tabs 01/10/25 04/07/25 Rx (Singulair) pravastatin 80 mg tablet 80 mg PO DAILY #90 tabs 02/27/25 04/07/25 Rx pen needle, diabetic 32 gauge x #400 ea 03/02/25 04/07/25 Rx 5/32 (Katarzyna Pen Needle) cetirizine 10 mg tablet (Zyrtec) 10 mg PO DAILY #90 tabs 03/12/25 04/07/25 Rx metformin 500 mg tablet 500 mg PO DAILY 90 days #90 tabs 03/12/25 04/07/25 Rx <Lance Coy DO - Last Filed: 04/07/25 12:25> Allergies/Adverse reactions: Allergies Allergy/AdvReac Type Severity Reaction Status Date / Time adhesive tape AdvReac Severe Itching Verified 04/07/25 04:31 cefuroxime AdvReac Unknown Swelling Verified 04/07/25 04:31 lisinopril AdvReac Unknown Swelling Verified 04/07/25 04:31 <Lance Coy DO - Last Filed: 04/07/25 12:25> Vital Signs Vital Signs - 24 hr 04/07/25 04:26 04/07/25 05:39 04/07/25 06:39 Temperature 97.6 F Pulse Rate 60 59 L 58 L Respiratory Rate 17 17 16 Blood Pressure 169/91 H 172/85 H 116/70 Pulse Oximetry 100 99 95 Oxygen Delivery Room Air 04/07/25 09:19 04/07/25 10:43 Temperature 97.9 F Pulse Rate 60 Respiratory Rate 18 Blood Pressure 137/76 Pulse Oximetry 97 Oxygen Delivery Room Air <Lance Coy, DO - Last Filed: 04/07/25 12:25> Exam Narrative: General: Awake, alert, no acute distress HEENT: NC/AT, mucous membranes pink and moist Neck: No masses or swelling, JVD Heart: Regular rate, intermittently hypertensive, otherwise HDS Lungs: Symmetric expansion, no IWOB, on RA Abdomen: soft, TTP in mid abdomen overlying previous incision, mildly distended, non peritoneal Extremities: Moves all, normal inspection Psych: normal affect, normal mood, normal judgment <Lance E. Coy, DO - Last Filed: 04/07/25 12:25> GI: Inspection: distended <Sven WallisJuan Luis Lam DO - Last Filed: 04/09/25 14:03> GI Palp: Yes Tenderness to palpation present (GI) (mild periumbilical), No Guarding due to palpation present (GI) and No Rebound tenderness present <Sven WallisJuan Luis Lam DO - Last Filed: 04/09/25 14:03> Auscultation: Hypoactive bowel sounds present <Sven WallisJuan Luis Lam DO - Last Filed: 04/09/25 14:03> Results Labs Result diagrams: 04/09/25 04:07 04/09/25 04:07 <Lance Coy, DO - Last Filed: 04/07/25 12:25> Labs: Abnormal lab results 04/07/25 04/07/25 04/07/25 Range/Units 05:27 05:28 11:17 RBC 6.53 H (4.6-6.20) M/mm3 Hct 56.3 H (42.0-52.0) % RDW 14.8 H (11.5-14.5) % Lymph % (Auto) 16.7 L (18.3-44.2) % [place] % (Auto) 8.7 H (2.6-8.5) % [place] # (Auto) 0.7 H (0.1-0.6) K/mm3 BUN 30 H (9-20) mg/dL Creatinine 1.70 H (0.7-1.3) mg/dL Estimated GFR 40 L (59 - ) Glucose 206 H (65-110) mg/dL POC Capillary Glucose 194 H (65-105) mg/dl Urine Glucose (UA) 3+ H (Negative) mg/dL Diabetes panel 04/07/25 Range/Units 05:27 Sodium 139 (137-145) mmol/L Potassium 4.2 (3.4-5.0) mmol/L Chloride 99 (98-107) mmol/L Carbon Dioxide 30 (22-30) mmol/L BUN 30 H (9-20) mg/dL Creatinine 1.70 H (0.7-1.3) mg/dL Glucose 206 H (65-110) mg/dL Calcium 9.5 (8.4-10.2) mg/dL AST 41 (17-59) U/L ALT 24 (6-50) U/L Alkaline Phosphatase 99 (38-126) U/L Total Protein 7.9 (6.3-8.2) g/dL Albumin 4.7 (3.5-5.1) g/dL Calcium panel 04/07/25 Range/Units 05:27 Calcium 9.5 (8.4-10.2) mg/dL Albumin 4.7 (3.5-5.1) g/dL Pituitary panel 04/07/25 Range/Units 05:27 Sodium 139 (137-145) mmol/L Potassium 4.2 (3.4-5.0) mmol/L Chloride 99 (98-107) mmol/L Carbon Dioxide 30 (22-30) mmol/L BUN 30 H (9-20) mg/dL Creatinine 1.70 H (0.7-1.3) mg/dL Glucose 206 H (65-110) mg/dL Calcium 9.5 (8.4-10.2) mg/dL Adrenal panel 04/07/25 Range/Units 05:27 Sodium 139 (137-145) mmol/L Potassium 4.2 (3.4-5.0) mmol/L Chloride 99 (98-107) mmol/L Carbon Dioxide 30 (22-30) mmol/L BUN 30 H (9-20) mg/dL Creatinine 1.70 H (0.7-1.3) mg/dL Glucose 206 H (65-110) mg/dL Calcium 9.5 (8.4-10.2) mg/dL Total Bilirubin 0.8 (0.2-1.3) mg/dL AST 41 (17-59) U/L ALT 24 (6-50) U/L Alkaline Phosphatase 99 (38-126) U/L Total Protein 7.9 (6.3-8.2) g/dL Albumin 4.7 (3.5-5.1) g/dL All other labs normal. <Lance Coy, DO - Last Filed: 04/07/25 12:25> Imaging Additional studies: ITS Impressions Abdomen/Pelvis CT 04/07/25 07:21 IMPRESSION: 1. Small bowel obstruction. 2. No other acute abnormality identified. <Sven Lam, DO - Last Filed: 04/09/25 14:03>
[2025-04-07] MEDS: KCL 20 MEQ/D5/0.45% SOD CHL 1,000 ML 100 ML IV CONT ×2 (12:56→21:21)
[2025-04-07 14:43] VITALS: BP 144/74; PULSE 70; RESP 18; TEMP 36.3; O2SAT 96
[2025-04-07] MEDS: INSULIN ASPART (*BKC) 100 UNITS/ML SUB-Q (17:06)
[2025-04-07] MEDS: METOPROLOL TARTRATE 12.5 MG TABLET PO (20:33)
[2025-04-08] VITALS: BP 165/77; PULSE 69; RESP 18; TEMP 36.7; O2SAT 96
[2025-04-08] MEDS: INSULIN GLARGINE (*BKC) 100 UNITS/ML 8 UNITS SUB-Q ×2 (00:08→12:35)
[2025-04-08 04:46] LABS: Hematocrit 55.3 % (42.0-52.0); Hemoglobin 17.4 g/dL (14.0-18.0); Immature Granulocyte Percent A 0.3 % (0-0.5); Lymphocytes Absolute Auto 1.27 K/mm3 (0.9-3.2); Mean Corpuscular HGB Conc 31.5 g/dl (32-36); Mean Corpuscular Hemoglobin 27.6 pg (26-34); Mean Corpuscular Volume 87.8 fl (80-100); Nucleated Red Blood Cells Absolute Auto 0.000 K/mm3 (0.0-0.012); Nucleated Red Blood Cells Perc 0.0 % (0.0-0.2); Platelet Count Result 163 k/mm3 (150-375); Red Blood Count 6.30 M/mm3 (4.6-6.20); White Blood Count 6.1 K/mm3 (4.5-10.0)
[2025-04-08] MEDS: MORPHINE SULFATE (*CRX) 4 MG/ML INJ 2 MG IV PUSH (04:52)
[2025-04-08 05:03] LABS: Anion Gap 9 mmol/L (4-12); Blood Urea Nitrogen 25 mg/dL (9-20); Calcium 9.0 mg/dL (8.4-10.2); Carbon Dioxide 28 mmol/L (22-30); Chloride 102 mmol/L (98-107); Estimated CRCL calculation 42 ml/min; Estimated Glomerular Filt Rate 49; Glucose 211 mg/dL (65-110); Potassium 4.3 mmol/L (3.4-5.0); Sodium 139 mmol/L (137-145)
[2025-04-08 06:01] VITALS: BP 149/76; PULSE 74; RESP 18; TEMP 36.8; O2SAT 98
[2025-04-08 07:33] VITALS: O2SAT 95
[2025-04-08 08:00] VITALS: BP 127/72; PULSE 75; RESP 12; TEMP 36.9; O2SAT 100
[2025-04-08 08:32] VITALS: PULSE 74
[2025-04-08] MEDS: METOPROLOL TARTRATE 12.5 MG TABLET PO ×2 (08:32→21:12)
[2025-04-08] MEDS: KCL 20 MEQ/D5/0.45% SOD CHL 1,000 ML 100 ML IV CONT ×2 (08:33→21:22)
[2025-04-08] MEDS: INSULIN ASPART (*BKC) 100 UNITS/ML SUB-Q (12:33)
--- NOTE | 2025-04-08 13:05 | PM.PNGS ---
Progress Note: A&P Assessment and Plan (1) SBO (small bowel obstruction): Code(s): K56.609 - Unspecified intestinal obstruction, unspecified as to partial versus complete obstruction Status: Acute Assessment and Plan: - Admitted to hospitalist - IVF - NPO - NGT clamped for SBFT - Monitor for ROBF - SBFT today - No emergent surgical intervention - Remainder of cares per primary team - Surgery will follow A&P discussed with Dr. Lam Subjective Subjective Date/Time Seen: 04/08/25 13:05 Interval history: NAEON. Approximately 700 cc output from NGT over interval. Abdomen softer, pain improving. Passing some flatus, no BM. VSS. KUB this am with improving small bowel dilation. Review of Systems Review of Systems: 12 point ROS negative except HPI Exam Narrative: General: Awake, alert, no acute distress HEENT: NC/AT, mucous membranes pink and moist, NGT in place Neck: No masses or swelling, JVD Heart: Regular rate, intermittently hypertensive, otherwise HDS Lungs: Symmetric expansion, no IWOB, on RA Abdomen: soft, TTP in mid abdomen overlying previous incision, improving, mildly distended, improving, nonperitoneal Extremities: Moves all, normal inspection Psych: normal affect, normal mood, normal judgment Objective Data Vital Signs Vital Signs: Vital Signs - 24 hr 04/07/25 14:43 04/08/25 00:00 04/08/25 06:01 Temperature 97.4 F L 98.1 F 98.3 F Pulse Rate 70 69 74 Respiratory Rate 18 18 18 Blood Pressure 144/74 H 165/77 H 149/76 H Pulse Oximetry 96 96 98 Oxygen Delivery 04/08/25 07:33 04/08/25 08:00 04/08/25 08:32 Temperature 98.5 F Pulse Rate 75 74 Respiratory Rate 12 Blood Pressure 127/72 Pulse Oximetry 95 100 Oxygen Delivery Room Air Intake/Output Intake/Output: Intake & Output 04/05/25 04/06/25 04/07/25 04/08/25 23:59 23:59 23:59 23:59 Intake Total 841.7 1000 Output Total 1100 1380 Balance -258.3 -380 Meds/Results Medications: Active Medications Generic Name Dose Route Start Last Admin Trade Name Freq PRN Reason Stop Dose Admin Acetaminophen 650 mg 04/07/25 11:21 Acetaminophen 325 Mg Tablet PO Q4H PRN Mild Pain (1-3) or Fever Albuterol 1 puff 04/07/25 11:19 Albuterol Sulfate (*Sp) Aerosol 1 Puff INHALATION Q4HRT PRN Shortness Of Breath Or Wheezing Aspirin 81 mg 04/07/25 11:20 04/08/25 08:45 Aspirin 81 Mg Chewable Tablet PO Not Given DAILY@0800 CHIRAG Dextrose 12.5 gm 04/07/25 10:58 Dextrose 50% 25 Gm/50 Ml Syringe IV PUSH PRN PRN Hypoglycemia Protocol Glucagon 1 mg 04/07/25 10:58 Glucagon For Inj 1 Mg Vial IM PRN PRN Hypoglycemia Protocol Glucose 15 gm 04/07/25 10:58 Glucose Oral Gel 15 Gm Of Glucse In 37.5 Gm Tube PO PRN PRN Hypoglycemia Protocol Dextrose 1,000 mls @ 100 mls/hr 04/07/25 10:58 Dextrose 5% 1,000 Ml IVPB PRN PRN Hypoglycemia Protocol Potassium Chloride/Dextrose/Sod Cl 1,000 mls @ 100 mls/hr 04/07/25 12:45 04/08/25 08:33 Kcl 20 Meq/D5/0.45% Sod Chl IV CONT 100 mls/hr .Q10H CHIRAG Administration Insulin Aspart 2 - 5 units 04/07/25 12:00 04/08/25 12:33 Insulin Aspart (*Bkc) 100 Units/Ml SUB-Q 2 units Q6HR CHIRAG Administration Protocol Insulin Glargine 8 units 04/07/25 11:00 04/08/25 12:35 Insulin Glargine (*Bkc) 100 Units/Ml SUB-Q 8 units Q12H CHIRAG Administration Loratadine 10 mg 04/07/25 11:19 Loratadine 10 Mg Tablet PO 05/09/25 08:59 DAILY PRN sinus congestion or itching Metoprolol Tartrate 12.5 mg 04/07/25 21:00 04/08/25 08:32 Metoprolol Tartrate 12.5 Mg Tablet PO 12.5 mg Q12HR CHIRAG Administration Morphine Sulfate 2 mg 04/07/25 08:03 04/08/25 04:52 Morphine Sulfate (*Crx) 4 Mg/Ml Inj IV PUSH 2 mg Q2H PRN Administration Pain Rated 7-10 Ondansetron HCl 4 mg 04/07/25 08:03 Ondansetron Inj 4 Mg/2 Ml Vial IV PUSH Q4H PRN Nausea Radiology Results: ITS Impressions Abdomen/Pelvis CT 04/07/25 07:21 IMPRESSION: 1. Small bowel obstruction. 2. No other acute abnormality identified. Abdomen X-Ray 04/08/25 11:40 IMPRESSION: 1. Small bowel loops no longer distended with gas. Labs Labs: Laboratory Results - last 24 hr 04/07/25 04/07/25 04/08/25 16:55 23:21 04:21 WBC 6.1 RBC 6.30 H Hgb 17.4 Hct 55.3 H MCV 87.8 MCH 27.6 MCHC 31.5 L RDW 14.6 H Plt Count 163 MPV 9.4 Immature Gran % (Auto) 0.3 Neut % (Auto) 64.7 Lymph % (Auto) 20.8 [place] % (Auto) 10.5 H Eos % (Auto) 2.9 Baso % (Auto) 0.8 Lymph # (Auto) 1.27 [place] # (Auto) 0.6 Eos # (Auto) 0.2 Baso # (Auto) 0.1 Abs Immat Gran (auto) 0.02 Absolute Neuts (auto) 4.0 Absolute Nucleated RBC 0.000 Nucleated RBC % 0.0 Sodium 139 Potassium 4.3 Chloride 102 Carbon Dioxide 28 Anion Gap 9 BUN 25 H Creatinine 1.44 H Estim Creat Clear Calc 42 Estimated GFR 49 L Glucose 211 H POC Capillary Glucose 204 H 188 H Calcium 9.0 04/08/25 04/08/25 05:24 11:40 WBC RBC Hgb Hct MCV MCH MCHC RDW Plt Count MPV Immature Gran % (Auto) Neut % (Auto) Lymph % (Auto) [place] % (Auto) Eos % (Auto) Baso % (Auto) Lymph # (Auto) [place] # (Auto) Eos # (Auto) Baso # (Auto) Abs Immat Gran (auto) Absolute Neuts (auto) Absolute Nucleated RBC Nucleated RBC % Sodium Potassium Chloride Carbon Dioxide Anion Gap BUN Creatinine Estim Creat Clear Calc Estimated GFR Glucose POC Capillary Glucose 199 H 209 H Calcium
--- NOTE | 2025-04-08 13:34 | PM.IMPN ---
Progress Note: A&P Assessment and Plan (1) Hypertension: Code(s): I10 - Essential (primary) hypertension Status: Acute (2) Type 2 diabetes mellitus: Code(s): E11.9 - Type 2 diabetes mellitus without complications Status: Acute (3) SBO (small bowel obstruction): Code(s): K56.609 - Unspecified intestinal obstruction, unspecified as to partial versus complete obstruction Status: Acute (4) History of coronary artery disease: Code(s): Z86.79 - Personal history of other diseases of the circulatory system Status: Acute (5) Polycythemia: Code(s): D75.1 - Secondary polycythemia Status: Acute (6) Chronic kidney disease, stage 3b: Code(s): N18.32 - Chronic kidney disease, stage 3b Status: Acute Plan 70-year-old male with history of CAD, GERD, hyperlipidemia, hypertension, diabetes, renal cancer status post nephrectomy, CKD, who presents to the ED for lower abdominal pain. 04/07 CT abd/pelvis showed a small bowel obstruction. SBO SBO noted on CT Surgery consulted, appreciate recommendations --NG tube placed to LIS CKD Baseline creatinine 1.6-2.1 hx RCC s/p right nephrectomy Follows with Dr. Azul outpatient Creatinine 1.7 on admission, improved to 1.4 --Follow BMP --Avoid nephrotoxins Acute pain Morphine prn Nausea/vomiting Zofran prn Treatment of SBO as noted On fluids Diabetes Home meds: Jardiance 25mg daily, Lantus 16 units daily, Lispro 16 units TID with meals --Lantus 8<10 units BID, hold if blood sugars <110 --Started D5 06/15 with 20kcl 04/07 --SSI --Resume mealtime insulin when eating CAD Home meds: Plavix, aspirin, HLD, Metoprolol 25mg ER daily Hx stent in 2001, angioplasty in 2004 at [place]. Follows with Dr. Keith outpatient hx [place], prior left heart cath Changed metoprolol to 12.5 mg IR BID Secondary polycythemia Home meds:Plavix & aspirin Likely second to mild COPD --Hold plavix pending surgery plans --Continue ASA daily, patient refused dose today COPD Former smoker Fomer smoker, quit in 2019 Albuterol prn DVT prophylaxis: Heparin subq, SCD's Diet: NPO Time Spent With Patient Time: 57 minutes Subjective Date/time seen: 04/08/25 09:15 Interval history: Stomach cramping stopped around 2am Passing gas since about 4am Overall feeling better, no nausea or vomiting. Creatinine improved. Potassium 4.3 Blood sugar above goal, increasing lantus Review of Systems Review of Systems: 12 point review of symptoms reviewed and negative except as noted in the HPI Exam Narrative: General - Awake and alert. No acute distress Eyes - PERRLA, EOM intact ENT - No thrush, No erythema. NG tube LIS Neck - No noticeable or palpable swelling Lymph Nodes - No lymphadenopathy Cardiovascular - RRR no m/r/g, no JVD Lungs: Clear to auscultation, No wheezing, use of accessory muscles, no crackles Skin - Skin warm and dry, no wounds or rashes Abdomen - Normal bowel sounds, abdomen soft and nontender. Extremities - No edema, cyanosis or clubbing Musculoskeletal - 5/5 strength, normal range of motion, no swollen or erythematous joints. Neurological ? Alert and oriented x 3, CN 2-12 grossly intact. Psych: Normal mood and affect Objective Data Vital Signs Vital Signs: Vital Signs - 24 hr 04/07/25 14:43 04/08/25 00:00 04/08/25 06:01 Temperature 97.4 F L 98.1 F 98.3 F Pulse Rate 70 69 74 Respiratory Rate 18 18 18 Blood Pressure 144/74 H 165/77 H 149/76 H Pulse Oximetry 96 96 98 Oxygen Delivery 04/08/25 07:33 04/08/25 08:00 04/08/25 08:32 Temperature 98.5 F Pulse Rate 75 74 Respiratory Rate 12 Blood Pressure 127/72 Pulse Oximetry 95 100 Oxygen Delivery Room Air Intake/Output Intake/Output: Intake & Output 04/05/25 04/06/25 04/07/25 04/08/25 23:59 23:59 23:59 23:59 Intake Total 841.7 1000 Output Total 1100 1380 Balance -258.3 -380 Meds/Results Medications: Active Medications Generic Name Dose Route Start Last Admin Trade Name Freq PRN Reason Stop Dose Admin Acetaminophen 650 mg 04/07/25 11:21 Acetaminophen 325 Mg Tablet PO Q4H PRN Mild Pain (1-3) or Fever Albuterol 1 puff 04/07/25 11:19 Albuterol Sulfate (*Sp) Aerosol 1 Puff INHALATION Q4HRT PRN Shortness Of Breath Or Wheezing Aspirin 81 mg 04/07/25 11:20 04/08/25 08:45 Aspirin 81 Mg Chewable Tablet PO Not Given DAILY@0800 [facility] Dextrose 12.5 gm 04/07/25 10:58 Dextrose 50% 25 Gm/50 Ml Syringe IV PUSH PRN PRN Hypoglycemia Protocol Glucagon 1 mg 04/07/25 10:58 Glucagon For Inj 1 Mg Vial IM PRN PRN Hypoglycemia Protocol Glucose 15 gm 04/07/25 10:58 Glucose Oral Gel 15 Gm Of Glucse In 37.5 Gm Tube PO PRN PRN Hypoglycemia Protocol Dextrose 1,000 mls @ 100 mls/hr 04/07/25 10:58 Dextrose 5% 1,000 Ml IVPB PRN PRN Hypoglycemia Protocol Potassium Chloride/Dextrose/Sod Cl 1,000 mls @ 100 mls/hr 04/07/25 12:45 04/08/25 08:33 Kcl 20 Meq/D5/0.45% Sod Chl IV CONT 100 mls/hr .Q10H [facility] Administration Insulin Aspart 2 - 5 units 04/07/25 12:00 04/08/25 12:33 Insulin Aspart (*Bkc) 100 Units/Ml SUB-Q 2 units Q6HR [facility] Administration Protocol Insulin Glargine 8 units 04/07/25 11:00 04/08/25 12:35 Insulin Glargine (*Bkc) 100 Units/Ml SUB-Q 8 units Q12H [facility] Administration Loratadine 10 mg 04/07/25 11:19 Loratadine 10 Mg Tablet PO 05/09/25 08:59 DAILY PRN sinus congestion or itching Metoprolol Tartrate 12.5 mg 04/07/25 21:00 04/08/25 08:32 Metoprolol Tartrate 12.5 Mg Tablet PO 12.5 mg Q12HR [facility] Administration Morphine Sulfate 2 mg 04/07/25 08:03 04/08/25 04:52 Morphine Sulfate (*Crx) 4 Mg/Ml Inj IV PUSH 2 mg Q2H PRN Administration Pain Rated 7-10 Ondansetron HCl 4 mg 04/07/25 08:03 Ondansetron Inj 4 Mg/2 Ml Vial IV PUSH Q4H PRN Nausea Radiology Results: ITS Impressions Abdomen/Pelvis CT 04/07/25 07:21 IMPRESSION: 1. Small bowel obstruction. 2. No other acute abnormality identified. Abdomen X-Ray 04/08/25 11:40 IMPRESSION: 1. Small bowel loops no longer distended with gas. Labs Labs: Laboratory Results - last 24 hr 04/07/25 04/07/25 04/08/25 16:55 23:21 04:21 WBC 6.1 RBC 6.30 H Hgb 17.4 Hct 55.3 H MCV 87.8 MCH 27.6 MCHC 31.5 L RDW 14.6 H Plt Count 163 MPV 9.4 Immature Gran % (Auto) 0.3 Neut % (Auto) 64.7 Lymph % (Auto) 20.8 [place] % (Auto) 10.5 H Eos % (Auto) 2.9 Baso % (Auto) 0.8 Lymph # (Auto) 1.27 [place] # (Auto) 0.6 Eos # (Auto) 0.2 Baso # (Auto) 0.1 Abs Immat Gran (auto) 0.02 Absolute Neuts (auto) 4.0 Absolute Nucleated RBC 0.000 Nucleated RBC % 0.0 Sodium 139 Potassium 4.3 Chloride 102 Carbon Dioxide 28 Anion Gap 9 BUN 25 H Creatinine 1.44 H Estim Creat Clear Calc 42 Estimated GFR 49 L Glucose 211 H POC Capillary Glucose 204 H 188 H Calcium 9.0 04/08/25 04/08/25 05:24 11:40 WBC RBC Hgb Hct MCV MCH MCHC RDW Plt Count MPV Immature Gran % (Auto) Neut % (Auto) Lymph % (Auto) [place] % (Auto) Eos % (Auto) Baso % (Auto) Lymph # (Auto) [place] # (Auto) Eos # (Auto) Baso # (Auto) Abs Immat Gran (auto) Absolute Neuts (auto) Absolute Nucleated RBC Nucleated RBC % Sodium Potassium Chloride Carbon Dioxide Anion Gap BUN Creatinine Estim Creat Clear Calc Estimated GFR Glucose POC Capillary Glucose 199 H 209 H Calcium Quality VTE Prophylaxis VTE prophylaxis: pharmacologic ordered Hospitalist MIPS Advance Care Plan I have confirmed that the patient's Advanced Care Plan is present, code status is documented, or surrogate decision maker is listed in patient medical record.: Yes Medication Reconciliation I have utilized all available resources to obtain, update and review the patients current medications (includes all prescriptions, OTC, herbals, cannabis, and nutritional supplements).: Yes
[2025-04-08] MEDS: ONDANSETRON INJ 4 MG/2 ML VIAL IV PUSH (16:46)
[2025-04-08] MEDS: INSULIN GLARGINE (*BKC) 100 UNITS/ML 10 UNITS SUB-Q (21:10)
[2025-04-09] VITALS: BP 146/82; PULSE 92; RESP 18; TEMP 36.4; O2SAT 98
[2025-04-09] MEDS: INSULIN ASPART (*BKC) 100 UNITS/ML SUB-Q ×2 (00:14→10:04)
[2025-04-09 04:42] LABS: Hematocrit 53.9 % (42.0-52.0); Hemoglobin 16.4 g/dL (14.0-18.0); Immature Granulocyte Percent A 0.3 % (0-0.5); Lymphocytes Absolute Auto 1.72 K/mm3 (0.9-3.2); Mean Corpuscular HGB Conc 30.4 g/dl (32-36); Mean Corpuscular Hemoglobin 26.8 pg (26-34); Mean Corpuscular Volume 88.2 fl (80-100); Nucleated Red Blood Cells Absolute Auto 0.000 K/mm3 (0.0-0.012); Nucleated Red Blood Cells Perc 0.0 % (0.0-0.2); Platelet Count Result 161 k/mm3 (150-375); Red Blood Count 6.11 M/mm3 (4.6-6.20); White Blood Count 6.3 K/mm3 (4.5-10.0)
[2025-04-09 05:04] LABS: Anion Gap 10 mmol/L (4-12); Blood Urea Nitrogen 25 mg/dL (9-20); Calcium 9.1 mg/dL (8.4-10.2); Carbon Dioxide 28 mmol/L (22-30); Chloride 102 mmol/L (98-107); Estimated CRCL calculation 45 ml/min; Estimated Glomerular Filt Rate 52; Glucose 165 mg/dL (65-110); Sodium 140 mmol/L (137-145)
[2025-04-09 05:18] LABS: Potassium 4.3 mmol/L (3.4-5.0)
--- NOTE | 2025-04-09 06:57 | P.PNIM_ITS ---
Progress Note: A&P Assessment and Plan (1) Hypertension: Code(s): I10 - Essential (primary) hypertension Status: Acute (2) Type 2 diabetes mellitus: Code(s): E11.9 - Type 2 diabetes mellitus without complications Status: Acute (3) SBO (small bowel obstruction): Code(s): K56.609 - Unspecified intestinal obstruction, unspecified as to partial versus complete obstruction Status: Acute (4) History of coronary artery disease: Code(s): Z86.79 - Personal history of other diseases of the circulatory system Status: Acute (5) Polycythemia: Code(s): D75.1 - Secondary polycythemia Status: Acute (6) Chronic kidney disease, stage 3b: Code(s): N18.32 - Chronic kidney disease, stage 3b Status: Acute Plan SBO SBO noted on CT Surgery consulted, appreciate recommendations --NG tube placed to LIS CKD Baseline creatinine 1.6-2.1 hx RCC s/p right nephrectomy Follows with Dr. Azul outpatient Creatinine 1.7 on admission, improved to 1.4 --Follow BMP --Avoid nephrotoxins Acute pain Morphine prn Nausea/vomiting Zofran prn Treatment of SBO as noted On fluids Diabetes Home meds: Jardiance 25mg daily, Lantus 16 units daily, Lispro 16 units TID with meals --Lantus 8<10 units BID, hold if blood sugars <110 --Started D5 06/15 with 20kcl 04/07 --SSI --Resume mealtime insulin when eating CAD Home meds: Plavix, aspirin, HLD, Metoprolol 25mg ER daily Hx stent in 2001, angioplasty in 2004 at [place]. Follows with Dr. Keith outpatient hx [place], prior left heart cath Changed metoprolol to 12.5 mg IR BID Secondary polycythemia Home meds:Plavix & aspirin Likely second to mild COPD --Hold plavix pending surgery plans --Continue ASA daily, patient refused dose today COPD Former smoker Fomer smoker, quit in 2019 Albuterol prn DVT prophylaxis: Heparin subq, SCD's Diet: NPO Subjective Date/time seen: 04/09/25 06:57 Interval history: 70-year-old male with history of CAD, GERD, hyperlipidemia, hypertension, diabetes, renal cancer status post nephrectomy, CKD, who presents to the ED for lower abdominal pain. 04/07 CT abd/pelvis showed a small bowel obstruction. 04/09/2025 Review of Systems Review of Systems: 12 point review of symptoms reviewed and negative except as noted in the HPI Exam Narrative: General - Awake and alert. No acute distress Eyes - PERRLA, EOM intact ENT - No thrush, No erythema. NG tube LIS Neck - No noticeable or palpable swelling Lymph Nodes - No lymphadenopathy Cardiovascular - RRR no m/r/g, no JVD Lungs: Clear to auscultation, No wheezing, use of accessory muscles, no crackles Skin - Skin warm and dry, no wounds or rashes Abdomen - Normal bowel sounds, abdomen soft and nontender. Extremities - No edema, cyanosis or clubbing Musculoskeletal - 5/5 strength, normal range of motion, no swollen or erythematous joints. Neurological ? Alert and oriented x 3, CN 2-12 grossly intact. Psych: Normal mood and affect Objective Data Vital Signs Vital Signs: Vital Signs - 24 hr 04/08/25 07:33 04/08/25 08:00 04/08/25 08:00 Temperature 98.5 F Pulse Rate 75 Respiratory Rate 12 Blood Pressure 127/72 Pulse Oximetry 95 100 Oxygen Delivery Room Air Room Air 04/08/25 08:32 04/09/25 00:00 Temperature 97.6 F Pulse Rate 74 92 Respiratory Rate 18 Blood Pressure 146/82 H Pulse Oximetry 98 Oxygen Delivery Intake/Output Intake/Output: Intake & Output 04/06/25 04/07/25 04/08/25 04/09/25 23:59 23:59 23:59 23:59 Intake Total 841.7 2000 Output Total 1100 1380 Balance -258.3 620 Meds/Results Medications: Active Medications Generic Name Dose Route Start Last Admin Trade Name Freq PRN Reason Stop Dose Admin Acetaminophen 650 mg 04/07/25 11:21 Acetaminophen 325 Mg Tablet PO Q4H PRN Mild Pain (1-3) or Fever Albuterol 1 puff 04/07/25 11:19 Albuterol Sulfate (*Sp) Aerosol 1 Puff INHALATION Q4HRT PRN Shortness Of Breath Or Wheezing Aspirin 81 mg 04/07/25 11:20 04/08/25 08:45 Aspirin 81 Mg Chewable Tablet PO Not Given DAILY@0800 [facility] Dextrose 12.5 gm 04/07/25 10:58 Dextrose 50% 25 Gm/50 Ml Syringe IV PUSH PRN PRN Hypoglycemia Protocol Glucagon 1 mg 04/07/25 10:58 Glucagon For Inj 1 Mg Vial IM PRN PRN Hypoglycemia Protocol Glucose 15 gm 04/07/25 10:58 Glucose Oral Gel 15 Gm Of Glucse In 37.5 Gm Tube PO PRN PRN Hypoglycemia Protocol Dextrose 1,000 mls @ 100 mls/hr 04/07/25 10:58 Dextrose 5% 1,000 Ml IVPB PRN PRN Hypoglycemia Protocol Insulin Aspart 2 - 5 units 04/09/25 06:30 Insulin Aspart (*Bkc) 100 Units/Ml SUB-Q ACHS [facility] Protocol Insulin Glargine 10 units 04/08/25 21:00 04/08/25 21:10 Insulin Glargine (*Bkc) 100 Units/Ml SUB-Q 10 units Q12H [facility] Administration Loratadine 10 mg 04/07/25 11:19 Loratadine 10 Mg Tablet PO 05/09/25 08:59 DAILY PRN sinus congestion or itching Metoprolol Tartrate 12.5 mg 04/07/25 21:00 04/08/25 21:12 Metoprolol Tartrate 12.5 Mg Tablet PO 12.5 mg Q12HR [facility] Administration Morphine Sulfate 2 mg 04/07/25 08:03 04/08/25 04:52 Morphine Sulfate (*Crx) 4 Mg/Ml Inj IV PUSH 2 mg Q2H PRN Administration Pain Rated 7-10 Ondansetron HCl 4 mg 04/07/25 08:03 04/08/25 16:46 Ondansetron Inj 4 Mg/2 Ml Vial IV PUSH 4 mg Q4H PRN Administration Nausea Radiology Results: ITS Impressions Abdomen/Pelvis CT 04/07/25 07:21 IMPRESSION: 1. Small bowel obstruction. 2. No other acute abnormality identified. Abdomen X-Ray 04/08/25 11:40 IMPRESSION: 1. Small bowel loops no longer distended with gas. Upper GI and Small Bowel X-Ray 04/08/25 16:26 IMPRESSION: Findings may be consistent with partial or resolving small bowel obstruction. Labs Labs: Laboratory Results - last 24 hr 04/08/25 04/08/25 04/09/25 11:40 20:03 00:01 WBC RBC Hgb Hct MCV MCH MCHC RDW Plt Count MPV Immature Gran % (Auto) Neut % (Auto) Lymph % (Auto) [place] % (Auto) Eos % (Auto) Baso % (Auto) Lymph # (Auto) [place] # (Auto) Eos # (Auto) Baso # (Auto) Abs Immat Gran (auto) Absolute Neuts (auto) Absolute Nucleated RBC Nucleated RBC % Sodium Potassium Chloride Carbon Dioxide Anion Gap BUN Creatinine Estim Creat Clear Calc Estimated GFR Glucose POC Capillary Glucose 209 H 222 H 283 H Calcium 04/09/25 04:07 WBC 6.3 RBC 6.11 Hgb 16.4 Hct 53.9 H MCV 88.2 MCH 26.8 MCHC 30.4 L RDW 14.5 Plt Count 161 MPV 9.5 Immature Gran % (Auto) 0.3 Neut % (Auto) 55.2 Lymph % (Auto) 27.5 [place] % (Auto) 14.2 H Eos % (Auto) 2.2 Baso % (Auto) 0.6 Lymph # (Auto) 1.72 [place] # (Auto) 0.9 H Eos # (Auto) 0.1 Baso # (Auto) 0.0 Abs Immat Gran (auto) 0.02 Absolute Neuts (auto) 3.5 Absolute Nucleated RBC 0.000 Nucleated RBC % 0.0 Sodium 140 Potassium 4.3 Chloride 102 Carbon Dioxide 28 Anion Gap 10 BUN 25 H Creatinine 1.35 H Estim Creat Clear Calc 45 Estimated GFR 52 L Glucose 165 H POC Capillary Glucose Calcium 9.1 Quality VTE Prophylaxis VTE prophylaxis: pharmacologic ordered
--- NOTE | 2025-04-09 07:23 | PM.PNGS ---
Progress Note: A&P Assessment and Plan (1) SBO (small bowel obstruction): Code(s): K56.609 - Unspecified intestinal obstruction, unspecified as to partial versus complete obstruction Status: Acute Assessment and Plan: -SBFT yesterday with normal transit time to colon. Having BMs. Tolerated CLD. - Admitted to hospitalist - CO IVF - Advance diet to soft regular diet - Monitor continued bowel function - No acute surgical intervention - Remainder of cares per primary team - Possibly discharge home later today if patient tolerates regular diet - Surgery will follow A&P discussed with Dr. Lam Subjective Subjective Date/Time Seen: 04/09/25 07:23 Interval history: NAEON. SBFT with normal transit time to colon. Having liquid BMs. NGT removed, started on CLD, tolerating without increasing pain, nausea, vomiting, or bloating. Abdomen soft and nontender. Distention improved Review of Systems Review of Systems: 12 point review of symptoms reviewed and negative except as noted in the HPI Exam Narrative: General: Awake, alert, no acute distress HEENT: NC/AT, mucous membranes pink and moist Neck: No masses or swelling, JVD Heart: Regular rate, intermittently hypertensive, otherwise HDS Lungs: Symmetric expansion, no IWOB, on RA Abdomen: soft, NTTP, mildly distended, improving, nonperitoneal Extremities: Moves all, normal inspection Psych: normal affect, normal mood, normal judgment Objective Data Vital Signs Vital Signs: Vital Signs - 24 hr 04/08/25 07:33 04/08/25 08:00 04/08/25 08:00 Temperature 98.5 F Pulse Rate 75 Respiratory Rate 12 Blood Pressure 127/72 Pulse Oximetry 95 100 Oxygen Delivery Room Air Room Air 04/08/25 08:32 04/09/25 00:00 Temperature 97.6 F Pulse Rate 74 92 Respiratory Rate 18 Blood Pressure 146/82 H Pulse Oximetry 98 Oxygen Delivery Intake/Output Intake/Output: Intake & Output 04/06/25 04/07/25 04/08/25 04/09/25 23:59 23:59 23:59 23:59 Intake Total 841.7 2000 Output Total 1100 1380 Balance -258.3 620 Meds/Results Medications: Active Medications Generic Name Dose Route Start Last Admin Trade Name Freq PRN Reason Stop Dose Admin Acetaminophen 650 mg 04/07/25 11:21 Acetaminophen 325 Mg Tablet PO Q4H PRN Mild Pain (1-3) or Fever Albuterol 1 puff 04/07/25 11:19 Albuterol Sulfate (*Sp) Aerosol 1 Puff INHALATION Q4HRT PRN Shortness Of Breath Or Wheezing Aspirin 81 mg 04/07/25 11:20 04/08/25 08:45 Aspirin 81 Mg Chewable Tablet PO Not Given DAILY@0800 [facility] Dextrose 12.5 gm 04/07/25 10:58 Dextrose 50% 25 Gm/50 Ml Syringe IV PUSH PRN PRN Hypoglycemia Protocol Glucagon 1 mg 04/07/25 10:58 Glucagon For Inj 1 Mg Vial IM PRN PRN Hypoglycemia Protocol Glucose 15 gm 04/07/25 10:58 Glucose Oral Gel 15 Gm Of Glucse In 37.5 Gm Tube PO PRN PRN Hypoglycemia Protocol Dextrose 1,000 mls @ 100 mls/hr 04/07/25 10:58 Dextrose 5% 1,000 Ml IVPB PRN PRN Hypoglycemia Protocol Insulin Aspart 2 - 5 units 04/09/25 06:30 Insulin Aspart (*Bkc) 100 Units/Ml SUB-Q ACHS [facility] Protocol Insulin Glargine 10 units 04/08/25 21:00 04/08/25 21:10 Insulin Glargine (*Bkc) 100 Units/Ml SUB-Q 10 units Q12H [facility] Administration Loratadine 10 mg 04/07/25 11:19 Loratadine 10 Mg Tablet PO 05/09/25 08:59 DAILY PRN sinus congestion or itching Metoprolol Tartrate 12.5 mg 04/07/25 21:00 04/08/25 21:12 Metoprolol Tartrate 12.5 Mg Tablet PO 12.5 mg Q12HR [facility] Administration Morphine Sulfate 2 mg 04/07/25 08:03 04/08/25 04:52 Morphine Sulfate (*Crx) 4 Mg/Ml Inj IV PUSH 2 mg Q2H PRN Administration Pain Rated 7-10 Ondansetron HCl 4 mg 04/07/25 08:03 04/08/25 16:46 Ondansetron Inj 4 Mg/2 Ml Vial IV PUSH 4 mg Q4H PRN Administration Nausea Radiology Results: ITS Impressions Abdomen/Pelvis CT 04/07/25 07:21 IMPRESSION: 1. Small bowel obstruction. 2. No other acute abnormality identified. Abdomen X-Ray 04/08/25 11:40 IMPRESSION: 1. Small bowel loops no longer distended with gas. Upper GI and Small Bowel X-Ray 04/08/25 16:26 IMPRESSION: Findings may be consistent with partial or resolving small bowel obstruction. Labs Labs: Laboratory Results - last 24 hr 04/08/25 04/08/25 04/09/25 11:40 20:03 00:01 WBC RBC Hgb Hct MCV MCH MCHC RDW Plt Count MPV Immature Gran % (Auto) Neut % (Auto) Lymph % (Auto) [place] % (Auto) Eos % (Auto) Baso % (Auto) Lymph # (Auto) [place] # (Auto) Eos # (Auto) Baso # (Auto) Abs Immat Gran (auto) Absolute Neuts (auto) Absolute Nucleated RBC Nucleated RBC % Sodium Potassium Chloride Carbon Dioxide Anion Gap BUN Creatinine Estim Creat Clear Calc Estimated GFR Glucose POC Capillary Glucose 209 H 222 H 283 H Calcium 04/09/25 04:07 WBC 6.3 RBC 6.11 Hgb 16.4 Hct 53.9 H MCV 88.2 MCH 26.8 MCHC 30.4 L RDW 14.5 Plt Count 161 MPV 9.5 Immature Gran % (Auto) 0.3 Neut % (Auto) 55.2 Lymph % (Auto) 27.5 [place] % (Auto) 14.2 H Eos % (Auto) 2.2 Baso % (Auto) 0.6 Lymph # (Auto) 1.72 [place] # (Auto) 0.9 H Eos # (Auto) 0.1 Baso # (Auto) 0.0 Abs Immat Gran (auto) 0.02 Absolute Neuts (auto) 3.5 Absolute Nucleated RBC 0.000 Nucleated RBC % 0.0 Sodium 140 Potassium 4.3 Chloride 102 Carbon Dioxide 28 Anion Gap 10 BUN 25 H Creatinine 1.35 H Estim Creat Clear Calc 45 Estimated GFR 52 L Glucose 165 H POC Capillary Glucose Calcium 9.1
[2025-04-09] MEDS: METOPROLOL TARTRATE 12.5 MG TABLET PO (08:16)
[2025-04-09 09:11] VITALS: BP 146/70; PULSE 80; RESP 18; TEMP 35.8; O2SAT 94
[2025-04-09] MEDS: INSULIN GLARGINE (*BKC) 100 UNITS/ML 10 UNITS SUB-Q (10:04)
--- NOTE | 2025-04-09 13:06 | PM.DS ---
DS: Admitting Diagnosis Discharge Date 04/09/2025 Admitting Diagnosis Small-bowel obstruction DS: Discharge Diagnosis Discharge Diagnosis (1) Hypertension: Code(s): I10 - Essential (primary) hypertension Status: Acute (2) Type 2 diabetes mellitus: Code(s): E11.9 - Type 2 diabetes mellitus without complications Status: Acute (3) SBO (small bowel obstruction): Code(s): K56.609 - Unspecified intestinal obstruction, unspecified as to partial versus complete obstruction Status: Acute (4) History of coronary artery disease: Code(s): Z86.79 - Personal history of other diseases of the circulatory system Status: Acute (5) Polycythemia: Code(s): D75.1 - Secondary polycythemia Status: Acute (6) Chronic kidney disease, stage 3b: Code(s): N18.32 - Chronic kidney disease, stage 3b Status: Acute Plan SBO SBO noted on CT Surgery consulted, appreciate recommendations --NG tube placed to LIS CKD Baseline creatinine 1.6-2.1 hx RCC s/p right nephrectomy Follows with Dr. Azul outpatient Creatinine 1.7 on admission, improved to 1.4 --Follow BMP --Avoid nephrotoxins Acute pain Morphine prn Nausea/vomiting Zofran prn Treatment of SBO as noted On fluids Diabetes Home meds: Jardiance 25mg daily, Lantus 16 units daily, Lispro 16 units TID with meals --Lantus 8<10 units BID, hold if blood sugars <110 --Started D5 06/15 with 20kcl 04/07 --SSI --Resume mealtime insulin when eating CAD Home meds: Plavix, aspirin, HLD, Metoprolol 25mg ER daily Hx stent in 2001, angioplasty in 2004 at [place]. Follows with Dr. Keith outpatient hx [place], prior left heart cath Changed metoprolol to 12.5 mg IR BID Secondary polycythemia Home meds:Plavix & aspirin Likely second to mild COPD --Hold plavix pending surgery plans --Continue ASA daily, patient refused dose today COPD Former smoker Fomer smoker, quit in 2019 Albuterol prn DVT prophylaxis: Heparin subq, SCD's Diet: NPO DS: Summary Hospital Course Reason for hospitalization: Abdominal pain, vomiting Hospital Course: Per HPI: 70-year-old male with history of CAD, GERD, hyperlipidemia, hypertension, diabetes, renal cancer status post nephrectomy, CKD, who presents to the ED for lower abdominal pain. He reports feeling well recently. Had a BM yesterday. Noticed mild abdominal cramping yesterday afternoon. Subsequently cramps worsened and he presented to the ED. Had 1 episode of emesis this morning In the ED, he was afebrile. HR 58-99, BP 116/70-172/85, 99% RA. WBC 7.5, H&H 18/56, BUN 30, Creatinine1.7, Blood sugars elevated, 118-228. 04/07 CT abd/pelvis showed a small bowel obstruction. No fevers, weight loss, or recent bowel changes. Last colonoscopy was 15 years ago and reportedly normal. Also had a negative Cologuard this year. Not nauseated currently. Pain significantly improved with morphine. Hospital course: General surgery was consulted regarding small-bowel obstruction. Agrees with no emergent surgical intervention at this time. NG tube was placed to LIWS. On 04/08, small-bowel follow-through series was ordered, NG tube was clamped prior. Upper GI series and SP follow-through showed findings consistent with partial or resolving small bowel obstruction. NG tube was removed and clear liquid diet was started per General surgery. They recommended that the patient was able to tolerate full regular diet on 04/09 for lunch time that the patient would be stable for discharge. A full diet was ordered and patient tolerated without any complications. He has continued to pass flatus and bowel movements without any complications. No tenderness to palpation of abdomen on exam. Vital signs and blood work remained stable and unchanged. Plan for discharge at this time with appropriate follow-up in the outpatient setting with his PCP. Status at Discharge Functional status at discharge: independent ambulation Overall status at discharge: patient is back to baseline Time Spent with Patient Time attestation: Total time spent providing and/or coordinating discharge services: 27 Exam Narrative: General - Awake and alert. No acute distress Eyes - PERRLA, EOM intact ENT - No thrush, No erythema. NG tube LIS Neck - No noticeable or palpable swelling Lymph Nodes - No lymphadenopathy Cardiovascular - RRR no m/r/g, no JVD Lungs: Clear to auscultation, No wheezing, use of accessory muscles, no crackles Skin - Skin warm and dry, no wounds or rashes Abdomen - Normal bowel sounds, abdomen soft and nontender. Extremities - No edema, cyanosis or clubbing Musculoskeletal - 5/5 strength, normal range of motion, no swollen or erythematous joints. Neurological ? Alert and oriented x 3, CN 2-12 grossly intact. Psych: Normal mood and affect DS: Data Data Completed and Pending Labs on day of discharge: Labs from last 24 hours 04/09/25 04/09/25 04/09/25 11:41 09:05 04:07 WBC 6.3 RBC 6.11 Hgb 16.4 Hct 53.9 H MCV 88.2 MCH 26.8 MCHC 30.4 L RDW 14.5 Plt Count 161 MPV 9.5 Immature Gran % (Auto) 0.3 Neut % (Auto) 55.2 Lymph % (Auto) 27.5 [place] % (Auto) 14.2 H Eos % (Auto) 2.2 Baso % (Auto) 0.6 Lymph # (Auto) 1.72 [place] # (Auto) 0.9 H Eos # (Auto) 0.1 Baso # (Auto) 0.0 Abs Immat Gran (auto) 0.02 Absolute Neuts (auto) 3.5 Absolute Nucleated RBC 0.000 Nucleated RBC % 0.0 Sodium 140 Potassium 4.3 Chloride 102 Carbon Dioxide 28 Anion Gap 10 BUN 25 H Creatinine 1.35 H Estim Creat Clear Calc 45 Estimated GFR 52 L Glucose 165 H POC Capillary Glucose 202 H 356 H Calcium 9.1 04/09/25 04/08/25 00:01 20:03 WBC RBC Hgb Hct MCV MCH MCHC RDW Plt Count MPV Immature Gran % (Auto) Neut % (Auto) Lymph % (Auto) [place] % (Auto) Eos % (Auto) Baso % (Auto) Lymph # (Auto) [place] # (Auto) Eos # (Auto) Baso # (Auto) Abs Immat Gran (auto) Absolute Neuts (auto) Absolute Nucleated RBC Nucleated RBC % Sodium Potassium Chloride Carbon Dioxide Anion Gap BUN Creatinine Estim Creat Clear Calc Estimated GFR Glucose POC Capillary Glucose 283 H 222 H Calcium Discharge Plan Discharge Attending physician on discharge: Gerson Carr Consulting providers: Sven Lam; Margarito Griffin Discharging Clinician: Margarito Griffin Anticipated Discharge Date/Time: 04/09/25 13:04 Patient Disposition: Home Activity: as tolerated Diet: regular Discharge Instructions: Discharge disposition: Home Take medications as prescribed Monitor blood pressures Take caution while standing, rising, or moving Change positions slowly taking a break between each position change If you standing feel dizzy sit back down and take a break Encouraged to continue with yearly vaccinations Return to the emergency department if you develop sudden shortness of breath, chest pain, nausea, vomiting, upset stomach or intractable diarrhea Return to the emergency department if you develop fever greater than 101.5 Follow-up with the primary care physician within 1-2 weeks. Thank you for [facility] for your healthcare needs Patient Instructions: Antibiotic Form, Clopidogrel (By mouth) Patient Language: Sinhala Stand Alone Forms: General Discharge Information Follow-up/Referrals: Tim Desai MD [Primary Care Provider, Family Practice] Discharge Medications: Continued clopidogrel [Plavix] 75 mg tablet 75 mg PO DAILY aspirin 81 mg tablet,chewable 81 mg PO DAILY clobetasol 0.05 % foam 1 applic topical DAILY PRN (Reason: rash) triamcinolone acetonide 0.025 % cream 1 applic topical DAILY PRN (Reason: rash) (DME) Luminescent Jeannette 3 Sensor Device See Rx Instructions .ROUTE .MEDSUPPLY Qty: 6 4RF Rx Instructions: Use to Monitor glucose glucose [Dex4 Glucose] 4 gram tablet,chewable 16 g PO Q15M PRN (Reason: hypoglycemia) Qty: 60 1RF Rx Instructions: until symptoms of low blood sugar are controlled Baqsimi 3 mg/actuation spray,non-aerosol 3 mg intranasal ONCE PRN (Reason: hypoglycemia) Qty: 1 1RF Rx Instructions: as a single dose metoprolol succinate 25 mg tablet extended release 24 hr 25 mg PO DAILY Qty: 90 3RF albuterol sulfate [Ventolin HFA] 90 mcg/actuation HFA aerosol inhaler 1 inh inhalation Q4H PRN (Reason: shortness of breath or wheezing) Qty: 8.5 1RF Airborne (lysine HCl) 1,000-50 mg tablet, effervescent 1 ea PO DAILY Patient Comments: 500mg fenofibrate 54 mg tablet 54 mg PO DAILY 90 Days Qty: 90 2RF insulin glargine [Lantus Solostar U-100 Insulin] 100 unit/mL (3 mL) insulin pen 18 unit subcut QAM 90 Days Qty: 18 1RF Jardiance 25 mg tablet 25 mg PO DAILY 90 Days Qty: 90 2RF montelukast [Singulair] 10 mg tablet 10 mg PO DAILY Qty: 90 1RF insulin lispro [Humalog KwikPen Insulin] 100 unit/mL insulin pen See Rx Instructions subcut USEASDIRECTD MDD 80 90 Days Qty: 72 2RF Rx Instructions: Humalog 16 units before breakfast, 16 units before lunch, 16 units before dinner if skipping meal- skip the dose Add Humalog before meals for high sugar Add Humalog before meals for high sugar For blood sugars 150-185- take additional 1 unit 186- 220- take additional 2 units 221 - 255- take additional 3 units 256- 290- take additional 4 units 291 - 325- take additional 5 units 326- 360- take additional 6 units [id number] additional 7 units [id number] additional 8 units more than 431-take additional 9 units pravastatin 80 mg tablet 80 mg PO DAILY Qty: 90 1RF (DME) pen needle, diabetic [Katarzyna Pen Needle] 32 gauge x 5/32 needle See Rx Instructions .Route Qty: 400 0RF Rx Instructions: check 4 times daily metformin 500 mg tablet 500 mg PO DAILY 90 Days Qty: 90 1RF cetirizine [Zyrtec] 10 mg tablet 10 mg PO DAILY Qty: 90 1RF Discontinued (DME) pen needle, diabetic [BD Ultra-Fine Katarzyna Pen Needle] 32 gauge x 5/32 needle See Rx Instructions .ROUTE .MEDSUPPLY Qty: 400 1RF Rx Instructions: use four times daily Date of admission: 04/07/25 08:04 Primary Care Provider: Tim Desai Admitting Provider: Jon Haro Attending physician on admission: Jon Haro Condition: Stable Quality VTE Prophylaxis VTE prophylaxis: pharmacologic ordered
[2025-04-09 13:09] VITALS: TEMP 36.3
--- NOTE | 2025-04-09 13:09 | PC.NURSE ---
On 04/09/25, the student, Maria E Chan, provided care and completed [facility] documentation on this patient. I have reviewed the student's documentation and agree with the findings.
== END 2025-04-09 14:15 | disposition home or self-care (01) | DRG 390 ==
LOC: ANHED 07:49 → ANH2MED 08:28
PROVIDERS: Nurse Practitioner Acute Care; Student in an Organized Health Care Education/Training Program; Admitting Provider General Practice; Emergency Provider Emergency Medicine; PCP Family Medicine; Visit Provider Physician Assistant
DX: K56.609 Unspecified intestinal obstruction, unspecified as to partial versus complete obstruction (principal); D75.1 Secondary polycythemia; I12.9 Hypertensive chronic kidney disease with stage 1 through stage 4 chronic kidney disease, or unspecified chronic kidney disease; E11.22 Type 2 diabetes mellitus with diabetic chronic kidney disease; I25.10 Atherosclerotic heart disease of native coronary artery without angina pectoris; N18.32 Chronic kidney disease, stage 3b; K21.9 Gastro-esophageal reflux disease without esophagitis; J44.9 Chronic obstructive pulmonary disease, unspecified; E78.5 Hyperlipidemia, unspecified; Z86.79 Personal history of other diseases of the circulatory system; I25.2 Old myocardial infarction; Z95.5 Presence of coronary angioplasty implant and graft; Z87.891 Personal history of nicotine dependence; Z85.53 Personal history of malignant neoplasm of renal pelvis; Z90.5 Acquired absence of kidney; Z86.16 Personal history of COVID-19; Z87.11 Personal history of peptic ulcer disease; Z96.651 Presence of right artificial knee joint
CPT/HCPCS: 36415; 74019; 74176; 74250; 80048; 80053; 81003; 82948; 83690; 85025; 96374; 96375; 99285; A9270; J1815; J2270; J2405; J3480